=== PATIENT | male | born 1985 | race Caucasian/White ===

== ENCOUNTER 2017-01-28 11:12 | Inpatient (IN) | payer MEDICARE, OTHER ==
[~2017-01-28] VITALS: Ht 167.6 cm; Wt 113.4 kg
[~2017-01-28 11:12] MED LIST: CLARITIN10 M2 ORAL; PROSCAR5 MG ORAL; SPIRONOLACTONE100 MG ORAL; VIBRAMYCIN100 MG ORAL
--- NOTE | 2017-01-28 11:37 | Emergency Room Report ---
History of Present Illness General Chief Complaint: Skin Rash/Abscess Source: Patient, Medical Record Present Illness HPI Patient is a 31-year-old male who presented after increased discomfort to his inguinal area. Patient prior history of hidradenitis suppurativa. The patient was noted to have previous surgery on his axillary areas. Patient been seen by Dr. Menard. Patient had no recent food or water. Allergies: Coded Allergies: Pork (Unverified Allergy, Unknown, 11/18/14) PT DOES NOT EAT ANY PORK, PORK CONTAINING PRODUCTS Patient History Past Medical History: see triage record Reviewed Nursing Documentation: PMH: Agreed, PSxH: Agreed Nursing Documentation-PMH Past Medical History: No History, Except For Hx Cardiac Problems: No Hx Cancer: No Hx Gastrointestinal Problems: No Hx Neurological Problems: No Review of Systems All Other Systems: negative except mentioned in HPI Physical Exam Vital Signs Date Time Temp Pulse Resp B/P Pulse Ox O2 Delivery O2 Flow Rate FiO2 01/28/17 11:22 98.1 83 14 129/79 100 Room Air Sp02 EP Interpretation: reviewed, normal General Appearance: normal inspection, well appearing, no apparent distress, alert, GCS 15 Head: atraumatic ENT: normal ENT inspection, hearing grossly normal, normal voice Neck: normal inspection, full range of motion, supple, no bony tend Respiratory: normal inspection, lungs clear, normal breath sounds, no respiratory distress, no retraction, no wheezing Cardiovascular #1: regular rate, rhythm, no edema Gastrointestinal: normal inspection, normal bowel sounds, non tender, soft, no guarding, no hernia Genitourinary: no CVA tenderness Musculoskeletal: normal inspection, back normal, normal range of motion Neurologic: normal inspection, alert, responsive, speech normal Psychiatric: normal inspection, judgement/insight normal, mood/affect normal Skin: rash - increased erythematous lesions to back of neck, nasal rhinophyma, inguinal erythema Medical Decision Making Diagnostic Impression: Primary Impression: Hidradenitis suppurativa ER Course Patient presented for a rash. Differential diagnosis included wasn't limited to cellulitis, abscess, hidradenitis suppurativa, and others.Because of complexity of patient's case laboratory testing and imaging studies were ordered. The patient was noted to have been nothing by mouth. The patient's case was discussed with Dr. Dove for inpatient management. Patient was given IV Ancef. Laboratory studies are unremarkable. EKG was unremarkable. Labs Test 01/28/17 12:00 White Blood Count 9.0 K/UL (4.8-10.8) Red Blood Count 4.91 M/UL (4.70-6.10) Hemoglobin 12.8 G/DL (14.2-18.0) Hematocrit 39.9 % (42.0-52.0) Mean Corpuscular Volume 81 FL (80-99) Mean Corpuscular Hemoglobin 26.1 PG (27.0-31.0) Mean Corpuscular Hemoglobin Concent 32.1 G/DL (32.0-36.0) Red Cell Distribution Width 13.7 % (11.6-14.8) Platelet Count 265 K/UL (150-450) Mean Platelet Volume 8.9 FL (6.5-10.1) Neutrophils (%) (Auto) 73.0 % (45.0-75.0) Lymphocytes (%) (Auto) 18.3 % (20.0-45.0) Monocytes (%) (Auto) 7.3 % (1.0-10.0) Eosinophils (%) (Auto) 0.7 % (0.0-3.0) Basophils (%) (Auto) 0.7 % (0.0-2.0) Prothrombin Time 10.6 SEC (9.30-11.50) Prothromb Time International Ratio 1.0 (0.9-1.1) Activated Partial Thromboplast Time 29 SEC (23-33) EKG Diagnostic Results Rate: normal - 74 Rhythm: NSR ST Segments: no acute changes Last Vital Signs Date Time Temp Pulse Resp B/P Pulse Ox O2 Delivery O2 Flow Rate FiO2 01/28/17 11:22 98.1 83 14 129/79 100 Room Air Status: unchanged Disposition: ADMITTED INPATIENT Condition: Serious Nithin Lentz Jan 28, 2017 11:37
[2017-01-28 12:16] VITALS: BP 120/76
[2017-01-28 12:19] LABS: BASOPHILS % (AUTO) 0.7 % (0.0-2.0); EOSINOPHILS % (AUTO) 0.7 % (0.0-3.0); LYMPHOCYTES % (AUTO) 18.3 % (20.0-45.0); MEAN CORPUSCULAR HEMOGLOBIN 26.1 PG (27.0-31.0); MEAN CORPUSCULAR HGB CONC 32.1 G/DL (32.0-36.0); MEAN CORPUSCULAR VOLUME 81 FL (80-99); MEAN PLATELET VOLUME 8.9 FL (6.5-10.1); MONOCYTES % (AUTO) 7.3 % (1.0-10.0); PLATELET COUNT 265 K/UL (150-450); RED BLOOD COUNT 4.91 M/UL (4.70-6.10); RED CELL DISTRIBUTION WIDTH 13.7 % (11.6-14.8)
[2017-01-28 12:24] LABS: PROTHROMBIN TIME 10.6 SEC (9.30-11.50)
[2017-01-28 12:29] LABS: ALANINE AMINOTRANSFERASE 22 U/L (3-41); ALBUMIN/GLOBULIN RATIO 0.9 (1.0-2.7); ANION GAP 11 (5-15); ASPARTATE AMINO TRANSFERASE 18 U/L (5-40); CALCIUM 9.3 mg/dL (8.6-10.2); CARBON DIOXIDE 26 mEQ/L (20-30); CHLORIDE 101 mEQ/L (98-107); CREATININE 0.7 mg/dL (0.7-1.2); GLOMERULAR FILTRATION RATE > 60 mL/min (>60); HEMOLYSIS 4; POTASSIUM 4.5 mEQ/L (3.4-4.9); SODIUM 138 mEQ/L (135-145); TOTAL PROTEIN 8.1 g/dL (6.6-8.7)
[2017-01-28] MEDS ORDERED: ceFAZolin sod 1 GM in D5W 55 ML IVPB SCH ×2 (14:00→21:00)
--- NOTE | 2017-01-28 14:59 | History and Physical ---
History of Present Illness General Date patient seen: Jan 28, 2017 Time patient seen: 14:59 Reason for Hospitalization: Skin Rash/Abscess Present Illness HPI 31y/o male with pmh of hidradenitis suppurative s/p multiple surgeries in past, h/o DVT who presents with worsening groin abscesses. Pt has lesions in axilla and groin. He states lesions in b/l groins are the worst and painful. Notes increased pain, swelling, redness and increased drainage of serosanguineous fluid from lesions. He has difficulty exercising because of these lesions. At baseline pt exercises and able to ambulate several blocks and walk at least a flight of stairs. He has tolerated anesthesia well in past.Denies f/c, n/v, d/c , chest pain, SOB, abd pain. Pt states has a h/o blood clots after surgery and has completed treatment w/ blood thinner. Allergies: Coded Allergies: Pork (Unverified Allergy, Unknown, 11/18/14) PT DOES NOT EAT ANY PORK, PORK CONTAINING PRODUCTS Medication History Scheduled Finasteride* (Proscar*), 5 MG ORAL DAILY, (Reported) Loratadine (Claritin), 10 MG ORAL DAILY, (Reported) Spironolactone* (Spironolactone*), 100 MG ORAL DAILY, (Reported) Patient History Healthcare decision maker Resuscitation status Advanced Directive on File Family History Family History: FH: diabetes mellitus Social History Social History: (1) Lives with family Review of Systems Constitutional: Reports: no symptoms Eye: Reports: no symptoms ENT: Reports: no symptoms Respiratory: Reports: no symptoms Cardiovascular: Reports: no symptoms Gastrointestinal: Reports: no symptoms Genitourinary: Reports: no symptoms Musculoskeletal: Reports: no symptoms Skin: Reports: no symptoms Psychiatric: Reports: no symptoms Neurological: Reports: no symptoms Endocrine: Reports: no symptoms Hematologic/Lymphatic: Reports: no symptoms Physical Exam Physical Exam Narrative General: alert, cooperative, no distress, appears stated age Head: normocephalic, without obvious abnormality, atraumatic Eyes: conjunctivae/corneas clear. PERRL, EOM's intact Throat: lips, mucosa, and tongue normal. MMM Neck: supple, symmetrical, trachea midline, and no JVD Lungs: clear to auscultation bilaterally Heart: regular rate and rhythm, S1, S2 normal, no murmur, click, rub or gallop Abdomen: soft, non-tender, non-distended, bowel sounds normal; no masses or organomegaly Extremities: extremities normal, atraumatic, no cyanosis or edema Groin: +inguinal erythema/edema/TTP, +abscesses w/ serosanguinous drainage Pulses: 2+ and symmetric Skin: skin color, texture, turgor normal; no rashes or lesions Neurologic: grossly normal, no focal deficits Last 24 Hour Vital Signs Date Time Temp Pulse Resp B/P Pulse Ox O2 Delivery O2 Flow Rate FiO2 01/28/17 14:24 98.2 74 16 120/76 100 Room Air 01/28/17 12:16 98.2 74 16 120/76 100 Room Air 01/28/17 11:22 98.1 83 14 129/79 100 Room Air Laboratory Tests Test 01/28/17 12:00 White Blood Count 9.0 K/UL (4.8-10.8) Red Blood Count 4.91 M/UL (4.70-6.10) Hemoglobin 12.8 G/DL (14.2-18.0) L Hematocrit 39.9 % (42.0-52.0) L Mean Corpuscular Volume 81 FL (80-99) Mean Corpuscular Hemoglobin 26.1 PG (27.0-31.0) L Mean Corpuscular Hemoglobin Concent 32.1 G/DL (32.0-36.0) Red Cell Distribution Width 13.7 % (11.6-14.8) Platelet Count 265 K/UL (150-450) Mean Platelet Volume 8.9 FL (6.5-10.1) Neutrophils (%) (Auto) 73.0 % (45.0-75.0) Lymphocytes (%) (Auto) 18.3 % (20.0-45.0) L Monocytes (%) (Auto) 7.3 % (1.0-10.0) Eosinophils (%) (Auto) 0.7 % (0.0-3.0) Basophils (%) (Auto) 0.7 % (0.0-2.0) Prothrombin Time 10.6 SEC (9.30-11.50) Prothromb Time International Ratio 1.0 (0.9-1.1) Activated Partial Thromboplast Time 29 SEC (23-33) Sodium Level 138 mEQ/L (135-145) Potassium Level 4.5 mEQ/L (3.4-4.9) Chloride Level 101 mEQ/L (98-107) Carbon Dioxide Level 26 mEQ/L (20-30) Anion Gap 11 (5-15) Blood Urea Nitrogen 13 mg/dL (7-23) Creatinine 0.7 mg/dL (0.7-1.2) Estimat Glomerular Filtration Rate > 60 mL/min (>60) Glucose Level 93 mg/dL (74-106) Calcium Level 9.3 mg/dL (8.6-10.2) Total Bilirubin 0.4 mg/dL (0.0-1.2) Aspartate Amino Transf (AST/SGOT) 18 U/L (5-40) Alanine Aminotransferase (ALT/SGPT) 22 U/L (3-41) Alkaline Phosphatase 62 U/L (40-129) Total Protein 8.1 g/dL (6.6-8.7) Albumin 4.0 g/dL (3.5-5.2) Globulin 4.1 g/dL Albumin/Globulin Ratio 0.9 (1.0-2.7) L Height (Feet): 5 Height (Inches): 6.00 Weight (Pounds): 250 Medications Current Medications Medications (Trade) Dose Ordered Sig/Yeny Route PRN Reason Start Time Stop Time Status Last Admin Dose Admin Cefazolin Sodium/ Dextrose (Ancef/D5W) 55 ml @ 110 mls/hr Q8HR IVPB 01/28/17 14:00 01/29/17 13:59 01/28/17 12:39 Assessment/Plan Problem List: (1) Wound abscess ICD Codes: T81.4XXA - Wound abscess SNOMED: 300962576 (2) Hidradenitis suppurativa ICD Codes: L73.2 - Hidradenitis suppurativa SNOMED: 43737813 (3) h/o DVT Status: stable Assessment/Plan Admit inpt Plastic surgery consulted Check blood cultures x 2 Empiric IV ancef Wound care per surgery Pain control, supportive care, bowel regimen DVT ppx w/ SCDs If patient is required to have surgery, based on the patient's medical history, and other available ancillary data, the patient is a LOW risk for an INTERMEDIATE risk procedure. Per the most recent ACC/AHA guidelines, the patient does not need any further cardiopulmonary testing prior to the procedure and there do not appear to be any clear medical contraindications to proceeding with the proposed procedure. D/w pt, RN, surgery regarding mgmt and mamadouo Yi Desai M.D. Jan 28, 2017 14:59
[2017-01-28] MEDS ORDERED: Mylanta II UD 30ml ORAL PRN (15:00)
[2017-01-28] MEDS ORDERED: Zolpidem 5mg tab ORAL PRN (15:00)
[2017-01-28] MEDS ORDERED: LORazepam 1mg tab ORAL PRN (15:00)
[2017-01-28] MEDS ORDERED: Morphine Sulfate 4mg/ml Inj IVP PRN (15:00)
[2017-01-28] MEDS ORDERED: Miralax 17gm pkt ORAL PRN (15:00)
[2017-01-28] MEDS ORDERED: Morphine Sulfate 2mg/ml Inj IVP PRN (15:00)
[2017-01-28] MEDS ORDERED: Milk of Magnesia 30ml Ud ORAL PRN (15:00)
[2017-01-28] MEDS ORDERED: D5 1/2NS 1,000 ML IV SCH (15:30)
[2017-01-28] MEDS: D5 1/2NS 1,000 ML IV SCH (15:50)
[2017-01-28 20:12] VITALS: BP 129/75
[2017-01-28] MEDS: ceFAZolin sod 1 GM in D5W 55 ML IVPB SCH (20:30)
[2017-01-28] MEDS: Morphine Sulfate 2mg/ml Inj IVP PRN (20:36)
[2017-01-28] MEDS: Docusate 100mg cap ORAL SCH (20:40)
[2017-01-29] VITALS (12 sets, daily range): BP systolic 113–134; BP diastolic 66–86
[2017-01-29] MEDS: ceFAZolin sod 1 GM in D5W 55 ML IVPB SCH ×3 (04:50→20:42)
[2017-01-29] MEDS: Morphine Sulfate 2mg/ml Inj IVP PRN (04:57)
[2017-01-29] MEDS: D5 1/2NS 1,000 ML IV SCH ×2 (05:03→18:49)
[2017-01-29] MEDS: Docusate 100mg cap ORAL SCH ×2 (07:38→20:42)
[2017-01-29] MEDS: Spironolactone 50mg tab ORAL SCH (08:15)
[2017-01-29] MEDS ORDERED: D5 1/2NS 1000ml IV ONE (08:44)
[2017-01-29] MEDS ORDERED: Tubing IV Secondary IV ONE (08:44)
--- NOTE | 2017-01-29 09:27 | Diagnostic Imaging Report ---
Indication: Cough Technique: AP and lateral views of the chest. Findings: Comparison: None Curvilinear density right lung base. Left lung clear. Lungs normally, symmetrically inflated. The bones and extra pulmonary soft tissues, cardiomediastinal silhouette, pulmonary vasculature, and pleural surfaces are unremarkable. IMPRESSION: Subsegmental atelectasis versus scarring right lung base Otherwise negative AP and lateral chest radiographs
[2017-01-29] MEDS ORDERED: Propofol 200mg/20ml IV ONE (13:05)
--- NOTE | 2017-01-29 13:09 | Pre-Procedure Note/Attestation ---
Pre-Procedure Note/Attestation Complete Prior to Procedure Planned Procedure: bilateral Procedure Narrative: Debridement of bilateral groin and lower abdominal tissue with flap elevation Attestation I attest that I discussed the nature of the procedure; its benefits; risks and complications; and alternatives (and the risks and benefits of such alternatives ), prior to the procedure, with the patient (or the patient's legal sales and merchandising representative). I attest that, if there was a reasonable possibility of needing a blood transfusion, the patient (or the patient's legal sales and merchandising representative) was given the [facility] standardized written summary, pursuant to the [place] Blood Safety Act ([place] Health and Safety Code # 1645, as amended). I attest that I re-evaluated the patient just prior to the surgery and that there has been no change in the patient's H&P, except as documented below: GELY JONES Jan 29, 2017 13:09
[2017-01-29] MEDS ORDERED: Zolpidem 5mg tab ORAL PRN (13:15)
[2017-01-29] MEDS ORDERED: Rate Change PCA 1 Each MISC PRN (13:15)
[2017-01-29] MEDS ORDERED: NeoSporin Gu Irrig 1ml Amp IRRIG ONE (13:47)
[2017-01-29] MEDS ORDERED: Surgicel 4in x 8in TOPIC ONE ×2 (13:47→15:01)
[2017-01-29] MEDS ORDERED: Bacitracin 50000 Units Vial ONE (13:47)
[2017-01-29] MEDS ORDERED: Lidocaine 1% 10mg/ml/Epi 0.005mg/ml 30ml vial INJ ONE (13:47)
[2017-01-29] MEDS ORDERED: LR 1000ml ONE (14:00)
[2017-01-29] MEDS ORDERED: Midazolam 2mg/2ml Inj ONE (14:00)
[2017-01-29] MEDS ORDERED: ceFAZolin sod 1 GM in D5W 55 ML IVPB SCH (14:00)
[2017-01-29] MEDS ORDERED: Zemuron 50mg/5ml Inj IV ONE (14:00)
[2017-01-29] MEDS ORDERED: fentaNYL 100 mcg/2 mL IV ONE (14:00)
[2017-01-29] MEDS ORDERED: Succinylcholine 20mg/ml 10ml vial ONE (14:00)
[2017-01-29] MEDS ORDERED: fentaNYL 250mcg/5ml ONE (14:00)
[2017-01-29] MEDS ORDERED: Neostigmine 1mg/ml 10ml Inj ONE (14:00)
[2017-01-29] MEDS ORDERED: Ketorolac 30mg Inj ONE (14:00)
[2017-01-29] MEDS ORDERED: Sterile Water Irrig 1000ml IRRIG ONE (14:00)
[2017-01-29] MEDS ORDERED: Glycopyrrolate 0.2mg/ml 1ml Vial ONE (14:00)
[2017-01-29] MEDS ORDERED: NS Irrig 1000ml ONE (14:00)
--- NOTE | 2017-01-29 14:05 | General Progress Note ---
Assessment/Plan Problem List: (1) Wound abscess ICD Codes: T81.4XXA - Wound abscess SNOMED: 606400363 (2) Hidradenitis suppurativa ICD Codes: L73.2 - Hidradenitis suppurativa SNOMED: 90073247 (3) HTN (hypertension) ICD Codes: I10 - Essential (primary) hypertension SNOMED: 52064412 (4) h/o DVT Status: stable Assessment/Plan Plastic surgery consulted s/p debridement of bilateral thigh, groin and left lower abdomen with posterior thigh flap elevation Empiric IV ancef F/u blood cultures Wound care per surgery Pain control, supportive care, bowel regimen Cont home meds DVT ppx w/ SCDs D/w pt, RN, surgery regarding mgmt and dispo Subjective Date patient seen: Jan 29, 2017 Time patient seen: 14:04 ROS Limited/Unobtainable: No Constitutional: Reports: no symptoms HEENT: Reports: no symptoms Cardiovascular: Reports: no symptoms Respiratory: Reports: no symptoms Gastrointestinal/Abdominal: Reports: no symptoms Genitourinary: Reports: no symptoms Neurologic/Psychiatric: Reports: no symptoms Endocrine: Reports: no symptoms Hematologic/Lymphatic: Reports: no symptoms Allergies: Coded Allergies: Pork (Unverified Allergy, Unknown, 11/18/14) PT DOES NOT EAT ANY PORK, PORK CONTAINING PRODUCTS All Systems: reviewed and negative except above Subjective s/p debridement of bilateral thigh, groin and left lower abdomen with posterior thigh flap elevation today Pain controlled. Denies f/c, n/v, d/c, chest pain, SOB Objective Last 24 Hour Vital Signs Date Time Temp Pulse Resp B/P (MAP) Pulse Ox O2 Delivery O2 Flow Rate FiO2 01/29/17 12:00 97.7 67 19 128/76 99 Room Air 01/29/17 08:00 98.2 77 20 117/76 99 Room Air 01/29/17 04:00 97.7 66 20 130/76 98 Room Air 01/29/17 00:00 98.0 70 19 122/81 98 Room Air 01/28/17 20:12 98.1 62 19 129/75 93 Room Air 01/28/17 14:24 98.2 74 16 120/76 100 Room Air Intake and Output 01/29/17 01/30/17 19:00 07:00 Intake Total 150 ml Balance 150 ml IV Total 150 ml # Voids 1 Height (Feet): 5 Height (Inches): 6.00 Weight (Pounds): 250 Objective General: alert, cooperative, no distress, appears stated age Head: normocephalic, without obvious abnormality, atraumatic Eyes: conjunctivae/corneas clear. PERRL, EOM's intact Throat: lips, mucosa, and tongue normal. MMM Neck: supple, symmetrical, trachea midline, and no JVD Lungs: clear to auscultation bilaterally Heart: regular rate and rhythm, S1, S2 normal, no murmur, click, rub or gallop Abdomen: soft, non-tender, non-distended, bowel sounds normal; no masses or organomegaly Extremities: extremities normal, atraumatic, no cyanosis or edema Dressing c/d/i Pulses: 2+ and symmetric Skin: skin color, texture, turgor normal; no rashes or lesions Neurologic: grossly normal, no focal deficits Yi Desai M.D. Jan 29, 2017 14:05
[2017-01-29] MEDS ORDERED: LR 1000ml 1,000 ML IVLG SCH (15:04)
--- NOTE | 2017-01-29 15:04 | Anethesia Preoperative Eval ---
Anesthesia Pre-op PMH/ROS General Date of Evaluation: Jan 29, 2017 Time of Evaluation: 13:54 Anesthesiologist: Leif ASA Score: ASA 2 Mallampati Score Class I : Soft palate, uvula, fauces, pillars visible Class II: Soft palate, uvula, fauces visible Class III: Soft palate, base of uvula visible Class IV: Only hard plate visible Mallampati Classification: Class II Surgeon: Derian Diagnosis: Recurrent HS Surgical Procedure: Excision of bilateral groin hydradenitis Anesthesia History: none Family History: no anesthesia problems Allergies: Coded Allergies: Pork (Unverified Allergy, Unknown, 11/18/14) PT DOES NOT EAT ANY PORK, PORK CONTAINING PRODUCTS Medications: see eMAR Past Medical History Cardiovascular: Denies: HTN, CAD, [place], valve dz, arrhythmia, other Pulmonary: Denies: asthma, COPD, NICOLLE, other Gastrointestinal/Genitourinary: Reports: GERD, Denies: CRI, ESRD, other Neurologic/Psychiatric: Reports: depression/anxiety, Denies: dementia, CVA, TIA, other Endocrine: Denies: DM, hypothyroidism, steroids, other HEENT: Denies: cataract (L), cataract (R), glaucoma, NULATO (L), NULATO (R), other Hematology/Immune: Reports: anemia - mild, Denies: DVT, bleeding disorder, other Musculoskeletal/Integumentary: Reports: other - recurrent HS, Denies: OA, RA, DJD, DDD, edema Other: obesity PMH Narrative: as above PSxH Narrative: mutiple Sx for HS treament Anesthesia Pre-op Phys. Exam Physician Exam Last Vital Signs Date Time Temp Pulse Resp B/P (MAP) Pulse Ox O2 Delivery O2 Flow Rate FiO2 01/29/17 12:00 97.7 67 19 128/76 99 Room Air Constitutional: NAD Neurologic: CN 2-12 intact Cardiovascular: RRR, no M/R/G Respiratory: CTA Gastrointestinal: other - obesity Airway Exam Mallampati Score: Class II MO: full Neck: flexible ROM: full Teeth: intact Dentures: no upper, no lower Anesthesia Pre-op A/P Labs see chart Studies Pre-op Studies: EKG - NSR Risk Assessment & Plan Assessment: ASA 2 Plan: GA with ETT Status Change Before Surgery: No Pre-Antibiotics Drug: Ancef 2 gr. Given Within 1 Hr of Incision: Yes Time Given: 14:42 RYANNE ESPAÑA M.D. Jan 29, 2017 15:04
[2017-01-29] MEDS ORDERED: Hydromorphone 0.5mg/0.5ml inj IVP PRN (15:15)
[2017-01-29] MEDS ORDERED: DiphenhydrAMINE 50mg/ml Inj IVP PRN (15:15)
[2017-01-29] MEDS ORDERED: Ketorolac 30mg Inj IV PRN (15:15)
[2017-01-29] MEDS ORDERED: Meperidine 25mg/0.5ml Inj (FOR RIGORS ONLY) IV PRN (15:15)
[2017-01-29] MEDS ORDERED: Midazolam 2mg/2ml Inj IVP PRN (15:15)
[2017-01-29] MEDS ORDERED: Metoclopramide 10mg/2ml Inj IVP PRN (15:15)
--- NOTE | 2017-01-29 15:28 | Cardiology Report ---
APPROVED REPORT EKG Measurement Heart [id number] [place] 160P54 [id number] LEp230 Normal sinus rhythm Normal ECG
--- NOTE | 2017-01-29 16:26 | Operative Note - PDOC ---
Operative Note Operative Note Pre-op Diagnosis: Bilateral groin and lower abdominal HS Procedure: Debridement of bilateral thigh, groin and left lower abdomen with posterior thigh flap elevation Surgeon: Derian Anesthesia Attending: Catherine Anesthesia: general Specimen: yes Complications: none Condition: stable Estimated Blood Loss: volume - 50 Implant(s) used?: No GELY JONES Jan 29, 2017 16:26
--- NOTE | 2017-01-29 16:54 | Immediate Post-Op Evaluation ---
Immediate Post-Op Evalulation Immediate Post-Op Evalulation Procedure: Excision of bilateral groin hydradenitis Date of Evaluation: Jan 29, 2017 Time of Evaluation: 16:51 IV Fluids: 1500 Blood Products: n0ne Estimated Blood Loss: 250 Urinary Output: 300 Blood Pressure Systolic: 124 Blood Pressure Diastolic: 76 Pulse Rate: 77 Respiratory Rate: 22 O2 Sat by Pulse Oximetry: 99 Temperature (Fahrenheit): 97.8 Pain Score (1-10): 2 Nausea: No Vomiting: No Complications none Patient Status: reacts, patent, extubated, none Hydration Status: adequate RYANNE ESPAÑA M.D. Jan 29, 2017 16:54
[2017-01-29] MEDS: PCA HYDROmorphone 1mg/ml 30 ML IV PRN (17:11)
[2017-01-29] MEDS: PCA shift volume MISC SCH (19:00)
[2017-01-29] MEDS: Heparin 5000 units/ml inj SUBQ SCH (20:43)
[2017-01-29] MEDS ORDERED: PCA Education Pamphlet MISC ONE (21:00)
[2017-01-30] VITALS: BP 111/70
[2017-01-30 04:00] VITALS: BP 97/55
[2017-01-30] MEDS: ceFAZolin sod 1 GM in D5W 55 ML IVPB SCH ×3 (04:33→21:23)
--- NOTE | 2017-01-30 06:15 | Operative Note - Dictated ---
DATE OF OPERATION: 01/29/2017 PREOPERATIVE DIAGNOSES: 1. Left lower abdominal hidradenitis. 2. Bilateral thigh and groin hidradenitis. POSTOPERATIVE DIAGNOSES: 1. Left lower abdominal hidradenitis. 2. Bilateral thigh and groin hidradenitis. PROCEDURES: 1. Debridement of left lower abdominal tissue. 2. Debridement of bilateral thigh and groin tissue. 3. Elevation of a right posterior thigh flap for staged closure of right groin and thigh wound. 4. Elevation of a left posterior thigh flap for staged closure of left groin wound. SURGEON: Felicity Menard M.D. CORPORATE LAWYER: Donovan Alexander M.D. ANESTHESIA: General. COMPLICATIONS: None. ESTIMATED BLOOD LOSS: 50 mL. DRAINS: None. DISPOSITION: Stable to the recovery room. INDICATIONS FOR SURGERY: This is a 31-year-old male with a longstanding history of hidradenitis, who has previously undergone successful excision and reconstruction of the posterior thigh tissue outside of the lower back tissue, who now presents with stage III advanced hidradenitis of his left lower abdomen, bilateral thigh and groin areas. He was consented to undergo debridement with flap reconstruction in a staged fashion. He understands the risks and benefits of surgery and the fact that it would be staged and agrees to proceed. DETAILS OF THE OPERATION: The patient was brought to the operating room and laid in lithotomy position on the operating room table. His lower abdomen and bilateral upper thighs and groin regions were prepped and draped in a sterile and usual fashion. The three areas, both thighs and lower abdomen were marked with a marking pen as far as what need to be removed and then we first began by using a #10 blade to excise the left lower abdominal tissue. This was done using the #10 blade to make a skin incision and the electrocautery was then used to dissect the tissue all the way down to the level of the Mary Jane's fascia in the left lower abdomen. The wound that resulted measured 10 x 5 cm. This was not amenable to primary closure. As such, a superior flap had to be elevated to allow for staged closure of the flap. Once this was done, the wound was then packed and we turned our attention to the bilateral thighs tissues that were infected. We first began on the left groin where we used a #10 blade to make our incision around the preoperative markings that were made. This resulted in a defect following the use of the electrocautery to remove the tissue down to the level of the adductor fascia, and a defect that measured approximately 25 x 15 centimeters, and in a similar fashion the contralateral right thigh wound was created by excision of the infected masses followed by electrocautery and resulting in a defect that measured 30 x 15 centimeters. Both wounds were not amenable to primary closure. As such, it was decided that the posterior thigh flaps had to be elevated based off of the pudendal artery and in the inferior gluteal artery. These were marked accordingly and a pivot point was at the very posterior aspect of the buttocks and it was noted that based on the markings that we would be able to achieve adequate closure of the groin wounds. We then first began on making the right posterior thigh flap incision using a #10 blade. The flap was fully mobilized and inset in to the defect as long as that could be closed without tension. In a similar fashion, the left posterior thigh flap was elevated by making the incision and insetting the flap into the left groin defects and it was noted that the wound could be closed without any tension. However, given the fact this was an infected case, the flaps were not to be inset definitively today and so they were set back into the donor sites and placed in situ and the wounds were copiously irrigated with pulse lavage and packed. The plan will be to bring the patient back to the operating room after 48 hours with the patient being on IV antibiotics and allowing the flaps to declare themself with any area that might be ischemic, could be debrided prior to definitive inset within 48 hours. The patient tolerated the procedure well. No complications. Felicity Menard M.D. DR: LEYDI JOB#: [id number] CC: JESSY
[2017-01-30] MEDS: D5 1/2NS 1,000 ML IV SCH (06:54)
[2017-01-30] MEDS: PCA shift volume MISC SCH ×2 (07:22→19:22)
--- NOTE | 2017-01-30 07:58 | General Progress Note ---
Progress Note Progress Note Pt seen and examined. POD # 1 and stable. Dressings intact. Pain controlled. To OR tomorrow for definitive wound closure. GELY Laguna MD Jan 30, 2017 07:58
[2017-01-30] MEDS ORDERED: Lidocaine 1% 10mg/ml/Epi 0.005mg/ml 30ml vial INJ ONE (08:16)
[2017-01-30] MEDS ORDERED: Surgicel 4in x 8in TOPIC ONE (08:16)
[2017-01-30] MEDS ORDERED: Bacitracin 50000 Units Vial ONE (08:16)
[2017-01-30] MEDS: Docusate 100mg cap ORAL SCH ×2 (08:25→21:23)
[2017-01-30] MEDS: Spironolactone 50mg tab ORAL SCH (08:25)
[2017-01-30] MEDS: Heparin 5000 units/ml inj SUBQ SCH ×2 (08:26→21:31)
[2017-01-30 08:27] VITALS: BP 109/67
[2017-01-30 09:26] LABS: BASOPHILS % (AUTO) 0.4 % (0.0-2.0); EOSINOPHILS % (AUTO) 0.1 % (0.0-3.0); LYMPHOCYTES % (AUTO) 7.9 % (20.0-45.0); MEAN CORPUSCULAR HEMOGLOBIN 26.5 PG (27.0-31.0); MEAN CORPUSCULAR HGB CONC 32.4 G/DL (32.0-36.0); MEAN CORPUSCULAR VOLUME 82 FL (80-99); NEUTROPHILS % (AUTO) 83.7 % (45.0-75.0); PLATELET COUNT 285 K/UL (150-450); RED BLOOD COUNT 4.05 M/UL (4.70-6.10); RED CELL DISTRIBUTION WIDTH 13.4 % (11.6-14.8); WHITE BLOOD COUNT 16.3 K/UL (4.8-10.8)
[2017-01-30 09:48] LABS: ANION GAP 11 (5-15); CALCIUM 8.7 mg/dL (8.6-10.2); CARBON DIOXIDE 25 mEQ/L (20-30); CHLORIDE 97 mEQ/L (98-107); CREATININE 0.6 mg/dL (0.7-1.2); GLOMERULAR FILTRATION RATE > 60 mL/min (>60); HEMOLYSIS 0; MAGNESIUM 1.5 mg/dL (1.7-2.5); POTASSIUM 4.5 mEQ/L (3.4-4.9); SODIUM 133 mEQ/L (135-145)
[2017-01-30 11:52] VITALS: BP 107/70
--- NOTE | 2017-01-30 11:58 | 48 Hour Post Anesthesia Eval ---
Post Anesthesia Evaluation Procedure: Excision of bilateral groin hydradenitis Date of Evaluation: Jan 30, 2017 Time of Evaluation: 11:56 Blood Pressure Systolic: 108 0: 62 Pulse Rate: 74 Respiratory Rate: 22 Temperature (Fahrenheit): 97.6 O2 Sat by Pulse Oximetry: 99 Airway: patent Nausea: No Vomiting: No Pain Intensity: 4 Hydration Status: adequate Cardiopulmonary Status: stable Mental Status/LOC: patient returned to baseline Follow-up Care/Observations: n/a Post-Anesthesia Complications: none Follow-up care needed: N/A RYANNE ESPAÑA M.D. Jan 30, 2017 11:58
--- NOTE | 2017-01-30 13:39 | Diagnostic Imaging Report ---
APPROVED REPORT CPT Code: 95890 Present Symptoms Lower Extremity Pain: Right Comments: Hx hidradenitis suppurativa. Pre-surgical assessment. Hx right calf DVT. BILATERAL: Imaging reveals a patent deep venous system bilaterally. There is no evidence of thrombus within the femoral, popliteal or tibial segments. The greater saphenous veins are also within normal limits. Doppler indicates normal spontaneous flow within these segments.
--- NOTE | 2017-01-30 14:51 | General Progress Note ---
Assessment/Plan Problem List: (1) Wound abscess ICD Codes: T81.4XXA - Wound abscess SNOMED: 368664469 (2) Hidradenitis suppurativa ICD Codes: L73.2 - Hidradenitis suppurativa SNOMED: 91839891 (3) HTN (hypertension) ICD Codes: I10 - Essential (primary) hypertension SNOMED: 98319806 (4) h/o DVT Status: stable Assessment/Plan Plastic surgery consulted s/p debridement of bilateral thigh, groin and left lower abdomen with posterior thigh flap elevation on 01/29/17 Plan for OR tomorrow for definitive wound closure Empiric IV ancef F/u blood cultures Wound care per surgery Pain control, supportive care, bowel regimen Cont home meds DVT ppx w/ SCDs, HSQ Outpt derm f/u FULL CODE D/w pt, RN, surgery regarding mgmt and dispo Subjective Date patient seen: Jan 30, 2017 Time patient seen: 14:51 ROS Limited/Unobtainable: No Constitutional: Reports: no symptoms HEENT: Reports: no symptoms Cardiovascular: Reports: no symptoms Respiratory: Reports: no symptoms Gastrointestinal/Abdominal: Reports: no symptoms Genitourinary: Reports: no symptoms Neurologic/Psychiatric: Reports: no symptoms Endocrine: Reports: no symptoms Hematologic/Lymphatic: Reports: no symptoms Allergies: Coded Allergies: Pork (Unverified Allergy, Unknown, 11/18/14) PT DOES NOT EAT ANY PORK, PORK CONTAINING PRODUCTS Subjective s/p debridement of bilateral thigh, groin and left lower abdomen with posterior thigh flap elevation yesterday Pain controlled. Denies f/c, n/v, d/c, chest pain, SOB Objective Last 24 Hour Vital Signs Date Time Temp Pulse Resp B/P (MAP) Pulse Ox O2 Delivery O2 Flow Rate FiO2 01/30/17 12:00 18 01/30/17 11:58 74 22 99 01/30/17 11:52 97.6 115 21 107/70 98 Room Air 01/30/17 08:27 97.8 100 20 109/67 99 Room Air 01/30/17 08:00 18 01/30/17 04:00 16 01/30/17 04:00 99.0 97 16 97/55 99 Nasal Cannula 2.0 01/30/17 00:00 16 01/30/17 00:00 98.6 80 16 111/70 98 Room Air 01/29/17 20:35 99 Nasal Cannula 2.0 28 01/29/17 20:35 Nasal Cannula 2.0 28 01/29/17 20:00 97.7 62 16 113/66 100 Room Air 01/29/17 20:00 16 01/29/17 19:30 16 01/29/17 18:00 98.0 60 17 116/75 100 Nasal Cannula 3.0 01/29/17 17:53 13 01/29/17 17:45 63 12 120/76 100 Nasal Cannula 3.0 01/29/17 17:41 97.5 01/29/17 17:40 13 01/29/17 17:37 97.6 01/29/17 17:30 63 15 128/78 100 Nasal Cannula 3.0 01/29/17 17:25 19 01/29/17 17:15 70 18 124/77 100 Simple Mask 6.0 01/29/17 17:11 19 01/29/17 17:00 61 17 130/86 100 Simple Mask 6.0 01/29/17 16:54 77 22 99 01/29/17 16:50 79 20 134/82 100 Simple Mask 6.0 01/29/17 16:42 97.8 70 20 121/76 100 Simple Mask 6.0 Laboratory Tests 01/30/17 09:05: White Blood Count 16.3H, Red Blood Count 4.05L, Hemoglobin 10.7L, Hematocrit 33.1L, Mean Corpuscular Volume 82, Mean Corpuscular Hemoglobin 26.5L, Mean Corpuscular Hemoglobin Concent 32.4, Red Cell Distribution Width 13.4, Platelet Count 285, Mean Platelet Volume 8.0, Neutrophils (%) (Auto) 83.7H, Lymphocytes ( %) (Auto) 7.9L, Monocytes (%) (Auto) 8.0, Eosinophils (%) (Auto) 0.1, Basophils (%) (Auto) 0.4, Sodium Level 133L, Potassium Level 4.5, Chloride Level 97L, Carbon Dioxide Level 25, Anion Gap 11, Blood Urea Nitrogen 11, Creatinine 0.6L, Estimat Glomerular Filtration Rate > 60, Glucose Level 151H, Calcium Level 8.7, Magnesium Level 1.5L Height (Feet): 5 Height (Inches): 6.00 Weight (Pounds): 250 Objective General: alert, cooperative, no distress, appears stated age Head: normocephalic, without obvious abnormality, atraumatic Eyes: conjunctivae/corneas clear. PERRL, EOM's intact Throat: lips, mucosa, and tongue normal. MMM Neck: supple, symmetrical, trachea midline, and no JVD Lungs: clear to auscultation bilaterally Heart: regular rate and rhythm, S1, S2 normal, no murmur, click, rub or gallop Abdomen: soft, non-tender, non-distended, bowel sounds normal; no masses or organomegaly Extremities: extremities normal, atraumatic, no cyanosis or edema Dressing c/d/i Pulses: 2+ and symmetric Skin: skin color, texture, turgor normal; no rashes or lesions Neurologic: grossly normal, no focal deficits Yi Desai M.D. Jan 30, 2017 14:51
[2017-01-30 16:12] VITALS: BP 117/69
[2017-01-30] MEDS: PCA HYDROmorphone 1mg/ml 30 ML IV PRN (17:41)
[2017-01-30 20:22] VITALS: BP 133/87
[2017-01-31] VITALS (15 sets, daily range): BP systolic 110–133; BP diastolic 66–84
[2017-01-31] MEDS: ceFAZolin sod 1 GM in D5W 55 ML IVPB SCH ×2 (05:04→21:18)
[2017-01-31 06:10] LABS: BASOPHILS % (AUTO) 0.5 % (0.0-2.0); EOSINOPHILS % (AUTO) 0.3 % (0.0-3.0); LYMPHOCYTES % (AUTO) 15.4 % (20.0-45.0); MEAN CORPUSCULAR HEMOGLOBIN 26.7 PG (27.0-31.0); MEAN CORPUSCULAR HGB CONC 32.7 G/DL (32.0-36.0); MEAN CORPUSCULAR VOLUME 82 FL (80-99); MEAN PLATELET VOLUME 9.2 FL (6.5-10.1); MONOCYTES % (AUTO) 12.9 % (1.0-10.0); NEUTROPHILS % (AUTO) 70.9 % (45.0-75.0); PLATELET COUNT 223 K/UL (150-450); RED BLOOD COUNT 3.65 M/UL (4.70-6.10); RED CELL DISTRIBUTION WIDTH 13.6 % (11.6-14.8); WHITE BLOOD COUNT 10.8 K/UL (4.8-10.8)
[2017-01-31 06:38] LABS: ANION GAP 8 (5-15); CALCIUM 8.4 mg/dL (8.6-10.2); CARBON DIOXIDE 29 mEQ/L (20-30); CHLORIDE 99 mEQ/L (98-107); CREATININE 0.7 mg/dL (0.7-1.2); GLOMERULAR FILTRATION RATE > 60 mL/min (>60); HEMOLYSIS 2; POTASSIUM 4.3 mEQ/L (3.4-4.9); SODIUM 136 mEQ/L (135-145)
[2017-01-31] MEDS: PCA shift volume MISC SCH ×2 (07:09→19:00)
[2017-01-31] MEDS ORDERED: Bacitracin 50000 Units Vial ONE ×3 (07:12→14:24)
[2017-01-31] MEDS ORDERED: Lidocaine 1% 10mg/ml/Epi 0.005mg/ml 30ml vial INJ ONE (07:12)
[2017-01-31] MEDS ORDERED: NeoSporin Gu Irrig 1ml Amp IRRIG ONE ×3 (07:12→14:24)
[2017-01-31] MEDS ORDERED: Surgicel 4in x 8in TOPIC ONE ×4 (07:12→14:21)
[2017-01-31] MEDS: Docusate 100mg cap ORAL SCH ×2 (07:54→21:00)
[2017-01-31] MEDS: Spironolactone 50mg tab ORAL SCH (07:54)
[2017-01-31] MEDS: Heparin 5000 units/ml inj SUBQ SCH ×2 (07:54→21:20)
[2017-01-31] MEDS ORDERED: Muri-Lube NG ONE (08:50)
[2017-01-31] MEDS ORDERED: NS Irrig 1000ml ONE (09:00)
[2017-01-31] MEDS ORDERED: Ketamine 500mg Inj ONE (09:00)
[2017-01-31] MEDS ORDERED: Succinylcholine 20mg/ml 10ml vial ONE (09:00)
[2017-01-31] MEDS ORDERED: Sterile Water Irrig 1000ml IRRIG ONE (09:00)
[2017-01-31] MEDS ORDERED: Ketorolac 30mg Inj ONE (09:00)
[2017-01-31] MEDS ORDERED: Zemuron 50mg/5ml Inj IV ONE (09:00)
[2017-01-31] MEDS ORDERED: Neostigmine 1mg/ml 10ml Inj ONE (09:00)
[2017-01-31] MEDS ORDERED: fentaNYL 250mcg/5ml ONE (09:00)
[2017-01-31] MEDS ORDERED: LR 1000ml ONE (09:00)
[2017-01-31] MEDS ORDERED: Midazolam 2mg/2ml Inj ONE (09:00)
[2017-01-31] MEDS ORDERED: Glycopyrrolate 0.2mg/ml 1ml Vial ONE (09:00)
[2017-01-31] MEDS ORDERED: Propofol 200mg/20ml IV ONE (09:00)
--- NOTE | 2017-01-31 09:34 | Pre-Procedure Note/Attestation ---
Pre-Procedure Note/Attestation Complete Prior to Procedure Planned Procedure: bilateral Procedure Narrative: Closure of bilateral thigh wounds and closure of left lower abdominal wound Indications for Procedure Pre-Operative Diagnosis: Bilateral groin and lower abdominal HS Attestation I attest that I discussed the nature of the procedure; its benefits; risks and complications; and alternatives (and the risks and benefits of such alternatives ), prior to the procedure, with the patient (or the patient's legal business services sales representative). I attest that, if there was a reasonable possibility of needing a blood transfusion, the patient (or the patient's legal business services sales representative) was given the [facility] standardized written summary, pursuant to the [employer] Blood Safety Act ([place] Health and Safety Code # 1645, as amended). I attest that I re-evaluated the patient just prior to the surgery and that there has been no change in the patient's H&P, except as documented below: GELY JONES Jan 31, 2017 09:34
[2017-01-31] MEDS ORDERED: LR 1000ml 1,000 ML IVLG SCH (10:54)
[2017-01-31] MEDS ORDERED: Rate Change PCA 1 Each MISC PRN ×2 (11:00→14:15)
[2017-01-31] MEDS ORDERED: Meperidine 25mg/0.5ml Inj (FOR RIGORS ONLY) IV PRN (11:00)
[2017-01-31] MEDS ORDERED: Metoclopramide 10mg/2ml Inj IVP PRN (11:00)
[2017-01-31] MEDS ORDERED: Ketorolac 30mg Inj IV ONE (11:00)
[2017-01-31] MEDS ORDERED: Midazolam 2mg/2ml Inj IVP PRN (11:00)
[2017-01-31] MEDS ORDERED: DiphenhydrAMINE 50mg/ml Inj IVP PRN ×2 (11:00→13:00)
[2017-01-31] MEDS: PCA Education Pamphlet MISC SCH (11:00)
[2017-01-31] MEDS ORDERED: Muri-Lube ONE (11:32)
[2017-01-31] MEDS ORDERED: LORazepam 1mg tab ORAL PRN (13:00)
[2017-01-31] MEDS ORDERED: Naloxone 0.4mg/ml Inj IVP PRN (13:00)
--- NOTE | 2017-01-31 13:19 | General Progress Note ---
Assessment/Plan Problem List: (1) Wound abscess ICD Codes: T81.4XXA - Wound abscess SNOMED: 813176885 (2) Hidradenitis suppurativa ICD Codes: L73.2 - Hidradenitis suppurativa SNOMED: 19884528 (3) Leukocytosis ICD Codes: D72.829 - Elevated white blood cell count, unspecified SNOMED: 711095406, 332427120 (4) HTN (hypertension) ICD Codes: I10 - Essential (primary) hypertension SNOMED: 92834437 (5) h/o DVT Status: stable Assessment/Plan Plastic surgery consulted s/p debridement of bilateral thigh, groin and left lower abdomen with posterior thigh flap elevation on 01/29/17 Plan for OR today for definitive wound closure Empiric IV ancef ctm CBC F/u blood cultures Wound care per surgery Pain control, supportive care, bowel regimen Cont home meds DVT ppx w/ SCDs, HSQ Outpt derm f/u FULL CODE D/w pt, RN, surgery regarding mgmt and dispo Subjective Date patient seen: Jan 31, 2017 Time patient seen: 13:18 ROS Limited/Unobtainable: No Constitutional: Reports: no symptoms HEENT: Reports: no symptoms Cardiovascular: Reports: no symptoms Respiratory: Reports: no symptoms Gastrointestinal/Abdominal: Reports: no symptoms Neurologic/Psychiatric: Reports: no symptoms Endocrine: Reports: no symptoms Hematologic/Lymphatic: Reports: no symptoms Allergies: Coded Allergies: Pork (Unverified Allergy, Unknown, 11/18/14) PT DOES NOT EAT ANY PORK, PORK CONTAINING PRODUCTS All Systems: reviewed and negative except above Subjective POD#2 NPO for OR today Pain controlled. Denies f/c, n/v, d/c, chest pain, SOB Objective Last 24 Hour Vital Signs Date Time Temp Pulse Resp B/P (MAP) Pulse Ox O2 Delivery O2 Flow Rate FiO2 01/31/17 08:00 98.4 107 18 114/69 98 Room Air 01/31/17 07:53 18 01/31/17 04:00 18 01/31/17 04:00 97.5 100 18 128/72 99 Room Air 01/31/17 00:20 97.2 105 18 124/80 100 Room Air 01/31/17 00:00 18 01/30/17 20:22 99.9 114 19 133/87 97 Room Air 01/30/17 20:00 18 01/30/17 16:22 Room Air 01/30/17 16:21 98 Room Air 21 01/30/17 16:12 98.6 88 20 117/69 97 Room Air 01/30/17 16:00 18 Intake and Output 01/31/17 02/01/17 19:00 07:00 Intake Total 150 ml Balance 150 ml IV Total 150 ml Laboratory Tests 01/31/17 04:50: White Blood Count 10.8, Red Blood Count 3.65L, Hemoglobin 9.7L, Hematocrit 29.8L , Mean Corpuscular Volume 82, Mean Corpuscular Hemoglobin 26.7L, Mean Corpuscular Hemoglobin Concent 32.7, Red Cell Distribution Width 13.6, Platelet Count 223, Mean Platelet Volume 9.2, Neutrophils (%) (Auto) 70.9, Lymphocytes (% ) (Auto) 15.4L, Monocytes (%) (Auto) 12.9H, Eosinophils (%) (Auto) 0.3, Basophils (%) (Auto) 0.5, Sodium Level 136, Potassium Level 4.3, Chloride Level 99, Carbon Dioxide Level 29, Anion Gap 8, Blood Urea Nitrogen 8, Creatinine 0.7 , Estimat Glomerular Filtration Rate > 60, Glucose Level 112H, Calcium Level 8.4L, Magnesium Level 2.0 Height (Feet): 5 Height (Inches): 6.00 Weight (Pounds): 250 Objective General: alert, cooperative, no distress, appears stated age Head: normocephalic, without obvious abnormality, atraumatic Eyes: conjunctivae/corneas clear. PERRL, EOM's intact Throat: lips, mucosa, and tongue normal. MMM Neck: supple, symmetrical, trachea midline, and no JVD Lungs: clear to auscultation bilaterally Heart: regular rate and rhythm, S1, S2 normal, no murmur, click, rub or gallop Abdomen: soft, non-tender, non-distended, bowel sounds normal; no masses or organomegaly Extremities: extremities normal, atraumatic, no cyanosis or edema Dressing c/d/i Pulses: 2+ and symmetric Skin: skin color, texture, turgor normal; no rashes or lesions Neurologic: grossly normal, no focal deficits Yi Desai M.D. Jan 31, 2017 13:19
--- NOTE | 2017-01-31 14:01 | Operative Note - PDOC ---
Operative Note Operative Note Pre-op Diagnosis: Bilateral groin and lower abdominal HS Procedure: Flap closure of abdominal and thigh wounds Surgeon: Derian Signal Integrity Engineer: Catherine Anesthesia: general Specimen: yes Complications: none Condition: stable Estimated Blood Loss: volume - 50 Drains: ANGE Implant(s) used?: No GELY JONES Jan 31, 2017 14:01
[2017-01-31] MEDS ORDERED: Zolpidem 5mg tab ORAL PRN (14:15)
[2017-01-31] MEDS ORDERED: PCA Education Pamphlet MISC ONE (14:15)
[2017-01-31] MEDS ORDERED: PCA HYDROmorphone 1mg/ml 30 ML IV PRN (14:15)
[2017-01-31] MEDS: Hydromorphone 0.5mg/0.5ml inj IVP PRN ×4 (14:41→15:12)
[2017-01-31] MEDS: PCA HYDROmorphone 1mg/ml 30 ML IV PRN (14:54)
--- NOTE | 2017-01-31 15:49 | Immediate Post-Op Evaluation ---
Immediate Post-Op Evalulation Immediate Post-Op Evalulation Procedure: revision and closure of bilateral groin wounds Date of Evaluation: Jan 31, 2017 Time of Evaluation: 14:15 IV Fluids: 2000 Blood Products: none Estimated Blood Loss: 150 Urinary Output: 250 Blood Pressure Systolic: 116 Blood Pressure Diastolic: 54 Pulse Rate: 72 Respiratory Rate: 22 O2 Sat by Pulse Oximetry: 99 Temperature (Fahrenheit): 98.4 Pain Score (1-10): 2 Nausea: No Vomiting: No Complications none Patient Status: reacts, patent, extubated, none Hydration Status: adequate RYANNE ESPAÑA M.D. Jan 31, 2017 15:49
[2017-01-31] MEDS ORDERED: PCA shift volume MISC SCH (19:00)
--- NOTE | 2017-01-31 21:00 | Operative Note - Dictated ---
DATE OF OPERATION: 01/31/2017 PREOPERATIVE DIAGNOSES: 1. Open left lower abdominal wound. 2. Bilateral open groin wounds. POSTOPERATIVE DIAGNOSES: 1. Open left lower abdominal wound. 2. Bilateral open groin wounds. PROCEDURES: 1. Preparation of left lower abdominal wound for flap closure. 2. Flap advancement closure of left lower abdominal wound. 3. A split-thickness skin graft closure of portion of left lower abdominal wound. 4. Posterior thigh flap advancement closure of left groin wound. 5. Posterior thigh flap readvancement closure of right groin wound. SURGEON: Felicity Menard M.D. INDUSTRIAL RADIOGRAPHER: Donovan Alexander M.D. ANESTHESIA: General. COMPLICATIONS: None. DRAINS: Included 5 ANGE. DISPOSITION: Stable to the recovery room. INDICATIONS FOR SURGERY: This is a 31-year-old male, who is status post radical excision of bilateral groin and lower abdominal hidradenitis tissue, who underwent this procedure 48 hours ago and is not ready to undergo definitive flap inset for closure of all the wounds. He understands the risks and benefits of surgery and agrees to proceed. DETAILS OF THE OPERATION: The patient was brought to the operating room and laid in the lithotomy position on the operating room table. His bilateral thighs and lower abdomen were prepped and draped in a sterile and usual fashion. We first began by opening of all the wounds and irrigating with pulse lavage and we then achieved hemostasis. Once this was done, we then proceeded to examine the previously raised posterior thigh flaps. The one on the right looked completely healthy and the one on the left had distal tip region with some ischemia. So these regions were debrided down to healthy bleeding. Once this was done, we then proceeded to again examine for hemostasis and there was no evidence of bleeding. Once this was done, we then proceeded to prepare all the wounds by debriding the nonviable tissue for definitive flap inset. The flap was first inset from the posterior thigh in to the right groin wound by transposing it and rotating it along its pivot point posteriorly and the flap was then inset into the groin wound and the donor site was then closed by raising flaps on both sides of the posterior thigh. The posterior thigh donor site was closed with #0 and 2-0 Vicryl sutures and the flap was inset into the right groin wound using #0 and 2-0 Vicryl sutures and a combination of #0 Prolene and chanda were used to close the donor site skin as well as insetting the skin of the flap. In a similar fashion, the contralateral left groin wound was addressed by transposing and rotating the posterior thigh flap into the groin defects. The donor site was closed by raising flaps and it was then closed with same sutures that was done on the other side and the flap was inset exactly in the same way as the contralateral flap was inset. We then turned our attention to the left lower abdominal wound. This wound could be closed by approximately 80% by advancing the superior abdominal flap to close the wound, however, there was the medial area of approximately 5 x 3 cm that was not amenable to flap advancement. As such, the skin that was debrided from the left posterior thigh flap was used as a full-thickness skin graft to cover the defect that remained. All the wounds were then covered with dressings, skin graft bolster dressing was also applied to the skin graft to the lower abdominal area. The patient tolerated the procedure well. There was no complications. Felicity Menard M.D. DR: LAURA JOB#: [id number] CC:
[2017-02-01] VITALS (7 sets, daily range): BP systolic 120–140; BP diastolic 63–86
[2017-02-01] MEDS: ceFAZolin sod 1 GM in D5W 55 ML IVPB SCH ×3 (05:02→21:27)
[2017-02-01] MEDS: PCA shift volume MISC SCH ×2 (07:00→19:00)
[2017-02-01] MEDS: Docusate 100mg cap ORAL SCH ×2 (09:05→20:34)
[2017-02-01] MEDS: Spironolactone 50mg tab ORAL SCH (09:05)
[2017-02-01] MEDS: Heparin 5000 units/ml inj SUBQ SCH ×2 (09:06→20:40)
--- NOTE | 2017-02-01 09:54 | 48 Hour Post Anesthesia Eval ---
Post Anesthesia Evaluation Procedure: revision and closure of bilateral groin wounds Date of Evaluation: Feb 01, 2017 Time of Evaluation: 07:09 Blood Pressure Systolic: 122 0: 77 Pulse Rate: 109 Respiratory Rate: 18 Temperature (Fahrenheit): 98.5 O2 Sat by Pulse Oximetry: 96 Airway: patent Nausea: No Vomiting: No Pain Intensity: 2 Hydration Status: adequate Cardiopulmonary Status: Stable Mental Status/LOC: patient returned to baseline Follow-up Care/Observations: 0 Post-Anesthesia Complications: 0 Follow-up care needed: N/A Ambrocio Quintero MD Feb 01, 2017 09:54
--- NOTE | 2017-02-01 10:59 | General Progress Note ---
Progress Note Progress Note Pt seen and examined. POD# 1 from wound closure. Doing well and pain well controlled. Will take down the dressings on Friday. Continue IV abx and pain meds. Gely Jones M.D. GELY JONES Feb 01, 2017 10:58
[2017-02-01] MEDS: PCA Education Pamphlet MISC SCH (11:00)
--- NOTE | 2017-02-01 13:21 | General Progress Note ---
Assessment/Plan Problem List: (1) Sepsis Assessment & Plan: fever + leukocytosis ICD Codes: A41.9 - Sepsis, unspecified organism SNOMED: 39492335 (2) Wound abscess ICD Codes: T81.4XXA - Wound abscess SNOMED: 490435838 (3) Hidradenitis suppurativa ICD Codes: L73.2 - Hidradenitis suppurativa SNOMED: 09885880 (4) HTN (hypertension) ICD Codes: I10 - Essential (primary) hypertension SNOMED: 93230968 (5) h/o DVT Status: stable Assessment/Plan Plastic surgery consulted s/p debridement of bilateral thigh, groin and left lower abdomen with posterior thigh flap elevation on 01/29/17 s/p flap closure of abdominal and thigh wounds on 01/31/17 Empiric IV ancef ctm CBC F/u blood cultures Wound care per surgery Pain control, supportive care, bowel regimen Cont home meds DVT ppx w/ SCDs, HSQ Outpt derm f/u FULL CODE D/w pt, RN, surgery regarding mgmt and dispo Subjective Date patient seen: Feb 01, 2017 Time patient seen: 13:15 ROS Limited/Unobtainable: No Constitutional: Reports: fever HEENT: Reports: no symptoms Cardiovascular: Reports: no symptoms Respiratory: Reports: no symptoms Gastrointestinal/Abdominal: Reports: no symptoms Genitourinary: Reports: no symptoms Neurologic/Psychiatric: Reports: no symptoms Endocrine: Reports: no symptoms Hematologic/Lymphatic: Reports: no symptoms Allergies: Coded Allergies: Pork (Unverified Allergy, Unknown, 11/18/14) PT DOES NOT EAT ANY PORK, PORK CONTAINING PRODUCTS All Systems: reviewed and negative except above Subjective s/p flap closure of abdominal and thigh wounds yesterday Fever to 101.4 yesterday afternoon WBC trending down Pain controlled. Denies f/c, n/v, d/c, chest pain, SOB Objective Last 24 Hour Vital Signs Date Time Temp Pulse Resp B/P (MAP) Pulse Ox O2 Delivery O2 Flow Rate FiO2 02/01/17 09:54 109 18 96 02/01/17 08:10 98.5 109 18 122/77 96 Room Air 02/01/17 04:00 20 02/01/17 04:00 99.0 118 18 120/74 98 Room Air 02/01/17 00:00 100.3 118 18 140/63 98 Room Air 02/01/17 00:00 20 01/31/17 20:00 20 01/31/17 20:00 98.2 97 16 110/73 99 Room Air 01/31/17 15:49 72 22 99 01/31/17 15:40 20 01/31/17 15:40 98.4 87 19 120/69 99 Nasal Cannula 3.0 01/31/17 15:26 98.0 85 16 119/75 100 Nasal Cannula 3.0 01/31/17 15:25 20 01/31/17 15:12 88 16 114/74 100 Nasal Cannula 3.0 01/31/17 15:10 20 01/31/17 15:08 99.0 01/31/17 15:08 99.0 01/31/17 15:08 99.0 01/31/17 15:07 87 16 120/76 100 Nasal Cannula 3.0 01/31/17 15:00 86 16 123/74 100 Nasal Cannula 3.0 01/31/17 14:54 20 01/31/17 14:46 90 16 119/74 100 Nasal Cannula 3.0 01/31/17 14:41 87 16 121/68 100 Nasal Cannula 3.0 01/31/17 14:30 91 16 116/66 100 Nasal Cannula 3.0 01/31/17 14:19 101 16 133/84 100 Simple Mask 6.0 01/31/17 14:14 104 16 124/84 100 Simple Mask 6.0 01/31/17 14:09 101.4 111 21 132/80 100 Simple Mask 6.0 Intake and Output 02/01/17 02/02/17 19:00 07:00 Intake Total 350 ml Balance 350 ml Intake Oral 350 ml Height (Feet): 5 Height (Inches): 6.00 Weight (Pounds): 250 Objective General: alert, cooperative, no distress, appears stated age Head: normocephalic, without obvious abnormality, atraumatic Eyes: conjunctivae/corneas clear. PERRL, EOM's intact Throat: lips, mucosa, and tongue normal. MMM Neck: supple, symmetrical, trachea midline, and no JVD Lungs: clear to auscultation bilaterally Heart: regular rate and rhythm, S1, S2 normal, no murmur, click, rub or gallop Abdomen: soft, non-tender, non-distended, bowel sounds normal; no masses or organomegaly Extremities: extremities normal, atraumatic, no cyanosis or edema Dressing c/d/i Pulses: 2+ and symmetric Skin: skin color, texture, turgor normal; no rashes or lesions Neurologic: grossly normal, no focal deficits Yi Desai M.D. Feb 01, 2017 13:21
[2017-02-01] MEDS ORDERED: D5 1/2NS 1000ml IV ONE (13:40)
[2017-02-01] MEDS ORDERED: Tubing IV Secondary IV ONE (13:40)
[2017-02-01] MEDS: PCA HYDROmorphone 1mg/ml 30 ML IV PRN (14:53)
[2017-02-02 04:00] VITALS: BP 122/77
[2017-02-02] MEDS: ceFAZolin sod 1 GM in D5W 55 ML IVPB SCH ×3 (05:30→22:00)
[2017-02-02] MEDS: PCA shift volume MISC SCH ×2 (07:17→19:09)
[2017-02-02 07:58] LABS: ANION GAP 11 (5-15); CALCIUM 8.1 mg/dL (8.6-10.2); CARBON DIOXIDE 28 mEQ/L (20-30); CHLORIDE 97 mEQ/L (98-107); CREATININE 0.5 mg/dL (0.7-1.2); GLOMERULAR FILTRATION RATE > 60 mL/min (>60); HEMOLYSIS 0; MAGNESIUM 1.9 mg/dL (1.7-2.5); POTASSIUM 4.1 mEQ/L (3.4-4.9); SODIUM 136 mEQ/L (135-145)
[2017-02-02 08:00] VITALS: BP 130/84
[2017-02-02] MEDS: Docusate 100mg cap ORAL SCH ×2 (08:07→21:20)
[2017-02-02] MEDS: Spironolactone 50mg tab ORAL SCH (08:08)
[2017-02-02] MEDS: Heparin 5000 units/ml inj SUBQ SCH ×2 (08:11→21:22)
[2017-02-02 08:19] LABS: MEAN CORPUSCULAR HEMOGLOBIN 26.4 PG (27.0-31.0); MEAN CORPUSCULAR HGB CONC 32.5 G/DL (32.0-36.0); MEAN CORPUSCULAR VOLUME 81 FL (80-99); MEAN PLATELET VOLUME 8.5 FL (6.5-10.1); PLATELET COUNT 231 K/UL (150-450); RED BLOOD COUNT 2.95 M/UL (4.70-6.10); RED CELL DISTRIBUTION WIDTH 13.4 % (11.6-14.8); WHITE BLOOD COUNT 11.7 K/UL (4.8-10.8)
[2017-02-02 08:45] LABS: HEMOLYSIS 4; IRON 13 ug/dL (59-158); TOTAL IRON BINDING CAPACITY 191 ug/dL (250-400)
[2017-02-02 10:01] LABS: BAND NEUTROPHILS % (MANUAL) 3 % (0-8); BASOPHILS % (MANUAL) 0 % (0-2); EOSINOPHILS % (MANUAL) 0 % (0-3); LYMPHOCYTES % (MANUAL) 6 % (20-45); MYELOCYTES % 1 % (0-0); NEUTROPHILS % (MANUAL) 81 % (45-75); PLATELET ESTIMATE ADEQUATE; TOTAL CELLS COUNTED 100
[2017-02-02 10:02] LABS: PLATELET MORPHOLOGY NORMAL
[2017-02-02 12:36] VITALS: BP 115/81
--- NOTE | 2017-02-02 13:46 | General Progress Note ---
Assessment/Plan Problem List: (1) Acute blood loss anemia ICD Codes: D62 - Acute posthemorrhagic anemia SNOMED: 808827602 (2) Sepsis Assessment & Plan: fever + leukocytosis ICD Codes: A41.9 - Sepsis, unspecified organism SNOMED: 51902021 (3) Wound abscess ICD Codes: T81.4XXA - Wound abscess SNOMED: 518211233 (4) Hidradenitis suppurativa ICD Codes: L73.2 - Hidradenitis suppurativa SNOMED: 55547244 (5) HTN (hypertension) ICD Codes: I10 - Essential (primary) hypertension SNOMED: 00779991 (6) h/o DVT (7) Iron deficiency anemia ICD Codes: D50.9 - Iron deficiency anemia, unspecified SNOMED: 11279885 Status: stable Assessment/Plan Plastic surgery consulted s/p debridement of bilateral thigh, groin and left lower abdomen with posterior thigh flap elevation on 01/29/17 s/p flap closure of abdominal and thigh wounds on 01/31/17 Empiric IV ancef ctm CBC--started IV venofer 02/02 given iron deficiency anemia F/u blood cultures Wound care per surgery Pain control, supportive care, bowel regimen Cont home meds DVT ppx w/ SCDs, HSQ Outpt derm f/u FULL CODE D/w pt, RN, surgery regarding mgmt and dispo Subjective Date patient seen: Feb 02, 2017 Time patient seen: 13:44 ROS Limited/Unobtainable: No Constitutional: Reports: no symptoms, fever HEENT: Reports: no symptoms Cardiovascular: Reports: no symptoms Respiratory: Reports: no symptoms Gastrointestinal/Abdominal: Reports: no symptoms Genitourinary: Reports: no symptoms Neurologic/Psychiatric: Reports: no symptoms Endocrine: Reports: no symptoms Hematologic/Lymphatic: Reports: no symptoms Allergies: Coded Allergies: Pork (Unverified Allergy, Unknown, 11/18/14) PT DOES NOT EAT ANY PORK, PORK CONTAINING PRODUCTS Subjective s/p flap closure of abdominal and thigh wounds POD#2 Fever to 100.4 yesterday afternoon Hgb drop to 7.8. No e/o active bleeding Pain controlled. Denies f/c, n/v, d/c, chest pain, SOB Objective Last 24 Hour Vital Signs Date Time Temp Pulse Resp B/P (MAP) Pulse Ox O2 Delivery O2 Flow Rate FiO2 8/27/17 12:36 98.7 120 20 115/81 98 Room Air 02/02/17 11:58 20 02/02/17 08:00 18 02/02/17 08:00 99.3 112 20 130/84 97 Room Air 02/02/17 04:01 18 02/02/17 04:00 98.9 106 18 122/77 100 Nasal Cannula 2.0 02/02/17 00:00 18 02/02/17 00:00 18 02/01/17 23:29 99.3 105 18 132/86 100 Nasal Cannula 2.0 02/01/17 20:00 99.3 103 18 123/82 99 Nasal Cannula 2.0 02/01/17 18:58 100.1 02/01/17 15:54 100.4 117 18 121/78 100 Nasal Cannula 2.0 02/01/17 15:23 98.9 02/01/17 15:07 18 Intake and Output 02/02/17 02/03/17 19:00 07:00 Intake Total 615 ml Balance 615 ml Intake Oral 240 ml IV Total 375 ml Laboratory Tests 02/02/17 05:45: White Blood Count 11.7H, Red Blood Count 2.95L, Hemoglobin 7.8L, Hematocrit 24.0L, Mean Corpuscular Volume 81, Mean Corpuscular Hemoglobin 26.4L, Mean Corpuscular Hemoglobin Concent 32.5, Red Cell Distribution Width 13.4, Platelet Count 231, Mean Platelet Volume 8.5, Neutrophils (%) (Auto) , Lymphocytes (%) ( Auto) , Monocytes (%) (Auto) , Eosinophils (%) (Auto) , Basophils (%) (Auto) , Differential Total Cells Counted 100, Neutrophils % (Manual) 81H, Lymphocytes % (Manual) 6L, Monocytes % (Manual) 9, Eosinophils % (Manual) 0, Basophils % ( Manual) 0, Myelocytes % 1H, Band Neutrophils 3, Platelet Estimate Adequate, Platelet Morphology Normal, Red Blood Cell Morphology Normal, Sodium Level 136, Potassium Level 4.1, Chloride Level 97L, Carbon Dioxide Level 28, Anion Gap 11, Blood Urea Nitrogen 7, Creatinine 0.5L, Estimat Glomerular Filtration Rate > 60 , Glucose Level 109H, Calcium Level 8.1L, Magnesium Level 1.9, Iron Level 13L, Total Iron Binding Capacity 191L, Percent Iron Saturation 7L, Unsaturated Iron Binding 178, Ferritin 308H Height (Feet): 5 Height (Inches): 6.00 Weight (Pounds): 250 Objective General: alert, cooperative, no distress, appears stated age Head: normocephalic, without obvious abnormality, atraumatic Eyes: conjunctivae/corneas clear. PERRL, EOM's intact Throat: lips, mucosa, and tongue normal. MMM Neck: supple, symmetrical, trachea midline, and no JVD Lungs: clear to auscultation bilaterally Heart: regular rate and rhythm, S1, S2 normal, no murmur, click, rub or gallop Abdomen: soft, non-tender, non-distended, bowel sounds normal; no masses or organomegaly Extremities: extremities normal, atraumatic, no cyanosis or edema Dressing c/d/i Pulses: 2+ and symmetric Skin: skin color, texture, turgor normal; no rashes or lesions Neurologic: grossly normal, no focal deficits Yi Desai M.D. Feb 02, 2017 13:46
[2017-02-02] MEDS ORDERED: Rate Change PCA 1 Each MISC PRN (16:15)
[2017-02-02 16:23] VITALS: BP 128/91
[2017-02-02 20:00] VITALS: BP 130/79
[2017-02-02 20:02] LABS: APPEARANCE,URINE CLEAR; KETONES,URINE NEGATIVE (NEGATIVE); LEUKOCYTE ESTERASE ,URINE NEGATIVE (NEGATIVE); NITRITE,URINE NEGATIVE (NEGATIVE); PH,URINE 7 (4.5-8.0); PROTEIN,URINE NEGATIVE (NEGATIVE); UROBILINOGEN,URINE NORMAL MG/DL (0.0-1.0)
[2017-02-02 20:08] LABS: RBC,URINE 0-2 /HPF (0 - 0); WBC,URINE 0-2 /HPF (0 - 0)
[2017-02-02 20:25] LABS: BASOPHILS % (AUTO) 0.9 % (0.0-2.0); EOSINOPHILS % (AUTO) 0.3 % (0.0-3.0); LYMPHOCYTES % (AUTO) 8.7 % (20.0-45.0); MEAN CORPUSCULAR HEMOGLOBIN 27.1 PG (27.0-31.0); MEAN CORPUSCULAR HGB CONC 34.3 G/DL (32.0-36.0); MEAN CORPUSCULAR VOLUME 79 FL (80-99); MEAN PLATELET VOLUME 7.9 FL (6.5-10.1); MONOCYTES % (AUTO) 9.7 % (1.0-10.0); NEUTROPHILS % (AUTO) 80.5 % (45.0-75.0); PLATELET COUNT 275 K/UL (150-450); RED BLOOD COUNT 3.18 M/UL (4.70-6.10); RED CELL DISTRIBUTION WIDTH 13.6 % (11.6-14.8); WHITE BLOOD COUNT 13.7 K/UL (4.8-10.8)
[2017-02-02] MEDS: Iron Sucrose 100 MG in NS 55 ML IV SCH (21:00)
[2017-02-02] MEDS: DiphenhydrAMINE 50mg/ml Inj IVP PRN (21:14)
[2017-02-03] VITALS: BP 131/80
[2017-02-03] MEDS: PCA HYDROmorphone 1mg/ml 30 ML IV PRN (00:47)
[2017-02-03 04:00] VITALS: BP 119/77
[2017-02-03] MEDS: ceFAZolin sod 1 GM in D5W 55 ML IVPB SCH ×3 (05:46→23:02)
[2017-02-03] MEDS: PCA shift volume MISC SCH ×2 (07:00→19:05)
[2017-02-03] MEDS: DiphenhydrAMINE 50mg/ml Inj IVP PRN ×2 (07:08→18:18)
[2017-02-03 07:21] LABS: BASOPHILS % (AUTO) 0.9 % (0.0-2.0); EOSINOPHILS % (AUTO) 0.5 % (0.0-3.0); LYMPHOCYTES % (AUTO) 9.5 % (20.0-45.0); MEAN CORPUSCULAR HGB CONC 34.2 G/DL (32.0-36.0); MEAN CORPUSCULAR VOLUME 82 FL (80-99); MEAN PLATELET VOLUME 7.9 FL (6.5-10.1); MONOCYTES % (AUTO) 11.9 % (1.0-10.0); NEUTROPHILS % (AUTO) 77.2 % (45.0-75.0); PLATELET COUNT 255 K/UL (150-450); RED BLOOD COUNT 2.87 M/UL (4.70-6.10); RED CELL DISTRIBUTION WIDTH 13.1 % (11.6-14.8); WHITE BLOOD COUNT 13.4 K/UL (4.8-10.8)
[2017-02-03 08:00] VITALS: BP 117/80
[2017-02-03] MEDS: Spironolactone 50mg tab ORAL SCH (08:36)
[2017-02-03] MEDS: Docusate 100mg cap ORAL SCH ×2 (08:36→22:59)
[2017-02-03] MEDS: Heparin 5000 units/ml inj SUBQ SCH ×2 (08:40→23:01)
[2017-02-03] MEDS ORDERED: Tubing IV Secondary IV ONE (10:19)
[2017-02-03 12:00] VITALS: BP 125/88
--- NOTE | 2017-02-03 15:06 | General Progress Note ---
Assessment/Plan Problem List: (1) Acute blood loss anemia ICD Codes: D62 - Acute posthemorrhagic anemia SNOMED: 433422262 (2) Sepsis Assessment & Plan: fever + leukocytosis ICD Codes: A41.9 - Sepsis, unspecified organism SNOMED: 27238789 (3) Wound abscess ICD Codes: T81.4XXA - Wound abscess SNOMED: 467631376 (4) Hidradenitis suppurativa ICD Codes: L73.2 - Hidradenitis suppurativa SNOMED: 96051913 (5) HTN (hypertension) ICD Codes: I10 - Essential (primary) hypertension SNOMED: 72502286 (6) h/o DVT (7) Iron deficiency anemia ICD Codes: D50.9 - Iron deficiency anemia, unspecified SNOMED: 36169224 (8) SOB (shortness of breath) ICD Codes: R06.02 - Shortness of breath SNOMED: 086467840 Status: stable Assessment/Plan Plastic surgery consulted s/p debridement of bilateral thigh, groin and left lower abdomen with posterior thigh flap elevation on 01/29/17 s/p flap closure of abdominal and thigh wounds on 01/31/17 Empiric IV ancef ctm CBC--started IV venofer 02/02 given iron deficiency anemia F/u blood cultures Wound care per surgery Given SOB, will check CXR, BNP, trop, U/S BLE venous duplex Pain control, supportive care, bowel regimen Cont home meds DVT ppx w/ SCDs, HSQ Outpt derm f/u FULL CODE D/w pt, RN, surgery regarding mgmt and dispo Subjective Date patient seen: Feb 03, 2017 Time patient seen: 15:06 Constitutional: Reports: no symptoms HEENT: Reports: no symptoms Cardiovascular: Reports: no symptoms Respiratory: Reports: no symptoms Gastrointestinal/Abdominal: Reports: no symptoms Genitourinary: Reports: no symptoms Neurologic/Psychiatric: Reports: no symptoms Endocrine: Reports: no symptoms Hematologic/Lymphatic: Reports: no symptoms Allergies: Coded Allergies: Pork (Unverified Allergy, Unknown, 11/18/14) PT DOES NOT EAT ANY PORK, PORK CONTAINING PRODUCTS All Systems: reviewed and negative except above Subjective s/p flap closure of abdominal and thigh wounds POD#4 Fever to 100.4 o/n Hgb improved to 8 Tachycardia to 110s, now 90s Pain controlled. Pt c/o SOB today at rest and when sitting up. Denies f/c, n/v, d/c, chest pain, BLE swelling Objective Last 24 Hour Vital Signs Date Time Temp Pulse Resp B/P (MAP) Pulse Ox O2 Delivery O2 Flow Rate FiO2 02/03/17 13:14 98.7 02/03/17 12:00 19 02/03/17 12:00 100.6 91 19 125/88 98 Room Air 02/03/17 11:40 Room Air 02/03/17 11:39 98 Room Air 02/03/17 10:16 99.5 02/03/17 08:00 99.5 92 19 117/80 96 Room Air 02/03/17 08:00 20 02/03/17 04:00 99.4 123 19 119/77 96 Room Air 02/03/17 00:00 20 02/03/17 00:00 98.4 115 18 131/80 97 Room Air 02/02/17 20:00 20 02/02/17 20:00 100.4 108 18 130/79 100 Nasal Cannula 3.0 02/02/17 16:23 100.0 130 20 128/91 100 Room Air Intake and Output 02/03/17 02/04/17 19:00 07:00 Intake Total 1005 ml Output Total 2165 ml Balance -1160 ml Intake Oral 480 ml IV Total 525 ml Output Urine Total 2050 ml Drainage Total 85 ml Other 30 ml # Voids 1 Laboratory Tests 02/02/17 17:28: Urine Color Pale yellow, Urine Appearance Clear, Urine pH 7, Urine Specific [place] 1.005, Urine Protein Negative, Urine Glucose (UA) Negative, Urine Ketones Negative, Urine Occult Blood 2+H, Urine Nitrite Negative, Urine Bilirubin Negative, Urine Urobilinogen Normal, Urine Leukocyte Esterase Negative , Urine RBC 0-2H, Urine WBC 0-2, Urine Squamous Epithelial Cells None, Urine Bacteria None 02/02/17 19:48: White Blood Count 13.7H, Red Blood Count 3.18L, Hemoglobin 8.6L, Hematocrit 25.1L, Mean Corpuscular Volume 79L, Mean Corpuscular Hemoglobin 27.1, Mean Corpuscular Hemoglobin Concent 34.3, Red Cell Distribution Width 13.6, Platelet Count 275, Mean Platelet Volume 7.9, Neutrophils (%) (Auto) 80.5H, Lymphocytes ( %) (Auto) 8.7L, Monocytes (%) (Auto) 9.7, Eosinophils (%) (Auto) 0.3, Basophils (%) (Auto) 0.9, Lactic Acid Level 0.90 02/03/17 05:35: White Blood Count 13.4H, Red Blood Count 2.87L, Hemoglobin 8.0L, Hematocrit 23.5L, Mean Corpuscular Volume 82, Mean Corpuscular Hemoglobin 28.0, Mean Corpuscular Hemoglobin Concent 34.2, Red Cell Distribution Width 13.1, Platelet Count 255, Mean Platelet Volume 7.9, Neutrophils (%) (Auto) 77.2H, Lymphocytes ( %) (Auto) 9.5L, Monocytes (%) (Auto) 11.9H, Eosinophils (%) (Auto) 0.5, Basophils (%) (Auto) 0.9 Height (Feet): 5 Height (Inches): 6.00 Weight (Pounds): 250 Objective General: alert, cooperative, no distress, appears stated age Head: normocephalic, without obvious abnormality, atraumatic Eyes: conjunctivae/corneas clear. PERRL, EOM's intact Throat: lips, mucosa, and tongue normal. MMM Neck: supple, symmetrical, trachea midline, and no JVD Lungs: clear to auscultation bilaterally Heart: regular rate and rhythm, S1, S2 normal, no murmur, click, rub or gallop Abdomen: soft, non-tender, non-distended, bowel sounds normal; no masses or organomegaly Extremities: extremities normal, atraumatic, no cyanosis or edema Dressing c/d/i Pulses: 2+ and symmetric Skin: skin color, texture, turgor normal; no rashes or lesions Neurologic: grossly normal, no focal deficits Yi Desai M.D. Feb 03, 2017 15:06
[2017-02-03 16:00] VITALS: BP 125/83
[2017-02-03 18:48] LABS: TROPONIN I < 0.30 ng/mL (<=0.30)
[2017-02-03 20:02] VITALS: BP 143/85
[2017-02-03] MEDS: Iron Sucrose 100 MG in NS 55 ML IV SCH (23:00)
[2017-02-04 00:03] VITALS: BP 127/84
[2017-02-04] MEDS: ceFAZolin sod 1 GM in D5W 55 ML IVPB SCH ×3 (04:22→21:44)
[2017-02-04 04:48] VITALS: BP 143/88
[2017-02-04] MEDS: PCA HYDROmorphone 1mg/ml 30 ML IV PRN (06:33)
[2017-02-04 06:53] LABS: ANION GAP 12 (5-15); CALCIUM 8.6 mg/dL (8.6-10.2); CARBON DIOXIDE 27 mEQ/L (20-30); CHLORIDE 94 mEQ/L (98-107); CREATININE 0.5 mg/dL (0.7-1.2); GLOMERULAR FILTRATION RATE > 60 mL/min (>60); HEMOLYSIS 0; POTASSIUM 4.2 mEQ/L (3.4-4.9); SODIUM 133 mEQ/L (135-145)
[2017-02-04 06:55] LABS: EOSINOPHILS % (AUTO) 0.8 % (0.0-3.0); LYMPHOCYTES % (AUTO) 8.6 % (20.0-45.0); MEAN CORPUSCULAR HEMOGLOBIN 26.4 PG (27.0-31.0); MEAN CORPUSCULAR HGB CONC 32.4 G/DL (32.0-36.0); MEAN CORPUSCULAR VOLUME 81 FL (80-99); MEAN PLATELET VOLUME 7.6 FL (6.5-10.1); MONOCYTES % (AUTO) 10.2 % (1.0-10.0); NEUTROPHILS % (AUTO) 79.4 % (45.0-75.0); PLATELET COUNT 306 K/UL (150-450); RED BLOOD COUNT 3.02 M/UL (4.70-6.10); RED CELL DISTRIBUTION WIDTH 13.6 % (11.6-14.8); WHITE BLOOD COUNT 13.6 K/UL (4.8-10.8)
[2017-02-04] MEDS: PCA shift volume MISC SCH ×2 (07:07→19:21)
[2017-02-04 08:15] VITALS: BP 136/81
[2017-02-04] MEDS: Spironolactone 50mg tab ORAL SCH (08:36)
[2017-02-04] MEDS: Docusate 100mg cap ORAL SCH ×2 (08:36→20:31)
[2017-02-04] MEDS: Heparin 5000 units/ml inj SUBQ SCH ×2 (08:45→20:33)
--- NOTE | 2017-02-04 09:16 | General Progress Note ---
Progress Note Progress Note Pt seen and examined. POD# 4. Stable. Flaps are viable with some evidence of ischemia at distal tips but wounds are still closed. Will continue to closely observe for now and continue IV abx and pain meds. Gely Jones M.D. GELY JONES Feb 04, 2017 09:16
--- NOTE | 2017-02-04 11:40 | Diagnostic Imaging Report ---
APPROVED REPORT CPT Code: 26150 Present Symptoms Lower Extremity Pain: Bilateral Lower Extremity Edema: Bilateral Shortness of breath Comments: Status post-surgery for hidradenitis suppurativa.Technically difficult, limited study due to post-surgical bandages around both thighs and at the left groin area. Hx right calf DVT. Past History DVT :Right LIMITED STUDY DUE TO POST-SURGICAL BANDAGES AND SWELLING. RIGHT LEG: Venous imaging reveals a patent deep venous system. There is no evidence of thrombus within the common femoral, popliteal or tibial segments. The greater saphenous vein is also within normal limits. Doppler indicates spontaneous flow within these segments. The proximal, mid and distal superficial femoral veins were not visualized due to post-surgical bandages. LEFT LEG: Venous imaging reveals a patent deep venous system. There is no evidence of thrombus within the distal superficial femoral, popliteal or tibial segments. Doppler indicates normal spontaneous flow within these segments. The common femoral, proximal and mid superficial femoral veins were not visualized due to post-surgical bandages.
[2017-02-04 11:58] VITALS: BP 127/77
--- NOTE | 2017-02-04 12:22 | Diagnostic Imaging Report ---
Indication: Dyspnea Comparison: 01/28/17 A single view chest radiograph was obtained. Findings: Cardiomediastinal appearance is within normal limits for age. Pulmonary vascularity is appropriate. The diaphragmatic contour is smooth and costophrenic angles are sharp. No pleural effusions are identified. The bones are unremarkable. Impression: No acute findings
--- NOTE | 2017-02-04 12:40 | General Progress Note ---
Assessment/Plan Problem List: (1) Acute blood loss anemia ICD Codes: D62 - Acute posthemorrhagic anemia SNOMED: 402745114 (2) Sepsis Assessment & Plan: fever + leukocytosis ICD Codes: A41.9 - Sepsis, unspecified organism SNOMED: 45903266 (3) Wound abscess ICD Codes: T81.4XXA - Wound abscess SNOMED: 456157467 (4) Hidradenitis suppurativa ICD Codes: L73.2 - Hidradenitis suppurativa SNOMED: 56784082 (5) HTN (hypertension) ICD Codes: I10 - Essential (primary) hypertension SNOMED: 71088546 (6) h/o DVT (7) Iron deficiency anemia ICD Codes: D50.9 - Iron deficiency anemia, unspecified SNOMED: 87865160 (8) SOB (shortness of breath) ICD Codes: R06.02 - Shortness of breath SNOMED: 145579153 Status: stable Assessment/Plan Plastic surgery consulted s/p debridement of bilateral thigh, groin and left lower abdomen with posterior thigh flap elevation on 01/29/17 s/p flap closure of abdominal and thigh wounds on 01/31/17 Empiric IV ancef ctm CBC--started IV venofer 02/02 given iron deficiency anemia F/u blood cultures Wound care per surgery Repeat BLE venous duplex later this week Pain control, supportive care, bowel regimen Cont home meds DVT ppx w/ SCDs, HSQ Outpt derm f/u D/C likely Friday per surgery FULL CODE D/w pt, RN, surgery regarding mgmt and dispo Subjective Date patient seen: Feb 04, 2017 Time patient seen: 12:40 ROS Limited/Unobtainable: No Constitutional: Reports: no symptoms HEENT: Reports: no symptoms Cardiovascular: Reports: no symptoms Respiratory: Reports: no symptoms Gastrointestinal/Abdominal: Reports: no symptoms Genitourinary: Reports: no symptoms Neurologic/Psychiatric: Reports: no symptoms Endocrine: Reports: no symptoms Hematologic/Lymphatic: Reports: no symptoms Allergies: Coded Allergies: Pork (Unverified Allergy, Unknown, 11/18/14) PT DOES NOT EAT ANY PORK, PORK CONTAINING PRODUCTS All Systems: reviewed and negative except above Subjective s/p flap closure of abdominal and thigh wounds POD5 Fever to 100.6 yesterday afternoon Hgb improved to 8 Tachycardia improved to 90-100s BNP, trop neg. CXR neg. Pain controlled. SOB resolved. Denies f/c, n/v, d/c, chest pain, BLE swelling Objective Last 24 Hour Vital Signs Date Time Temp Pulse Resp B/P (MAP) Pulse Ox O2 Delivery O2 Flow Rate FiO2 02/04/17 12:00 16 02/04/17 11:58 97.6 102 20 127/77 98 Room Air 02/04/17 08:15 98.9 102 21 136/81 98 Room Air 02/04/17 08:00 16 02/04/17 07:03 98.7 02/04/17 06:33 18 02/04/17 04:48 98.7 107 18 143/88 100 Nasal Cannula 02/04/17 04:00 18 02/04/17 00:03 99.8 107 18 127/84 96 Room Air 02/04/17 00:00 18 02/03/17 22:10 96 Nasal Cannula 2.0 28 02/03/17 22:10 Nasal Cannula 2.0 28 02/03/17 20:02 99.9 113 19 143/85 100 Room Air 02/03/17 20:00 18 02/03/17 16:00 18 02/03/17 16:00 98.5 97 19 125/83 97 Nasal Cannula 02/03/17 13:14 98.7 Intake and Output 02/04/17 02/05/17 19:00 07:00 Intake Total 685 ml Output Total 2450 ml Balance -1765 ml Intake Oral 685 ml Output Urine Total 2300 ml Drainage Total 110 ml Other 40 ml # Voids 2 Laboratory Tests 02/03/17 18:20: Troponin I < 0.30, Pro-B-Type Natriuretic Peptide 9 02/04/17 05:30: White Blood Count 13.6H, Red Blood Count 3.02L, Hemoglobin 8.0L, Hematocrit 24.6L, Mean Corpuscular Volume 81, Mean Corpuscular Hemoglobin 26.4L, Mean Corpuscular Hemoglobin Concent 32.4, Red Cell Distribution Width 13.6, Platelet Count 306, Mean Platelet Volume 7.6, Neutrophils (%) (Auto) 79.4H, Lymphocytes ( %) (Auto) 8.6L, Monocytes (%) (Auto) 10.2H, Eosinophils (%) (Auto) 0.8, Basophils (%) (Auto) 1.0, Sodium Level 133L, Potassium Level 4.2, Chloride Level 94L, Carbon Dioxide Level 27, Anion Gap 12, Blood Urea Nitrogen 9, Creatinine 0.5L, Estimat Glomerular Filtration Rate > 60, Glucose Level 105, Calcium Level 8.6 Height (Feet): 5 Height (Inches): 6.00 Weight (Pounds): 250 Objective General: alert, cooperative, no distress, appears stated age Head: normocephalic, without obvious abnormality, atraumatic Eyes: conjunctivae/corneas clear. PERRL, EOM's intact Throat: lips, mucosa, and tongue normal. MMM Neck: supple, symmetrical, trachea midline, and no JVD Lungs: clear to auscultation bilaterally Heart: regular rate and rhythm, S1, S2 normal, no murmur, click, rub or gallop Abdomen: soft, non-tender, non-distended, bowel sounds normal; no masses or organomegaly Extremities: extremities normal, atraumatic, no cyanosis or edema Dressing c/d/i Pulses: 2+ and symmetric Skin: skin color, texture, turgor normal; no rashes or lesions Neurologic: grossly normal, no focal deficits Yi Desai M.D. Feb 04, 2017 12:40
[2017-02-04] MEDS ORDERED: Milk of Magnesia 30ml Ud ORAL PRN (14:30)
[2017-02-04] MEDS ORDERED: Rate Change PCA 1 Each MISC PRN (14:30)
[2017-02-04 16:00] VITALS: BP 124/81
[2017-02-04] MEDS ORDERED: PCA HYDROmorphone 1mg/ml 30 ML IV PRN (16:15)
[2017-02-04] MEDS ORDERED: DiphenhydrAMINE 50mg/ml Inj IVP PRN (16:15)
[2017-02-04 20:13] VITALS: BP 124/73
[2017-02-04] MEDS: Iron Sucrose 100 MG in NS 55 ML IV SCH (20:31)
[2017-02-05 00:15] VITALS: BP 144/92
[2017-02-05 04:38] VITALS: BP 113/73
[2017-02-05] MEDS: ceFAZolin sod 1 GM in D5W 55 ML IVPB SCH ×3 (05:01→20:57)
[2017-02-05] MEDS: PCA shift volume MISC SCH ×2 (07:02→19:08)
[2017-02-05 08:00] VITALS: BP 120/69
[2017-02-05] MEDS: Spironolactone 50mg tab ORAL SCH (09:13)
[2017-02-05] MEDS: Docusate 100mg cap ORAL SCH ×2 (09:13→20:57)
[2017-02-05] MEDS: Heparin 5000 units/ml inj SUBQ SCH ×2 (09:25→20:59)
[2017-02-05 12:00] VITALS: BP 130/60
[2017-02-05 16:00] VITALS: BP 130/76
--- NOTE | 2017-02-05 16:35 | General Progress Note ---
Assessment/Plan Problem List: (1) Acute blood loss anemia ICD Codes: D62 - Acute posthemorrhagic anemia SNOMED: 022996477 (2) Sepsis Assessment & Plan: fever + leukocytosis ICD Codes: A41.9 - Sepsis, unspecified organism SNOMED: 50195522 (3) Wound abscess ICD Codes: T81.4XXA - Wound abscess SNOMED: 150933204 (4) Hidradenitis suppurativa ICD Codes: L73.2 - Hidradenitis suppurativa SNOMED: 90334400 (5) HTN (hypertension) ICD Codes: I10 - Essential (primary) hypertension SNOMED: 16520227 (6) h/o DVT (7) Iron deficiency anemia ICD Codes: D50.9 - Iron deficiency anemia, unspecified SNOMED: 39063994 (8) SOB (shortness of breath) ICD Codes: R06.02 - Shortness of breath SNOMED: 070986694 Status: stable Assessment/Plan Plastic surgery consulted s/p debridement of bilateral thigh, groin and left lower abdomen with posterior thigh flap elevation on 01/29/17 s/p flap closure of abdominal and thigh wounds on 01/31/17 Emp[facility] IV ancef ctm CBC--started IV venofer 02/02 given iron deficiency anemia F/u blood cultures Wound care per surgery Repeat BLE venous duplex later this week Pain control, supportive care, bowel regimen Cont home meds DVT ppx w/ SCDs, HSQ Outpt derm f/u D/C likely Friday per surgery FULL CODE D/w pt, RN, surgery regarding mgmt and dispo Subjective Date patient seen: Feb 05, 2017 Time patient seen: 16:34 ROS Limited/Unobtainable: No Constitutional: Reports: no symptoms HEENT: Reports: no symptoms Respiratory: Reports: no symptoms Gastrointestinal/Abdominal: Reports: no symptoms Genitourinary: Reports: no symptoms Neurologic/Psychiatric: Reports: no symptoms Endocrine: Reports: no symptoms Hematologic/Lymphatic: Reports: no symptoms Allergies: Coded Allergies: Pork (Unverified Allergy, Unknown, 11/18/14) PT DOES NOT EAT ANY PORK, PORK CONTAINING PRODUCTS All Systems: reviewed and negative except above Subjective s/p flap closure of abdominal and thigh wounds POD#5 Fever to 100.7 yesterday HD stable Pain controlled. SOB resolved. Denies f/c, n/v, d/c, chest pain, BLE swelling Objective Last 24 Hour Vital Signs Date Time Temp Pulse Resp B/P (MAP) Pulse Ox O2 Delivery O2 Flow Rate FiO2 02/05/17 16:00 16 02/05/17 12:00 97.2 105 18 130/60 96 Room Air 02/05/17 12:00 18 02/05/17 11:39 Room Air 21 02/05/17 11:39 100 Room Air 21 02/05/17 08:00 18 02/05/17 08:00 97.8 93 19 120/69 97 Room Air 02/05/17 04:38 98.5 99 20 113/73 100 Room Air 02/05/17 04:00 18 02/05/17 00:15 99.0 108 19 144/92 100 Nasal Cannula 2.0 02/05/17 00:00 18 02/04/17 20:13 98.5 104 20 124/73 99 Nasal Cannula 2.0 02/04/17 20:00 18 Intake and Output 02/05/17 02/06/17 19:00 07:00 Intake Total 825 ml Output Total 58 ml Balance 767 ml Intake Oral 300 ml IV Total 525 ml Drainage Total 43 ml Other 15 ml # Voids 1 Height (Feet): 5 Height (Inches): 6.00 Weight (Pounds): 250 Objective General: alert, cooperative, no distress, appears stated age Head: normocephalic, without obvious abnormality, atraumatic Eyes: conjunctivae/corneas clear. PERRL, EOM's intact Throat: lips, mucosa, and tongue normal. MMM Neck: supple, symmetrical, trachea midline, and no JVD Lungs: clear to auscultation bilaterally Heart: regular rate and rhythm, S1, S2 normal, no murmur, click, rub or gallop Abdomen: soft, non-tender, non-distended, bowel sounds normal; no masses or organomegaly Extremities: extremities normal, atraumatic, no cyanosis or edema Dressing c/d/i Pulses: 2+ and symmetric Skin: skin color, texture, turgor normal; no rashes or lesions Neurologic: grossly normal, no focal deficits Yi Desai M.D. Feb 05, 2017 16:35
[2017-02-05] MEDS ORDERED: Tubing IV Secondary IV ONE (16:52)
[2017-02-05] MEDS ORDERED: NS Irrig 1000ml ONE (16:52)
[2017-02-05 20:00] VITALS: BP 148/91
[2017-02-05] MEDS: Iron Sucrose 100 MG in NS 55 ML IV SCH (20:57)
[2017-02-06] VITALS: BP 125/83
[2017-02-06] MEDS ORDERED: DiphenhydrAMINE 50mg/ml Inj IVP PRN (03:30)
[2017-02-06] MEDS ORDERED: Naloxone 0.4mg/ml Inj IVP PRN (03:30)
[2017-02-06] MEDS ORDERED: PCA HYDROmorphone 1mg/ml 30 ML IV PRN (03:30)
[2017-02-06] MEDS ORDERED: Rate Change PCA 1 Each MISC PRN (03:30)
[2017-02-06 04:00] VITALS: BP 138/84
[2017-02-06] MEDS: ceFAZolin sod 1 GM in D5W 55 ML IVPB SCH ×3 (05:45→22:00)
[2017-02-06] MEDS: PCA shift volume MISC SCH ×2 (07:29→19:03)
[2017-02-06 08:00] VITALS: BP 125/80
[2017-02-06] MEDS: Docusate 100mg cap ORAL SCH ×2 (09:41→19:56)
[2017-02-06] MEDS: Spironolactone 50mg tab ORAL SCH (09:41)
[2017-02-06] MEDS: Heparin 5000 units/ml inj SUBQ SCH ×2 (09:48→19:58)
[2017-02-06 12:00] VITALS: BP 127/78
[2017-02-06 16:00] VITALS: BP 124/74
[2017-02-06] MEDS: Iron Sucrose 100 MG in NS 55 ML IV SCH (19:57)
[2017-02-06 20:00] VITALS: BP 123/81
[2017-02-07] VITALS: BP 130/78
[2017-02-07 04:00] VITALS: BP 123/75
[2017-02-07] MEDS: ceFAZolin sod 1 GM in D5W 55 ML IVPB SCH ×3 (05:37→21:38)
[2017-02-07] MEDS: PCA shift volume MISC SCH ×2 (07:00→19:11)
--- NOTE | 2017-02-07 07:40 | General Progress Note ---
Assessment/Plan Problem List: (1) Acute blood loss anemia ICD Codes: D62 - Acute posthemorrhagic anemia SNOMED: 206483298 (2) Sepsis Assessment & Plan: fever + leukocytosis ICD Codes: A41.9 - Sepsis, unspecified organism SNOMED: 69226959 (3) Wound abscess ICD Codes: T81.4XXA - Wound abscess SNOMED: 219719448 (4) Hidradenitis suppurativa ICD Codes: L73.2 - Hidradenitis suppurativa SNOMED: 79503096 (5) HTN (hypertension) ICD Codes: I10 - Essential (primary) hypertension SNOMED: 91003403 (6) h/o DVT (7) Iron deficiency anemia ICD Codes: D50.9 - Iron deficiency anemia, unspecified SNOMED: 59208339 (8) SOB (shortness of breath) ICD Codes: R06.02 - Shortness of breath SNOMED: 319869797 Status: stable Assessment/Plan Plastic surgery consulted s/p debridement of bilateral thigh, groin and left lower abdomen with posterior thigh flap elevation on 01/29/17 s/p flap closure of abdominal and thigh wounds on 01/31/17 Emp[facility] IV ancef ctm CBC--IV venofer 02/02 x 5d given iron deficiency anemia F/u blood cultures Wound care per surgery Repeat BLE venous duplex Cont horan per surgery Pain control, supportive care, bowel regimen Cont home meds DVT ppx w/ SCDs, HSQ Outpt derm f/u PT eval D/C likely Friday per surgery FULL CODE D/w pt, RN, surgery regarding mgmt and dispo Subjective Date patient seen: Feb 06, 2017 Time patient seen: 15:00 ROS Limited/Unobtainable: No Constitutional: Reports: no symptoms HEENT: Reports: no symptoms Cardiovascular: Reports: no symptoms Respiratory: Reports: no symptoms Gastrointestinal/Abdominal: Reports: no symptoms Genitourinary: Reports: no symptoms Neurologic/Psychiatric: Reports: no symptoms Endocrine: Reports: no symptoms Hematologic/Lymphatic: Reports: no symptoms Allergies: Coded Allergies: Pork (Unverified Allergy, Unknown, 11/18/14) PT DOES NOT EAT ANY PORK, PORK CONTAINING PRODUCTS All Systems: reviewed and negative except above Subjective s/p flap closure of abdominal and thigh wounds POD#6 Fever to 100.7 yesterday Low-grade tachycardia Pt doing well. Pain controlled. SOB resolved. Denies f/c, n/v, d/c, chest pain, BLE swelling Objective Last 24 Hour Vital Signs Date Time Temp Pulse Resp B/P (MAP) Pulse Ox O2 Delivery O2 Flow Rate FiO2 02/07/17 04:21 20 02/07/17 04:00 97.7 99 18 123/75 85 Room Air 02/07/17 00:00 97.5 100 18 130/78 98 Room Air 02/06/17 23:30 20 02/06/17 20:00 98.6 108 18 123/81 99 Room Air 02/06/17 20:00 18 02/06/17 16:00 18 02/06/17 16:00 99.3 107 20 124/74 97 Room Air 02/06/17 12:00 99.7 100 20 127/78 99 Room Air 02/06/17 12:00 20 02/06/17 08:00 18 02/06/17 08:00 99.3 98 19 125/80 95 Room Air Height (Feet): 5 Height (Inches): 6.00 Weight (Pounds): 250 Objective General: alert, cooperative, no distress, appears stated age Head: normocephalic, without obvious abnormality, atraumatic Eyes: conjunctivae/corneas clear. PERRL, EOM's intact Throat: lips, mucosa, and tongue normal. MMM Neck: supple, symmetrical, trachea midline, and no JVD Lungs: clear to auscultation bilaterally Heart: regular rate and rhythm, S1, S2 normal, no murmur, click, rub or gallop Abdomen: soft, non-tender, non-distended, bowel sounds normal; no masses or organomegaly Extremities: extremities normal, atraumatic, no cyanosis or edema Dressing c/d/i Pulses: 2+ and symmetric Skin: skin color, texture, turgor normal; no rashes or lesions Neurologic: grossly normal, no focal deficits Yi Desai M.D. Feb 07, 2017 07:40
[2017-02-07 08:00] VITALS: BP 121/74
--- NOTE | 2017-02-07 08:33 | General Progress Note ---
Progress Note Progress Note Pt seen and examined. POD # 7 now. Continue the wet to dry dressings to the open area by the left groin and also now to the right posterior thigh donor site. Debrided part of the right posterior thigh wound. Will observe open wounds for another 2-3 days. Continue abx and pain meds for now and will need to start Dakin's solution on next dressing change which will be BID. GELY Laguna MD Feb 07, 2017 08:33
[2017-02-07] MEDS: Spironolactone 50mg tab ORAL SCH (09:12)
[2017-02-07] MEDS: Docusate 100mg cap ORAL SCH ×2 (09:12→21:38)
[2017-02-07] MEDS: Heparin 5000 units/ml inj SUBQ SCH ×2 (09:15→21:44)
--- NOTE | 2017-02-07 09:38 | Diagnostic Imaging Report ---
APPROVED REPORT CPT Code: 85582 Present Symptoms Lower Extremity Pain: Bilateral Shortness of breath Comments: S/P bilateral groin surgery for hidradenitis suppurativa. Past History DVT :Right RIGHT LEG: Venous imaging reveals a patent deep venous system. There is no evidence of thrombus within the femoral, popliteal or tibial segments. The greater saphenous vein is also within normal limits. Doppler indicates normal spontaneous flow within these segments. LEFT LEG: Venous imaging reveals a patent deep venous system. There is no evidence of thrombus within the femoral, popliteal or tibial segments. The greater saphenous vein is also within normal limits. Doppler indicates normal spontaneous flow within these segments. The common femoral and greater saphenous veins were not visualized due to large incision in groin. The proximal superficial femoral vein was not well visualized due to dressings.
[2017-02-07 09:47] LABS: BASOPHILS % (AUTO) 1.3 % (0.0-2.0); EOSINOPHILS % (AUTO) 0.9 % (0.0-3.0); LYMPHOCYTES % (AUTO) 10.9 % (20.0-45.0); MEAN CORPUSCULAR HEMOGLOBIN 25.7 PG (27.0-31.0); MEAN CORPUSCULAR HGB CONC 31.7 G/DL (32.0-36.0); MEAN CORPUSCULAR VOLUME 81 FL (80-99); MEAN PLATELET VOLUME 6.6 FL (6.5-10.1); MONOCYTES % (AUTO) 7.5 % (1.0-10.0); NEUTROPHILS % (AUTO) 79.4 % (45.0-75.0); PLATELET COUNT 470 K/UL (150-450); RED BLOOD COUNT 3.21 M/UL (4.70-6.10); RED CELL DISTRIBUTION WIDTH 14.5 % (11.6-14.8); WHITE BLOOD COUNT 14.8 K/UL (4.8-10.8)
[2017-02-07 10:09] LABS: ANION GAP 11 (5-15); CALCIUM 9.2 mg/dL (8.6-10.2); CARBON DIOXIDE 27 mEQ/L (20-30); CHLORIDE 95 mEQ/L (98-107); CREATININE 0.6 mg/dL (0.7-1.2); GLOMERULAR FILTRATION RATE > 60 mL/min (>60); HEMOLYSIS 0; POTASSIUM 4.2 mEQ/L (3.4-4.9); SODIUM 133 mEQ/L (135-145)
[2017-02-07 11:49] VITALS: BP 137/89
--- NOTE | 2017-02-07 13:11 | General Progress Note ---
Assessment/Plan Problem List: (1) Acute blood loss anemia ICD Codes: D62 - Acute posthemorrhagic anemia SNOMED: 277025854 (2) Sepsis Assessment & Plan: fever + leukocytosis ICD Codes: A41.9 - Sepsis, unspecified organism SNOMED: 31830605 (3) Wound abscess ICD Codes: T81.4XXA - Wound abscess SNOMED: 611578695 (4) Hidradenitis suppurativa ICD Codes: L73.2 - Hidradenitis suppurativa SNOMED: 59733582 (5) HTN (hypertension) ICD Codes: I10 - Essential (primary) hypertension SNOMED: 09501664 (6) h/o DVT (7) Iron deficiency anemia ICD Codes: D50.9 - Iron deficiency anemia, unspecified SNOMED: 12337516 (8) SOB (shortness of breath) ICD Codes: R06.02 - Shortness of breath SNOMED: 119698250 Status: stable Assessment/Plan Plastic surgery consulted s/p debridement of bilateral thigh, groin and left lower abdomen with posterior thigh flap elevation on 01/29/17 s/p flap closure of abdominal and thigh wounds on 01/31/17 s/p bedside debridement of R posterior thigh wound by surgery 02/07/17 Empiric IV ancef ctm CBC--IV venofer 02/02 x 5d given iron deficiency anemia F/u blood cultures Wound care per surgery Repeat BLE venous duplex Cont horan per surgery Pain control, supportive care, bowel regimen Cont home meds DVT ppx w/ SCDs, HSQ Outpt derm f/u PT eval D/C likely Friday per surgery FULL CODE D/w pt, RN, surgery regarding mgmt and dispo Subjective Date patient seen: Feb 07, 2017 Time patient seen: 13:11 ROS Limited/Unobtainable: No Allergies: Coded Allergies: Pork (Unverified Allergy, Unknown, 11/18/14) PT DOES NOT EAT ANY PORK, PORK CONTAINING PRODUCTS Subjective s/p flap closure of abdominal and thigh wounds POD#7 Afebrile o/n, HDS s/p bedside debridement of R posterior thigh wound by surgery today Pt doing well. Pain controlled. SOB resolved. Denies f/c, n/v, d/c, chest pain, BLE swelling Objective Last 24 Hour Vital Signs Date Time Temp Pulse Resp B/P (MAP) Pulse Ox O2 Delivery O2 Flow Rate FiO2 02/07/17 12:00 20 02/07/17 11:49 99.3 98 17 137/89 98 Room Air 02/07/17 08:00 97.7 95 18 121/74 95 Room Air 02/07/17 08:00 20 02/07/17 07:10 Room Air 21 02/07/17 07:10 99 Room Air 21 02/07/17 04:21 20 02/07/17 04:00 97.7 99 18 123/75 85 Room Air 02/07/17 00:00 97.5 100 18 130/78 98 Room Air 02/06/17 23:30 20 02/06/17 20:00 98.6 108 18 123/81 99 Room Air 02/06/17 20:00 18 02/06/17 16:00 18 02/06/17 16:00 99.3 107 20 124/74 97 Room Air Intake and Output 02/07/17 02/08/17 19:00 07:00 Intake Total 240 ml Output Total 500 ml Balance -260 ml Intake Oral 240 ml Output Urine Total 500 ml Laboratory Tests 02/07/17 09:20: White Blood Count 14.8H, Red Blood Count 3.21L, Hemoglobin 8.3L, Hematocrit 26.0L, Mean Corpuscular Volume 81, Mean Corpuscular Hemoglobin 25.7L, Mean Corpuscular Hemoglobin Concent 31.7L, Red Cell Distribution Width 14.5, Platelet Count 470H, Mean Platelet Volume 6.6, Neutrophils (%) (Auto) 79.4H, Lymphocytes (%) (Auto) 10.9L, Monocytes (%) (Auto) 7.5, Eosinophils (%) (Auto) 0.9, Basophils (%) (Auto) 1.3, Sodium Level 133L, Potassium Level 4.2, Chloride Level 95L, Carbon Dioxide Level 27, Anion Gap 11, Blood Urea Nitrogen 9, Creatinine 0.6L, Estimat Glomerular Filtration Rate > 60, Glucose Level 116H, Calcium Level 9.2 Height (Feet): 5 Height (Inches): 6.00 Weight (Pounds): 250 Objective General: alert, cooperative, no distress, appears stated age Head: normocephalic, without obvious abnormality, atraumatic Eyes: conjunctivae/corneas clear. PERRL, EOM's intact Throat: lips, mucosa, and tongue normal. MMM Neck: supple, symmetrical, trachea midline, and no JVD Lungs: clear to auscultation bilaterally Heart: regular rate and rhythm, S1, S2 normal, no murmur, click, rub or gallop Abdomen: soft, non-tender, non-distended, bowel sounds normal; no masses or organomegaly Extremities: extremities normal, atraumatic, no cyanosis or edema Dressing c/d/i Pulses: 2+ and symmetric Skin: skin color, texture, turgor normal; no rashes or lesions Neurologic: grossly normal, no focal deficits Yi Desai M.D. Feb 07, 2017 13:11
[2017-02-07 16:00] VITALS: BP 107/64
[2017-02-07] MEDS: Dakin's 0.25% (Half Strength) 16oz TOPIC SCH (18:17)
[2017-02-07 20:38] VITALS: BP 137/86
[2017-02-08 00:03] VITALS: BP 150/82
[2017-02-08 04:28] VITALS: BP 133/83
[2017-02-08] MEDS: ceFAZolin sod 1 GM in D5W 55 ML IVPB SCH ×3 (05:45→23:02)
[2017-02-08] MEDS ORDERED: DiphenhydrAMINE 50mg/ml Inj IVP PRN (06:00)
[2017-02-08] MEDS ORDERED: Naloxone 0.4mg/ml Inj IVP PRN (06:00)
[2017-02-08] MEDS ORDERED: Rate Change PCA 1 Each MISC PRN (06:00)
[2017-02-08] MEDS: PCA HYDROmorphone 1mg/ml 30 ML IV PRN (06:20)
[2017-02-08] MEDS: PCA shift volume MISC SCH ×2 (07:25→19:00)
[2017-02-08 08:00] VITALS: BP 128/80
[2017-02-08] MEDS: Docusate 100mg cap ORAL SCH ×2 (08:31→23:01)
[2017-02-08] MEDS: Spironolactone 50mg tab ORAL SCH (08:32)
[2017-02-08] MEDS: Dakin's 0.25% (Half Strength) 16oz TOPIC SCH ×2 (08:33→23:03)
[2017-02-08] MEDS: Heparin 5000 units/ml inj SUBQ SCH ×2 (08:33→23:06)
[2017-02-08 12:00] VITALS: BP 118/74
[2017-02-08] MEDS ORDERED: LR 1000ml 1,000 ML IV ONE (13:00)
[2017-02-08] MEDS ORDERED: Miralax 17gm pkt ORAL SCH (14:00)
[2017-02-08] MEDS ORDERED: Fleet's Enema 133ml RECTAL ONE ×2 (14:00→20:00)
[2017-02-08 16:00] VITALS: BP 139/84
--- NOTE | 2017-02-08 19:22 | General Progress Note ---
Assessment/Plan Problem List: (1) Acute blood loss anemia ICD Codes: D62 - Acute posthemorrhagic anemia SNOMED: 931988919 (2) Sepsis Assessment & Plan: fever + leukocytosis ICD Codes: A41.9 - Sepsis, unspecified organism SNOMED: 99123546 (3) Wound abscess ICD Codes: T81.4XXA - Wound abscess SNOMED: 199691867 (4) Hidradenitis suppurativa ICD Codes: L73.2 - Hidradenitis suppurativa SNOMED: 17251933 (5) HTN (hypertension) ICD Codes: I10 - Essential (primary) hypertension SNOMED: 90976462 (6) h/o DVT (7) Iron deficiency anemia ICD Codes: D50.9 - Iron deficiency anemia, unspecified SNOMED: 61707706 (8) SOB (shortness of breath) ICD Codes: R06.02 - Shortness of breath SNOMED: 327617691 Status: stable Assessment/Plan Plastic surgery consulted s/p debridement of bilateral thigh, groin and left lower abdomen with posterior thigh flap elevation on 01/29/17 s/p flap closure of abdominal and thigh wounds on 01/31/17 s/p bedside debridement of R posterior thigh wound by surgery on 02/07/17 Empiric IV ancef ctm CBC--IV venofer 02/02 x 5d given iron deficiency anemia F/u blood cultures Wound care per surgery Repeat BLE venous duplex Cont horan per surgery Pain control, supportive care, bowel regimen Cont home meds DVT ppx w/ SCDs, HSQ Outpt derm f/u PT eval D/C likely Friday per surgery Home health ordered FULL CODE D/w pt, RN, surgery regarding mgmt and dispo Subjective Date patient seen: Feb 08, 2017 Time patient seen: 12:00 ROS Limited/Unobtainable: No Constitutional: Reports: no symptoms HEENT: Reports: no symptoms Cardiovascular: Reports: no symptoms Respiratory: Reports: no symptoms Gastrointestinal/Abdominal: Reports: no symptoms Genitourinary: Reports: no symptoms Neurologic/Psychiatric: Reports: no symptoms Endocrine: Reports: no symptoms Hematologic/Lymphatic: Reports: no symptoms Allergies: Coded Allergies: Pork (Unverified Allergy, Unknown, 11/18/14) PT DOES NOT EAT ANY PORK, PORK CONTAINING PRODUCTS All Systems: reviewed and negative except above Subjective s/p flap closure of abdominal and thigh wounds POD#2 Afebrile o/n, HDS s/p bedside debridement of R posterior thigh wound by surgery yesterday Pt doing well. Pain controlled. SOB resolved. Denies f/c, n/v, d/c, chest pain, BLE swelling Objective Last 24 Hour Vital Signs Date Time Temp Pulse Resp B/P (MAP) Pulse Ox O2 Delivery O2 Flow Rate FiO2 02/08/17 16:00 20 02/08/17 16:00 98.8 115 19 139/84 99 Room Air 02/08/17 12:00 98.0 89 18 118/74 98 Room Air 02/08/17 12:00 20 02/08/17 08:00 99.2 90 20 128/80 100 Nasal Cannula 4.0 02/08/17 08:00 20 02/08/17 06:51 98.5 02/08/17 06:20 20 02/08/17 06:19 20 02/08/17 04:28 98.5 95 19 133/83 98 Room Air 02/08/17 04:00 20 02/08/17 00:03 98.0 102 20 150/82 99 Room Air 02/08/17 00:00 20 02/07/17 20:38 99.4 112 21 137/86 96 Room Air 02/07/17 20:00 20 Height (Feet): 5 Height (Inches): 6.00 Weight (Pounds): 250 Objective General: alert, cooperative, no distress, appears stated age Head: normocephalic, without obvious abnormality, atraumatic Eyes: conjunctivae/corneas clear. PERRL, EOM's intact Throat: lips, mucosa, and tongue normal. MMM Neck: supple, symmetrical, trachea midline, and no JVD Lungs: clear to auscultation bilaterally Heart: regular rate and rhythm, S1, S2 normal, no murmur, click, rub or gallop Abdomen: soft, non-tender, non-distended, bowel sounds normal; no masses or organomegaly Extremities: extremities normal, atraumatic, no cyanosis or edema Dressing c/d/i Pulses: 2+ and symmetric Skin: skin color, texture, turgor normal; no rashes or lesions Neurologic: grossly normal, no focal deficits Yi Desai M.D. Feb 08, 2017 19:22
[2017-02-08 20:07] VITALS: BP 132/77
[2017-02-09 00:05] VITALS: BP 124/77
[2017-02-09 04:06] VITALS: BP 130/70
[2017-02-09] MEDS: PCA HYDROmorphone 1mg/ml 30 ML IV PRN (06:45)
[2017-02-09] MEDS: PCA shift volume MISC SCH ×2 (07:00→19:00)
[2017-02-09 07:48] LABS: BASOPHILS % (AUTO) 0.8 % (0.0-2.0); EOSINOPHILS % (AUTO) 0.6 % (0.0-3.0); MEAN CORPUSCULAR HGB CONC 33.5 G/DL (32.0-36.0); MEAN CORPUSCULAR VOLUME 80 FL (80-99); MEAN PLATELET VOLUME 7.1 FL (6.5-10.1); MONOCYTES % (AUTO) 8.5 % (1.0-10.0); NEUTROPHILS % (AUTO) 75.1 % (45.0-75.0); PLATELET COUNT 482 K/UL (150-450); RED BLOOD COUNT 3.14 M/UL (4.70-6.10); RED CELL DISTRIBUTION WIDTH 14.5 % (11.6-14.8); WHITE BLOOD COUNT 14.1 K/UL (4.8-10.8)
[2017-02-09 08:06] LABS: ANION GAP 14 (5-15); CALCIUM 8.9 mg/dL (8.6-10.2); CARBON DIOXIDE 25 mEQ/L (20-30); CHLORIDE 93 mEQ/L (98-107); CREATININE 0.6 mg/dL (0.7-1.2); GLOMERULAR FILTRATION RATE > 60 mL/min (>60); HEMOLYSIS 0; POTASSIUM 4.2 mEQ/L (3.4-4.9); SODIUM 132 mEQ/L (135-145)
--- NOTE | 2017-02-09 09:46 | General Progress Note ---
Progress Note Progress Note Pt seen and examined. POD # 9 and wounds have now opened to a point where the wound needs to be debrided. Has not responded well to conservative wound care of the open areas. Pt will be taken to the OR tomorrow. NPO after MN. Will also give him 2 units of PRBC. Consent. GELY Laguna MD Feb 09, 2017 09:45
[2017-02-09] MEDS: Docusate 100mg cap ORAL SCH ×2 (10:08→21:42)
[2017-02-09] MEDS: Miralax 17gm pkt ORAL SCH (10:08)
[2017-02-09] MEDS: Spironolactone 50mg tab ORAL SCH (10:09)
[2017-02-09] MEDS: Dakin's 0.25% (Half Strength) 16oz TOPIC SCH (10:10)
[2017-02-09] MEDS: Heparin 5000 units/ml inj SUBQ SCH ×2 (10:13→21:47)
[2017-02-09 12:15] VITALS: BP 134/84
[2017-02-09] MEDS ORDERED: LR 1000ml 1,000 ML IV SCH (12:15)
[2017-02-09] MEDS ORDERED: NORCO 10-325 T1 EACH ORAL (14:02)
[2017-02-09] MEDS ORDERED: KEFLEX500 MG ORAL (14:03)
--- NOTE | 2017-02-09 14:06 | General Progress Note ---
Assessment/Plan Problem List: (1) Wound dehiscence ICD Codes: T81.30XA - Disruption of wound, unspecified, initial encounter SNOMED: 563799024 (2) Acute blood loss anemia ICD Codes: D62 - Acute posthemorrhagic anemia SNOMED: 060634122 (3) Sepsis Assessment & Plan: fever + leukocytosis ICD Codes: A41.9 - Sepsis, unspecified organism SNOMED: 68113915 (4) Wound abscess ICD Codes: T81.4XXA - Wound abscess SNOMED: 887512655 (5) Hidradenitis suppurativa ICD Codes: L73.2 - Hidradenitis suppurativa SNOMED: 23392810 (6) HTN (hypertension) ICD Codes: I10 - Essential (primary) hypertension SNOMED: 61385700 (7) h/o DVT (8) Iron deficiency anemia ICD Codes: D50.9 - Iron deficiency anemia, unspecified SNOMED: 23564426 (9) SOB (shortness of breath) ICD Codes: R06.02 - Shortness of breath SNOMED: 512280710 Status: stable Assessment/Plan Plastic surgery consulted s/p debridement of bilateral thigh, groin and left lower abdomen with posterior thigh flap elevation on 01/29/17 s/p flap closure of abdominal and thigh wounds on 01/31/17 s/p bedside debridement of R posterior thigh wound by surgery on 02/07/17 Plan for OR tomorrow for debridement given wound dehiscence, NPO at [place] Empiric IV ancef ctm CBC--IV venofer 02/02 x 5d given iron deficiency anemia F/u blood cultures Wound care per surgery Repeat BLE venous duplex Cont horan per surgery Pain control, supportive care, bowel regimen Cont home meds DVT ppx w/ SCDs, HSQ Outpt derm f/u PT eval Home health ordered FULL CODE D/w pt, RN, surgery regarding mgmt and dispo Subjective Date patient seen: Feb 09, 2017 Time patient seen: 14:06 ROS Limited/Unobtainable: No Constitutional: Reports: no symptoms HEENT: Reports: no symptoms Cardiovascular: Reports: no symptoms Respiratory: Reports: no symptoms Gastrointestinal/Abdominal: Reports: no symptoms Genitourinary: Reports: no symptoms Neurologic/Psychiatric: Reports: no symptoms Endocrine: Reports: no symptoms Hematologic/Lymphatic: Reports: no symptoms Allergies: Coded Allergies: Pork (Unverified Allergy, Unknown, 11/18/14) PT DOES NOT EAT ANY PORK, PORK CONTAINING PRODUCTS Subjective Afebrile o/n, HDS Pt seen by surgery this AM and wound noted to have reopened. Plan is for OR tomorrow for debridement Pt doing well. Pain controlled. SOB resolved. Denies f/c, n/v, d/c, chest pain, BLE swelling Objective Last 24 Hour Vital Signs Date Time Temp Pulse Resp B/P (MAP) Pulse Ox O2 Delivery O2 Flow Rate FiO2 02/09/17 12:15 98.0 87 18 134/84 94 Room Air 02/09/17 08:00 18 02/09/17 04:06 98.1 107 18 130/70 96 Room Air 02/09/17 04:00 15 02/09/17 00:05 98.8 105 19 124/77 98 Room Air 02/09/17 00:00 15 02/08/17 20:07 97.9 103 20 132/77 97 Room Air 02/08/17 20:00 17 02/08/17 16:00 20 02/08/17 16:00 98.8 115 19 139/84 99 Room Air Intake and Output 02/09/17 02/10/17 19:00 07:00 Intake Total 300 ml Balance 300 ml IV Total 300 ml Laboratory Tests 02/09/17 06:15: White Blood Count 14.1H, Red Blood Count 3.14L, Hemoglobin 8.5L, Hematocrit 25.3L, Mean Corpuscular Volume 80, Mean Corpuscular Hemoglobin 27.0, Mean Corpuscular Hemoglobin Concent 33.5, Red Cell Distribution Width 14.5, Platelet Count 482H, Mean Platelet Volume 7.1, Neutrophils (%) (Auto) 75.1H, Lymphocytes (%) (Auto) 15.0L, Monocytes (%) (Auto) 8.5, Eosinophils (%) (Auto) 0.6, Basophils (%) (Auto) 0.8, Sodium Level 132L, Potassium Level 4.2, Chloride Level 93L, Carbon Dioxide Level 25, Anion Gap 14, Blood Urea Nitrogen 9, Creatinine 0.6L, Estimat Glomerular Filtration Rate > 60, Glucose Level 99, Calcium Level 8.9 Height (Feet): 5 Height (Inches): 6.00 Weight (Pounds): 250 Objective General: alert, cooperative, no distress, appears stated age Head: normocephalic, without obvious abnormality, atraumatic Eyes: conjunctivae/corneas clear. PERRL, EOM's intact Throat: lips, mucosa, and tongue normal. MMM Neck: supple, symmetrical, trachea midline, and no JVD Lungs: clear to auscultation bilaterally Heart: regular rate and rhythm, S1, S2 normal, no murmur, click, rub or gallop Abdomen: soft, non-tender, non-distended, bowel sounds normal; no masses or organomegaly Extremities: extremities normal, atraumatic, no cyanosis or edema Dressing c/d/i Pulses: 2+ and symmetric Skin: skin color, texture, turgor normal; no rashes or lesions Neurologic: grossly normal, no focal deficits Yi Desai M.D. Feb 09, 2017 14:06
[2017-02-09 16:00] VITALS: BP 124/83
[2017-02-09] MEDS: ceFAZolin 1gm/50ml Premix 50 ML IV SCH ×2 (18:14→21:41)
[2017-02-10] VITALS (15 sets, daily range): BP systolic 112–142; BP diastolic 63–82
[2017-02-10] MEDS: Dakin's 0.25% (Half Strength) 16oz TOPIC SCH ×5 (00:04→21:00)
[2017-02-10] MEDS: ceFAZolin 1gm/50ml Premix 50 ML IV SCH (05:51)
[2017-02-10] MEDS ORDERED: Naloxone 0.4mg/ml Inj IVP PRN (05:53)
[2017-02-10] MEDS ORDERED: DiphenhydrAMINE 50mg/ml Inj IVP PRN ×2 (06:00→09:30)
[2017-02-10] MEDS ORDERED: Rate Change PCA 1 Each MISC PRN ×2 (06:00→12:15)
[2017-02-10] MEDS ORDERED: PCA HYDROmorphone 1mg/ml 30 ML IV PRN (06:00)
[2017-02-10] MEDS ORDERED: PCA shift volume MISC SCH (07:00)
[2017-02-10] MEDS: Docusate 100mg cap ORAL SCH ×2 (07:47→21:07)
[2017-02-10] MEDS: Spironolactone 50mg tab ORAL SCH (07:47)
[2017-02-10] MEDS: Miralax 17gm pkt ORAL SCH (07:47)
[2017-02-10] MEDS: Heparin 5000 units/ml inj SUBQ SCH ×2 (07:48→21:08)
[2017-02-10] MEDS ORDERED: Lidocaine 1% 10mg/ml/Epi 0.005mg/ml 30ml vial INJ ONE ×2 (08:42→09:54)
[2017-02-10] MEDS ORDERED: Surgicel 4in x 8in TOPIC ONE ×2 (08:42→09:54)
[2017-02-10] MEDS ORDERED: NeoSporin Gu Irrig 1ml Amp IRRIG ONE ×2 (08:42→09:54)
[2017-02-10] MEDS ORDERED: Bacitracin 50000 Units Vial ONE ×2 (08:42→09:54)
[2017-02-10] MEDS ORDERED: Glycopyrrolate 0.2mg/ml 1ml Vial ONE (08:45)
[2017-02-10] MEDS ORDERED: Neostigmine 1mg/ml 10ml Inj ONE (08:45)
[2017-02-10] MEDS ORDERED: NS Irrig 1000ml ONE (08:45)
[2017-02-10] MEDS ORDERED: Lidocaine 1% Plain 30 ml INJ ONE (08:45)
[2017-02-10] MEDS ORDERED: Propofol 200mg/20ml IV ONE (08:45)
[2017-02-10] MEDS ORDERED: Sterile Water Irrig 1000ml IRRIG ONE (08:45)
[2017-02-10] MEDS ORDERED: Zemuron 50mg/5ml Inj IV ONE (08:45)
[2017-02-10] MEDS ORDERED: fentaNYL 100 mcg/2 mL IV ONE (08:45)
[2017-02-10] MEDS ORDERED: Lidocaine 1% MPF 10mg/ml 5ml ONE (08:45)
[2017-02-10] MEDS ORDERED: fentaNYL 250mcg/5ml ONE (08:45)
[2017-02-10] MEDS ORDERED: LR 1000ml ONE (08:45)
--- NOTE | 2017-02-10 08:55 | Pre-Procedure Note/Attestation ---
Pre-Procedure Note/Attestation Complete Prior to Procedure Planned Procedure: bilateral Procedure Narrative: Bilateral groin and thigh wound debridement with partial closure Indications for Procedure Pre-Operative Diagnosis: Bilateral open groin and thigh wounds Attestation I attest that I discussed the nature of the procedure; its benefits; risks and complications; and alternatives (and the risks and benefits of such alternatives ), prior to the procedure, with the patient (or the patient's legal insurance claim representative). I attest that, if there was a reasonable possibility of needing a blood transfusion, the patient (or the patient's legal insurance claim representative) was given the [facility] standardized written summary, pursuant to the [employer] Blood Safety Act ([place] Health and Safety Code # 1645, as amended). I attest that I re-evaluated the patient just prior to the surgery and that there has been no change in the patient's H&P, except as documented below: GELY JONES Feb 10, 2017 08:55
[2017-02-10] MEDS ORDERED: LR 1000ml 1,000 ML IVLG SCH (09:16)
--- NOTE | 2017-02-10 09:21 | Anethesia Preoperative Eval ---
Anesthesia Pre-op PMH/ROS General Date of Evaluation: Feb 10, 2017 Time of Evaluation: 08:41 Anesthesiologist: Ingrid ASA Score: ASA 3 - Emergency Mallampati Score Class I : Soft palate, uvula, fauces, pillars visible Class II: Soft palate, uvula, fauces visible Class III: Soft palate, base of uvula visible Class IV: Only hard plate visible Mallampati Classification: Class II Surgeon: Derian Diagnosis: Recurrent HS, Open Wounds Surgical Procedure: Excision of bilateral groin hydradenitis, Partial Wound Closure Anesthesia History: none Family History: no anesthesia problems Allergies: Coded Allergies: Pork (Unverified Allergy, Unknown, 11/18/14) PT DOES NOT EAT ANY PORK, PORK CONTAINING PRODUCTS Medications: see eMAR Past Medical History Endocrine: Reports: DM Other: obesity - Morbid BMI 40 Anesthesia Pre-op Phys. Exam Physician Exam Last Vital Signs Date Time Temp Pulse Resp B/P (MAP) Pulse Ox O2 Delivery O2 Flow Rate FiO2 02/10/17 08:00 98.7 93 19 112/66 98 Nasal Cannula 02/08/17 08:00 4.0 02/07/17 07:10 21 Constitutional: NAD Neurologic: CN 2-12 intact Cardiovascular: RRR Respiratory: CTA Gastrointestinal: S/NT/ND Airway Exam Mallampati Score: Class II MO: full ROM: full Teeth: intact Anesthesia Pre-op A/P Risk Assessment & Plan Assessment: ASA 3E Plan: GA, BIS, Glidescope Status Change Before Surgery: No Pre-Antibiotics Dru Grams Ancef IV Given Within 1 Hr of Incision: Yes Time Given: 09:06 Ambrocio Quintero MD Feb 10, 2017 09:21
--- NOTE | 2017-02-10 09:26 | Immediate Post-Op Evaluation ---
Immediate Post-Op Evalulation Immediate Post-Op Evalulation Procedure: revision and closure of bilateral groin wounds Date of Evaluation: Feb 10, 2017 Time of Evaluation: 12:25 IV Fluids: 900 LR Blood Products: 0 Estimated Blood Loss: 100 Urinary Output: 350 Blood Pressure Systolic: 146 Blood Pressure Diastolic: 74 Pulse Rate: 103 Respiratory Rate: 16 O2 Sat by Pulse Oximetry: 100 Temperature (Fahrenheit): 97 Pain Score (1-10): 2 Nausea: No Vomiting: No Complications 0 Patient Status: awake, reacts, patent, extubated, none Hydration Status: adequate Dru grams Ancef IV Given Within 1 Hr of Incision: Yes Time Given: 09:06 Ambrocio Quintero MD Feb 10, 2017 09:26
[2017-02-10] MEDS ORDERED: Hydromorphone 0.5mg/0.5ml inj IVP PRN (09:30)
[2017-02-10] MEDS ORDERED: Norco 5mg/325mg tab ORAL PRN (09:30)
[2017-02-10] MEDS ORDERED: Ketorolac 30mg Inj IV PRN (09:30)
[2017-02-10] MEDS ORDERED: Meperidine 25mg/0.5ml Inj (FOR RIGORS ONLY) IV PRN (09:30)
[2017-02-10] MEDS ORDERED: Metoclopramide 10mg/2ml Inj IVP PRN (09:30)
[2017-02-10] MEDS ORDERED: Ketorolac 60mg Inj IV PRN (09:30)
[2017-02-10] MEDS ORDERED: Midazolam 2mg/2ml Inj IVP PRN (09:30)
[2017-02-10] MEDS ORDERED: fentaNYL 100 mcg/2 mL IV PRN (09:30)
[2017-02-10] MEDS ORDERED: Norco 7.5mg/325mg tab ORAL PRN (09:30)
[2017-02-10] MEDS ORDERED: Atropine Inj 1mg/10ml Syr IV PRN (09:30)
[2017-02-10] MEDS ORDERED: LORazepam Inj 2mg/ml 1ml IV PRN (09:30)
[2017-02-10] MEDS ORDERED: oxyCODONE HCL/Acetaminophen 5/325mg ORAL PRN (09:30)
[2017-02-10] MEDS ORDERED: Acetaminophen (Non formulary) 1,000 MG/100 ML ML IV SCH (10:00)
[2017-02-10] MEDS ORDERED: Tubing IV Secondary IV ONE (11:28)
[2017-02-10] MEDS ORDERED: Tubing IV Blood Pump IV ONE (11:28)
--- NOTE | 2017-02-10 12:09 | Operative Note - PDOC ---
Operative Note Operative Note Pre-op Diagnosis: Bilateral open groin and thigh wounds Procedure: Debridement of bilateral groin wounds and partial reclosure of wounds Surgeon: Derian Splash Line Operator: Catherine Anesthesia: general Specimen: yes Complications: none Condition: stable Estimated Blood Loss: minimal Drains: none Implant(s) used?: No GELY JONES Feb 10, 2017 12:09
[2017-02-10] MEDS ORDERED: Zolpidem 5mg tab ORAL PRN (12:15)
[2017-02-10] MEDS: PCA HYDROmorphone 1mg/ml 30 ML IV PRN (12:34)
[2017-02-10] MEDS ORDERED: PCA Education Pamphlet MISC ONE (16:00)
[2017-02-10] MEDS: ceFAZolin 1gm in D5W 55ml IVPB SCH (17:54)
[2017-02-10] MEDS: PCA shift volume MISC SCH (18:57)
--- NOTE | 2017-02-10 19:47 | General Progress Note ---
Assessment/Plan Problem List: (1) Wound dehiscence ICD Codes: T81.30XA - Disruption of wound, unspecified, initial encounter SNOMED: 624966069 (2) Acute blood loss anemia ICD Codes: D62 - Acute posthemorrhagic anemia SNOMED: 760510664 (3) Sepsis Assessment & Plan: fever + leukocytosis ICD Codes: A41.9 - Sepsis, unspecified organism SNOMED: 85200852 (4) Wound abscess ICD Codes: T81.4XXA - Wound abscess SNOMED: 628407982 (5) Hidradenitis suppurativa ICD Codes: L73.2 - Hidradenitis suppurativa SNOMED: 46767623 (6) HTN (hypertension) ICD Codes: I10 - Essential (primary) hypertension SNOMED: 63703048 (7) h/o DVT (8) Iron deficiency anemia ICD Codes: D50.9 - Iron deficiency anemia, unspecified SNOMED: 39214474 (9) SOB (shortness of breath) ICD Codes: R06.02 - Shortness of breath SNOMED: 594633691 Status: stable Assessment/Plan Plastic surgery consulted s/p debridement of bilateral thigh, groin and left lower abdomen with posterior thigh flap elevation on 01/29/17 s/p flap closure of abdominal and thigh wounds on 01/31/17 s/p bedside debridement of R posterior thigh wound by surgery on 02/07/17 s/p debridement of bilateral groin wounds and partial reclosure of wounds on 02/10 Empiric IV ancef ctm CBC--IV venofer 02/02 x 5d given iron deficiency anemia F/u blood cultures Wound care per surgery Repeat BLE venous duplex Cont horan per surgery Pain control, supportive care, bowel regimen Cont home meds DVT ppx w/ SCDs, HSQ Outpt derm f/u PT eval Home health ordered FULL CODE D/w pt, RN, surgery regarding mgmt and dispo Subjective Date patient seen: Feb 10, 2017 Time patient seen: 13:00 ROS Limited/Unobtainable: No Constitutional: Reports: no symptoms HEENT: Reports: no symptoms Cardiovascular: Reports: no symptoms Respiratory: Reports: no symptoms Gastrointestinal/Abdominal: Reports: no symptoms Genitourinary: Reports: no symptoms Neurologic/Psychiatric: Reports: no symptoms Endocrine: Reports: no symptoms Hematologic/Lymphatic: Reports: no symptoms Allergies: Coded Allergies: Pork (Unverified Allergy, Unknown, 11/18/14) PT DOES NOT EAT ANY PORK, PORK CONTAINING PRODUCTS All Systems: reviewed and negative except above Subjective Afebrile o/n, HDS s/p debridement of bilateral groin wounds and partial reclosure of wounds Pt doing well. Pain controlled. SOB resolved. Denies f/c, n/v, d/c, chest pain, BLE swelling Objective Last 24 Hour Vital Signs Date Time Temp Pulse Resp B/P (MAP) Pulse Ox O2 Delivery O2 Flow Rate FiO2 02/10/17 16:00 16 02/10/17 16:00 97.3 96 19 120/74 99 Nasal Cannula 02/10/17 13:23 97.7 102 18 112/67 98 Nasal Cannula 02/10/17 13:15 15 02/10/17 13:03 97.2 02/10/17 13:03 97.2 02/10/17 13:02 97.2 101 16 114/76 100 Nasal Cannula 3.0 02/10/17 13:00 16 02/10/17 12:55 100 17 117/72 100 Nasal Cannula 3.0 02/10/17 12:50 103 17 112/69 100 Nasal Cannula 3.0 02/10/17 12:45 15 02/10/17 12:45 101 15 118/73 100 Nasal Cannula 3.0 02/10/17 12:34 15 02/10/17 12:30 99 15 115/63 100 Simple Mask 6.0 02/10/17 12:25 97 16 116/75 100 Simple Mask 6.0 02/10/17 12:20 102 17 115/75 100 Simple Mask 6.0 02/10/17 12:18 103 16 100 02/10/17 12:14 97.0 105 14 135/74 100 Simple Mask 6.0 02/10/17 08:00 98.7 93 19 112/66 98 Nasal Cannula 02/10/17 08:00 18 02/10/17 07:11 98.1 02/10/17 06:04 20 02/10/17 06:03 20 02/10/17 04:00 98.1 99 20 138/82 98 Room Air 02/10/17 04:00 20 02/10/17 00:00 18 02/10/17 00:00 98.1 95 20 142/80 98 Room Air 02/09/17 20:00 18 Intake and Output 02/10/17 02/11/17 19:00 07:00 Intake Total 1640 ml Output Total 550 ml Balance 1090 ml Intake Oral 240 ml IV Total 1400 ml Output Urine Total 450 ml Estimated Blood Loss 100 ml Height (Feet): 5 Height (Inches): 6.00 Weight (Pounds): 250 Objective General: alert, cooperative, no distress, appears stated age Head: normocephalic, without obvious abnormality, atraumatic Eyes: conjunctivae/corneas clear. PERRL, EOM's intact Throat: lips, mucosa, and tongue normal. MMM Neck: supple, symmetrical, trachea midline, and no JVD Lungs: clear to auscultation bilaterally Heart: regular rate and rhythm, S1, S2 normal, no murmur, click, rub or gallop Abdomen: soft, non-tender, non-distended, bowel sounds normal; no masses or organomegaly Extremities: extremities normal, atraumatic, no cyanosis or edema Dressing c/d/i Pulses: 2+ and symmetric Skin: skin color, texture, turgor normal; no rashes or lesions Neurologic: grossly normal, no focal deficits Yi Desai M.D. Feb 10, 2017 19:47
--- NOTE | 2017-02-10 22:45 | Operative Note - Dictated ---
DATE OF OPERATION: 02/10/2017 PREOPERATIVE DIAGNOSIS: Bilateral groin wound infection. POSTOPERATIVE DIAGNOSIS: Bilateral groin wound infection. PROCEDURE: Bilateral groin and thigh wound debridement with partial flap readvancement and closure of wound. SURGEON: Felicity Menard M.D. UNIVERSITY CONTROLLER: Donovan Alexander M.D. ANESTHESIA: General. COMPLICATIONS: None. DRAINS: None. DISPOSITION: Stable to the recovery room. INDICATIONS FOR SURGERY: This is a 31-year-old male, who is now 10 days status post bilateral groin and thigh reconstruction with posterior thigh flaps, who has been doing well. However, over the past several days, his wounds began to open up and we were trying conservative wound management, however, on exam yesterday, it was noted that there was significant dehiscence with a foul odor to the wound. Then, I felt that it was appropriate to bring the patient back to the operating room for aggressive debridement and readvancement of the flaps, but not to completely close the wound given the fact that it opened up upon complete closure of the wound last time. He understood the risks and benefits of surgery and agreed to proceed. DETAILS OF THE OPERATION: The patient was brought to the operating room and laid in the lithotomy position on the operating table. His bilateral thigh and groins were prepped and draped in a sterile usual fashion. We began first by removing all the loose chanda and loose sutures completely exposing the entire wound. We first began on the left side by sequentially debriding the posterior thigh flap down to healthy punctate bleeding and removing all the nonviable tissue, and then in addition, we debrided the skin edges of the medial and lateral aspects of the open groin wound itself. Once this was done, the wound was copiously irrigated with pulse lavage. In a similar fashion, the contralateral wound was addressed by debriding the flap of his nonviable tissues as well as debriding some of the lateral edges as well as the medial edges of the wound down to healthy punctate bleeding. Both wounds were then copiously irrigated with pulse lavage. Once this was done and hemostasis was achieved, we began by re-advancing the posterior thigh flap into the wound, however, leaving approximately 8 x 8 cm superior aspect of the wound open, the flap was inset using #0 and 2-0 Vicryl sutures and 0 Prolene was used for the skin. The reason the wound was left open at this time even though we could have closed it, we thought that there was too much tension. We will try and close it all and we wanted the wound to basically be without tension and allow for optimal healing. In a similar fashion, the contralateral wound was addressed by advancing the posterior thigh flap into the superior margin of the wound, however, the medial aspect of the wound was also left open for the same reason of trying to avoid tension and there was also a small area left open lateral to the flap where the donor site was for the flap to also allow for tension-free closure of the donor site. All the wounds were closed on this side as well using #0 and 2-0 Vicryl sutures and 0 Prolene was used to close the skin. All the wounds were then packed with wet-to-dry dressings soaked in Betadine solution. The patient tolerated the procedure well. There were no complications. Felicity Menard M.D. DR: AMBER JOB#: [id number] CC:
[2017-02-11] MEDS: ceFAZolin 1gm in D5W 55ml IVPB SCH ×3 (01:33→17:19)
[2017-02-11 04:00] VITALS: BP 117/72
[2017-02-11 06:22] LABS: EOSINOPHILS % (AUTO) 0.5 % (0.0-3.0); LYMPHOCYTES % (AUTO) 11.4 % (20.0-45.0); MEAN CORPUSCULAR HEMOGLOBIN 27.1 PG (27.0-31.0); MEAN CORPUSCULAR HGB CONC 32.7 G/DL (32.0-36.0); MEAN CORPUSCULAR VOLUME 83 FL (80-99); MEAN PLATELET VOLUME 6.9 FL (6.5-10.1); MONOCYTES % (AUTO) 9.3 % (1.0-10.0); NEUTROPHILS % (AUTO) 77.7 % (45.0-75.0); PLATELET COUNT 435 K/UL (150-450); RED BLOOD COUNT 2.95 M/UL (4.70-6.10); WHITE BLOOD COUNT 14.5 K/UL (4.8-10.8)
[2017-02-11 06:38] LABS: ANION GAP 11 (5-15); CALCIUM 8.7 mg/dL (8.6-10.2); CARBON DIOXIDE 28 mEQ/L (20-30); CHLORIDE 92 mEQ/L (98-107); CREATININE 0.5 mg/dL (0.7-1.2); GLOMERULAR FILTRATION RATE > 60 mL/min (>60); HEMOLYSIS 0; POTASSIUM 4.5 mEQ/L (3.4-4.9); SODIUM 131 mEQ/L (135-145)
[2017-02-11] MEDS: PCA shift volume MISC SCH ×2 (07:15→19:15)
[2017-02-11 08:00] VITALS: BP 126/70
[2017-02-11] MEDS: Spironolactone 50mg tab ORAL SCH ×2 (08:37→08:43)
[2017-02-11] MEDS: Docusate 100mg cap ORAL SCH ×2 (08:38→20:26)
[2017-02-11] MEDS: Heparin 5000 units/ml inj SUBQ SCH ×2 (08:39→20:31)
[2017-02-11] MEDS: Dakin's 0.25% (Half Strength) 16oz TOPIC SCH ×4 (08:40→20:37)
[2017-02-11] MEDS: Miralax 17gm pkt ORAL SCH (08:42)
--- NOTE | 2017-02-11 09:35 | 48 Hour Post Anesthesia Eval ---
Post Anesthesia Evaluation Procedure: revision and closure of bilateral groin wounds Date of Evaluation: Feb 11, 2017 Time of Evaluation: 10:50 Blood Pressure Systolic: 126 0: 70 Pulse Rate: 106 Respiratory Rate: 20 Temperature (Fahrenheit): 97.7 O2 Sat by Pulse Oximetry: 99 Airway: patent Nausea: No Vomiting: No Pain Intensity: 3 If pain is > 6 Comment: Managing pain well with EDGE SETTER Hydration Status: adequate Cardiopulmonary Status: Stable Mental Status/LOC: patient returned to baseline Follow-up Care/Observations: As per surgery Post-Anesthesia Complications: No anesthetic complication Follow-up care needed: N/A ARVIN CASTILLO M.D. Feb 11, 2017 09:35
--- NOTE | 2017-02-11 09:54 | General Progress Note ---
Progress Note Progress Note Pt seen and examined. POD # 1 from wound debridement and reclosure. Very complex wounds. Will begin dressing changes to all the open areas tomorrow with Dakins. Will optimize nutrition and check albumin and pre-albmuin. Transfuse 1 unit of PRBC today. Likely dc home with wound care on friday. GELY Laguna MD Feb 11, 2017 09:54
[2017-02-11 11:50] VITALS: BP 130/71
[2017-02-11 12:05] VITALS: BP 129/65
[2017-02-11 16:00] VITALS: BP 132/72
[2017-02-11] MEDS: PCA HYDROmorphone 1mg/ml 30 ML IV PRN (16:20)
--- NOTE | 2017-02-11 16:52 | General Progress Note ---
Assessment/Plan Problem List: (1) Wound dehiscence ICD Codes: T81.30XA - Disruption of wound, unspecified, initial encounter SNOMED: 157918439 (2) Acute blood loss anemia ICD Codes: D62 - Acute posthemorrhagic anemia SNOMED: 710305337 (3) Sepsis Assessment & Plan: fever + leukocytosis ICD Codes: A41.9 - Sepsis, unspecified organism SNOMED: 94826785 (4) Wound abscess ICD Codes: T81.4XXA - Wound abscess SNOMED: 265035590 (5) Hidradenitis suppurativa ICD Codes: L73.2 - Hidradenitis suppurativa SNOMED: 36146005 (6) HTN (hypertension) ICD Codes: I10 - Essential (primary) hypertension SNOMED: 83726914 (7) h/o DVT (8) Iron deficiency anemia ICD Codes: D50.9 - Iron deficiency anemia, unspecified SNOMED: 27509873 (9) SOB (shortness of breath) ICD Codes: R06.02 - Shortness of breath SNOMED: 992594877 Status: stable Assessment/Plan Plastic surgery consulted s/p debridement of bilateral thigh, groin and left lower abdomen with posterior thigh flap elevation on 01/29/17 s/p flap closure of abdominal and thigh wounds on 01/31/17 s/p bedside debridement of R posterior thigh wound by surgery on 02/07/17 s/p debridement of bilateral groin wounds and partial reclosure of wounds on 02/10 Empiric IV ancef ctm CBC--IV venofer 02/02 x 5d given iron deficiency anemia F/u blood cultures Wound care per surgery Repeat BLE venous duplex Cont horan per surgery Pain control, supportive care, bowel regimen Cont home meds DVT ppx w/ SCDs, HSQ Outpt derm f/u PT eval Home health ordered FULL CODE D/w pt, RN, surgery regarding mgmt and dispo Subjective Date patient seen: Feb 11, 2017 Time patient seen: 16:52 ROS Limited/Unobtainable: No Allergies: Coded Allergies: Pork (Unverified Allergy, Unknown, 11/18/14) PT DOES NOT EAT ANY PORK, PORK CONTAINING PRODUCTS Subjective Afebrile o/n, HDS s/p debridement of bilateral groin wounds and partial reclosure of wounds POD#1 Pt doing well. Pain controlled. SOB resolved. Denies f/c, n/v, d/c, chest pain, BLE swelling Objective Last 24 Hour Vital Signs Date Time Temp Pulse Resp B/P (MAP) Pulse Ox O2 Delivery O2 Flow Rate FiO2 02/11/17 16:30 18 02/11/17 16:30 18 02/11/17 16:00 99.1 113 19 132/72 96 Room Air 02/11/17 12:05 98.6 104 20 129/65 100 Room Air 02/11/17 12:00 18 02/11/17 11:50 98.1 105 20 130/71 98 Room Air 02/11/17 09:35 106 20 99 02/11/17 08:00 18 02/11/17 08:00 97.7 106 20 126/70 99 Room Air 02/11/17 04:00 18 02/11/17 04:00 97.7 99 18 117/72 99 Room Air 02/10/17 23:47 16 02/10/17 20:00 98.1 111 20 135/79 99 Nasal Cannula 2.0 02/10/17 19:59 17 Intake and Output 02/11/17 02/12/17 19:00 07:00 Intake Total 240 ml Output Total 1600 ml Balance -1360 ml Intake Oral 240 ml Output Urine Total 1600 ml Laboratory Tests 02/11/17 04:35: White Blood Count 14.5H, Red Blood Count 2.95L, Hemoglobin 8.0L, Hematocrit 24.5L, Mean Corpuscular Volume 83, Mean Corpuscular Hemoglobin 27.1, Mean Corpuscular Hemoglobin Concent 32.7, Red Cell Distribution Width 15.0H, Platelet Count 435, Mean Platelet Volume 6.9, Neutrophils (%) (Auto) 77.7H, Lymphocytes (%) (Auto) 11.4L, Monocytes (%) (Auto) 9.3, Eosinophils (%) (Auto) 0.5, Basophils (%) (Auto) 1.0, Sodium Level 131L, Potassium Level 4.5, Chloride Level 92L, Carbon Dioxide Level 28, Anion Gap 11, Blood Urea Nitrogen 8, Creatinine 0.5L, Estimat Glomerular Filtration Rate > 60, Glucose Level 110H, Calcium Level 8.7 Height (Feet): 5 Height (Inches): 6.00 Weight (Pounds): 250 Objective General: alert, cooperative, no distress, appears stated age Head: normocephalic, without obvious abnormality, atraumatic Eyes: conjunctivae/corneas clear. PERRL, EOM's intact Throat: lips, mucosa, and tongue normal. MMM Neck: supple, symmetrical, trachea midline, and no JVD Lungs: clear to auscultation bilaterally Heart: regular rate and rhythm, S1, S2 normal, no murmur, click, rub or gallop Abdomen: soft, non-tender, non-distended, bowel sounds normal; no masses or organomegaly Extremities: extremities normal, atraumatic, no cyanosis or edema Dressing c/d/i Pulses: 2+ and symmetric Skin: skin color, texture, turgor normal; no rashes or lesions Neurologic: grossly normal, no focal deficits Yi Desai M.D. Feb 11, 2017 16:52
[2017-02-11 20:00] VITALS: BP 128/73
[2017-02-12] VITALS (7 sets, daily range): BP systolic 115–140; BP diastolic 69–77
[2017-02-12] MEDS: ceFAZolin 1gm in D5W 55ml IVPB SCH ×3 (01:43→17:30)
[2017-02-12] MEDS: PCA shift volume MISC SCH ×2 (07:12→19:10)
[2017-02-12 08:15] LABS: BASOPHILS % (AUTO) 0.6 % (0.0-2.0); EOSINOPHILS % (AUTO) 0.6 % (0.0-3.0); LYMPHOCYTES % (AUTO) 10.7 % (20.0-45.0); MEAN CORPUSCULAR HGB CONC 31.5 G/DL (32.0-36.0); MEAN CORPUSCULAR VOLUME 83 FL (80-99); MEAN PLATELET VOLUME 6.9 FL (6.5-10.1); MONOCYTES % (AUTO) 8.1 % (1.0-10.0); PLATELET COUNT 466 K/UL (150-450); RED BLOOD COUNT 3.11 M/UL (4.70-6.10); RED CELL DISTRIBUTION WIDTH 14.9 % (11.6-14.8); WHITE BLOOD COUNT 14.5 K/UL (4.8-10.8)
[2017-02-12] MEDS: Spironolactone 50mg tab ORAL SCH (08:54)
[2017-02-12] MEDS: Miralax 17gm pkt ORAL SCH (08:54)
[2017-02-12] MEDS: Docusate 100mg cap ORAL SCH ×2 (08:54→21:46)
[2017-02-12] MEDS: Dakin's 0.25% (Half Strength) 16oz TOPIC SCH ×4 (09:00→21:46)
[2017-02-12] MEDS: Heparin 5000 units/ml inj SUBQ SCH ×2 (09:03→21:55)
[2017-02-12] MEDS ORDERED: Rate Change PCA 1 Each MISC PRN (10:15)
[2017-02-12] MEDS ORDERED: Naloxone 0.4mg/ml Inj IVP PRN (10:15)
[2017-02-12] MEDS: PCA HYDROmorphone 1mg/ml 30 ML IV PRN (16:34)
--- NOTE | 2017-02-12 21:31 | General Progress Note ---
Assessment/Plan Problem List: (1) Wound dehiscence ICD Codes: T81.30XA - Disruption of wound, unspecified, initial encounter SNOMED: 297306718 (2) Acute blood loss anemia ICD Codes: D62 - Acute posthemorrhagic anemia SNOMED: 260409726 (3) Sepsis Assessment & Plan: fever + leukocytosis ICD Codes: A41.9 - Sepsis, unspecified organism SNOMED: 49156069 (4) Wound abscess ICD Codes: T81.4XXA - Wound abscess SNOMED: 673188410 (5) Hidradenitis suppurativa ICD Codes: L73.2 - Hidradenitis suppurativa SNOMED: 48919602 (6) HTN (hypertension) ICD Codes: I10 - Essential (primary) hypertension SNOMED: 35492168 (7) h/o DVT (8) Iron deficiency anemia ICD Codes: D50.9 - Iron deficiency anemia, unspecified SNOMED: 78763954 (9) SOB (shortness of breath) ICD Codes: R06.02 - Shortness of breath SNOMED: 722536904 (10) Hypoalbuminemia ICD Codes: E88.09 - Other disorders of plasma-protein metabolism, not elsewhere classified SNOMED: 643106599 (11) Hyponatremia ICD Codes: E87.1 - Hypo-osmolality and hyponatremia SNOMED: 46596977 Status: stable Assessment/Plan Plastic surgery consulted s/p debridement of bilateral thigh, groin and left lower abdomen with posterior thigh flap elevation on 01/29/17 s/p flap closure of abdominal and thigh wounds on 01/31/17 s/p bedside debridement of R posterior thigh wound by surgery on 02/07/17 s/p debridement of bilateral groin wounds and partial reclosure of wounds on 02/10 Empiric IV ancef ctm CBC--IV venofer 02/02 x 5d given iron deficiency anemia F/u blood cultures Wound care per surgery Repeat BLE venous duplex Cont horan per surgery Pain control, supportive care, bowel regimen Cont home meds DVT ppx w/ SCDs, HSQ Outpt derm f/u PT Highway Traffic Control Technician consulted given low albumin Home health ordered FULL CODE D/w pt, RN, surgery regarding mgmt and dispo Subjective Date patient seen: Feb 12, 2017 Time patient seen: 15:00 ROS Limited/Unobtainable: No Constitutional: Reports: fever HEENT: Reports: no symptoms Cardiovascular: Reports: no symptoms Respiratory: Reports: no symptoms Gastrointestinal/Abdominal: Reports: no symptoms Genitourinary: Reports: no symptoms Neurologic/Psychiatric: Reports: no symptoms Endocrine: Reports: no symptoms Hematologic/Lymphatic: Reports: no symptoms Allergies: Coded Allergies: Pork (Unverified Allergy, Unknown, 11/18/14) PT DOES NOT EAT ANY PORK, PORK CONTAINING PRODUCTS Subjective Afebrile o/n, HDS s/p debridement of bilateral groin wounds and partial reclosure of wounds POD#2 Pt doing well. Pain controlled. SOB resolved. Denies f/c, n/v, d/c, chest pain, BLE swelling Objective Last 24 Hour Vital Signs Date Time Temp Pulse Resp B/P (MAP) Pulse Ox O2 Delivery O2 Flow Rate FiO2 02/12/17 17:04 101.6 02/12/17 16:37 98.1 124 22 140/77 100 Room Air 02/12/17 16:34 20 02/12/17 16:34 20 02/12/17 12:00 97.2 114 21 136/76 98 Room Air 02/12/17 12:00 20 02/12/17 11:05 99.1 02/12/17 08:05 99.1 100 21 115/69 97 Room Air 02/12/17 08:00 98.3 92 20 116/73 94 Room Air 02/12/17 08:00 21 02/12/17 04:00 18 02/12/17 04:00 100.7 107 18 121/76 97 Room Air 02/12/17 00:00 101.4 120 19 139/77 95 Room Air 02/12/17 00:00 18 Intake and Output 02/12/17 02/13/17 19:00 07:00 Intake Total 1622.5 ml Output Total 2100 ml Balance -477.5 ml Intake Oral 800 ml IV Total 822.5 ml Output Urine Total 2100 ml Laboratory Tests 02/12/17 05:50: White Blood Count 14.5H, Red Blood Count 3.11L, Hemoglobin 8.1L, Hematocrit 25.7L, Mean Corpuscular Volume 83, Mean Corpuscular Hemoglobin 26.0L, Mean Corpuscular Hemoglobin Concent 31.5L, Red Cell Distribution Width 14.9H, Platelet Count 466H, Mean Platelet Volume 6.9, Neutrophils (%) (Auto) 80.0H, Lymphocytes (%) (Auto) 10.7L, Monocytes (%) (Auto) 8.1, Eosinophils (%) (Auto) 0.6, Basophils (%) (Auto) 0.6, Albumin 2.2L, Prealbumin [Pending] Height (Feet): 5 Height (Inches): 6.00 Weight (Pounds): 250 Objective General: alert, cooperative, no distress, appears stated age Head: normocephalic, without obvious abnormality, atraumatic Eyes: conjunctivae/corneas clear. PERRL, EOM's intact Throat: lips, mucosa, and tongue normal. MMM Neck: supple, symmetrical, trachea midline, and no JVD Lungs: clear to auscultation bilaterally Heart: regular rate and rhythm, S1, S2 normal, no murmur, click, rub or gallop Abdomen: soft, non-tender, non-distended, bowel sounds normal; no masses or organomegaly Extremities: extremities normal, atraumatic, no cyanosis or edema Dressing c/d/i Pulses: 2+ and symmetric Skin: skin color, texture, turgor normal; no rashes or lesions Neurologic: grossly normal, no focal deficits Yi Desai M.D. Feb 12, 2017 21:31
[2017-02-13] VITALS: BP 134/73
[2017-02-13] MEDS: ceFAZolin 1gm in D5W 55ml IVPB SCH ×3 (01:34→17:35)
[2017-02-13 04:00] VITALS: BP 105/64
[2017-02-13] MEDS: PCA shift volume MISC SCH ×2 (07:13→19:12)
[2017-02-13 08:19] VITALS: BP 120/69
[2017-02-13] MEDS: Miralax 17gm pkt ORAL SCH (09:03)
[2017-02-13] MEDS: Docusate 100mg cap ORAL SCH ×2 (09:04→21:59)
[2017-02-13] MEDS: Spironolactone 50mg tab ORAL SCH (09:04)
[2017-02-13] MEDS: Dakin's 0.25% (Half Strength) 16oz TOPIC SCH ×2 (09:05→22:04)
[2017-02-13] MEDS: Heparin 5000 units/ml inj SUBQ SCH ×2 (09:15→22:02)
[2017-02-13 11:38] VITALS: BP 124/79
--- NOTE | 2017-02-13 14:42 | General Progress Note ---
Assessment/Plan Problem List: (1) Postoperative fever ICD Codes: R50.82 - Postprocedural fever SNOMED: 629235095 (2) Wound dehiscence ICD Codes: T81.30XA - Disruption of wound, unspecified, initial encounter SNOMED: 686016735 (3) Acute blood loss anemia ICD Codes: D62 - Acute posthemorrhagic anemia SNOMED: 615950179 (4) Sepsis Assessment & Plan: fever + leukocytosis ICD Codes: A41.9 - Sepsis, unspecified organism SNOMED: 18378873 (5) Wound abscess ICD Codes: T81.4XXA - Wound abscess SNOMED: 668938259 (6) Hidradenitis suppurativa ICD Codes: L73.2 - Hidradenitis suppurativa SNOMED: 76287241 (7) HTN (hypertension) ICD Codes: I10 - Essential (primary) hypertension SNOMED: 30454763 (8) h/o DVT (9) Iron deficiency anemia ICD Codes: D50.9 - Iron deficiency anemia, unspecified SNOMED: 38317936 (10) SOB (shortness of breath) ICD Codes: R06.02 - Shortness of breath SNOMED: 290679406 (11) Hypoalbuminemia ICD Codes: E88.09 - Other disorders of plasma-protein metabolism, not elsewhere classified SNOMED: 242984397 (12) Hyponatremia ICD Codes: E87.1 - Hypo-osmolality and hyponatremia SNOMED: 08206087 Status: stable Assessment/Plan Plastic surgery consulted s/p debridement of bilateral thigh, groin and left lower abdomen with posterior thigh flap elevation on 01/29/17 s/p flap closure of abdominal and thigh wounds on 01/31/17 s/p bedside debridement of R posterior thigh wound by surgery on 02/07/17 s/p debridement of bilateral groin wounds and partial reclosure of wounds on 02/10 Empiric IV ancef ctm CBC--IV venofer 02/02 x 5d given iron deficiency anemia F/u blood cultures Wound care per surgery Cont horan per surgery Pain control, supportive care, bowel regimen Cont home meds DVT ppx w/ SCDs, HSQ Outpt derm f/u PT Industrial Equipment Wirer consulted given low albumin--supplements ordered Home health ordered DC likely on Fri w/ home health FULL CODE D/w pt, RN, surgery regarding mgmt and dispo Subjective Date patient seen: Feb 13, 2017 Time patient seen: 14:41 ROS Limited/Unobtainable: No Allergies: Coded Allergies: Pork (Unverified Allergy, Unknown, 11/18/14) PT DOES NOT EAT ANY PORK, PORK CONTAINING PRODUCTS Subjective Fever to 101 o/n s/p debridement of bilateral groin wounds and partial reclosure of wounds POD#3 Pt doing well. Pain controlled. SOB resolved. Denies f/c, n/v, d/c, chest pain, BLE swelling No recent BM Objective Last 24 Hour Vital Signs Date Time Temp Pulse Resp B/P (MAP) Pulse Ox O2 Delivery O2 Flow Rate FiO2 02/13/17 12:43 97.4 02/13/17 12:00 20 02/13/17 11:53 97.4 02/13/17 11:38 97.4 71 20 124/79 98 Room Air 02/13/17 08:19 98.3 99 20 120/69 97 Room Air 02/13/17 08:00 18 02/13/17 04:00 18 02/13/17 04:00 98.8 101 18 105/64 98 Room Air 02/13/17 00:00 99.5 113 18 134/73 98 Room Air 02/13/17 00:00 18 02/12/17 20:00 98.7 109 18 124/76 96 Room Air 02/12/17 20:00 20 02/12/17 17:04 101.6 02/12/17 16:37 98.1 124 22 140/77 100 Room Air 02/12/17 16:34 20 02/12/17 16:34 20 Intake and Output 02/13/17 02/14/17 19:00 07:00 Intake Total 1177.5 ml Output Total 1000 ml Balance 177.5 ml Intake Oral 710 ml IV Total 467.5 ml Output Urine Total 1000 ml # Voids 1 Height (Feet): 5 Height (Inches): 6.00 Weight (Pounds): 250 Objective General: alert, cooperative, no distress, appears stated age Head: normocephalic, without obvious abnormality, atraumatic Eyes: conjunctivae/corneas clear. PERRL, EOM's intact Throat: lips, mucosa, and tongue normal. MMM Neck: supple, symmetrical, trachea midline, and no JVD Lungs: clear to auscultation bilaterally Heart: regular rate and rhythm, S1, S2 normal, no murmur, click, rub or gallop Abdomen: soft, non-tender, non-distended, bowel sounds normal; no masses or organomegaly Extremities: extremities normal, atraumatic, no cyanosis or edema Dressing c/d/i Pulses: 2+ and symmetric Skin: skin color, texture, turgor normal; no rashes or lesions Neurologic: grossly normal, no focal deficits Yi Desai M.D. Feb 13, 2017 14:41
[2017-02-13] MEDS ORDERED: NS 550ML IV ONE (15:01)
[2017-02-13] MEDS ORDERED: Tubing Blood Filter IV ONE (15:01)
[2017-02-13] MEDS ORDERED: NS 275ml ONE (15:01)
[2017-02-13 15:47] VITALS: BP 119/74
[2017-02-13] MEDS: PCA HYDROmorphone 1mg/ml 30 ML IV PRN (16:25)
[2017-02-13] MEDS: Fleet's Enema 133ml RECTAL ONE ×2 (18:30→22:04)
[2017-02-13 20:08] VITALS: BP 129/80
[2017-02-14 00:39] VITALS: BP 139/82
[2017-02-14] MEDS: ceFAZolin 1gm in D5W 55ml IVPB SCH ×3 (02:12→17:37)
[2017-02-14 04:29] VITALS: BP 140/82
[2017-02-14 07:03] LABS: BASOPHILS % (AUTO) 0.9 % (0.0-2.0); EOSINOPHILS % (AUTO) 0.8 % (0.0-3.0); LYMPHOCYTES % (AUTO) 17.4 % (20.0-45.0); MEAN CORPUSCULAR HEMOGLOBIN 26.6 PG (27.0-31.0); MEAN CORPUSCULAR HGB CONC 32.4 G/DL (32.0-36.0); MEAN CORPUSCULAR VOLUME 82 FL (80-99); MEAN PLATELET VOLUME 6.5 FL (6.5-10.1); MONOCYTES % (AUTO) 5.9 % (1.0-10.0); NEUTROPHILS % (AUTO) 74.9 % (45.0-75.0); PLATELET COUNT 537 K/UL (150-450); RED BLOOD COUNT 3.15 M/UL (4.70-6.10); RED CELL DISTRIBUTION WIDTH 14.9 % (11.6-14.8); WHITE BLOOD COUNT 12.3 K/UL (4.8-10.8)
[2017-02-14 07:33] LABS: ANION GAP 10 (5-15); CARBON DIOXIDE 28 mEQ/L (20-30); CHLORIDE 95 mEQ/L (98-107); CREATININE 0.5 mg/dL (0.7-1.2); GLOMERULAR FILTRATION RATE > 60 mL/min (>60); HEMOLYSIS 0; POTASSIUM 4.2 mEQ/L (3.4-4.9); SODIUM 133 mEQ/L (135-145)
[2017-02-14] MEDS ORDERED: DiphenhydrAMINE 50mg/ml Inj IVP PRN (07:45)
[2017-02-14] MEDS ORDERED: Rate Change PCA 1 Each MISC PRN (07:45)
[2017-02-14 08:00] VITALS: BP 118/75
[2017-02-14] MEDS ORDERED: PCA HYDROmorphone 1mg/ml 30 ML IV PRN (08:15)
[2017-02-14] MEDS ORDERED: PCA Education Pamphlet MISC ONE (08:15)
[2017-02-14] MEDS: Spironolactone 50mg tab ORAL SCH (09:17)
[2017-02-14] MEDS: Miralax 17gm pkt ORAL SCH (09:17)
[2017-02-14] MEDS: Docusate 100mg cap ORAL SCH ×2 (09:18→20:46)
[2017-02-14] MEDS: Heparin 5000 units/ml inj SUBQ SCH ×2 (09:23→20:46)
[2017-02-14 10:08] LABS: APPEARANCE,URINE CLOUDY; KETONES,URINE NEGATIVE (NEGATIVE); LEUKOCYTE ESTERASE ,URINE 3+ (NEGATIVE); NITRITE,URINE POSITIVE (NEGATIVE); PH,URINE 5 (4.5-8.0); PROTEIN,URINE 2+ (NEGATIVE); UROBILINOGEN,URINE NORMAL MG/DL (0.0-1.0)
[2017-02-14 10:27] LABS: BACTERIA,URINE MANY /HPF; SQUAMOUS EPITHELIAL CELL,UR OCCASIONAL /LPF (NONE/OCC); WBC,URINE TNTC /HPF (0 - 0)
--- NOTE | 2017-02-14 10:41 | Diagnostic Imaging Report ---
Indication: Dyspnea Comparison: 02/04/17 A single view chest radiograph was obtained. Findings: Cardiomediastinal appearance is within normal limits for age. Pulmonary vascularity is appropriate. The diaphragmatic contour is smooth and costophrenic angles are sharp. No pleural effusions are identified. The bones are unremarkable. Impression: No acute findings
[2017-02-14 12:00] VITALS: BP 113/78
[2017-02-14] MEDS: Dakin's 0.25% (Half Strength) 16oz TOPIC SCH ×2 (14:52→22:23)
[2017-02-14 16:00] VITALS: BP 122/75
[2017-02-14] MEDS ORDERED: NS Irrig 1000ml ONE (17:13)
[2017-02-14] MEDS: PCA shift volume MISC SCH (19:11)
--- NOTE | 2017-02-14 19:16 | General Progress Note ---
Assessment/Plan Problem List: (1) Postoperative fever ICD Codes: R50.82 - Postprocedural fever SNOMED: 175405618 (2) Wound dehiscence ICD Codes: T81.30XA - Disruption of wound, unspecified, initial encounter SNOMED: 290549287 (3) Acute blood loss anemia ICD Codes: D62 - Acute posthemorrhagic anemia SNOMED: 104208159 (4) Sepsis Assessment & Plan: fever + leukocytosis ICD Codes: A41.9 - Sepsis, unspecified organism SNOMED: 13432495 (5) Wound abscess ICD Codes: T81.4XXA - Wound abscess SNOMED: 378494998 (6) Hidradenitis suppurativa ICD Codes: L73.2 - Hidradenitis suppurativa SNOMED: 72988828 (7) HTN (hypertension) ICD Codes: I10 - Essential (primary) hypertension SNOMED: 55174768 (8) h/o DVT (9) Iron deficiency anemia ICD Codes: D50.9 - Iron deficiency anemia, unspecified SNOMED: 08196200 (10) SOB (shortness of breath) ICD Codes: R06.02 - Shortness of breath SNOMED: 481175247 (11) Hypoalbuminemia ICD Codes: E88.09 - Other disorders of plasma-protein metabolism, not elsewhere classified SNOMED: 319961278 (12) Hyponatremia ICD Codes: E87.1 - Hypo-osmolality and hyponatremia SNOMED: 56118245 (13) UTI (urinary tract infection) ICD Codes: N39.0 - Urinary tract infection, site not specified SNOMED: 92225743 Status: stable Assessment/Plan Plastic surgery consulted s/p debridement of bilateral thigh, groin and left lower abdomen with posterior thigh flap elevation on 01/29/17 s/p flap closure of abdominal and thigh wounds on 01/31/17 s/p bedside debridement of R posterior thigh wound by surgery on 02/07/17 s/p debridement of bilateral groin wounds and partial reclosure of wounds on 02/10 Pt w/ likely UTI --> F/u urine culture Empiric IV ancef ctm CBC--IV venofer 02/02 x 5d given iron deficiency anemia F/u blood cultures Wound care per surgery Cont horan per surgery Pain control, supportive care, bowel regimen Cont home meds DVT ppx w/ SCDs, HSQ Outpt derm f/u PT [employer]ry [employer] Round Attendant consulted given low albumin--supplements ordered Home health ordered DC likely on Fri w/ home health FULL CODE D/w pt, RN, surgery regarding mgmt and dispo Subjective Date patient seen: Feb 14, 2017 Time patient seen: 19:15 ROS Limited/Unobtainable: No Constitutional: Reports: no symptoms HEENT: Reports: no symptoms Cardiovascular: Reports: no symptoms Respiratory: Reports: no symptoms Gastrointestinal/Abdominal: Reports: no symptoms Genitourinary: Reports: no symptoms Neurologic/Psychiatric: Reports: no symptoms Endocrine: Reports: no symptoms Hematologic/Lymphatic: Reports: no symptoms Allergies: Coded Allergies: Pork (Unverified Allergy, Unknown, 11/18/14) PT DOES NOT EAT ANY PORK, PORK CONTAINING PRODUCTS Subjective Fever to 102 o/n s/p debridement of bilateral groin wounds and partial reclosure of wounds POD#4 Pt doing well. Pain controlled. SOB resolved. Denies f/c, n/v, d/c, chest pain, BLE swelling +BM yesterday Objective Last 24 Hour Vital Signs Date Time Temp Pulse Resp B/P (MAP) Pulse Ox O2 Delivery O2 Flow Rate FiO2 02/14/17 16:00 99.3 118 20 122/75 98 Nasal Cannula 02/14/17 16:00 18 02/14/17 12:00 98.1 98 20 113/78 100 Room Air 02/14/17 12:00 18 02/14/17 08:00 98.3 99 18 118/75 99 Room Air 02/14/17 08:00 18 02/14/17 08:00 98.3 99 19 118/75 99 Room Air 02/14/17 04:29 98.2 112 20 140/82 97 Room Air 02/14/17 04:00 16 02/14/17 00:39 98.3 114 19 139/82 94 Room Air 02/14/17 00:00 20 02/13/17 20:08 102.1 115 20 129/80 96 Room Air Intake and Output 02/14/17 02/15/17 19:00 07:00 Intake Total 1780 ml Output Total 1500 ml Balance 280 ml Intake Oral 920 ml IV Total 860 ml Output Urine Total 1500 ml Laboratory Tests 02/14/17 05:20: White Blood Count 12.3H, Red Blood Count 3.15L, Hemoglobin 8.4L, Hematocrit 25.8L, Mean Corpuscular Volume 82, Mean Corpuscular Hemoglobin 26.6L, Mean Corpuscular Hemoglobin Concent 32.4, Red Cell Distribution Width 14.9H, Platelet Count 537H, Mean Platelet Volume 6.5, Neutrophils (%) (Auto) 74.9, Lymphocytes (%) (Auto) 17.4L, Monocytes (%) (Auto) 5.9, Eosinophils (%) (Auto) 0.8, Basophils (%) (Auto) 0.9, Sodium Level 133L, Potassium Level 4.2, Chloride Level 95L, Carbon Dioxide Level 28, Anion Gap 10, Blood Urea Nitrogen 8, Creatinine 0.5L, Estimat Glomerular Filtration Rate > 60, Glucose Level 96, Calcium Level 9.0 02/14/17 07:45: Urine Color Pale yellow, Urine Appearance Cloudy, Urine pH 5, Urine Specific [place] 1.020, Urine Protein 2+H, Urine Glucose (UA) Negative, Urine Ketones Negative, Urine Occult Blood 5+H, Urine Nitrite PositiveH, Urine Bilirubin Negative, Urine Urobilinogen Normal, Urine Leukocyte Esterase 3+H, Urine RBC 5- 10H, Urine WBC TntcH, Urine Squamous Epithelial Cells Occasional, Urine Bacteria ManyH Height (Feet): 5 Height (Inches): 6.00 Weight (Pounds): 250 Objective General: alert, cooperative, no distress, appears stated age Head: normocephalic, without obvious abnormality, atraumatic Eyes: conjunctivae/corneas clear. PERRL, EOM's intact Throat: lips, mucosa, and tongue normal. MMM Neck: supple, symmetrical, trachea midline, and no JVD Lungs: clear to auscultation bilaterally Heart: regular rate and rhythm, S1, S2 normal, no murmur, click, rub or gallop Abdomen: soft, non-tender, non-distended, bowel sounds normal; no masses or organomegaly Extremities: extremities normal, atraumatic, no cyanosis or edema Dressing c/d/i Pulses: 2+ and symmetric Skin: skin color, texture, turgor normal; no rashes or lesions Neurologic: grossly normal, no focal deficits Yi Desai M.D. Feb 14, 2017 19:16
[2017-02-14 20:00] VITALS: BP 125/78
[2017-02-15] VITALS: BP 123/79
[2017-02-15] MEDS: ceFAZolin 1gm in D5W 55ml IVPB SCH ×3 (02:32→17:32)
[2017-02-15 04:00] VITALS: BP 126/76
[2017-02-15] MEDS: PCA shift volume MISC SCH ×2 (07:13→19:18)
[2017-02-15 08:00] VITALS: BP 131/78
[2017-02-15] MEDS: Miralax 17gm pkt ORAL SCH (08:41)
[2017-02-15] MEDS: Docusate 100mg cap ORAL SCH ×2 (08:41→20:05)
[2017-02-15] MEDS: Spironolactone 50mg tab ORAL SCH (08:41)
[2017-02-15] MEDS: Heparin 5000 units/ml inj SUBQ SCH ×2 (08:52→20:07)
[2017-02-15] MEDS: Dakin's 0.25% (Half Strength) 16oz TOPIC SCH ×2 (09:08→21:07)
[2017-02-15 12:00] VITALS: BP 126/74
[2017-02-15 16:00] VITALS: BP 125/83
--- NOTE | 2017-02-15 17:37 | General Progress Note ---
Assessment/Plan Assessment/Plan Problem List: (1) Postoperative fever ICD Codes: R50.82 - Postprocedural fever SNOMED: 974229326 (2) Wound dehiscence ICD Codes: T81.30XA - Disruption of wound, unspecified, initial encounter SNOMED: 952779458 (3) Acute blood loss anemia ICD Codes: D62 - Acute posthemorrhagic anemia SNOMED: 973127816 (4) Sepsis Assessment & Plan: fever + leukocytosis ICD Codes: A41.9 - Sepsis, unspecified organism SNOMED: 99069003 (5) Wound abscess ICD Codes: T81.4XXA - Wound abscess SNOMED: 827320720 (6) Hidradenitis suppurativa ICD Codes: L73.2 - Hidradenitis suppurativa SNOMED: 19830478 (7) HTN (hypertension) ICD Codes: I10 - Essential (primary) hypertension SNOMED: 53852924 (8) h/o DVT (9) Iron deficiency anemia ICD Codes: D50.9 - Iron deficiency anemia, unspecified SNOMED: 24061402 (10) SOB (shortness of breath) ICD Codes: R06.02 - Shortness of breath SNOMED: 164617207 (11) Hypoalbuminemia ICD Codes: E88.09 - Other disorders of plasma-protein metabolism, not elsewhere classified SNOMED: 882418574 (12) Hyponatremia ICD Codes: E87.1 - Hypo-osmolality and hyponatremia SNOMED: 00447429 (13) UTI (urinary tract infection), gram neg Alexandre > 100k ICD Codes: N39.0 - Urinary tract infection, site not specified SNOMED: 09091344 Status: stable Assessment/Plan Plastic surgery consulted, appreciate recs and management s/p debridement of bilateral thigh, groin and left lower abdomen with posterior thigh flap elevation on 01/29/17 s/p flap closure of abdominal and thigh wounds on 01/31/17 s/p bedside debridement of R posterior thigh wound by surgery on 02/07/17 s/p debridement of bilateral groin wounds and partial reclosure of wounds on 02/10 Pt w/ likely UTI --> F/u urine culture Expand Empiric IV ancef to Ceftriaxone 1g IV daily Follow Urine Cx / Sens (grew 100k GNR) ctm CBC--IV venofer 02/02 x 5d given iron deficiency anemia F/u blood cultures Wound care per surgery Replace horan, c/w catheter per surgery Pain control, supportive care, bowel regimen Cont home meds DVT ppx w/ SCDs, HSQ Outpt derm f/u PT Drug Abuse Resistance Education Officer consulted given low albumin--supplements ordered Home health ordered DC likely on Fri w/ home health FULL CODE D/w pt, RN, surgery regarding mgmt and dispo I spent 40 min on this pts case and 28 min were spent on counseling and/or care coordination TIme of this note may not reflect the time of the clinical encounter Subjective Date patient seen: Feb 15, 2017 Allergies: Coded Allergies: Pork (Unverified Allergy, Unknown, 11/18/14) PT DOES NOT EAT ANY PORK, PORK CONTAINING PRODUCTS Subjective s/p debridement of bilateral groin wounds and partial reclosure of wounds POD # 5 DEVAN, VSS Pt doing well. Pain controlled. SOB resolved. Denies f/c, n/v, d/c, chest pain, BLE swelling Objective Last 24 Hour Vital Signs Date Time Temp Pulse Resp B/P (MAP) Pulse Ox O2 Delivery O2 Flow Rate FiO2 02/15/17 16:00 20 02/15/17 16:00 98.1 104 20 125/83 97 Room Air 02/15/17 13:56 98.3 02/15/17 12:00 98.3 95 19 126/74 95 Room Air 02/15/17 12:00 20 02/15/17 10:26 98.3 02/15/17 10:00 20 02/15/17 09:59 20 02/15/17 08:00 20 02/15/17 08:00 98.3 103 20 131/78 95 Room Air 02/15/17 04:21 20 02/15/17 04:00 98.6 99 18 126/76 99 Room Air 02/15/17 00:28 20 02/15/17 00:00 99.0 106 18 123/79 97 Room Air 02/14/17 20:50 20 02/14/17 20:00 99.7 120 20 125/78 100 Room Air Intake and Output 02/15/17 02/16/17 19:00 07:00 Intake Total 2277.5 ml Output Total 2901 ml Balance -623.5 ml Intake Oral 300 ml IV Total 1977.5 ml Output Urine Total 2901 ml Height (Feet): 5 Height (Inches): 6.00 Weight (Pounds): 250 Objective General: alert, cooperative, no distress, appears stated age Head: normocephalic, without obvious abnormality, atraumatic Eyes: conjunctivae/corneas clear. PERRL, EOM's intact Throat: lips, mucosa, and tongue normal. MMM Neck: supple, symmetrical, trachea midline, and no JVD Lungs: clear to auscultation bilaterally Heart: regular rate and rhythm, S1, S2 normal, no murmur, click, rub or gallop Abdomen: soft, non-tender, non-distended, bowel sounds normal; no masses or organomegaly Extremities: extremities normal, atraumatic, no cyanosis or edema Dressing c/d/i Pulses: 2+ and symmetric Skin: skin color, texture, turgor normal; no rashes or lesions Neurologic: grossly normal, no focal deficits Sathish Arredondo MD Feb 15, 2017 17:37
[2017-02-15 20:00] VITALS: BP 117/74
[2017-02-15] MEDS: cefTRIAXone 1gm/D5W 55ml IVPB SCH ×2 (20:05)
[2017-02-16 04:00] VITALS: BP 128/72
[2017-02-16] MEDS: PCA shift volume MISC SCH ×3 (07:11→19:10)
[2017-02-16 08:00] VITALS: BP 129/68
[2017-02-16] MEDS: Docusate 100mg cap ORAL SCH ×2 (08:07→20:56)
[2017-02-16] MEDS: Spironolactone 50mg tab ORAL SCH (08:07)
[2017-02-16] MEDS: Miralax 17gm pkt ORAL SCH (08:08)
[2017-02-16] MEDS: Heparin 5000 units/ml inj SUBQ SCH ×2 (08:10→20:59)
[2017-02-16] MEDS: Dakin's 0.25% (Half Strength) 16oz TOPIC SCH ×2 (10:50→20:57)
[2017-02-16 12:00] VITALS: BP 139/91
[2017-02-16] MEDS ORDERED: Rate Change PCA 1 Each MISC PRN (13:00)
--- NOTE | 2017-02-16 14:49 | General Progress Note ---
Assessment/Plan Assessment/Plan Problem List: (1) Postoperative fever ICD Codes: R50.82 - Postprocedural fever SNOMED: 900570699 (2) Wound dehiscence ICD Codes: T81.30XA - Disruption of wound, unspecified, initial encounter SNOMED: 346928508 (3) Acute blood loss anemia ICD Codes: D62 - Acute posthemorrhagic anemia SNOMED: 342097133 (4) Sepsis Assessment & Plan: fever + leukocytosis ICD Codes: A41.9 - Sepsis, unspecified organism SNOMED: 51047759 (5) Wound abscess ICD Codes: T81.4XXA - Wound abscess SNOMED: 260495007 (6) Hidradenitis suppurativa ICD Codes: L73.2 - Hidradenitis suppurativa SNOMED: 32152346 (7) HTN (hypertension) ICD Codes: I10 - Essential (primary) hypertension SNOMED: 54066220 (8) h/o DVT (9) Iron deficiency anemia ICD Codes: D50.9 - Iron deficiency anemia, unspecified SNOMED: 21752414 (10) SOB (shortness of breath) ICD Codes: R06.02 - Shortness of breath SNOMED: 868743574 (11) Hypoalbuminemia ICD Codes: E88.09 - Other disorders of plasma-protein metabolism, not elsewhere classified SNOMED: 010460665 (12) Hyponatremia ICD Codes: E87.1 - Hypo-osmolality and hyponatremia SNOMED: 37114045 (13) UTI (urinary tract infection), gram neg Alexandre > 100k ICD Codes: N39.0 - Urinary tract infection, site not specified SNOMED: 76589838 Status: stable Assessment/Plan Plastic surgery consulted, appreciate recs and management s/p debridement of bilateral thigh, groin and left lower abdomen with posterior thigh flap elevation on 01/29/17 s/p flap closure of abdominal and thigh wounds on 01/31/17 s/p bedside debridement of R posterior thigh wound by surgery on 02/07/17 s/p debridement of bilateral groin wounds and partial reclosure of wounds on 02/10 Pt w/ likely UTI --> F/u urine culture c/w Ceftriaxone 1g IV daily, consider changing to PO Bactrim per Cx sens on DC ( treat for 5 days total after horan catheter removed) Follow Urine Cx / Sens (grew 100k GNR) - sensitive to ceftriaxone and bactrim Daily UA as pt refused to excange horan CBC & CHEM now ans in am ctm CBC--IV venofer 02/02 x 5d given iron deficiency anemia F/u blood cultures Wound care per surgery Replace horan, c/w catheter per surgery Pain control, supportive care, bowel regimen Cont home meds DVT ppx w/ SCDs, HSQ Outpt derm f/u PT Manager Data consulted given low albumin--supplements ordered Home health ordered DC likely on Fri w/ home health FULL CODE D/w pt, RN, surgery regarding mgmt and dispo I spent 40 min on this pts case and 28 min were spent on counseling and/or care coordination TIme of this note may not reflect the time of the clinical encounter Subjective Date patient seen: Feb 16, 2017 Allergies: Coded Allergies: Pork (Unverified Allergy, Unknown, 11/18/14) PT DOES NOT EAT ANY PORK, PORK CONTAINING PRODUCTS Subjective s/p debridement of bilateral groin wounds and partial reclosure of wounds POD # 6 DEVAN, VSS Pt doing well. Pain controlled. SOB resolved. Denies f/c, n/v, d/c, chest pain, BLE swelling refused to change horan Objective Last 24 Hour Vital Signs Date Time Temp Pulse Resp B/P (MAP) Pulse Ox O2 Delivery O2 Flow Rate FiO2 02/16/17 12:00 98.2 105 20 139/91 97 Room Air 02/16/17 11:49 16 02/16/17 08:00 98.9 102 18 129/68 97 Room Air 02/16/17 05:45 97.3 02/16/17 04:03 16 02/16/17 04:00 97.3 104 18 128/72 Room Air 02/16/17 00:00 20 02/15/17 20:00 18 02/15/17 20:00 98.1 109 20 117/74 97 Room Air 02/15/17 16:00 20 02/15/17 16:00 98.1 104 20 125/83 97 Room Air Intake and Output 02/16/17 02/17/17 19:00 07:00 Intake Total 350 ml Output Total 1800 ml Balance -1450 ml Intake Oral 350 ml Output Urine Total 1800 ml Height (Feet): 5 Height (Inches): 6.00 Weight (Pounds): 250 Objective General: alert, cooperative, no distress, appears stated age Head: normocephalic, without obvious abnormality, atraumatic Eyes: conjunctivae/corneas clear. PERRL, EOM's intact Throat: lips, mucosa, and tongue normal. MMM Neck: supple, symmetrical, trachea midline, and no JVD Lungs: clear to auscultation bilaterally Heart: regular rate and rhythm, S1, S2 normal, no murmur, click, rub or gallop Abdomen: soft, non-tender, non-distended, bowel sounds normal; no masses or organomegaly Extremities: extremities normal, atraumatic, no cyanosis or edema Dressing c/d/i Pulses: 2+ and symmetric Skin: skin color, texture, turgor normal; no rashes or lesions Neurologic: grossly normal, no focal deficits Sathish Arredondo MD Feb 16, 2017 14:49
[2017-02-16 16:00] VITALS: BP 124/85
[2017-02-16] MEDS: PCA HYDROmorphone 1mg/ml 30 ML IV PRN (20:15)
[2017-02-16 20:44] VITALS: BP 130/73
[2017-02-16] MEDS: cefTRIAXone 1gm/D5W 55ml IVPB SCH ×2 (20:56)
[2017-02-16] MEDS ORDERED: Fleet's Enema 133ml RECTAL ONE (22:30)
[2017-02-17] VITALS: BP 124/68
[2017-02-17 04:20] VITALS: BP 124/78
[2017-02-17 05:38] LABS: APPEARANCE,URINE CLEAR; KETONES,URINE NEGATIVE (NEGATIVE); LEUKOCYTE ESTERASE ,URINE 1+ (NEGATIVE); NITRITE,URINE NEGATIVE (NEGATIVE); PH,URINE 6.5 (4.5-8.0); PROTEIN,URINE 3+ (NEGATIVE); UROBILINOGEN,URINE NORMAL MG/DL (0.0-1.0)
[2017-02-17 06:10] LABS: BACTERIA,URINE FEW /HPF; RBC,URINE TNTC /HPF (0 - 0); SQUAMOUS EPITHELIAL CELL,UR FEW /LPF (NONE/OCC); WBC,URINE 0-2 /HPF (0 - 0)
[2017-02-17] MEDS: PCA shift volume MISC SCH ×2 (07:31→19:23)
[2017-02-17 07:33] VITALS: BP 127/80
[2017-02-17] MEDS: Docusate 100mg cap ORAL SCH ×2 (09:33→20:34)
[2017-02-17] MEDS: Spironolactone 50mg tab ORAL SCH (09:34)
[2017-02-17] MEDS: Miralax 17gm pkt ORAL SCH (09:34)
[2017-02-17] MEDS: Heparin 5000 units/ml inj SUBQ SCH ×2 (09:35→20:40)
[2017-02-17] MEDS: Dakin's 0.25% (Half Strength) 16oz TOPIC SCH ×2 (09:36→20:33)
[2017-02-17 10:16] LABS: BASOPHILS % (AUTO) 1.2 % (0.0-2.0); EOSINOPHILS % (AUTO) 1.1 % (0.0-3.0); LYMPHOCYTES % (AUTO) 11.6 % (20.0-45.0); MEAN CORPUSCULAR HEMOGLOBIN 26.3 PG (27.0-31.0); MEAN CORPUSCULAR HGB CONC 32.1 G/DL (32.0-36.0); MEAN CORPUSCULAR VOLUME 82 FL (80-99); MEAN PLATELET VOLUME 6.3 FL (6.5-10.1); NEUTROPHILS % (AUTO) 75.1 % (45.0-75.0); PLATELET COUNT 563 K/UL (150-450); RED BLOOD COUNT 3.42 M/UL (4.70-6.10); RED CELL DISTRIBUTION WIDTH 15.1 % (11.6-14.8); WHITE BLOOD COUNT 11.3 K/UL (4.8-10.8)
[2017-02-17 10:38] LABS: ANION GAP 11 (5-15); CALCIUM 9.1 mg/dL (8.6-10.2); CARBON DIOXIDE 28 mEQ/L (20-30); CHLORIDE 90 mEQ/L (98-107); CREATININE 0.4 mg/dL (0.7-1.2); GLOMERULAR FILTRATION RATE > 60 mL/min (>60); HEMOLYSIS 0; POTASSIUM 4.2 mEQ/L (3.4-4.9); SODIUM 129 mEQ/L (135-145)
[2017-02-17 11:32] LABS: THYROID STIMULATING HORMONE 1.93 uIU/mL (0.300-4.500)
[2017-02-17 12:00] VITALS: BP 119/79
[2017-02-17 12:16] LABS: BILIRUBIN,DIRECT 0.1 mg/dL (0.1-0.3); TOTAL PROTEIN 6.5 g/dL (6.6-8.7)
--- NOTE | 2017-02-17 14:40 | General Progress Note ---
Assessment/Plan Problem List: (1) Postoperative fever ICD Codes: R50.82 - Postprocedural fever SNOMED: 949155154 (2) Wound dehiscence ICD Codes: T81.30XA - Disruption of wound, unspecified, initial encounter SNOMED: 722445097 (3) Acute blood loss anemia ICD Codes: D62 - Acute posthemorrhagic anemia SNOMED: 812239848 (4) Sepsis Assessment & Plan: fever + leukocytosis ICD Codes: A41.9 - Sepsis, unspecified organism SNOMED: 44990967 (5) Wound abscess ICD Codes: T81.4XXA - Wound abscess SNOMED: 880134981 (6) Hidradenitis suppurativa ICD Codes: L73.2 - Hidradenitis suppurativa SNOMED: 92280210 (7) HTN (hypertension) ICD Codes: I10 - Essential (primary) hypertension SNOMED: 41349507 (8) h/o DVT (9) Iron deficiency anemia ICD Codes: D50.9 - Iron deficiency anemia, unspecified SNOMED: 44438023 (10) SOB (shortness of breath) ICD Codes: R06.02 - Shortness of breath SNOMED: 063743000 (11) Hypoalbuminemia ICD Codes: E88.09 - Other disorders of plasma-protein metabolism, not elsewhere classified SNOMED: 012654358 (12) Hyponatremia Assessment & Plan: 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 ICD Codes: E87.1 - Hypo-osmolality and hyponatremia SNOMED: 37086873 (13) UTI (urinary tract infection) Assessment & Plan: in setting of horan catheter ICD Codes: N39.0 - Urinary tract infection, site not specified SNOMED: 36877082 Status: stable Assessment/Plan Plastic surgery consulted s/p debridement of bilateral thigh, groin and left lower abdomen with posterior thigh flap elevation on 01/29/17 s/p flap closure of abdominal and thigh wounds on 01/31/17 s/p bedside debridement of R posterior thigh wound by surgery on 02/07/17 s/p debridement of bilateral groin wounds and partial reclosure of wounds on 02/10 Ceftriaxone for UTI (02/15-) will treat for 10-14d given complicated in setting of horan cathether and in male ctm CBC-- s/p-IV venofer 02/02 x 5d given iron deficiency anemia F/u blood cultures--ngtd Wound care per surgery s/p horan removal Fluid restriction given SIADH Pain control, supportive care, bowel regimen Cont home meds DVT ppx w/ SCDs, HSQ Outpt derm f/u PT [employer] consulted given low albumin--supplements ordered Home health ordered D/c possibly in 1-2 days per surggery FULL CODE D/w pt, RN, surgery regarding mgmt and dispo Subjective Date patient seen: Feb 17, 2017 Time patient seen: 14:40 ROS Limited/Unobtainable: No Constitutional: Reports: no symptoms HEENT: Reports: no symptoms Cardiovascular: Reports: no symptoms Respiratory: Reports: no symptoms Gastrointestinal/Abdominal: Reports: no symptoms Genitourinary: Reports: no symptoms Neurologic/Psychiatric: Reports: no symptoms Endocrine: Reports: no symptoms Hematologic/Lymphatic: Reports: no symptoms Allergies: Coded Allergies: Pork (Unverified Allergy, Unknown, 11/18/14) PT DOES NOT EAT ANY PORK, PORK CONTAINING PRODUCTS All Systems: reviewed and negative except above Subjective No acute o/n events s/p debridement of bilateral groin wounds and partial reclosure of wounds POD#7 Na 129 this AM. 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 Pt doing well. Pain controlled. SOB resolved. Denies f/c, n/v, d/c, chest pain, BLE swelling Objective Last 24 Hour Vital Signs Date Time Temp Pulse Resp B/P (MAP) Pulse Ox O2 Delivery O2 Flow Rate FiO2 02/17/17 12:00 98.5 100 18 119/79 94 Room Air 02/17/17 12:00 17 02/17/17 08:00 18 02/17/17 07:33 98.6 111 18 127/80 96 Room Air 02/17/17 04:20 97.9 110 19 124/78 98 Room Air 02/17/17 04:00 18 02/17/17 00:00 98.0 102 20 124/68 96 Room Air 02/17/17 00:00 18 02/16/17 20:44 98.1 105 19 130/73 95 Room Air 02/16/17 20:15 18 02/16/17 20:00 18 02/16/17 16:00 98.0 110 20 124/85 96 Room Air 02/16/17 16:00 16 Laboratory Tests 02/17/17 03:50: Urine Color Yellow, Urine Appearance Clear, Urine pH 6.5, Urine Specific [place] 1.015, Urine Protein 3+H, Urine Glucose (UA) Negative, Urine Ketones Negative, Urine Occult Blood 4+H, Urine Nitrite Negative, Urine Bilirubin Negative, Urine Urobilinogen Normal, Urine Leukocyte Esterase 1+H, Urine RBC TntcH, Urine WBC 0-2, Urine Squamous Epithelial Cells Few, Urine Bacteria Few, Urine Osmolality 583H, Urine Random Sodium 139 02/17/17 09:40: White Blood Count 11.3H, Red Blood Count 3.42L, Hemoglobin 9.0L, Hematocrit 28.0L, Mean Corpuscular Volume 82, Mean Corpuscular Hemoglobin 26.3L, Mean Corpuscular Hemoglobin Concent 32.1, Red Cell Distribution Width 15.1H, Platelet Count 563H, Mean Platelet Volume 6.3L, Neutrophils (%) (Auto) 75.1H, Lymphocytes (%) (Auto) 11.6L, Monocytes (%) (Auto) 11.0H, Eosinophils (%) (Auto ) 1.1, Basophils (%) (Auto) 1.2, Sodium Level 129L, Potassium Level 4.2, Chloride Level 90L, Carbon Dioxide Level 28, Anion Gap 11, Blood Urea Nitrogen 8 , Creatinine 0.4L, Estimat Glomerular Filtration Rate > 60, Glucose Level 126H, Osmolality 277L, Calcium Level 9.1, Total Bilirubin 0.3, Direct Bilirubin 0.1, Aspartate Amino Transf (AST/SGOT) 44H, Alanine Aminotransferase (ALT/SGPT) 106H , Alkaline Phosphatase 221H, Total Protein 6.5L, Albumin 2.8L, Thyroid Stimulating Hormone (TSH) 1.930 Height (Feet): 5 Height (Inches): 6.00 Weight (Pounds): 250 Objective General: alert, cooperative, no distress, appears stated age Head: normocephalic, without obvious abnormality, atraumatic Eyes: conjunctivae/corneas clear. PERRL, EOM's intact Throat: lips, mucosa, and tongue normal. MMM Neck: supple, symmetrical, trachea midline, and no JVD Lungs: clear to auscultation bilaterally Heart: regular rate and rhythm, S1, S2 normal, no murmur, click, rub or gallop Abdomen: soft, non-tender, non-distended, bowel sounds normal; no masses or organomegaly Extremities: extremities normal, atraumatic, no cyanosis or edema Dressing c/d/i Pulses: 2+ and symmetric Skin: skin color, texture, turgor normal; no rashes or lesions Neurologic: grossly normal, no focal deficits Yi Desai M.D. Feb 17, 2017 14:40
[2017-02-17 16:00] VITALS: BP 107/66
[2017-02-17 20:00] VITALS: BP 124/78
[2017-02-17] MEDS: cefTRIAXone 1gm/D5W 55ml IVPB SCH ×2 (20:34)
[2017-02-17] MEDS: PCA HYDROmorphone 1mg/ml 30 ML IV PRN (22:32)
[2017-02-18] VITALS: BP 120/75
[2017-02-18 03:53] VITALS: BP 116/74
[2017-02-18 06:41] LABS: APPEARANCE,URINE SLIGHTLY CLOUDY; KETONES,URINE NEGATIVE (NEGATIVE); LEUKOCYTE ESTERASE ,URINE 1+ (NEGATIVE); NITRITE,URINE NEGATIVE (NEGATIVE); PH,URINE 7 (4.5-8.0); PROTEIN,URINE 2+ (NEGATIVE); UROBILINOGEN,URINE 1 MG/DL (0.0-1.0)
[2017-02-18 06:50] LABS: AMORPHOUS SEDIMENT,UR FEW /LPF; BACTERIA,URINE MODERATE /HPF; MUCUS,URINE FEW /LPF (NONE/OCC); SQUAMOUS EPITHELIAL CELL,UR OCCASIONAL /LPF (NONE/OCC)
[2017-02-18] MEDS: PCA shift volume MISC SCH ×2 (07:18→19:00)
[2017-02-18 07:40] LABS: BASOPHILS % (AUTO) 1.2 % (0.0-2.0); EOSINOPHILS % (AUTO) 1.6 % (0.0-3.0); LYMPHOCYTES % (AUTO) 17.2 % (20.0-45.0); MEAN CORPUSCULAR HEMOGLOBIN 26.4 PG (27.0-31.0); MEAN CORPUSCULAR HGB CONC 32.3 G/DL (32.0-36.0); MEAN CORPUSCULAR VOLUME 82 FL (80-99); MEAN PLATELET VOLUME 6.2 FL (6.5-10.1); MONOCYTES % (AUTO) 10.6 % (1.0-10.0); NEUTROPHILS % (AUTO) 69.4 % (45.0-75.0); PLATELET COUNT 528 K/UL (150-450); WHITE BLOOD COUNT 9.6 K/UL (4.8-10.8)
[2017-02-18 08:00] VITALS: BP 122/75
[2017-02-18 08:02] LABS: ANION GAP 10 (5-15); CALCIUM 9.1 mg/dL (8.6-10.2); CARBON DIOXIDE 29 mEQ/L (20-30); CHLORIDE 95 mEQ/L (98-107); CREATININE 0.4 mg/dL (0.7-1.2); GLOMERULAR FILTRATION RATE > 60 mL/min (>60); HEMOLYSIS 0; POTASSIUM 4.7 mEQ/L (3.4-4.9); SODIUM 134 mEQ/L (135-145); URIC ACID 3.7 mg/dL (3.0-7.5)
[2017-02-18 08:08] LABS: INR 1.1 (0.9-1.1)
[2017-02-18 08:26] LABS: BILIRUBIN,DIRECT 0.1 mg/dL (0.1-0.3); TOTAL PROTEIN 6.2 g/dL (6.6-8.7)
[2017-02-18 09:00] LABS: HEMOGLOBIN A1C 4.8 % (< 6.0)
[2017-02-18] MEDS: Docusate 100mg cap ORAL SCH ×2 (10:48→21:03)
[2017-02-18] MEDS: Miralax 17gm pkt ORAL SCH (10:48)
[2017-02-18] MEDS: Ascorbic Acid 500mg tab ORAL SCH (10:48)
[2017-02-18] MEDS: Multivitamin w/Minerals tab ORAL SCH (10:48)
[2017-02-18] MEDS: Dakin's 0.25% (Half Strength) 16oz TOPIC SCH ×2 (10:49→21:00)
[2017-02-18] MEDS: Heparin 5000 units/ml inj SUBQ SCH ×2 (10:51→21:04)
--- NOTE | 2017-02-18 11:02 | Diagnostic Imaging Report ---
Indication:Abdominal pain. Elevated liver function tests Technique: Grayscale and duplex Doppler imaging of the abdomen performed. Comparison: None Findings: The liver is echogenic consistent with fatty infiltration. The liver is also enlarged measuring about 21 cm. The demonstrated part of the pancreas, gallbladder, aorta and IVC, both kidneys, spleen appear unremarkable. There is no biliary ductal dilatation identified. Doppler evaluation of the main portal vein shows patency. There is no ascites. No hydronephrosis seen. CBD is 6 mm in diameter. Impression: Hepatomegaly with fatty infiltration.
--- NOTE | 2017-02-18 11:14 | General Progress Note ---
Progress Note Progress Note Pt seen and examined. On exam today his wounds are granulating but the left thigh flap has dehisced further and is not stuck to the underlying wound. This will present a real challenge for healing and despite the albumin being suboptimal I feel that it will be necessary to take him back to the OR to reinset this flap and debride the wound. This will take place tomorrow. Will also transfuse him one unit of PRBC. To OR tomorrow. GELY Laguan MD Feb 18, 2017 11:14
[2017-02-18 12:05] VITALS: BP 120/75
[2017-02-18] MEDS ORDERED: Naloxone 0.4mg/ml Inj IVP PRN (12:17)
[2017-02-18] MEDS ORDERED: Rate Change PCA 1 Each MISC PRN (12:30)
[2017-02-18] MEDS ORDERED: PCA HYDROmorphone 1mg/ml 30 ML IV PRN (13:00)
[2017-02-18 16:07] VITALS: BP 126/78
[2017-02-18 20:00] VITALS: BP 107/69
[2017-02-18] MEDS: cefTRIAXone 1gm/D5W 55ml IVPB SCH ×2 (20:25)
--- NOTE | 2017-02-18 22:51 | General Progress Note ---
Assessment/Plan Problem List: (1) Postoperative fever ICD Codes: R50.82 - Postprocedural fever SNOMED: 138326587 (2) Wound dehiscence ICD Codes: T81.30XA - Disruption of wound, unspecified, initial encounter SNOMED: 948151016 (3) Acute blood loss anemia ICD Codes: D62 - Acute posthemorrhagic anemia SNOMED: 601327013 (4) Sepsis Assessment & Plan: fever + leukocytosis ICD Codes: A41.9 - Sepsis, unspecified organism SNOMED: 58240948 (5) Wound abscess ICD Codes: T81.4XXA - Wound abscess SNOMED: 313232521 (6) Hidradenitis suppurativa ICD Codes: L73.2 - Hidradenitis suppurativa SNOMED: 06998544 (7) HTN (hypertension) ICD Codes: I10 - Essential (primary) hypertension SNOMED: 00608641 (8) h/o DVT (9) Iron deficiency anemia ICD Codes: D50.9 - Iron deficiency anemia, unspecified SNOMED: 32620236 (10) SOB (shortness of breath) ICD Codes: R06.02 - Shortness of breath SNOMED: 157456652 (11) Hypoalbuminemia ICD Codes: E88.09 - Other disorders of plasma-protein metabolism, not elsewhere classified SNOMED: 087977026 (12) Hyponatremia Assessment & Plan: 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 ICD Codes: E87.1 - Hypo-osmolality and hyponatremia SNOMED: 40480278 (13) UTI (urinary tract infection) Assessment & Plan: in setting of horan catheter ICD Codes: N39.0 - Urinary tract infection, site not specified SNOMED: 48945435 (14) Abnormal LFTs Assessment & Plan: Likely 2/2 ancef ICD Codes: R79.89 - Other specified abnormal findings of blood chemistry SNOMED: 749862435 (15) Fatty liver ICD Codes: K76.0 - Fatty (change of) liver, not elsewhere classified SNOMED: 744689488 Status: stable Assessment/Plan Plastic surgery consulted s/p debridement of bilateral thigh, groin and left lower abdomen with posterior thigh flap elevation on 01/29/17 s/p flap closure of abdominal and thigh wounds on 01/31/17 s/p bedside debridement of R posterior thigh wound by surgery on 02/07/17 s/p debridement of bilateral groin wounds and partial reclosure of wounds on 02/10 Plan for OR tomorrow given L flap dehiscense, NPO at [place] Ceftriaxone for UTI (02/15-) will treat for 10-14d given complicated in setting of horan catheter and in male ctm CBC s/p-IV venofer 02/02 x 5d given iron deficiency anemia F/u blood cultures--ngtd Wound care per surgery s/p horan removal Fluid restriction given SIADH Pain control, supportive care, bowel regimen Cont home meds DVT ppx w/ SCDs, HSQ Outpt derm f/u PT Hog [employer]er consulted given low albumin--supplements ordered Surgery recommends rehab/SNF for wound care and PT CM consulted for SNF placement FULL CODE D/w pt, RN, surgery regarding mgmt and dispo Subjective Date patient seen: Feb 18, 2017 Time patient seen: 16:00 ROS Limited/Unobtainable: No Constitutional: Reports: no symptoms HEENT: Reports: no symptoms Cardiovascular: Reports: no symptoms Respiratory: Reports: no symptoms Gastrointestinal/Abdominal: Reports: no symptoms Genitourinary: Reports: no symptoms Neurologic/Psychiatric: Reports: no symptoms Endocrine: Reports: no symptoms Hematologic/Lymphatic: Reports: no symptoms Allergies: Coded Allergies: Pork (Unverified Allergy, Unknown, 11/18/14) PT DOES NOT EAT ANY PORK, PORK CONTAINING PRODUCTS All Systems: reviewed and negative except above Subjective No acute o/n events Na improved to 134 L flap dehisced and plan for return to OR tomorrow per surgery Pt doing well. Pain controlled. SOB resolved. Denies f/c, n/v, d/c, chest pain, BLE swelling Objective Last 24 Hour Vital Signs Date Time Temp Pulse Resp B/P (MAP) Pulse Ox O2 Delivery O2 Flow Rate FiO2 02/18/17 20:00 20 02/18/17 20:00 98.6 106 18 107/69 96 Room Air 02/18/17 16:07 98.4 97 22 126/78 100 Room Air 02/18/17 16:00 20 02/18/17 12:05 97.1 100 21 120/75 98 Room Air 02/18/17 12:00 20 02/18/17 08:00 20 02/18/17 08:00 98.1 104 18 122/75 97 Room Air 02/18/17 04:00 20 02/18/17 03:53 99.0 103 18 116/74 96 Room Air 02/18/17 00:00 20 02/18/17 00:00 98.2 113 20 120/75 96 Room Air Intake and Output 02/18/17 02/19/17 19:00 07:00 Intake Total 760 ml Output Total 950 ml Balance -190 ml Intake Oral 760 ml Output Urine Total 950 ml # Voids 3 Laboratory Tests 02/18/17 06:00: Urine Color Yellow, Urine Appearance Slightly cloudy, Urine pH 7, Urine Specific [place] 1.015, Urine Protein 2+H, Urine Glucose (UA) Negative, Urine Ketones Negative, Urine Occult Blood 3+H, Urine Nitrite Negative, Urine Bilirubin Negative, Urine Urobilinogen 1H, Urine Leukocyte Esterase 1+H, Urine RBC 10-15H, Urine WBC 5-10H, Urine Squamous Epithelial Cells Occasional, Urine Amorphous Sediment FewH, Urine Bacteria ModerateH, Urine Mucus FewH 02/18/17 07:30: White Blood Count 9.6, Red Blood Count 3.30L, Hemoglobin 8.7L, Hematocrit 27.0L , Mean Corpuscular Volume 82, Mean Corpuscular Hemoglobin 26.4L, Mean Corpuscular Hemoglobin Concent 32.3, Red Cell Distribution Width 15.0H, Platelet Count 528H, Mean Platelet Volume 6.2L, Neutrophils (%) (Auto) 69.4, Lymphocytes (%) (Auto) 17.2L, Monocytes (%) (Auto) 10.6H, Eosinophils (%) (Auto ) 1.6, Basophils (%) (Auto) 1.2, Prothrombin Time 11.0, Prothromb Time International Ratio 1.1, Sodium Level 134L, Potassium Level 4.7, Chloride Level 95L, Carbon Dioxide Level 29, Anion Gap 10, Blood Urea Nitrogen 11, Creatinine 0.4L, Estimat Glomerular Filtration Rate > 60, Glucose Level 114H, Hemoglobin A1c 4.8, Uric Acid 3.7, Calcium Level 9.1, Total Bilirubin 0.3, Direct Bilirubin 0.1, Aspartate Amino Transf (AST/SGOT) 38, Alanine Aminotransferase ( ALT/SGPT) 93H, Alkaline Phosphatase 203H, Total Protein 6.2L, Albumin 2.7L, Prealbumin [Pending] Height (Feet): 5 Height (Inches): 6.00 Weight (Pounds): 250 Objective General: alert, cooperative, no distress, appears stated age Head: normocephalic, without obvious abnormality, atraumatic Eyes: conjunctivae/corneas clear. PERRL, EOM's intact Throat: lips, mucosa, and tongue normal. MMM Neck: supple, symmetrical, trachea midline, and no JVD Lungs: clear to auscultation bilaterally Heart: regular rate and rhythm, S1, S2 normal, no murmur, click, rub or gallop Abdomen: soft, non-tender, non-distended, bowel sounds normal; no masses or organomegaly Extremities: extremities normal, atraumatic, no cyanosis or edema Dressing c/d/i Pulses: 2+ and symmetric Skin: skin color, texture, turgor normal; no rashes or lesions Neurologic: grossly normal, no focal deficits Yi Desai M.D. Feb 18, 2017 22:51
[2017-02-19] VITALS (14 sets, daily range): BP systolic 107–154; BP diastolic 66–92
[2017-02-19 04:45] LABS: EOSINOPHILS % (AUTO) 2.3 % (0.0-3.0); LYMPHOCYTES % (AUTO) 25.5 % (20.0-45.0); MEAN CORPUSCULAR HEMOGLOBIN 26.1 PG (27.0-31.0); MEAN CORPUSCULAR HGB CONC 31.7 G/DL (32.0-36.0); MEAN CORPUSCULAR VOLUME 82 FL (80-99); MONOCYTES % (AUTO) 12.3 % (1.0-10.0); NEUTROPHILS % (AUTO) 58.9 % (45.0-75.0); PLATELET COUNT 558 K/UL (150-450); RED BLOOD COUNT 3.73 M/UL (4.70-6.10); RED CELL DISTRIBUTION WIDTH 15.1 % (11.6-14.8); WHITE BLOOD COUNT 8.4 K/UL (4.8-10.8)
[2017-02-19 05:11] LABS: ALANINE AMINOTRANSFERASE 92 U/L (3-41); ANION GAP 11 (5-15); ASPARTATE AMINO TRANSFERASE 41 U/L (5-40); BILIRUBIN,DIRECT 0.1 mg/dL (0.1-0.3); CALCIUM 8.9 mg/dL (8.6-10.2); CARBON DIOXIDE 31 mEQ/L (20-30); CHLORIDE 93 mEQ/L (98-107); CREATININE 0.4 mg/dL (0.7-1.2); GLOMERULAR FILTRATION RATE > 60 mL/min (>60); HEMOLYSIS 1; POTASSIUM 4.6 mEQ/L (3.4-4.9); SODIUM 135 mEQ/L (135-145); TOTAL PROTEIN 6.3 g/dL (6.6-8.7)
[2017-02-19] MEDS: PCA shift volume MISC SCH (07:17)
[2017-02-19] MEDS: Heparin 5000 units/ml inj SUBQ SCH ×2 (09:00→21:00)
[2017-02-19] MEDS: Multivitamin w/Minerals tab ORAL SCH (09:00)
[2017-02-19] MEDS: Miralax 17gm pkt ORAL SCH (09:00)
[2017-02-19] MEDS: Ascorbic Acid 500mg tab ORAL SCH (09:00)
[2017-02-19] MEDS: Dakin's 0.25% (Half Strength) 16oz TOPIC SCH ×2 (09:00→21:00)
[2017-02-19] MEDS: Docusate 100mg cap ORAL SCH ×2 (09:00→21:00)
--- NOTE | 2017-02-19 13:31 | General Progress Note ---
Assessment/Plan Problem List: (1) Postoperative fever ICD Codes: R50.82 - Postprocedural fever SNOMED: 941226649 (2) Wound dehiscence ICD Codes: T81.30XA - Disruption of wound, unspecified, initial encounter SNOMED: 885371064 (3) Acute blood loss anemia ICD Codes: D62 - Acute posthemorrhagic anemia SNOMED: 183177007 (4) Sepsis Assessment & Plan: fever + leukocytosis ICD Codes: A41.9 - Sepsis, unspecified organism SNOMED: 95718777 (5) Wound abscess ICD Codes: T81.4XXA - Wound abscess SNOMED: 241518120 (6) Hidradenitis suppurativa ICD Codes: L73.2 - Hidradenitis suppurativa SNOMED: 52564797 (7) HTN (hypertension) ICD Codes: I10 - Essential (primary) hypertension SNOMED: 90757457 (8) h/o DVT (9) Iron deficiency anemia ICD Codes: D50.9 - Iron deficiency anemia, unspecified SNOMED: 67568897 (10) SOB (shortness of breath) ICD Codes: R06.02 - Shortness of breath SNOMED: 782196595 (11) Hypoalbuminemia ICD Codes: E88.09 - Other disorders of plasma-protein metabolism, not elsewhere classified SNOMED: 394684654 (12) Hyponatremia Assessment & Plan: 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 ICD Codes: E87.1 - Hypo-osmolality and hyponatremia SNOMED: 17203940 (13) UTI (urinary tract infection) Assessment & Plan: in setting of horan catheter ICD Codes: N39.0 - Urinary tract infection, site not specified SNOMED: 16025853 (14) Abnormal LFTs Assessment & Plan: Likely 2/2 ancef ICD Codes: R79.89 - Other specified abnormal findings of blood chemistry SNOMED: 884820162 (15) Fatty liver ICD Codes: K76.0 - Fatty (change of) liver, not elsewhere classified SNOMED: 791930356 Status: stable Assessment/Plan Plastic surgery consulted s/p debridement of bilateral thigh, groin and left lower abdomen with posterior thigh flap elevation on 01/29/17 s/p flap closure of abdominal and thigh wounds on 01/31/17 s/p bedside debridement of R posterior thigh wound by surgery on 02/07/17 s/p debridement of bilateral groin wounds and partial reclosure of wounds on 02/10 NPO for OR today Ceftriaxone for UTI (02/15-) will treat for 10-14d given complicated in setting of hoarn catheter and in male ctm CBC s/p-IV venofer 02/02 x 5d given iron deficiency anemia F/u blood cultures--ngtd Wound care per surgery s/p horan removal Fluid restriction given SIADH Pain control, supportive care, bowel regimen Cont home meds DVT ppx w/ SCDs, HSQ Outpt derm f/u PT Suspect Artist Supervisor consulted given low albumin--supplements ordered Surgery recommends rehab/SNF for wound care and PT CM consulted for SNF placement FULL CODE D/w pt, RN, surgery regarding mgmt and dispo Subjective Date patient seen: Feb 19, 2017 Time patient seen: 13:30 ROS Limited/Unobtainable: No Allergies: Coded Allergies: Pork (Unverified Allergy, Unknown, 11/18/14) PT DOES NOT EAT ANY PORK, PORK CONTAINING PRODUCTS Subjective No acute o/n events Na improved to 135 NPO for OR today Pt doing well. Pain controlled. SOB resolved. Denies f/c, n/v, d/c, chest pain, BLE swelling Objective Last 24 Hour Vital Signs Date Time Temp Pulse Resp B/P (MAP) Pulse Ox O2 Delivery O2 Flow Rate FiO2 02/19/17 12:26 98.2 02/19/17 12:00 20 02/19/17 12:00 98.2 92 20 118/74 99 Room Air 02/19/17 08:00 20 02/19/17 08:00 97.8 97 19 107/66 97 Room Air 02/19/17 04:00 98.3 99 18 113/72 100 Room Air 02/19/17 04:00 20 02/19/17 00:00 98.2 108 18 113/73 97 Room Air 02/19/17 00:00 20 02/18/17 20:00 20 02/18/17 20:00 98.6 106 18 107/69 96 Room Air 02/18/17 16:07 98.4 97 22 126/78 100 Room Air 02/18/17 16:00 20 Intake and Output 02/19/17 02/20/17 19:00 07:00 Output Total 400 ml Balance -400 ml Output Urine Total 400 ml # Voids 1 Laboratory Tests 02/19/17 04:30: White Blood Count 8.4, Red Blood Count 3.73L, Hemoglobin 9.7L, Hematocrit 30.7L , Mean Corpuscular Volume 82, Mean Corpuscular Hemoglobin 26.1L, Mean Corpuscular Hemoglobin Concent 31.7L, Red Cell Distribution Width 15.1H, Platelet Count 558H, Mean Platelet Volume 6.0L, Neutrophils (%) (Auto) 58.9, Lymphocytes (%) (Auto) 25.5, Monocytes (%) (Auto) 12.3H, Eosinophils (%) (Auto) 2.3, Basophils (%) (Auto) 1.0, Sodium Level 135, Potassium Level 4.6, Chloride Level 93L, Carbon Dioxide Level 31H, Anion Gap 11, Blood Urea Nitrogen 11, Creatinine 0.4L, Estimat Glomerular Filtration Rate > 60, Glucose Level 109H, Calcium Level 8.9, Total Bilirubin 0.3, Direct Bilirubin 0.1, Aspartate Amino Transf (AST/SGOT) 41H, Alanine Aminotransferase (ALT/SGPT) 92H, Alkaline Phosphatase 194H, Total Protein 6.3L, Albumin 2.6L Height (Feet): 5 Height (Inches): 6.00 Weight (Pounds): 250 Objective General: alert, cooperative, no distress, appears stated age Head: normocephalic, without obvious abnormality, atraumatic Eyes: conjunctivae/corneas clear. PERRL, EOM's intact Throat: lips, mucosa, and tongue normal. MMM Neck: supple, symmetrical, trachea midline, and no JVD Lungs: clear to auscultation bilaterally Heart: regular rate and rhythm, S1, S2 normal, no murmur, click, rub or gallop Abdomen: soft, non-tender, non-distended, bowel sounds normal; no masses or organomegaly Extremities: extremities normal, atraumatic, no cyanosis or edema Dressing c/d/i Pulses: 2+ and symmetric Skin: skin color, texture, turgor normal; no rashes or lesions Neurologic: grossly normal, no focal deficits Yi Desai M.D. Feb 19, 2017 13:30
[2017-02-19] MEDS ORDERED: Lidocaine 1% 10mg/ml/Epi 0.005mg/ml 30ml vial INJ ONE (17:27)
[2017-02-19] MEDS ORDERED: Bacitracin 50000 Units Vial ONE (17:27)
[2017-02-19] MEDS ORDERED: NeoSporin Gu Irrig 1ml Amp IRRIG ONE (17:28)
[2017-02-19] MEDS ORDERED: HETASTARCH IV ONE (17:44)
[2017-02-19] MEDS ORDERED: Propofol 200mg/20ml IV ONE (17:45)
--- NOTE | 2017-02-19 18:32 | Pre-Procedure Note/Attestation ---
Pre-Procedure Note/Attestation Complete Prior to Procedure Planned Procedure: bilateral Procedure Narrative: Bilateral groin tissue debridement and partial wound closure Indications for Procedure Pre-Operative Diagnosis: Bilateral open groin and thigh wounds Attestation I attest that I discussed the nature of the procedure; its benefits; risks and complications; and alternatives (and the risks and benefits of such alternatives ), prior to the procedure, with the patient (or the patient's legal entry level sales representative). I attest that, if there was a reasonable possibility of needing a blood transfusion, the patient (or the patient's legal entry level sales representative) was given the [facility] standardized written summary, pursuant to the [place] Blood Safety Act ([place] Health and Safety Code # 1645, as amended). I attest that I re-evaluated the patient just prior to the surgery and that there has been no change in the patient's H&P, except as documented below: GELY JONES Feb 19, 2017 18:32
[2017-02-19] MEDS ORDERED: PCA Education Pamphlet MISC ONE ×2 (18:45→20:30)
[2017-02-19] MEDS ORDERED: PCA HYDROmorphone 1mg/ml 30 ML IV PRN (18:45)
[2017-02-19] MEDS ORDERED: Rate Change PCA 1 Each MISC PRN ×2 (18:45→21:30)
[2017-02-19] MEDS ORDERED: Sterile Water Irrig 1000ml IRRIG ONE (19:00)
[2017-02-19] MEDS ORDERED: PCA shift volume MISC SCH (19:00)
[2017-02-19] MEDS ORDERED: Ketorolac 30mg Inj ONE (19:00)
[2017-02-19] MEDS ORDERED: fentaNYL 100 mcg/2 mL IV ONE (19:00)
[2017-02-19] MEDS ORDERED: Midazolam 2mg/2ml Inj ONE (19:00)
[2017-02-19] MEDS ORDERED: LR 1000ml ONE (19:00)
[2017-02-19] MEDS ORDERED: NS Irrig 1000ml ONE (19:00)
--- NOTE | 2017-02-19 20:18 | Anethesia Preoperative Eval ---
Anesthesia Pre-op PMH/ROS General Date of Evaluation: Feb 19, 2017 Time of Evaluation: 19:05 Anesthesiologist: Leif ASA Score: ASA 3 Mallampati Score Class I : Soft palate, uvula, fauces, pillars visible Class II: Soft palate, uvula, fauces visible Class III: Soft palate, base of uvula visible Class IV: Only hard plate visible Mallampati Classification: Class II Surgeon: Derian Diagnosis: Recurrent HS Surgical Procedure: Revision and partial closure of bilateral groin wounds Anesthesia History: none Family History: no anesthesia problems Allergies: Coded Allergies: Pork (Unverified Allergy, Unknown, 11/18/14) PT DOES NOT EAT ANY PORK, PORK CONTAINING PRODUCTS Medications: see eMAR Past Medical History Cardiovascular: Denies: HTN, CAD, SD, valve dz, arrhythmia, other Pulmonary: Denies: asthma, COPD, [place], other Gastrointestinal/Genitourinary: Reports: GERD, Denies: CRI, ESRD, other Neurologic/Psychiatric: Reports: depression/anxiety, Denies: dementia, CVA, TIA, other Endocrine: Denies: DM, hypothyroidism, steroids, other HEENT: Denies: cataract (L), cataract (R), glaucoma, [place] (L), [place] (R), other Hematology/Immune: Reports: anemia, Denies: DVT, bleeding disorder, other Musculoskeletal/Integumentary: Reports: other - recurrent HS, Denies: OA, RA, DJD, DDD, edema Other: obesity PMH Narrative: as above PSxH Narrative: multiple for HS treatment Anesthesia Pre-op Phys. Exam Physician Exam Last Vital Signs Date Time Temp Pulse Resp B/P (MAP) Pulse Ox O2 Delivery O2 Flow Rate FiO2 02/19/17 16:00 20 02/19/17 16:00 98.2 90 121/79 98 Room Air 02/10/17 20:00 2.0 Constitutional: NAD Neurologic: CN 2-12 intact Cardiovascular: RRR, no M/R/G Respiratory: CTA Gastrointestinal: S/NT/ND Airway Exam Mallampati Score: Class II MO: full Neck: flexible ROM: full Teeth: intact Dentures: no upper, no lower Anesthesia Pre-op A/P Labs Hematology Test 02/19/17 04:30 White Blood Count 8.4 K/UL (4.8-10.8) Red Blood Count 3.73 M/UL (4.70-6.10) L Hemoglobin 9.7 G/DL (14.2-18.0) L Hematocrit 30.7 % (42.0-52.0) L Mean Corpuscular Volume 82 FL (80-99) Mean Corpuscular Hemoglobin 26.1 PG (27.0-31.0) L Mean Corpuscular Hemoglobin Concent 31.7 G/DL (32.0-36.0) L Red Cell Distribution Width 15.1 % (11.6-14.8) H Platelet Count 558 K/UL (150-450) H Mean Platelet Volume 6.0 FL (6.5-10.1) L Neutrophils (%) (Auto) 58.9 % (45.0-75.0) Lymphocytes (%) (Auto) 25.5 % (20.0-45.0) Monocytes (%) (Auto) 12.3 % (1.0-10.0) H Eosinophils (%) (Auto) 2.3 % (0.0-3.0) Basophils (%) (Auto) 1.0 % (0.0-2.0) Chemistry Test 02/19/17 04:30 Sodium Level 135 mEQ/L (135-145) Potassium Level 4.6 mEQ/L (3.4-4.9) Chloride Level 93 mEQ/L (98-107) L Carbon Dioxide Level 31 mEQ/L (20-30) H Anion Gap 11 (5-15) Blood Urea Nitrogen 11 mg/dL (7-23) Creatinine 0.4 mg/dL (0.7-1.2) L Estimat Glomerular Filtration Rate > 60 mL/min (>60) Glucose Level 109 mg/dL (74-106) H Calcium Level 8.9 mg/dL (8.6-10.2) Total Bilirubin 0.3 mg/dL (0.0-1.2) Direct Bilirubin 0.1 mg/dL (0.1-0.3) Aspartate Amino Transf (AST/SGOT) 41 U/L (5-40) H Alanine Aminotransferase (ALT/SGPT) 92 U/L (3-41) H Alkaline Phosphatase 194 U/L (40-129) H Total Protein 6.3 g/dL (6.6-8.7) L Albumin 2.6 g/dL (3.5-5.2) L Risk Assessment & Plan Assessment: ASA 3 Plan: GA with LMA Status Change Before Surgery: No Pre-Antibiotics Drug: as scheduled Given Within 1 Hr of Incision: Yes Time Given: 19:48 RYANNE ESPAÑA M.D. Feb 19, 2017 20:18
[2017-02-19] MEDS ORDERED: LORazepam 1mg tab ORAL PRN (20:30)
[2017-02-19] MEDS ORDERED: Surgicel 4in x 8in TOPIC ONE (20:31)
--- NOTE | 2017-02-19 20:53 | Operative Note - PDOC ---
Operative Note Operative Note Pre-op Diagnosis: Bilateral open groin and thigh wounds Procedure: Debridement of bilateral groin wounds and partial reclosure of wounds with wound vac placement Surgeon: Derian Fuel House Attendant: Anat Anesthesia: general Specimen: none Complications: none Condition: stable Estimated Blood Loss: minimal Drains: wound vac Implant(s) used?: No GELY JONES Feb 19, 2017 20:53
[2017-02-19] MEDS ORDERED: Heparin 5000 units/ml inj SUBQ SCH (21:00)
--- NOTE | 2017-02-19 21:19 | Immediate Post-Op Evaluation ---
Immediate Post-Op Evalulation Immediate Post-Op Evalulation Procedure: revision and closure of bilateral groin wounds Date of Evaluation: Feb 19, 2017 Time of Evaluation: 21:17 IV Fluids: 800 Blood Products: none Estimated Blood Loss: 50 Urinary Output: 200 Blood Pressure Systolic: 136 Blood Pressure Diastolic: 84 Pulse Rate: 106 Respiratory Rate: 24 O2 Sat by Pulse Oximetry: 99 Temperature (Fahrenheit): 98.6 Pain Score (1-10): 2 Nausea: No Vomiting: No Complications none Patient Status: reacts, patent, none Hydration Status: adequate RYANNE ESPAÑA M.D. Feb 19, 2017 21:19
[2017-02-19] MEDS ORDERED: Naloxone 0.4mg/ml Inj IVP PRN (21:30)
[2017-02-19] MEDS ORDERED: DiphenhydrAMINE 50mg/ml Inj IVP PRN ×2 (21:30)
[2017-02-19] MEDS ORDERED: Midazolam 2mg/2ml Inj IVP PRN (21:30)
[2017-02-19] MEDS ORDERED: Meperidine 25mg/0.5ml Inj (FOR RIGORS ONLY) IV PRN (21:30)
[2017-02-19] MEDS ORDERED: Metoclopramide 10mg/2ml Inj IVP PRN (21:30)
[2017-02-19] MEDS ORDERED: Hydromorphone 0.5mg/0.5ml inj IVP PRN (21:30)
[2017-02-19] MEDS ORDERED: Ketorolac 30mg Inj IV PRN (21:30)
[2017-02-19] MEDS ORDERED: LR 1000ml 1,000 ML IVLG SCH (21:30)
[2017-02-19] MEDS: PCA HYDROmorphone 1mg/ml 30 ML IV PRN (21:31)
[2017-02-20] VITALS: BP 131/79
[2017-02-20] MEDS: cefTRIAXone 1gm/D5W 55ml IVPB SCH ×4 (00:10→20:30)
[2017-02-20 04:00] VITALS: BP 118/76
--- NOTE | 2017-02-20 06:45 | Operative Note - Dictated ---
DATE OF OPERATION: 02/19/2017 Preoperative Diagnosis: Bilateral groin wound dehiscence, status post complex reconstruction of groin wounds. Postoperative Diagnosis: Bilateral groin wound dehiscence, status post complex reconstruction of groin wounds. PROCEDURES: 1. Debridement of bilateral groin wound. 2. Posterior thigh flap re-inset on the left side to cover left groin wound. 3. Wound VAC placement to bilateral groin wounds. SURGEON: Felicity Menard M.D. MANAGER BEAUTY: Neftaly Coppola M.D. ANESTHESIA: General. COMPLICATIONS: None. DRAINS: Include a wound VAC bilaterally. DISPOSITION: Stable to the recovery room. Indications For Surgery: This is a 31-year-old male with a complex hospitalization who initially had a very advanced hidradenitis in both groins requiring excision and reconstruction and was doing well. Unfortunately, after about a week postop, his wound dehisced requiring a return trip to the operating room for debridement and re-closure and he was doing bedside dressing changes over the past several days, however, upon my exam yesterday, I noted that there was a more advanced dehiscence of the posterior thigh flap, which was not attached to the underlying wound and complicating the wound healing much further and despite the patient having suboptimal albumin, I felt that it was necessary to at least fix the posterior thigh flap on the left side so that it was not "flapping in the breeze." As such, the decision was made to bring the patient back to the operating room to minimize the burden of trying to heal this flap understanding the albumin not being great, however, I felt that it was necessary to proceed to at least do that and then also place a wound VAC on the rest of his wounds. He understood the risks and benefits of surgery and agreed to proceed. Details Of The Operation: The patient was brought to the operating room and laid in lithotomy position on the operating room table. His bilateral groin wounds were prepped and draped in a sterile and usual fashion. We first began by debriding both wounds and then pulse lavage irrigation was used to thoroughly cleanse the wound. Hemostasis was then achieved and the posterior thigh flap on the left side was then re-inset superiorly into the medial thigh tissue using #0 Vicryl sutures as well as 2-0 Prolene for the skin. Once this flap was inset and noted to be secure, we proceeded to place the wound VAC on all open wounds. A total of 3 wound VACs were used for all the wounds and the wound VACs were noted to be functioning in the end of the case. The plan will be to bring the patient back to the operating room in 48 hours for another wound VAC change. The patient tolerated the procedure well. There was no complication. Felicity Menard M.D. DR: MORENITA JOB#: [id number] CC:
[2017-02-20] MEDS: PCA shift volume MISC SCH ×2 (07:00→19:26)
[2017-02-20 08:24] VITALS: BP 125/78
[2017-02-20] MEDS: Ascorbic Acid 500mg tab ORAL SCH (08:33)
[2017-02-20] MEDS: Docusate 100mg cap ORAL SCH ×2 (08:33→22:03)
[2017-02-20] MEDS: Heparin 5000 units/ml inj SUBQ SCH ×2 (08:44→22:05)
[2017-02-20] MEDS: Miralax 17gm pkt ORAL SCH (08:53)
[2017-02-20] MEDS: Multivitamin w/Minerals tab ORAL SCH (09:12)
--- NOTE | 2017-02-20 11:10 | General Progress Note ---
Progress Note Progress Note Pt seen and examined. POD # 1 from partial wound closure and wound vac placement. Doing very well. Placed horan back to prevent wound contamination and failure of wound vac. To OR on Friday for wound vac change. The plan for this pt will be to perform serial wound vac changed to get the wounds to a more manageable state before discharging him with traditional home nursing wound care. MD KAREN Hannah AMIR Feb 20, 2017 11:10
[2017-02-20 11:31] VITALS: BP 128/69
--- NOTE | 2017-02-20 14:54 | General Progress Note ---
Assessment/Plan Problem List: (1) Postoperative fever ICD Codes: R50.82 - Postprocedural fever SNOMED: 740510471 (2) Wound dehiscence ICD Codes: T81.30XA - Disruption of wound, unspecified, initial encounter SNOMED: 728475153 (3) Acute blood loss anemia ICD Codes: D62 - Acute posthemorrhagic anemia SNOMED: 618411319 (4) Sepsis Assessment & Plan: fever + leukocytosis ICD Codes: A41.9 - Sepsis, unspecified organism SNOMED: 50933764 (5) Wound abscess ICD Codes: T81.4XXA - Wound abscess SNOMED: 239774558 (6) Hidradenitis suppurativa ICD Codes: L73.2 - Hidradenitis suppurativa SNOMED: 13993473 (7) HTN (hypertension) ICD Codes: I10 - Essential (primary) hypertension SNOMED: 68525961 (8) h/o DVT (9) Iron deficiency anemia ICD Codes: D50.9 - Iron deficiency anemia, unspecified SNOMED: 80238208 (10) SOB (shortness of breath) ICD Codes: R06.02 - Shortness of breath SNOMED: 147009766 (11) Hypoalbuminemia ICD Codes: E88.09 - Other disorders of plasma-protein metabolism, not elsewhere classified SNOMED: 393589937 (12) Hyponatremia Assessment & Plan: 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 ICD Codes: E87.1 - Hypo-osmolality and hyponatremia SNOMED: 56780063 (13) UTI (urinary tract infection) Assessment & Plan: in setting of horan catheter ICD Codes: N39.0 - Urinary tract infection, site not specified SNOMED: 82090494 (14) Abnormal LFTs Assessment & Plan: Likely 2/2 ancef ICD Codes: R79.89 - Other specified abnormal findings of blood chemistry SNOMED: 498883878 (15) Fatty liver ICD Codes: K76.0 - Fatty (change of) liver, not elsewhere classified SNOMED: 629119361 Status: stable Assessment/Plan Plastic surgery consulted s/p debridement of bilateral thigh, groin and left lower abdomen with posterior thigh flap elevation on 01/29/17 s/p flap closure of abdominal and thigh wounds on 01/31/17 s/p bedside debridement of R posterior thigh wound by surgery on 02/07/17 s/p debridement of bilateral groin wounds and partial reclosure of wounds with wound vac placement on 02/19/17 Ceftriaxone for UTI (02/15-) will treat for 10-14d given complicated in setting of horan catheter and in male ctm CBC s/p-IV venofer 02/02 x 5d given iron deficiency anemia F/u blood cultures--ngtd Wound care per surgery s/p horan removal Fluid restriction given SIADH Pain control, supportive care, bowel regimen Cont home meds DVT ppx w/ SCDs, HSQ Outpt derm f/u PT Field Marketing Coordinator consulted given low albumin--supplements ordered Surgery recommends rehab/SNF for wound care and PT CM consulted for SNF placement FULL CODE D/w pt, RN, surgery regarding mgmt and dispo Subjective Date patient seen: Feb 20, 2017 Time patient seen: 15:00 ROS Limited/Unobtainable: No Constitutional: Reports: no symptoms HEENT: Reports: no symptoms Cardiovascular: Reports: no symptoms Respiratory: Reports: no symptoms Gastrointestinal/Abdominal: Reports: no symptoms Genitourinary: Reports: no symptoms Neurologic/Psychiatric: Reports: no symptoms Endocrine: Reports: no symptoms Hematologic/Lymphatic: Reports: no symptoms Allergies: Coded Allergies: Pork (Unverified Allergy, Unknown, 11/18/14) PT DOES NOT EAT ANY PORK, PORK CONTAINING PRODUCTS Subjective No acute o/n events s/p debridement of bilateral groin wounds and partial reclosure of wounds with wound vac placement yesterday POD#1 Pt doing well. Pain controlled. SOB resolved. Denies f/c, n/v, d/c, chest pain, BLE swelling Objective Last 24 Hour Vital Signs Date Time Temp Pulse Resp B/P (MAP) Pulse Ox O2 Delivery O2 Flow Rate FiO2 02/20/17 11:31 98.7 90 21 128/69 94 Room Air 02/20/17 08:24 99.0 94 20 125/78 95 Room Air 02/20/17 08:00 18 02/20/17 04:32 17 02/20/17 04:00 97.8 98 18 118/76 97 Nasal Cannula 2.0 02/20/17 01:57 97.6 02/20/17 01:12 17 02/20/17 00:35 16 02/20/17 00:00 97.6 106 16 131/79 99 Nasal Cannula 2.0 02/19/17 23:56 16 02/19/17 23:41 16 02/19/17 23:26 16 02/19/17 23:11 16 02/19/17 22:30 98.2 103 16 133/79 98 Nasal Cannula 2.0 02/19/17 22:15 17 02/19/17 22:00 97.9 96 15 126/81 100 Nasal Cannula 3.0 02/19/17 22:00 18 02/19/17 21:59 98.8 02/19/17 21:59 98.8 02/19/17 21:50 94 17 130/86 100 Nasal Cannula 3.0 02/19/17 21:45 15 02/19/17 21:45 95 13 135/90 100 Nasal Cannula 3.0 02/19/17 21:37 105 15 135/90 98 Nasal Cannula 3.0 02/19/17 21:31 14 02/19/17 21:30 102 14 137/88 98 Nasal Cannula 3.0 02/19/17 21:20 107 16 136/84 98 Simple Mask 6.0 02/19/17 21:19 106 24 99 02/19/17 21:15 102 15 132/85 98 Simple Mask 6.0 02/19/17 21:11 98.8 108 17 154/92 98 Simple Mask 6.0 02/19/17 16:00 20 02/19/17 16:00 98.2 90 19 121/79 98 Room Air Intake and Output 02/20/17 02/21/17 19:00 07:00 Intake Total 525 ml Output Total 600 ml Balance -75 ml Intake Oral 525 ml Output Urine Total 600 ml # Voids 1 Height (Feet): 5 Height (Inches): 6.00 Weight (Pounds): 250 Objective General: alert, cooperative, no distress, appears stated age Head: normocephalic, without obvious abnormality, atraumatic Eyes: conjunctivae/corneas clear. PERRL, EOM's intact Throat: lips, mucosa, and tongue normal. MMM Neck: supple, symmetrical, trachea midline, and no JVD Lungs: clear to auscultation bilaterally Heart: regular rate and rhythm, S1, S2 normal, no murmur, click, rub or gallop Abdomen: soft, non-tender, non-distended, bowel sounds normal; no masses or organomegaly Extremities: extremities normal, atraumatic, no cyanosis or edema Dressing c/d/i Pulses: 2+ and symmetric Skin: skin color, texture, turgor normal; no rashes or lesions Neurologic: grossly normal, no focal deficits Yi Desai M.D. Feb 20, 2017 14:54
[2017-02-20] MEDS ORDERED: Fleet's Enema 133ml RECTAL ONE (16:00)
[2017-02-20 16:23] VITALS: BP 122/71
[2017-02-20 20:14] VITALS: BP 119/77
[2017-02-21 00:16] VITALS: BP 111/69
[2017-02-21] MEDS: PCA HYDROmorphone 1mg/ml 30 ML IV PRN (04:00)
[2017-02-21 04:29] VITALS: BP 100/63
[2017-02-21] MEDS: PCA shift volume MISC SCH ×2 (07:27→19:13)
[2017-02-21 08:00] VITALS: BP 110/65
[2017-02-21] MEDS: Docusate 100mg cap ORAL SCH ×2 (08:38→20:51)
[2017-02-21] MEDS: Multivitamin w/Minerals tab ORAL SCH (08:38)
[2017-02-21] MEDS: Ascorbic Acid 500mg tab ORAL SCH (08:38)
[2017-02-21] MEDS: Miralax 17gm pkt ORAL SCH (08:39)
[2017-02-21] MEDS: Heparin 5000 units/ml inj SUBQ SCH ×2 (08:45→20:59)
[2017-02-21 08:51] LABS: BASOPHILS % (AUTO) 0.7 % (0.0-2.0); EOSINOPHILS % (AUTO) 1.3 % (0.0-3.0); LYMPHOCYTES % (AUTO) 14.1 % (20.0-45.0); MEAN CORPUSCULAR HGB CONC 31.9 G/DL (32.0-36.0); MEAN CORPUSCULAR VOLUME 82 FL (80-99); MONOCYTES % (AUTO) 7.2 % (1.0-10.0); NEUTROPHILS % (AUTO) 76.7 % (45.0-75.0); PLATELET COUNT 445 K/UL (150-450); RED BLOOD COUNT 3.37 M/UL (4.70-6.10); WHITE BLOOD COUNT 9.7 K/UL (4.8-10.8)
[2017-02-21 09:30] LABS: ANION GAP 9 (5-15); CALCIUM 8.6 mg/dL (8.6-10.2); CARBON DIOXIDE 30 mEQ/L (20-30); CHLORIDE 99 mEQ/L (98-107); CREATININE 0.4 mg/dL (0.7-1.2); GLOMERULAR FILTRATION RATE > 60 mL/min (>60); HEMOLYSIS 0; SODIUM 138 mEQ/L (135-145)
[2017-02-21 09:31] LABS: BILIRUBIN,DIRECT 0.1 mg/dL (0.1-0.3); TOTAL PROTEIN 5.8 g/dL (6.6-8.7)
--- NOTE | 2017-02-21 10:05 | 48 Hour Post Anesthesia Eval ---
Post Anesthesia Evaluation Procedure: revision of bilateral groin wounds Date of Evaluation: Feb 20, 2017 Time of Evaluation: 11:18 Blood Pressure Systolic: 116 0: 73 Pulse Rate: 68 Respiratory Rate: 22 Temperature (Fahrenheit): 97.6 O2 Sat by Pulse Oximetry: 98 Airway: patent Nausea: No Vomiting: No Pain Intensity: 3 Hydration Status: adequate Cardiopulmonary Status: stable Mental Status/LOC: patient returned to baseline Follow-up Care/Observations: n/a Post-Anesthesia Complications: none Follow-up care needed: N/A RYANNE ESPAÑA M.D. Feb 21, 2017 10:05
--- NOTE | 2017-02-21 11:19 | General Progress Note ---
Progress Note Progress Note Pt seen and examined. Doing well. Wound vacs functioning fine. Still needs a horan to prevent urine leakage and possible interference of wound vac function. To OR in AM for wound vac change. Gely Jones M.D. GELY JONES Feb 21, 2017 11:19
[2017-02-21 12:00] VITALS: BP 116/65
--- NOTE | 2017-02-21 14:53 | General Progress Note ---
Assessment/Plan Problem List: (1) Postoperative fever ICD Codes: R50.82 - Postprocedural fever SNOMED: 790294210 (2) Wound dehiscence ICD Codes: T81.30XA - Disruption of wound, unspecified, initial encounter SNOMED: 835338316 (3) Acute blood loss anemia ICD Codes: D62 - Acute posthemorrhagic anemia SNOMED: 526724877 (4) Sepsis Assessment & Plan: fever + leukocytosis ICD Codes: A41.9 - Sepsis, unspecified organism SNOMED: 84021606 (5) Wound abscess ICD Codes: T81.4XXA - Wound abscess SNOMED: 714126896 (6) Hidradenitis suppurativa ICD Codes: L73.2 - Hidradenitis suppurativa SNOMED: 14117362 (7) HTN (hypertension) ICD Codes: I10 - Essential (primary) hypertension SNOMED: 83719819 (8) h/o DVT (9) Iron deficiency anemia ICD Codes: D50.9 - Iron deficiency anemia, unspecified SNOMED: 25692185 (10) SOB (shortness of breath) ICD Codes: R06.02 - Shortness of breath SNOMED: 401370515 (11) Hypoalbuminemia ICD Codes: E88.09 - Other disorders of plasma-protein metabolism, not elsewhere classified SNOMED: 637725802 (12) Hyponatremia Assessment & Plan: 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 ICD Codes: E87.1 - Hypo-osmolality and hyponatremia SNOMED: 06350615 (13) UTI (urinary tract infection) Assessment & Plan: in setting of horan catheter ICD Codes: N39.0 - Urinary tract infection, site not specified SNOMED: 30327650 (14) Abnormal LFTs Assessment & Plan: Likely 2/2 ancef ICD Codes: R79.89 - Other specified abnormal findings of blood chemistry SNOMED: 159775168 (15) Fatty liver ICD Codes: K76.0 - Fatty (change of) liver, not elsewhere classified SNOMED: 932333125 Status: stable Assessment/Plan Plastic surgery consulted s/p debridement of bilateral thigh, groin and left lower abdomen with posterior thigh flap elevation on 01/29/17 s/p flap closure of abdominal and thigh wounds on 01/31/17 s/p bedside debridement of R posterior thigh wound by surgery on 02/07/17 s/p debridement of bilateral groin wounds and partial reclosure of wounds with wound vac placement on 02/19/17 Plan for wound vac change tomorrow, NPO at [place] Ceftriaxone for UTI (02/15-) will treat for 10-14d given complicated in setting of horan catheter and in male ctm CBC s/p-IV venofer 02/02 x 5d given iron deficiency anemia F/u blood cultures--ngtd Wound care per surgery s/p horan removal Fluid restriction given SIADH Pain control, supportive care, bowel regimen Cont home meds DVT ppx w/ SCDs, HSQ Outpt derm f/u PT Supervisor Production Managing consulted given low albumin--supplements ordered Surgery recommends rehab/SNF for wound care and PT CM consulted for SNF placement FULL CODE D/w pt, RN, surgery regarding mgmt and dispo Subjective Date patient seen: Feb 21, 2017 Time patient seen: 14:46 ROS Limited/Unobtainable: No Constitutional: Reports: no symptoms HEENT: Reports: no symptoms Cardiovascular: Reports: no symptoms Respiratory: Reports: no symptoms Gastrointestinal/Abdominal: Reports: no symptoms Genitourinary: Reports: no symptoms Neurologic/Psychiatric: Reports: no symptoms Endocrine: Reports: no symptoms Hematologic/Lymphatic: Reports: no symptoms Allergies: Coded Allergies: Pork (Unverified Allergy, Unknown, 11/18/14) PT DOES NOT EAT ANY PORK, PORK CONTAINING PRODUCTS All Systems: reviewed and negative except above Subjective No acute o/n events s/p debridement of bilateral groin wounds and partial reclosure of wounds with wound vac placement POD#2 Pt doing well. Pain controlled. SOB resolved. Denies f/c, n/v, d/c, chest pain, BLE swelling Objective Last 24 Hour Vital Signs Date Time Temp Pulse Resp B/P (MAP) Pulse Ox O2 Delivery O2 Flow Rate FiO2 02/21/17 12:00 17 02/21/17 12:00 97.7 100 19 116/65 98 Room Air 02/21/17 11:50 97.7 02/21/17 10:05 68 22 98 02/21/17 08:03 17 02/21/17 08:00 97.2 99 19 110/65 97 Room Air 02/21/17 04:29 98.4 96 18 100/63 96 Room Air 02/21/17 04:00 16 02/21/17 00:16 97.7 104 18 111/69 95 Room Air 02/21/17 00:00 17 02/20/17 20:14 97.7 109 19 119/77 94 Room Air 02/20/17 20:00 17 02/20/17 16:23 98.7 105 20 122/71 97 Room Air 02/20/17 16:00 17 Intake and Output 02/21/17 02/22/17 19:00 07:00 Intake Total 350 ml Output Total 1000 ml Balance -650 ml Intake Oral 350 ml Output Urine Total 1000 ml Laboratory Tests 02/21/17 08:15: White Blood Count 9.7, Red Blood Count 3.37L, Hemoglobin 8.8L, Hematocrit 27.5L , Mean Corpuscular Volume 82, Mean Corpuscular Hemoglobin 26.0L, Mean Corpuscular Hemoglobin Concent 31.9L, Red Cell Distribution Width 15.0H, Platelet Count 445, Mean Platelet Volume 6.0L, Neutrophils (%) (Auto) 76.7H, Lymphocytes (%) (Auto) 14.1L, Monocytes (%) (Auto) 7.2, Eosinophils (%) (Auto) 1.3, Basophils (%) (Auto) 0.7, Sodium Level 138, Potassium Level 4.0, Chloride Level 99, Carbon Dioxide Level 30, Anion Gap 9, Blood Urea Nitrogen 8, Creatinine 0.4L, Estimat Glomerular Filtration Rate > 60, Glucose Level 102, Calcium Level 8.6, Total Bilirubin 0.2, Direct Bilirubin 0.1, Aspartate Amino Transf (AST/SGOT) 31, Alanine Aminotransferase (ALT/SGPT) 60H, Alkaline Phosphatase 183H, Total Protein 5.8L, Albumin 2.5L Height (Feet): 5 Height (Inches): 6.00 Weight (Pounds): 250 Objective General: alert, cooperative, no distress, appears stated age Head: normocephalic, without obvious abnormality, atraumatic Eyes: conjunctivae/corneas clear. PERRL, EOM's intact Throat: lips, mucosa, and tongue normal. MMM Neck: supple, symmetrical, trachea midline, and no JVD Lungs: clear to auscultation bilaterally Heart: regular rate and rhythm, S1, S2 normal, no murmur, click, rub or gallop Abdomen: soft, non-tender, non-distended, bowel sounds normal; no masses or organomegaly Extremities: extremities normal, atraumatic, no cyanosis or edema Dressing c/d/i Pulses: 2+ and symmetric Skin: skin color, texture, turgor normal; no rashes or lesions Neurologic: grossly normal, no focal deficits Yi Desai M.D. Feb 21, 2017 14:53
[2017-02-21] MEDS ORDERED: Fleet's Enema 133ml RECTAL PRN (15:00)
[2017-02-21 16:00] VITALS: BP 104/61
[2017-02-21] MEDS ORDERED: NS 550ML IV ONE ×2 (18:47)
[2017-02-21] MEDS ORDERED: Tubing IV Blood Pump IV ONE (18:47)
[2017-02-21 20:00] VITALS: BP 114/76
[2017-02-21] MEDS: cefTRIAXone 1gm/D5W 55ml IVPB SCH ×2 (20:51)
[2017-02-21] MEDS ORDERED: Naloxone 0.4mg/ml Inj IVP PRN (23:00)
[2017-02-21] MEDS ORDERED: LORazepam 1mg tab ORAL PRN (23:00)
[2017-02-21] MEDS ORDERED: DiphenhydrAMINE 50mg/ml Inj IVP PRN (23:00)
[2017-02-21] MEDS ORDERED: PCA HYDROmorphone 1mg/ml 30 ML IV PRN (23:00)
[2017-02-21] MEDS ORDERED: Rate Change PCA 1 Each MISC PRN (23:00)
[2017-02-22] VITALS (14 sets, daily range): BP systolic 115–124; BP diastolic 67–84
[2017-02-22] MEDS: Fleet's Enema 133ml RECTAL PRN (05:10)
[2017-02-22] MEDS ORDERED: PCA shift volume MISC SCH ×2 (07:00→19:00)
[2017-02-22] MEDS: Heparin 5000 units/ml inj SUBQ SCH ×2 (09:00→22:43)
[2017-02-22] MEDS: Ascorbic Acid 500mg tab ORAL SCH (09:00)
[2017-02-22] MEDS: Docusate 100mg cap ORAL SCH ×2 (09:00→21:00)
[2017-02-22] MEDS: Multivitamin w/Minerals tab ORAL SCH (09:00)
[2017-02-22] MEDS: Miralax 17gm pkt ORAL SCH (09:00)
[2017-02-22] MEDS ORDERED: Bacitracin 50000 Units Vial ONE (09:50)
[2017-02-22] MEDS ORDERED: Lidocaine 1% 10mg/ml/Epi 0.005mg/ml 30ml vial INJ ONE (09:50)
[2017-02-22] MEDS ORDERED: NeoSporin Gu Irrig 1ml Amp IRRIG ONE (09:51)
[2017-02-22] MEDS ORDERED: NS Irrig 1000ml ONE (10:00)
[2017-02-22] MEDS ORDERED: Ketorolac 30mg Inj ONE (10:00)
[2017-02-22] MEDS ORDERED: Morphine Sulfate 10mg/ml Inj ONE (10:00)
[2017-02-22] MEDS ORDERED: LR 1000ml ONE (10:00)
[2017-02-22] MEDS ORDERED: Midazolam 2mg/2ml Inj ONE (10:00)
[2017-02-22] MEDS ORDERED: fentaNYL 100 mcg/2 mL IV ONE (10:00)
[2017-02-22] MEDS ORDERED: Propofol 200mg/20ml IV ONE (10:02)
--- NOTE | 2017-02-22 10:32 | Pre-Procedure Note/Attestation ---
Pre-Procedure Note/Attestation Complete Prior to Procedure Planned Procedure: bilateral Procedure Narrative: Bilateral groin wound exploration and wound vac change Indications for Procedure Pre-Operative Diagnosis: Bilateral open groin and thigh wounds Attestation I attest that I discussed the nature of the procedure; its benefits; risks and complications; and alternatives (and the risks and benefits of such alternatives ), prior to the procedure, with the patient (or the patient's legal lifeline representatives). I attest that, if there was a reasonable possibility of needing a blood transfusion, the patient (or the patient's legal lifeline representatives) was given the [facility] standardized written summary, pursuant to the [employer] Blood Safety Act ([place] Health and Safety Code # 1645, as amended). I attest that I re-evaluated the patient just prior to the surgery and that there has been no change in the patient's H&P, except as documented below: GELY JONES Feb 22, 2017 10:32
[2017-02-22] MEDS ORDERED: Metoclopramide 10mg/2ml Inj IVP PRN ×2 (10:45→11:15)
[2017-02-22] MEDS ORDERED: PCA HYDROmorphone 1mg/ml 30 ML IV PRN (10:45)
[2017-02-22] MEDS ORDERED: Rate Change PCA 1 Each MISC PRN ×2 (10:45→11:50)
[2017-02-22] MEDS ORDERED: PCA Education Pamphlet MISC ONE ×2 (10:45→12:00)
--- NOTE | 2017-02-22 11:06 | Anethesia Preoperative Eval ---
Anesthesia Pre-op PMH/ROS General Date of Evaluation: Feb 22, 2017 Time of Evaluation: 10:02 Anesthesiologist: Leif ASA Score: ASA 3 Mallampati Score Class I : Soft palate, uvula, fauces, pillars visible Class II: Soft palate, uvula, fauces visible Class III: Soft palate, base of uvula visible Class IV: Only hard plate visible Mallampati Classification: Class II Surgeon: Derian Diagnosis: Recurent HS Surgical Procedure: Revision and wound vac change Anesthesia History: none Family History: no anesthesia problems Allergies: Coded Allergies: Pork (Unverified Allergy, Unknown, 11/18/14) PT DOES NOT EAT ANY PORK, PORK CONTAINING PRODUCTS Past Medical History Cardiovascular: Denies: HTN, CAD, MO, valve dz, arrhythmia, other Pulmonary: Denies: asthma, COPD, NICOLLE, other Gastrointestinal/Genitourinary: Denies: GERD, CRI, ESRD, other Neurologic/Psychiatric: Reports: depression/anxiety, Denies: dementia, CVA, TIA, other Endocrine: Denies: DM, hypothyroidism, steroids, other Hematology/Immune: Reports: anemia, Denies: DVT, bleeding disorder, other Musculoskeletal/Integumentary: Reports: other - recurrent HS, Denies: OA, RA, DJD, DDD, edema Other: obesity PMH Narrative: as above PSxH Narrative: see H&P Anesthesia Pre-op Phys. Exam Physician Exam Last Vital Signs Date Time Temp Pulse Resp B/P (MAP) Pulse Ox O2 Delivery O2 Flow Rate FiO2 02/22/17 08:00 98.4 92 17 117/75 95 Room Air 02/20/17 04:00 2.0 Constitutional: NAD Neurologic: CN 2-12 intact Cardiovascular: RRR, no M/R/G Respiratory: CTA Gastrointestinal: S/NT/ND Airway Exam Mallampati Score: Class II MO: full Neck: flexible ROM: limited Teeth: intact Dentures: no upper, no lower Anesthesia Pre-op A/P Labs see chart Risk Assessment & Plan Assessment: ASA 3 Plan: GA with LMA Status Change Before Surgery: No Pre-Antibiotics Drug: Ancef 1 gr Given Within 1 Hr of Incision: Yes Time Given: 10:22 RYANNE ESPAÑA M.D. Feb 22, 2017 11:06
[2017-02-22] MEDS ORDERED: LR 1000ml 1,000 ML IVLG SCH (11:07)
[2017-02-22] MEDS ORDERED: Midazolam 2mg/2ml Inj IVP PRN (11:15)
[2017-02-22] MEDS ORDERED: Ketorolac 30mg Inj IV PRN (11:15)
[2017-02-22] MEDS ORDERED: Meperidine 25mg/0.5ml Inj (FOR RIGORS ONLY) IV PRN (11:15)
[2017-02-22] MEDS ORDERED: DiphenhydrAMINE 50mg/ml Inj IVP PRN ×2 (11:15)
[2017-02-22] MEDS ORDERED: LORazepam 1mg tab ORAL PRN (11:15)
[2017-02-22] MEDS ORDERED: Hydromorphone 0.5mg/0.5ml inj IVP PRN (11:15)
--- NOTE | 2017-02-22 11:26 | Operative Note - PDOC ---
Operative Note Operative Note Pre-op Diagnosis: Bilateral open groin and thigh wounds Procedure: bilateral groin wound vac placement Surgeon: Derian Movie Machine Operator: Catherine Anesthesia: general Specimen: none Complications: none Condition: stable Estimated Blood Loss: minimal Drains: wound vac Implant(s) used?: GELY Bell Feb 22, 2017 11:26
--- NOTE | 2017-02-22 11:41 | Immediate Post-Op Evaluation ---
Immediate Post-Op Evalulation Immediate Post-Op Evalulation Procedure: revision of bilateral groin wounds Date of Evaluation: Feb 22, 2017 Time of Evaluation: 11:40 IV Fluids: 600 Blood Products: none Estimated Blood Loss: 100 Urinary Output: 500 Blood Pressure Systolic: 119 Blood Pressure Diastolic: 79 Pulse Rate: 89 Respiratory Rate: 22 O2 Sat by Pulse Oximetry: 99 Temperature (Fahrenheit): 97.8 Pain Score (1-10): 2 Nausea: No Vomiting: No Complications none Patient Status: reacts, patent, none Hydration Status: adequate RYANNE ESPAÑA M.D. Feb 22, 2017 11:41
[2017-02-22] MEDS: PCA HYDROmorphone 1mg/ml 30 ML IV PRN (12:02)
--- NOTE | 2017-02-22 13:30 | General Progress Note ---
Assessment/Plan Problem List: (1) Postoperative fever ICD Codes: R50.82 - Postprocedural fever SNOMED: 656228829 (2) Wound dehiscence ICD Codes: T81.30XA - Disruption of wound, unspecified, initial encounter SNOMED: 842914203 (3) Acute blood loss anemia ICD Codes: D62 - Acute posthemorrhagic anemia SNOMED: 206034700 (4) Sepsis Assessment & Plan: fever + leukocytosis ICD Codes: A41.9 - Sepsis, unspecified organism SNOMED: 68891088 (5) Wound abscess ICD Codes: T81.4XXA - Wound abscess SNOMED: 970176007 (6) Hidradenitis suppurativa ICD Codes: L73.2 - Hidradenitis suppurativa SNOMED: 19644048 (7) HTN (hypertension) ICD Codes: I10 - Essential (primary) hypertension SNOMED: 27754351 (8) h/o DVT (9) Iron deficiency anemia ICD Codes: D50.9 - Iron deficiency anemia, unspecified SNOMED: 50205170 (10) SOB (shortness of breath) ICD Codes: R06.02 - Shortness of breath SNOMED: 599716809 (11) Hypoalbuminemia ICD Codes: E88.09 - Other disorders of plasma-protein metabolism, not elsewhere classified SNOMED: 869917825 (12) Hyponatremia Assessment & Plan: 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 ICD Codes: E87.1 - Hypo-osmolality and hyponatremia SNOMED: 46098826 (13) UTI (urinary tract infection) Assessment & Plan: in setting of horan catheter ICD Codes: N39.0 - Urinary tract infection, site not specified SNOMED: 23142652 (14) Abnormal LFTs Assessment & Plan: Likely 2/2 ancef ICD Codes: R79.89 - Other specified abnormal findings of blood chemistry SNOMED: 958600216 (15) Fatty liver ICD Codes: K76.0 - Fatty (change of) liver, not elsewhere classified SNOMED: 874953315 Status: stable Assessment/Plan Plastic surgery consulted s/p debridement of bilateral thigh, groin and left lower abdomen with posterior thigh flap elevation on 01/29/17 s/p flap closure of abdominal and thigh wounds on 01/31/17 s/p bedside debridement of R posterior thigh wound by surgery on 02/07/17 s/p debridement of bilateral groin wounds and partial reclosure of wounds with wound vac placement on 02/19/17 s/p bilateral groin wound vac placement/exchange 02/22/17 Ceftriaxone for UTI (02/15-) will treat for 10-14d given complicated in setting of horan catheter and in male ctm CBC s/p-IV venofer 02/02 x 5d given iron deficiency anemia F/u blood cultures--ngtd Wound care per surgery s/p horan removal Fluid restriction given SIADH Pain control, supportive care, bowel regimen Cont home meds DVT ppx w/ SCDs, HSQ Outpt derm f/u PT Tape Maker consulted given low albumin--supplements ordered Surgery recommends rehab/SNF for wound care and PT CM consulted for SNF placement FULL CODE D/w pt, RN, surgery regarding mgmt and dispo Subjective Date patient seen: Feb 22, 2017 Time patient seen: 14:00 ROS Limited/Unobtainable: No Constitutional: Reports: no symptoms HEENT: Reports: no symptoms Cardiovascular: Reports: no symptoms Respiratory: Reports: no symptoms Gastrointestinal/Abdominal: Reports: no symptoms Genitourinary: Reports: no symptoms Neurologic/Psychiatric: Reports: no symptoms Endocrine: Reports: no symptoms Hematologic/Lymphatic: Reports: no symptoms Allergies: Coded Allergies: Pork (Unverified Allergy, Unknown, 11/18/14) PT DOES NOT EAT ANY PORK, PORK CONTAINING PRODUCTS All Systems: reviewed and negative except above Subjective No acute o/n events s/p debridement of bilateral groin wounds and partial reclosure of wounds with wound vac placement POD#3 s/p bilateral groin wound vac placement/exchange today Pt doing well. Pain controlled. SOB resolved. Denies f/c, n/v, d/c, chest pain, BLE swelling Objective Last 24 Hour Vital Signs Date Time Temp Pulse Resp B/P (MAP) Pulse Ox O2 Delivery O2 Flow Rate FiO2 02/22/17 12:45 14 02/22/17 12:44 97.3 02/22/17 12:44 97.3 02/22/17 12:30 97.3 76 16 116/84 100 Nasal Cannula 3.0 02/22/17 12:30 15 02/22/17 12:20 79 15 116/79 100 Nasal Cannula 3.0 02/22/17 12:15 13 02/22/17 12:15 73 16 115/73 100 Simple Mask 6.0 02/22/17 12:02 15 02/22/17 12:00 76 14 118/75 100 Simple Mask 6.0 02/22/17 11:50 91 18 122/81 100 Simple Mask 6.0 02/22/17 11:45 97 13 124/82 99 Simple Mask 6.0 02/22/17 11:41 89 22 99 02/22/17 11:40 88 14 119/79 100 Simple Mask 6.0 02/22/17 11:36 97.1 84 13 122/67 100 Simple Mask 6.0 02/22/17 08:00 98.4 92 17 117/75 95 Room Air 02/22/17 08:00 18 02/22/17 06:53 98.1 97 20 117/70 96 Room Air 02/22/17 04:00 98.1 97 20 117/70 96 02/22/17 04:00 18 02/22/17 00:00 98.2 99 20 116/75 96 Room Air 02/22/17 00:00 18 02/21/17 20:00 97.9 99 20 114/76 98 Room Air 02/21/17 16:21 17 02/21/17 16:00 97.6 96 19 104/61 97 Room Air Intake and Output 02/22/17 02/23/17 19:00 07:00 Intake Total 500 ml Output Total 900 ml Balance -400 ml IV Total 500 ml Output Urine Total 800 ml Estimated Blood Loss 100 ml Height (Feet): 5 Height (Inches): 6.00 Weight (Pounds): 250 Objective General: alert, cooperative, no distress, appears stated age Head: normocephalic, without obvious abnormality, atraumatic Eyes: conjunctivae/corneas clear. PERRL, EOM's intact Throat: lips, mucosa, and tongue normal. MMM Neck: supple, symmetrical, trachea midline, and no JVD Lungs: clear to auscultation bilaterally Heart: regular rate and rhythm, S1, S2 normal, no murmur, click, rub or gallop Abdomen: soft, non-tender, non-distended, bowel sounds normal; no masses or organomegaly Extremities: extremities normal, atraumatic, no cyanosis or edema Dressing c/d/i Pulses: 2+ and symmetric Skin: skin color, texture, turgor normal; no rashes or lesions Neurologic: grossly normal, no focal deficits Yi Desai M.D. Feb 22, 2017 13:30
[2017-02-22] MEDS: PCA shift volume MISC SCH (19:20)
[2017-02-22] MEDS: cefTRIAXone 1gm/D5W 55ml IVPB SCH ×2 (19:57)
[2017-02-22] MEDS ORDERED: Heparin 5000 units/ml inj SUBQ SCH (21:00)
--- NOTE | 2017-02-22 22:15 | Operative Note - Dictated ---
DATE OF OPERATION: 02/22/2017 PREOPERATIVE DIAGNOSIS: Bilateral open groin and thigh wounds. POSTOPERATIVE DIAGNOSIS: Bilateral open groin and thigh wounds. PROCEDURE: Bilateral groin and thigh wound wound VAC change. SURGEON: Felicity Menard M.D. MEDART OPERATOR: Donovan Alexander M.D. ANESTHESIA: General. COMPLICATIONS: None. DRAINS: Bilateral wound VACs. DISPOSITION: Stable to the recovery room. Indications For Surgery: This is a 31-year-old male, who has been hospitalized now for the past 3 weeks, who has had complex wounds requiring significant amount of wound care with revision of flaps as well as wound VAC changes, who is at a stable state now. However, his wounds are large enough where he still requires inpatient care with wound VAC changes and is brought to the operating room today for a planned wound VAC change to his groins. He understood the risks and benefits of surgery and agreed to proceed. Details Of The Operation: The patient was brought to the operating room and laid in lithotomy position on the operating room table. His bilateral groins and upper thighs were prepped and draped in a sterile usual fashion. We began by pulse lavaging all the open wounds. They have all appeared to be granulating well and healthy with no evidence of infection. Once this was complete and hemostasis was achieved, all the wounds that were opened were covered by appropriate size wound VACs. These were secured to the skin using chanda and all were sequentially secured with adhesive tapes. A total of 3 wound VAC machines were used for the 4 large sponges that were used and they were all noted to be working and was set to 175 mmHg at high continuous suction. The patient tolerated the procedure well and there was no complication. Plan: The plan will be to bring the patient back in 72 hours, which will be on Friday for an interval wound VAC change. Felicity Menard M.D. DR: ZOHAIB JOB#: [id number] CC:
[2017-02-23 00:21] VITALS: BP 120/70
[2017-02-23 04:00] VITALS: BP 118/73
[2017-02-23 06:32] LABS: BASOPHILS % (AUTO) 0.6 % (0.0-2.0); EOSINOPHILS % (AUTO) 1.8 % (0.0-3.0); LYMPHOCYTES % (AUTO) 20.2 % (20.0-45.0); MEAN CORPUSCULAR HEMOGLOBIN 26.1 PG (27.0-31.0); MEAN CORPUSCULAR HGB CONC 31.7 G/DL (32.0-36.0); MEAN CORPUSCULAR VOLUME 82 FL (80-99); MEAN PLATELET VOLUME 5.8 FL (6.5-10.1); MONOCYTES % (AUTO) 8.4 % (1.0-10.0); NEUTROPHILS % (AUTO) 69.1 % (45.0-75.0); PLATELET COUNT 437 K/UL (150-450); RED BLOOD COUNT 3.19 M/UL (4.70-6.10); RED CELL DISTRIBUTION WIDTH 15.3 % (11.6-14.8); WHITE BLOOD COUNT 9.2 K/UL (4.8-10.8)
[2017-02-23] MEDS: PCA shift volume MISC SCH ×2 (07:06→19:30)
[2017-02-23 07:48] VITALS: BP 114/78
[2017-02-23 07:49] LABS: ANION GAP 10 (5-15); CARBON DIOXIDE 28 mEQ/L (20-30); CHLORIDE 99 mEQ/L (98-107); CREATININE 0.4 mg/dL (0.7-1.2); GLOMERULAR FILTRATION RATE > 60 mL/min (>60); HEMOLYSIS 0; POTASSIUM 4.3 mEQ/L (3.4-4.9); SODIUM 137 mEQ/L (135-145)
[2017-02-23 07:51] LABS: ALANINE AMINOTRANSFERASE 48 U/L (3-41); ASPARTATE AMINO TRANSFERASE 25 U/L (5-40); BILIRUBIN,DIRECT 0.1 mg/dL (0.1-0.3)
[2017-02-23 07:52] LABS: TOTAL PROTEIN 6.5 g/dL (6.6-8.7)
[2017-02-23] MEDS: Ascorbic Acid 500mg tab ORAL SCH (08:40)
[2017-02-23] MEDS: Docusate 100mg cap ORAL SCH ×2 (08:40→20:10)
[2017-02-23] MEDS: Multivitamin w/Minerals tab ORAL SCH (08:40)
[2017-02-23] MEDS: Miralax 17gm pkt ORAL SCH (08:41)
[2017-02-23] MEDS: Heparin 5000 units/ml inj SUBQ SCH ×2 (08:46→20:21)
--- NOTE | 2017-02-23 10:45 | General Progress Note ---
Progress Note Progress Note Pt seen and examined. POD# 1 from change of wound vac. Doing well. To OR again on Friday for another wound vac change as it is nearly impossible to do at the bedside. Gely Jones M.D. GELY JONES Feb 23, 2017 10:45
[2017-02-23 11:30] VITALS: BP 113/76
[2017-02-23] MEDS: PCA HYDROmorphone 1mg/ml 30 ML IV PRN (12:14)
[2017-02-23 15:54] VITALS: BP 134/77
[2017-02-23 20:03] VITALS: BP 136/84
[2017-02-23] MEDS: cefTRIAXone 1gm/D5W 55ml IVPB SCH ×2 (20:10)
--- NOTE | 2017-02-23 21:51 | General Progress Note ---
Assessment/Plan Problem List: (1) Postoperative fever ICD Codes: R50.82 - Postprocedural fever SNOMED: 838579486 (2) Wound dehiscence ICD Codes: T81.30XA - Disruption of wound, unspecified, initial encounter SNOMED: 214959003 (3) Acute blood loss anemia ICD Codes: D62 - Acute posthemorrhagic anemia SNOMED: 914760895 (4) Sepsis Assessment & Plan: fever + leukocytosis ICD Codes: A41.9 - Sepsis, unspecified organism SNOMED: 70088531 (5) Wound abscess ICD Codes: T81.4XXA - Wound abscess SNOMED: 310011314 (6) Hidradenitis suppurativa ICD Codes: L73.2 - Hidradenitis suppurativa SNOMED: 33049620 (7) HTN (hypertension) ICD Codes: I10 - Essential (primary) hypertension SNOMED: 59739062 (8) h/o DVT (9) Iron deficiency anemia ICD Codes: D50.9 - Iron deficiency anemia, unspecified SNOMED: 25892134 (10) SOB (shortness of breath) ICD Codes: R06.02 - Shortness of breath SNOMED: 735477926 (11) Hypoalbuminemia ICD Codes: E88.09 - Other disorders of plasma-protein metabolism, not elsewhere classified SNOMED: 545341702 (12) Hyponatremia Assessment & Plan: 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 ICD Codes: E87.1 - Hypo-osmolality and hyponatremia SNOMED: 94639422 (13) UTI (urinary tract infection) Assessment & Plan: in setting of horan catheter ICD Codes: N39.0 - Urinary tract infection, site not specified SNOMED: 65089421 (14) Abnormal LFTs Assessment & Plan: Likely 2/2 ancef ICD Codes: R79.89 - Other specified abnormal findings of blood chemistry SNOMED: 916553485 (15) Fatty liver ICD Codes: K76.0 - Fatty (change of) liver, not elsewhere classified SNOMED: 563714986 Status: stable Assessment/Plan Plastic surgery consulted s/p debridement of bilateral thigh, groin and left lower abdomen with posterior thigh flap elevation on 01/29/17 s/p flap closure of abdominal and thigh wounds on 01/31/17 s/p bedside debridement of R posterior thigh wound by surgery on 02/07/17 s/p debridement of bilateral groin wounds and partial reclosure of wounds with wound vac placement on 02/19/17 s/p bilateral groin wound vac placement/exchange 02/22/17 To OR again on Friday for another wound vac change Ceftriaxone for UTI (02/15-) will treat for 10-14d given complicated in setting of horan catheter and in male ctm CBC s/p-IV venofer 02/02 x 5d given iron deficiency anemia F/u blood cultures--ngtd Wound care per surgery s/p horan removal Fluid restriction given SIADH Pain control, supportive care, bowel regimen Cont home meds DVT ppx w/ SCDs, HSQ Outpt derm f/u PT Pumping Station Engineer consulted given low albumin--supplements ordered Surgery recommends rehab/SNF for wound care and PT CM consulted for SNF placement FULL CODE D/w pt, RN, surgery regarding mgmt and dispo Subjective Date patient seen: Feb 23, 2017 Time patient seen: 14:00 ROS Limited/Unobtainable: No Constitutional: Reports: no symptoms HEENT: Reports: no symptoms Cardiovascular: Reports: no symptoms Respiratory: Reports: no symptoms Gastrointestinal/Abdominal: Reports: no symptoms Genitourinary: Reports: no symptoms Neurologic/Psychiatric: Reports: no symptoms Endocrine: Reports: no symptoms Hematologic/Lymphatic: Reports: no symptoms Allergies: Coded Allergies: Pork (Unverified Allergy, Unknown, 11/18/14) PT DOES NOT EAT ANY PORK, PORK CONTAINING PRODUCTS Subjective No acute o/n events s/p debridement of bilateral groin wounds and partial reclosure of wounds with wound vac placement POD#4 s/p bilateral groin wound vac placement/exchange yesterday POD#1 Pt doing well. Pain controlled. SOB resolved. Denies f/c, n/v, d/c, chest pain, BLE swelling Objective Last 24 Hour Vital Signs Date Time Temp Pulse Resp B/P (MAP) Pulse Ox O2 Delivery O2 Flow Rate FiO2 02/23/17 20:03 98.9 93 17 136/84 98 Room Air 02/23/17 20:00 18 02/23/17 16:00 18 02/23/17 15:54 98.4 78 20 134/77 97 Room Air 02/23/17 12:00 19 02/23/17 11:30 98.2 97 20 113/76 99 Room Air 02/23/17 08:00 18 02/23/17 07:48 98.6 86 20 114/78 97 Room Air 02/23/17 04:00 98.4 91 18 118/73 96 Room Air 02/23/17 00:21 98.1 100 19 120/70 96 Room Air Intake and Output 02/23/17 02/24/17 19:00 07:00 Intake Total 1000 ml Output Total 1425 ml Balance -425 ml Intake Oral 1000 ml Output Urine Total 1100 ml Other 325 ml # Voids 2 Laboratory Tests 02/23/17 06:15: White Blood Count 9.2, Red Blood Count 3.19L, Hemoglobin 8.3L, Hematocrit 26.3L , Mean Corpuscular Volume 82, Mean Corpuscular Hemoglobin 26.1L, Mean Corpuscular Hemoglobin Concent 31.7L, Red Cell Distribution Width 15.3H, Platelet Count 437, Mean Platelet Volume 5.8L, Neutrophils (%) (Auto) 69.1, Lymphocytes (%) (Auto) 20.2, Monocytes (%) (Auto) 8.4, Eosinophils (%) (Auto) 1.8, Basophils (%) (Auto) 0.6, Sodium Level 137, Potassium Level 4.3, Chloride Level 99, Carbon Dioxide Level 28, Anion Gap 10, Blood Urea Nitrogen 6L, Creatinine 0.4L, Estimat Glomerular Filtration Rate > 60, Glucose Level 101, Calcium Level 9.0, Total Bilirubin 0.2, Direct Bilirubin 0.1, Aspartate Amino Transf (AST/SGOT) 25, Alanine Aminotransferase (ALT/SGPT) 48H, Alkaline Phosphatase 122, Total Protein 6.5L, Albumin 2.5L Height (Feet): 5 Height (Inches): 6.00 Weight (Pounds): 250 Objective General: alert, cooperative, no distress, appears stated age Head: normocephalic, without obvious abnormality, atraumatic Eyes: conjunctivae/corneas clear. PERRL, EOM's intact Throat: lips, mucosa, and tongue normal. MMM Neck: supple, symmetrical, trachea midline, and no JVD Lungs: clear to auscultation bilaterally Heart: regular rate and rhythm, S1, S2 normal, no murmur, click, rub or gallop Abdomen: soft, non-tender, non-distended, bowel sounds normal; no masses or organomegaly Extremities: extremities normal, atraumatic, no cyanosis or edema Dressing c/d/i Pulses: 2+ and symmetric Skin: skin color, texture, turgor normal; no rashes or lesions Neurologic: grossly normal, no focal deficits Yi Desai M.D. Feb 23, 2017 21:51
--- NOTE | 2017-02-23 23:12 | Diagnostic Imaging Report ---
APPROVED REPORT CPT Code: 79352 Present Symptoms Lower Extremity Pain: Bilateral Lower Extremity Edema: Bilateral Status post-surgery for hidradenitis suppurativa. Technically difficult, limited study due to post-surgical bandages around both groin and thighs area. BILATERAL: Imaging reveals a patent deep venous system bilaterally. There is no evidence of thrombus within the superficial femoral, popliteal or tibial segments. The greater saphenous veins are also within normal limits. Doppler indicates normal spontaneous flow within these segments. The common and proximal superficial femoral veins not well imaged. There is no evidence of acute deep vein thrombosis.
[2017-02-24 00:18] VITALS: BP 119/76
[2017-02-24 04:00] VITALS: BP 130/70
[2017-02-24] MEDS: PCA shift volume MISC SCH ×2 (07:14→19:15)
[2017-02-24 08:10] VITALS: BP 110/68
[2017-02-24] MEDS: Ascorbic Acid 500mg tab ORAL SCH (09:05)
[2017-02-24] MEDS: Docusate 100mg cap ORAL SCH ×2 (09:05→20:49)
[2017-02-24] MEDS: Multivitamin w/Minerals tab ORAL SCH (09:05)
[2017-02-24] MEDS: Miralax 17gm pkt ORAL SCH (09:06)
[2017-02-24] MEDS: Heparin 5000 units/ml inj SUBQ SCH ×2 (09:07→20:49)
[2017-02-24] MEDS ORDERED: Naloxone 0.4mg/ml Inj IV PRN (10:15)
--- NOTE | 2017-02-24 10:22 | 48 Hour Post Anesthesia Eval ---
Post Anesthesia Evaluation Procedure: revision of bilateral groin wounds Date of Evaluation: Feb 24, 2017 Time of Evaluation: 10:21 Blood Pressure Systolic: 116 0: 75 Pulse Rate: 76 Respiratory Rate: 20 Temperature (Fahrenheit): 97.6 O2 Sat by Pulse Oximetry: 98 Airway: patent Nausea: No Vomiting: No Pain Intensity: 3 Hydration Status: adequate Cardiopulmonary Status: stable Mental Status/LOC: patient returned to baseline Follow-up Care/Observations: n/a Post-Anesthesia Complications: none Follow-up care needed: N/A RYANNE ESPAÑA M.D. Feb 24, 2017 10:22
[2017-02-24] MEDS ORDERED: Rate Change PCA 1 Each MISC PRN (12:00)
[2017-02-24 12:05] VITALS: BP 127/77
[2017-02-24] MEDS: PCA HYDROmorphone 1mg/ml 30 ML IV PRN (13:12)
[2017-02-24 16:00] VITALS: BP 118/72
[2017-02-24 20:00] VITALS: BP 110/71
[2017-02-24] MEDS: cefTRIAXone 1gm/D5W 55ml IVPB SCH ×2 (20:50)
[2017-02-25 04:05] VITALS: BP 113/70
--- NOTE | 2017-02-25 06:13 | General Progress Note ---
Assessment/Plan Problem List: (1) Postoperative fever ICD Codes: R50.82 - Postprocedural fever SNOMED: 459259327 (2) Wound dehiscence ICD Codes: T81.30XA - Disruption of wound, unspecified, initial encounter SNOMED: 431830607 (3) Acute blood loss anemia ICD Codes: D62 - Acute posthemorrhagic anemia SNOMED: 362185945 (4) Sepsis Assessment & Plan: fever + leukocytosis ICD Codes: A41.9 - Sepsis, unspecified organism SNOMED: 81035542 (5) Wound abscess ICD Codes: T81.4XXA - Wound abscess SNOMED: 733881674 (6) Hidradenitis suppurativa ICD Codes: L73.2 - Hidradenitis suppurativa SNOMED: 59834335 (7) HTN (hypertension) ICD Codes: I10 - Essential (primary) hypertension SNOMED: 95626427 (8) h/o DVT (9) Iron deficiency anemia ICD Codes: D50.9 - Iron deficiency anemia, unspecified SNOMED: 27285595 (10) SOB (shortness of breath) ICD Codes: R06.02 - Shortness of breath SNOMED: 242787276 (11) Hypoalbuminemia ICD Codes: E88.09 - Other disorders of plasma-protein metabolism, not elsewhere classified SNOMED: 722133574 (12) Hyponatremia Assessment & Plan: 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 ICD Codes: E87.1 - Hypo-osmolality and hyponatremia SNOMED: 67130227 (13) UTI (urinary tract infection) Assessment & Plan: in setting of horan catheter ICD Codes: N39.0 - Urinary tract infection, site not specified SNOMED: 71370462 (14) Abnormal LFTs Assessment & Plan: Likely 2/2 ancef ICD Codes: R79.89 - Other specified abnormal findings of blood chemistry SNOMED: 087644854 (15) Fatty liver ICD Codes: K76.0 - Fatty (change of) liver, not elsewhere classified SNOMED: 932779117 Assessment/Plan Plastic surgery consulted s/p debridement of bilateral thigh, groin and left lower abdomen with posterior thigh flap elevation on 01/29/17 s/p flap closure of abdominal and thigh wounds on 01/31/17 s/p bedside debridement of R posterior thigh wound by surgery on 02/07/17 s/p debridement of bilateral groin wounds and partial reclosure of wounds with wound vac placement on 02/19/17 s/p bilateral groin wound vac placement/exchange 02/22/17 To OR again on Friday for another wound vac change, [place] Ceftriaxone for UTI (02/15-) will treat for 10-14d given complicated in setting of horan catheter and in male ctm CBC s/p-IV venofer 02/02 x 5d given iron deficiency anemia F/u blood cultures--ngtd Wound care per surgery s/p horan removal Fluid restriction given SIADH Pain control, supportive care, bowel regimen Cont home meds DVT ppx w/ SCDs, HSQ Outpt derm f/u PT [employer] consulted given low albumin--supplements ordered Surgery recommends rehab/SNF for wound care and PT CM consulted for SNF placement FULL CODE D/w pt, RN, surgery regarding mgmt and dispo Subjective Date patient seen: Feb 24, 2017 Time patient seen: 12:00 ROS Limited/Unobtainable: No Constitutional: Reports: no symptoms HEENT: Reports: no symptoms Cardiovascular: Reports: no symptoms Respiratory: Reports: no symptoms Gastrointestinal/Abdominal: Reports: no symptoms Genitourinary: Reports: no symptoms Neurologic/Psychiatric: Reports: no symptoms Endocrine: Reports: no symptoms Hematologic/Lymphatic: Reports: no symptoms Allergies: Coded Allergies: Pork (Unverified Allergy, Unknown, 11/18/14) PT DOES NOT EAT ANY PORK, PORK CONTAINING PRODUCTS All Systems: reviewed and negative except above Subjective No acute o/n events s/p debridement of bilateral groin wounds and partial reclosure of wounds with wound vac placement POD#5 s/p bilateral groin wound vac placement/exchange POD#2 Pt doing well. Pain controlled. SOB resolved. Denies f/c, n/v, d/c, chest pain, BLE swelling Objective Last 24 Hour Vital Signs Date Time Temp Pulse Resp B/P (MAP) Pulse Ox O2 Delivery O2 Flow Rate FiO2 02/25/17 04:05 98.4 93 18 113/70 98 Room Air 02/25/17 04:00 18 02/25/17 00:00 18 02/24/17 20:00 18 02/24/17 20:00 98.5 98 20 110/71 95 Room Air 02/24/17 16:00 98.6 90 20 118/72 96 Room Air 02/24/17 16:00 18 02/24/17 13:42 97.6 02/24/17 13:00 18 02/24/17 12:55 18 02/24/17 12:05 98.7 86 20 127/77 98 Room Air 02/24/17 10:22 76 20 98 02/24/17 08:10 98.4 89 18 110/68 98 Room Air 02/24/17 08:00 18 Height (Feet): 5 Height (Inches): 6.00 Weight (Pounds): 250 Objective General: alert, cooperative, no distress, appears stated age Head: normocephalic, without obvious abnormality, atraumatic Eyes: conjunctivae/corneas clear. PERRL, EOM's intact Throat: lips, mucosa, and tongue normal. MMM Neck: supple, symmetrical, trachea midline, and no JVD Lungs: clear to auscultation bilaterally Heart: regular rate and rhythm, S1, S2 normal, no murmur, click, rub or gallop Abdomen: soft, non-tender, non-distended, bowel sounds normal; no masses or organomegaly Extremities: extremities normal, atraumatic, no cyanosis or edema Dressing c/d/i Pulses: 2+ and symmetric Skin: skin color, texture, turgor normal; no rashes or lesions Neurologic: grossly normal, no focal deficits Yi Desai M.D. Feb 25, 2017 06:13
[2017-02-25] MEDS: PCA shift volume MISC SCH ×2 (07:10→19:12)
[2017-02-25 08:00] VITALS: BP 117/72
[2017-02-25] MEDS: Heparin 5000 units/ml inj SUBQ SCH (09:00)
[2017-02-25] MEDS: Miralax 17gm pkt ORAL SCH ×2 (09:00→13:31)
[2017-02-25] MEDS: Multivitamin w/Minerals tab ORAL SCH ×2 (09:00→13:28)
[2017-02-25] MEDS: Ascorbic Acid 500mg tab ORAL SCH ×2 (09:00→13:28)
[2017-02-25] MEDS: Docusate 100mg cap ORAL SCH ×2 (09:00→13:29)
[2017-02-25 12:00] VITALS: BP 112/73
--- NOTE | 2017-02-25 12:55 | General Progress Note ---
Assessment/Plan Problem List: (1) Acute DVT (deep venous thrombosis) ICD Codes: I82.409 - Acute embolism and thrombosis of unspecified deep veins of unspecified lower extremity SNOMED: 927580985972396 (2) Postoperative fever ICD Codes: R50.82 - Postprocedural fever SNOMED: 079206889 (3) Wound dehiscence ICD Codes: T81.30XA - Disruption of wound, unspecified, initial encounter SNOMED: 134275081 (4) Acute blood loss anemia ICD Codes: D62 - Acute posthemorrhagic anemia SNOMED: 362534414 (5) Sepsis Assessment & Plan: fever + leukocytosis ICD Codes: A41.9 - Sepsis, unspecified organism SNOMED: 47975900 (6) Wound abscess ICD Codes: T81.4XXA - Wound abscess SNOMED: 425586050 (7) Hidradenitis suppurativa ICD Codes: L73.2 - Hidradenitis suppurativa SNOMED: 11685672 (8) HTN (hypertension) ICD Codes: I10 - Essential (primary) hypertension SNOMED: 99723871 (9) h/o DVT (10) Iron deficiency anemia ICD Codes: D50.9 - Iron deficiency anemia, unspecified SNOMED: 48450450 (11) SOB (shortness of breath) ICD Codes: R06.02 - Shortness of breath SNOMED: 692493221 (12) Hypoalbuminemia ICD Codes: E88.09 - Other disorders of plasma-protein metabolism, not elsewhere classified SNOMED: 604016776 (13) Hyponatremia Assessment & Plan: 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 ICD Codes: E87.1 - Hypo-osmolality and hyponatremia SNOMED: 21273645 (14) UTI (urinary tract infection) Assessment & Plan: in setting of horan catheter ICD Codes: N39.0 - Urinary tract infection, site not specified SNOMED: 41027224 (15) Abnormal LFTs Assessment & Plan: Likely 2/2 ancef ICD Codes: R79.89 - Other specified abnormal findings of blood chemistry SNOMED: 728512767 (16) Fatty liver ICD Codes: K76.0 - Fatty (change of) liver, not elsewhere classified SNOMED: 914556068 Status: stable Assessment/Plan Plastic surgery consulted s/p debridement of bilateral thigh, groin and left lower abdomen with posterior thigh flap elevation on 01/29/17 s/p flap closure of abdominal and thigh wounds on 01/31/17 s/p bedside debridement of R posterior thigh wound by surgery on 02/07/17 s/p debridement of bilateral groin wounds and partial reclosure of wounds with wound vac placement on 02/19/17 s/p bilateral groin wound vac placement/exchange 02/22/17 OR canceled given acute DVT Start Lovenox 1mg/kg q12h Discussed with patient possible IVC filter and he declines at this time Ceftriaxone for UTI (02/15-) will treat for 10-14d given complicated in setting of horan catheter and in male ctm CBC s/p-IV venofer 02/02 x 5d given iron deficiency anemia F/u blood cultures--ngtd Wound care per surgery s/p horan removal Fluid restriction given SIADH Pain control, supportive care, bowel regimen Cont home meds DVT ppx w/ SCDs, HSQ Outpt derm f/u PT 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 given low albumin--supplements ordered FULL CODE D/w pt, RN, surgery regarding mgmt and dispo Subjective Date patient seen: Feb 25, 2017 Time patient seen: 12:00 ROS Limited/Unobtainable: No Constitutional: Reports: no symptoms HEENT: Reports: no symptoms Cardiovascular: Reports: no symptoms Respiratory: Reports: no symptoms Gastrointestinal/Abdominal: Reports: no symptoms Genitourinary: Reports: no symptoms Neurologic/Psychiatric: Reports: no symptoms Endocrine: Reports: no symptoms Hematologic/Lymphatic: Reports: no symptoms Allergies: Coded Allergies: Pork (Unverified Allergy, Unknown, 11/18/14) PT DOES NOT EAT ANY PORK, PORK CONTAINING PRODUCTS All Systems: reviewed and negative except above Subjective Pt w/ leg pain overnight. Found to have acute DVT proximal superficial femoral vein just after bifurcation and calf vein (peroneal tibial). Surgery canceled Pt doing well. Pain controlled. SOB resolved. Denies f/c, n/v, d/c, chest pain, BLE swelling Objective Last 24 Hour Vital Signs Date Time Temp Pulse Resp B/P (MAP) Pulse Ox O2 Delivery O2 Flow Rate FiO2 02/25/17 12:00 18 02/25/17 12:00 98.3 92 19 112/73 97 Room Air 02/25/17 08:00 97.9 97 19 117/72 98 Room Air 02/25/17 08:00 18 02/25/17 04:05 98.4 93 18 113/70 98 Room Air 02/25/17 04:00 18 02/25/17 00:00 18 02/24/17 20:00 18 02/24/17 20:00 98.5 98 20 110/71 95 Room Air 02/24/17 16:00 98.6 90 20 118/72 96 Room Air 02/24/17 16:00 18 02/24/17 13:42 97.6 02/24/17 13:00 18 02/24/17 12:55 18 Intake and Output 02/25/17 02/26/17 19:00 07:00 Output Total 250 ml Balance -250 ml Output Urine Total 250 ml Height (Feet): 5 Height (Inches): 6.00 Weight (Pounds): 250 Objective General: alert, cooperative, no distress, appears stated age Head: normocephalic, without obvious abnormality, atraumatic Eyes: conjunctivae/corneas clear. PERRL, EOM's intact Throat: lips, mucosa, and tongue normal. MMM Neck: supple, symmetrical, trachea midline, and no JVD Lungs: clear to auscultation bilaterally Heart: regular rate and rhythm, S1, S2 normal, no murmur, click, rub or gallop Abdomen: soft, non-tender, non-distended, bowel sounds normal; no masses or organomegaly Extremities: extremities normal, atraumatic, no cyanosis or edema Dressing c/d/i Pulses: 2+ and symmetric Skin: skin color, texture, turgor normal; no rashes or lesions Neurologic: grossly normal, no focal deficits Yi Desai M.D. Feb 25, 2017 12:55
--- NOTE | 2017-02-25 13:56 | General Progress Note ---
Progress Note Progress Note Pt seen and examined. Was scheduled for wound vac change today but was noted to have a DVT on NOE. As such case was cancelled. Will start pt on Lovenox and will postpone case for another 24-48 hours. Will take the patient for dressing change likely on AM. GELY Laguna MD Feb 25, 2017 13:56
[2017-02-25] MEDS ORDERED: Enoxaparin Sodium 300mg/3ml vial SUBQ SCH (14:00)
[2017-02-25] MEDS: Enoxaparin Sodium 300mg/3ml vial SUBQ SCH ×2 (14:27)
[2017-02-25] MEDS: PCA HYDROmorphone 1mg/ml 30 ML IV PRN (14:28)
[2017-02-25 16:00] VITALS: BP 123/74
[2017-02-25 20:00] VITALS: BP 120/77
[2017-02-25] MEDS: cefTRIAXone 1gm/D5W 55ml IVPB SCH ×2 (21:19)
[2017-02-26] VITALS: BP 129/85
[2017-02-26] MEDS: Enoxaparin Sodium 300mg/3ml vial SUBQ SCH ×6 (01:50→21:03)
[2017-02-26 04:00] VITALS: BP 118/73
[2017-02-26] MEDS: PCA shift volume MISC SCH ×2 (07:20→19:16)
[2017-02-26 08:15] VITALS: BP 116/76
[2017-02-26] MEDS: Docusate 100mg cap ORAL SCH ×2 (08:41→21:04)
[2017-02-26] MEDS: Miralax 17gm pkt ORAL SCH (08:41)
[2017-02-26] MEDS ORDERED: Rate Change PCA 1 Each MISC PRN (10:15)
[2017-02-26] MEDS: Ascorbic Acid 500mg tab ORAL SCH (10:18)
[2017-02-26] MEDS: Multivitamin w/Minerals tab ORAL SCH (10:18)
--- NOTE | 2017-02-26 10:45 | General Progress Note ---
Progress Note Progress Note Pt seen and examined. Has been started on anticoagulation. Will be seen by hematology as well. To OR tomorrow for removal of wound vac and EUA. Gely Jones MD. GELY JONES Feb 26, 2017 10:45
[2017-02-26] MEDS ORDERED: LORazepam 1mg tab ORAL PRN (11:15)
[2017-02-26] MEDS ORDERED: NS 275ml ONE ×2 (11:28→16:24)
--- NOTE | 2017-02-26 11:47 | Consultation ---
History of Present Illness General Chief Complaint: Skin Rash/Abscess Present Illness HPI 31y/o male with pmh of hidradenitis suppurative s/p multiple surgeries in past, h/o DVT who presents with worsening groin abscesses. Allergies: Coded Allergies: Pork (Unverified Allergy, Unknown, 11/18/14) PT DOES NOT EAT ANY PORK, PORK CONTAINING PRODUCTS Medication History Scheduled Cephalexin* (Keflex*), 500 MG ORAL Q6H Finasteride* (Proscar*), 5 MG ORAL DAILY, (Reported) Loratadine (Claritin), 10 MG ORAL DAILY, (Reported) Spironolactone* (Spironolactone*), 100 MG ORAL DAILY, (Reported) Patient History Healthcare decision maker Resuscitation status Full Code Advanced Directive on File No Physical Exam Last 24 Hour Vital Signs Date Time Temp Pulse Resp B/P (MAP) Pulse Ox O2 Delivery O2 Flow Rate FiO2 02/26/17 08:15 98.1 86 16 116/76 98 Room Air 02/26/17 08:00 18 02/26/17 04:00 98.5 90 18 118/73 96 Room Air 02/26/17 04:00 18 02/26/17 00:00 99.0 98 18 129/85 98 Room Air 02/26/17 00:00 18 02/25/17 20:00 18 02/25/17 20:00 99.6 102 18 120/77 98 Room Air 02/25/17 16:00 18 02/25/17 16:00 98.3 90 19 123/74 97 Room Air 02/25/17 14:52 98.3 02/25/17 14:40 98.3 02/25/17 12:00 18 02/25/17 12:00 98.3 92 19 112/73 97 Room Air Height (Feet): 5 Height (Inches): 6.00 Weight (Pounds): 250 Medications Current Medications Medications (Trade) Dose Ordered Sig/Yeny Route PRN Reason Start Time Stop Time Status Last Admin Dose Admin Acetaminophen (Tylenol) 650 mg Q4H PRN ORAL FEVER 02/22/17 10:45 03/24/17 10:44 Al Hydroxide/Mg Hydroxide (Mylanta II) 30 ml Q6H PRN ORAL dyspepsia 01/28/17 15:00 02/27/17 14:59 Ascorbic Acid (Vitamin C) 500 mg DAILY ORAL 02/18/17 09:00 03/20/17 08:59 02/26/17 10:18 Bisacodyl (Dulcolax) 10 mg HSPRN PRN RECTAL Constipation 01/28/17 15:00 02/27/17 14:59 02/07/17 12:09 Ceftriaxone Sodium 1 gm/ Dextrose 55 ml @ 110 mls/hr Q24H IVPB 02/15/17 20:00 02/28/17 23:59 02/25/17 21:19 Dextrose (Dextrose 50%) STAT PRN IV Hypoglycemia 01/28/17 15:00 02/27/17 14:59 Docusate Sodium (Colace) 100 mg EVERY 12 HOURS ORAL 01/28/17 21:00 02/27/17 20:59 02/26/17 08:41 Enoxaparin Sodium (Lovenox) 55 mg Q12HR SUBQ 02/26/17 10:00 03/28/17 09:59 02/26/17 09:34 Enoxaparin Sodium (Lovenox) 55 mg Q12HR SUBQ 02/26/17 10:00 03/28/17 09:59 02/26/17 09:35 Fexofenadine HCl (Sandy) 60 mg BIDPRN PRN ORAL allergies 01/28/17 15:45 02/27/17 15:44 Finasteride (Proscar) 5 mg DAILY ORAL 01/29/17 09:00 02/28/17 08:59 02/26/17 10:18 Hydromorphone HCl 30 ml @ 0 mls/hr Q24H PRN IV For Pain 02/26/17 12:00 02/28/17 11:59 Hydromorphone HCl (Dilaudid) 1 mg Q2H PRN IVP Breakthrough Pain (4-10) 02/26/17 10:15 02/28/17 10:14 Lorazepam (Ativan) 1 mg Q4H PRN ORAL MUSCLE SPASM 02/21/17 23:00 02/28/17 22:59 02/22/17 05:06 Lorazepam (Ativan) 2 mg BIDPRN PRN ORAL For Anxiety 02/26/17 11:15 03/05/17 11:14 Magnesium Hydroxide (Mom) 30 ml HSPRN PRN ORAL Constipation 02/04/17 14:30 03/06/17 23:59 02/05/17 16:42 Metoclopramide HCl (Reglan) 10 mg Q6H PRN IVP Nausea & Vomiting 02/22/17 10:45 03/24/17 10:44 Mirtazapine (Remeron) 7.5 mg HSPRN PRN ORAL For Anxiety at Bedtime 02/26/17 11:15 03/28/17 11:14 Miscellaneous Medication ([employer]PERATOR Rate Change) 1 ea DAILY PRN MISC rate change 02/26/17 10:15 02/28/17 10:14 Miscellaneous Medication ([employer] OPERATOR shift volume) 1 ea Q12HR@0700,1900 MISC 02/26/17 19:00 02/28/17 18:59 Multivitamins Therapeutic (Therapeutic Multivitamin) 1 ea DAILY ORAL 02/18/17 09:00 03/20/17 08:59 02/26/17 10:18 Naloxone HCl (Narcan) 0.1 mg PRN IV STAT if RR<10min OR SBP<90 mmH 02/24/17 10:15 02/28/17 10:14 Polyethylene Glycol (Miralax) 17 gm DAILY ORAL 02/09/17 09:00 03/11/17 08:59 02/26/17 08:41 Polyethylene Glycol (Miralax) 17 gm HSPRN PRN ORAL Constipation 01/28/17 15:00 02/27/17 14:59 Sennosides (Senokot) 17.2 mg DAILY ORAL 02/08/17 21:00 03/10/17 20:59 02/26/17 10:18 Sodium Phosphate (Fleet's Sodium Phosl Enema) 133 ml DAILYPRN PRN RECTAL constipation 02/21/17 16:00 03/23/17 15:59 02/22/17 05:10 Justice Do M.D. Feb 26, 2017 11:47
[2017-02-26 12:00] VITALS: BP 118/76
[2017-02-26] MEDS ORDERED: PCA HYDROmorphone 1mg/ml 30 ML IV PRN (12:00)
[2017-02-26 16:00] VITALS: BP 124/84
[2017-02-26] MEDS ORDERED: Tubing IV Secondary IV ONE (16:24)
[2017-02-26 20:00] VITALS: BP 130/83
[2017-02-26] MEDS: cefTRIAXone 1gm/D5W 55ml IVPB SCH ×2 (20:00)
[2017-02-26] MEDS: Fleet's Enema 133ml RECTAL PRN (20:51)
[2017-02-27] VITALS (13 sets, daily range): BP systolic 114–136; BP diastolic 68–90
--- NOTE | 2017-02-27 05:49 | General Progress Note ---
Assessment/Plan Problem List: (1) Acute DVT (deep venous thrombosis) ICD Codes: I82.409 - Acute embolism and thrombosis of unspecified deep veins of unspecified lower extremity SNOMED: 202220813537797 (2) Postoperative fever ICD Codes: R50.82 - Postprocedural fever SNOMED: 547236968 (3) Wound dehiscence ICD Codes: T81.30XA - Disruption of wound, unspecified, initial encounter SNOMED: 097440928 (4) Acute blood loss anemia ICD Codes: D62 - Acute posthemorrhagic anemia SNOMED: 928035820 (5) Sepsis Assessment & Plan: fever + leukocytosis ICD Codes: A41.9 - Sepsis, unspecified organism SNOMED: 37073884 (6) Wound abscess ICD Codes: T81.4XXA - Wound abscess SNOMED: 577224604 (7) Hidradenitis suppurativa ICD Codes: L73.2 - Hidradenitis suppurativa SNOMED: 25772430 (8) HTN (hypertension) ICD Codes: I10 - Essential (primary) hypertension SNOMED: 85519779 (9) h/o DVT (10) Iron deficiency anemia ICD Codes: D50.9 - Iron deficiency anemia, unspecified SNOMED: 89081931 (11) SOB (shortness of breath) ICD Codes: R06.02 - Shortness of breath SNOMED: 250480681 (12) Hypoalbuminemia ICD Codes: E88.09 - Other disorders of plasma-protein metabolism, not elsewhere classified SNOMED: 512576969 (13) Hyponatremia Assessment & Plan: 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 ICD Codes: E87.1 - Hypo-osmolality and hyponatremia SNOMED: 32428186 (14) UTI (urinary tract infection) Assessment & Plan: in setting of horan catheter ICD Codes: N39.0 - Urinary tract infection, site not specified SNOMED: 58457900 (15) Abnormal LFTs Assessment & Plan: Likely 2/2 ancef ICD Codes: R79.89 - Other specified abnormal findings of blood chemistry SNOMED: 895083651 (16) Fatty liver ICD Codes: K76.0 - Fatty (change of) liver, not elsewhere classified SNOMED: 970536946 Status: stable Assessment/Plan Plastic surgery consulted s/p debridement of bilateral thigh, groin and left lower abdomen with posterior thigh flap elevation on 01/29/17 s/p flap closure of abdominal and thigh wounds on 01/31/17 s/p bedside debridement of R posterior thigh wound by surgery on 02/07/17 s/p debridement of bilateral groin wounds and partial reclosure of wounds with wound vac placement on 02/19/17 s/p bilateral groin wound vac placement/exchange 02/22/17 OR canceled given acute DVT Cont Lovenox 1mg/kg q12h Hematology consulted F/u hypercoagulable workup Ceftriaxone for UTI (02/15-) will treat for 10-14d given complicated in setting of horan catheter and in male ctm CBC s/p-IV venofer 02/02 x 5d given iron deficiency anemia F/u blood cultures--ngtd Wound care per surgery s/p horan removal Fluid restriction given SIADH Pain control, supportive care, bowel regimen Cont home meds DVT ppx w/ SCDs, HSQ Outpt derm f/u PT 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 given low albumin--supplements ordered FULL CODE D/w pt, RN, surgery regarding mgmt and dispo Subjective Date patient seen: Feb 26, 2017 Time patient seen: 14:00 ROS Limited/Unobtainable: No Constitutional: Reports: no symptoms HEENT: Reports: no symptoms Cardiovascular: Reports: no symptoms Respiratory: Reports: no symptoms Gastrointestinal/Abdominal: Reports: no symptoms Genitourinary: Reports: no symptoms Neurologic/Psychiatric: Reports: anxiety, depressed Endocrine: Reports: no symptoms Hematologic/Lymphatic: Reports: no symptoms Allergies: Coded Allergies: Pork (Unverified Allergy, Unknown, 11/18/14) PT DOES NOT EAT ANY PORK, PORK CONTAINING PRODUCTS All Systems: reviewed and negative except above Subjective No acute o/n events Tolerating lovenox Pt doing well. Pain controlled. SOB resolved. Denies f/c, n/v, d/c, chest pain, BLE swelling Objective Last 24 Hour Vital Signs Date Time Temp Pulse Resp B/P (MAP) Pulse Ox O2 Delivery O2 Flow Rate FiO2 02/27/17 04:00 18 02/27/17 00:00 16 02/27/17 00:00 98.8 95 16 114/79 99 Room Air 02/26/17 20:00 98.3 100 20 130/83 98 Room Air 02/26/17 20:00 16 02/26/17 16:00 18 02/26/17 16:00 99.0 96 17 124/84 100 Room Air 02/26/17 14:04 18 02/26/17 12:00 98.7 95 16 118/76 98 Room Air 02/26/17 12:00 18 02/26/17 08:15 98.1 86 16 116/76 98 Room Air 02/26/17 08:00 18 Laboratory Tests 02/26/17 17:50: Lupus Anticoagulant [Pending], Lupus Anticoagulant PTT Baseline [Pending], Lupus Anticoag DRVVT Screen Ratio [Pending], DRVVT Confirmation Interpretation [ Pending], Hexagonal Phase Comment [Pending], Protein C Activity [Pending], Protein S Antigen [Pending], Free Protein S [Pending], Factor V Mutation [ Pending], Prothrombin Gene Mutation [Pending], Prothrombin Gene Shared Component [Pending], Jak2 V617F Mutation Detection [Pending], JAK2 V617F Mutation Background [Pending], JAK2 V617F Reviewed By [Pending], Homocystine [ Pending], Anti-Cardiolipin IgM Antibody [Pending] Height (Feet): 5 Height (Inches): 6.00 Weight (Pounds): 250 Objective General: alert, cooperative, no distress, appears stated age Head: normocephalic, without obvious abnormality, atraumatic Eyes: conjunctivae/corneas clear. PERRL, EOM's intact Throat: lips, mucosa, and tongue normal. MMM Neck: supple, symmetrical, trachea midline, and no JVD Lungs: clear to auscultation bilaterally Heart: regular rate and rhythm, S1, S2 normal, no murmur, click, rub or gallop Abdomen: soft, non-tender, non-distended, bowel sounds normal; no masses or organomegaly Extremities: extremities normal, atraumatic, no cyanosis or edema Dressing c/d/i Pulses: 2+ and symmetric Skin: skin color, texture, turgor normal; no rashes or lesions Neurologic: grossly normal, no focal deficits Yi Desai M.D. Feb 27, 2017 05:49
[2017-02-27] MEDS: PCA shift volume MISC SCH ×2 (07:00→19:15)
[2017-02-27 07:02] LABS: BASOPHILS % (AUTO) 0.7 % (0.0-2.0); EOSINOPHILS % (AUTO) 1.1 % (0.0-3.0); LYMPHOCYTES % (AUTO) 16.4 % (20.0-45.0); MEAN CORPUSCULAR HEMOGLOBIN 25.6 PG (27.0-31.0); MEAN CORPUSCULAR HGB CONC 31.7 G/DL (32.0-36.0); MEAN CORPUSCULAR VOLUME 81 FL (80-99); MEAN PLATELET VOLUME 6.6 FL (6.5-10.1); MONOCYTES % (AUTO) 10.2 % (1.0-10.0); NEUTROPHILS % (AUTO) 71.5 % (45.0-75.0); PLATELET COUNT 432 K/UL (150-450); RED BLOOD COUNT 3.61 M/UL (4.70-6.10); RED CELL DISTRIBUTION WIDTH 15.2 % (11.6-14.8); WHITE BLOOD COUNT 8.6 K/UL (4.8-10.8)
[2017-02-27 07:15] LABS: ALANINE AMINOTRANSFERASE 36 U/L (3-41); ANION GAP 10 (5-15); ASPARTATE AMINO TRANSFERASE 23 U/L (5-40); BILIRUBIN,DIRECT 0.1 mg/dL (0.1-0.3); CALCIUM 9.1 mg/dL (8.6-10.2); CARBON DIOXIDE 29 mEQ/L (20-30); CHLORIDE 97 mEQ/L (98-107); CREATININE 0.4 mg/dL (0.7-1.2); GLOMERULAR FILTRATION RATE > 60 mL/min (>60); HEMOLYSIS 0; POTASSIUM 3.8 mEQ/L (3.4-4.9); SODIUM 136 mEQ/L (135-145); TOTAL PROTEIN 7.1 g/dL (6.6-8.7)
[2017-02-27] MEDS ORDERED: Surgicel 4in x 8in TOPIC ONE ×3 (07:19→10:29)
[2017-02-27] MEDS ORDERED: Bacitracin 50000 Units Vial ONE (07:20)
[2017-02-27] MEDS ORDERED: Lidocaine 1% 10mg/ml/Epi 0.005mg/ml 30ml vial INJ ONE ×3 (07:20→10:30)
[2017-02-27 08:14] LABS: HOMOCYSTINE QUANT 7.2 umol/L (0.0-15.0)
--- NOTE | 2017-02-27 08:46 | Consultation ---
DATE OF CONSULTATION: 02/26/2017 HEMATOLOGY/ONCOLOGY CONSULTATION CONSULTING PHYSICIAN: Sha Jimenes M.D. REQUESTING PHYSICIANS: 1. Yi Desai M.D. 2. Felicity Menard M.D. REASON FOR CONSULTATION: Evaluation of hypercoagulable disorder. IDENTIFICATION DATA: Dear Dr. Menard and Dr. Richmond: The patient is a pleasant 31-year-old male. He has a past medical history, which is significant for hidradenitis suppurativa, status post multiple surgeries, and history of DVT, at this time presents with groin abscess, status post surgery by Dr. Menard. Hematology service was consulted given the patient had recurrence of DVT in the left lower extremity. At this time, the patient was for was consulted for further evaluation of hypercoagulable disorder as well as anticoagulation recommendations. PAST MEDICAL HISTORY: Multiple surgeries for DVT with groin abscess. MEDICATIONS: and spironolactone. ALLERGIES: Pork. SOCIAL HISTORY: No alcohol, tobacco, or illicit drug use. FAMILY HISTORY: Diabetes mellitus. Review Of Systems: Constitutional: No fever, chills, or night sweats. Skin: No rashes, bumps, or itching. HEENT: No headache, hearing or vision changes. Breasts: No lumps, pain, or discharge. Pulmonary: No cough, sputum, or shortness of breath. Gastrointestinal: No nausea, vomiting, or diarrhea. Genitourinary: No dysuria, frequency, or urgency. Musculoskeletal: No joint swelling, muscle pain, or trauma. PHYSICAL EXAMINATION: GENERAL: The patient is in no acute distress. Vital Signs: Temperature 98.2 degrees Fahrenheit, pulse of 95, respiratory rate 12, blood pressure 118/76, and pulse oximetry 98% on room air. PULMONARY: Decreased breath sounds. CARDIOVASCULAR: Regular rate. No S3 or S4. ABDOMEN: Soft, nontender, and nondistended. EXTREMITIES: 1+ edema. Laboratory Data: WBC 9.2, hemoglobin 8.3, hematocrit 26, and platelets count 137,000. Pathology from shows lymph node left inguinal benign reactive lymph node with hidradenitis suppurativa to the buttocks. ASSESSMENT: 1. Deep venous thrombosis history. The patient to go to the OR tomorrow. He has had recurrent deep venous thromboses, therefore, continue Lovenox b.i.d. dosing as well as I have ordered for hypercoagulable panel. 2. Anemia secondary to chronic disease. I have reviewed the patient's iron studies and the patient's TIBC of 191, ferritin 308. 3. Thrombocytosis, likely secondary to reactive process from anemia. 4. Hidradenitis suppurativa. The patient requires further evaluation with surgical team. 5. Psychiatric disorder, depression. Has been seen by Dr. Do. 6. Allergies to pork listed on ED report. Sha Jimenes M.D. DR: MIRELLA JOB#: [id number] CC:
[2017-02-27] MEDS: Enoxaparin Sodium 300mg/3ml vial SUBQ SCH ×4 (08:48→21:05)
[2017-02-27] MEDS: Multivitamin w/Minerals tab ORAL SCH (09:00)
[2017-02-27] MEDS: Ascorbic Acid 500mg tab ORAL SCH (09:00)
[2017-02-27] MEDS: Docusate 100mg cap ORAL SCH (09:00)
[2017-02-27] MEDS ORDERED: Midazolam 2mg/2ml Inj ONE (09:00)
[2017-02-27] MEDS ORDERED: Sterile Water Irrig 1000ml IRRIG ONE (09:00)
[2017-02-27] MEDS ORDERED: fentaNYL 100 mcg/2 mL IV ONE (09:00)
[2017-02-27] MEDS ORDERED: LR 1000ml ONE (09:00)
[2017-02-27] MEDS ORDERED: NS Irrig 1000ml ONE (09:00)
[2017-02-27] MEDS ORDERED: Propofol 200mg/20ml IV ONE (09:00)
[2017-02-27] MEDS: Miralax 17gm pkt ORAL SCH (09:00)
--- NOTE | 2017-02-27 09:22 | Pre-Procedure Note/Attestation ---
Pre-Procedure Note/Attestation Complete Prior to Procedure Planned Procedure: bilateral Procedure Narrative: Bilateral wound vac change to groin Indications for Procedure Pre-Operative Diagnosis: Bilateral open groin and thigh wounds Attestation I attest that I discussed the nature of the procedure; its benefits; risks and complications; and alternatives (and the risks and benefits of such alternatives ), prior to the procedure, with the patient (or the patient's legal community representative). I attest that, if there was a reasonable possibility of needing a blood transfusion, the patient (or the patient's legal community representative) was given the [facility] standardized written summary, pursuant to the [place]if Blood Safety Act ([place] Health and Safety Code # 1645, as amended). I attest that I re-evaluated the patient just prior to the surgery and that there has been no change in the patient's H&P, except as documented below: GELY JONES Feb 27, 2017 09:22
[2017-02-27] MEDS ORDERED: PCA Education Pamphlet MISC ONE (09:30)
[2017-02-27] MEDS ORDERED: LR 1000ml 1,000 ML IVLG SCH (10:11)
--- NOTE | 2017-02-27 10:11 | Anethesia Preoperative Eval ---
Anesthesia Pre-op PMH/ROS General Date of Evaluation: Feb 27, 2017 Time of Evaluation: 09:12 Anesthesiologist: Leif ASA Score: ASA 3 Mallampati Score Class I : Soft palate, uvula, fauces, pillars visible Class II: Soft palate, uvula, fauces visible Class III: Soft palate, base of uvula visible Class IV: Only hard plate visible Mallampati Classification: Class II Surgeon: Derian Diagnosis: Recurrent HS Surgical Procedure: Revision of bilateral groin wounds Anesthesia History: none Family History: no anesthesia problems Allergies: Coded Allergies: Pork (Unverified Allergy, Unknown, 11/18/14) PT DOES NOT EAT ANY PORK, PORK CONTAINING PRODUCTS Medications: see eMAR Past Medical History Cardiovascular: Denies: HTN, CAD, LA, valve dz, arrhythmia, other Pulmonary: Denies: asthma, COPD, NICOLLE, other Gastrointestinal/Genitourinary: Reports: GERD, Denies: CRI, ESRD, other Neurologic/Psychiatric: Reports: depression/anxiety Endocrine: Denies: DM, hypothyroidism, steroids, other HEENT: Denies: cataract (L), cataract (R), glaucoma, UPPER SKAGIT (L), UPPER SKAGIT (R), other Hematology/Immune: Reports: anemia, DVT Musculoskeletal/Integumentary: Reports: other - recurrent HS Other: obesity PMH Narrative: as above PSxH Narrative: see H&P Anesthesia Pre-op Phys. Exam Physician Exam Last Vital Signs Date Time Temp Pulse Resp B/P (MAP) Pulse Ox O2 Delivery O2 Flow Rate FiO2 02/27/17 07:57 97.9 87 20 134/79 99 Room Air 02/22/17 16:00 2.0 Constitutional: NAD Neurologic: CN 2-12 intact Cardiovascular: RRR, no M/R/G Respiratory: CTA Gastrointestinal: S/NT/ND Airway Exam Mallampati Score: Class II MO: full Neck: flexible ROM: limited Teeth: intact Dentures: no upper, no lower Anesthesia Pre-op A/P Labs Hematology Test 02/27/17 06:25 White Blood Count 8.6 K/UL (4.8-10.8) Red Blood Count 3.61 M/UL (4.70-6.10) L Hemoglobin 9.2 G/DL (14.2-18.0) L Hematocrit 29.2 % (42.0-52.0) L Mean Corpuscular Volume 81 FL (80-99) Mean Corpuscular Hemoglobin 25.6 PG (27.0-31.0) L Mean Corpuscular Hemoglobin Concent 31.7 G/DL (32.0-36.0) L Red Cell Distribution Width 15.2 % (11.6-14.8) H Platelet Count 432 K/UL (150-450) Mean Platelet Volume 6.6 FL (6.5-10.1) Neutrophils (%) (Auto) 71.5 % (45.0-75.0) Lymphocytes (%) (Auto) 16.4 % (20.0-45.0) L Monocytes (%) (Auto) 10.2 % (1.0-10.0) H Eosinophils (%) (Auto) 1.1 % (0.0-3.0) Basophils (%) (Auto) 0.7 % (0.0-2.0) Coagulation Test 02/26/17 17:50 Lupus Anticoagulant Pending Lupus Anticoagulant PTT Baseline Pending Lupus Anticoag DRVVT Screen Ratio Pending DRVVT Confirmation Interpretation Pending Hexagonal Phase Comment Pending Protein C Activity Pending Protein S Antigen Pending Free Protein S Pending Factor V Mutation Pending Chemistry Test 02/26/17 17:50 02/27/17 06:25 Homocystine 7.2 umol/L (0.0-15.0) Sodium Level 136 mEQ/L (135-145) Potassium Level 3.8 mEQ/L (3.4-4.9) Chloride Level 97 mEQ/L (98-107) L Carbon Dioxide Level 29 mEQ/L (20-30) Anion Gap 10 (5-15) Blood Urea Nitrogen 6 mg/dL (7-23) L Creatinine 0.4 mg/dL (0.7-1.2) L Estimat Glomerular Filtration Rate > 60 mL/min (>60) Glucose Level 107 mg/dL (74-106) H Calcium Level 9.1 mg/dL (8.6-10.2) Total Bilirubin 0.3 mg/dL (0.0-1.2) Direct Bilirubin 0.1 mg/dL (0.1-0.3) Aspartate Amino Transf (AST/SGOT) 23 U/L (5-40) Alanine Aminotransferase (ALT/SGPT) 36 U/L (3-41) Alkaline Phosphatase 98 U/L (40-129) Total Protein 7.1 g/dL (6.6-8.7) Albumin 2.6 g/dL (3.5-5.2) L Risk Assessment & Plan Assessment: ASA 3 Plan: GA with LMA Status Change Before Surgery: RYANNE Lopez M.D. Feb 27, 2017 10:11
[2017-02-27] MEDS ORDERED: DiphenhydrAMINE 50mg/ml Inj IVP PRN (10:15)
[2017-02-27] MEDS ORDERED: Hydromorphone 0.5mg/0.5ml inj IVP PRN (10:15)
[2017-02-27] MEDS ORDERED: Midazolam 2mg/2ml Inj IVP PRN (10:15)
[2017-02-27] MEDS ORDERED: Ketorolac 30mg Inj IV PRN (10:15)
[2017-02-27] MEDS ORDERED: Meperidine 25mg/0.5ml Inj (FOR RIGORS ONLY) IV PRN (10:15)
--- NOTE | 2017-02-27 10:19 | Operative Note - PDOC ---
Operative Note Operative Note Pre-op Diagnosis: Bilateral open groin and thigh wounds Procedure: bilateral groin wound vac removal and EUA Surgeon: Derian Family Psychologist: Anat Anesthesia: general Specimen: none Complications: none Condition: stable Estimated Blood Loss: minimal Drains: none Implant(s) used?: GELY Bell Feb 27, 2017 10:19
[2017-02-27] MEDS ORDERED: Rate Change PCA 1 Each MISC PRN (11:00)
[2017-02-27] MEDS ORDERED: PCA HYDROmorphone 1mg/ml 30 ML IV PRN (11:00)
[2017-02-27] MEDS ORDERED: Naloxone 0.4mg/ml Inj IV PRN (11:00)
--- NOTE | 2017-02-27 11:38 | Immediate Post-Op Evaluation ---
Immediate Post-Op Evalulation Immediate Post-Op Evalulation Procedure: revision of bilateral groin wounds Date of Evaluation: Feb 27, 2017 Time of Evaluation: 10:36 IV Fluids: 600 Blood Products: none Estimated Blood Loss: 50 Urinary Output: 100 Blood Pressure Systolic: 136 Blood Pressure Diastolic: 78 Pulse Rate: 78 Respiratory Rate: 20 O2 Sat by Pulse Oximetry: 99 Temperature (Fahrenheit): 97.8 Pain Score (1-10): 3 Nausea: No Vomiting: No Complications none Patient Status: reacts, patent, none Hydration Status: adequate RYANNE ESPAÑA M.D. Feb 27, 2017 11:38
--- NOTE | 2017-02-27 16:49 | General Progress Note ---
Assessment/Plan Assessment/Plan ASSESSMENT: 1. Deep venous thrombosis history. ok to start coumadin vs noac. DC lovenox if noac used. 2. Anemia secondary to chronic disease. Anemia panel reviewed 3. Thrombocytosis, likely secondary to reactive process from anemia. 4. Hidradenitis suppurativa. S/p groin wound surgery. 5. Psychiatric disorder, depression. Has been seen by Dr. Do. Subjective Constitutional: Reports: no symptoms HEENT: Reports: no symptoms Cardiovascular: Reports: no symptoms Respiratory: Reports: no symptoms Gastrointestinal/Abdominal: Reports: no symptoms Genitourinary: Reports: no symptoms Neurologic/Psychiatric: Reports: no symptoms Endocrine: Reports: no symptoms Hematologic/Lymphatic: Reports: anemia Allergies: Coded Allergies: Pork (Unverified Allergy, Unknown, 11/18/14) PT DOES NOT EAT ANY PORK, PORK CONTAINING PRODUCTS Subjective s/p surgery Objective Last 24 Hour Vital Signs Date Time Temp Pulse Resp B/P (MAP) Pulse Ox O2 Delivery O2 Flow Rate FiO2 02/27/17 16:04 98.8 110 21 136/83 100 Room Air 02/27/17 12:00 18 02/27/17 11:55 98.0 02/27/17 11:40 98.0 81 15 118/82 100 Nasal Cannula 3.0 02/27/17 11:38 78 20 99 02/27/17 11:29 98.0 02/27/17 11:25 84 17 122/82 100 Nasal Cannula 3.0 02/27/17 11:15 96 13 121/88 100 Nasal Cannula 3.0 02/27/17 11:00 88 16 117/86 100 Nasal Cannula 3.0 02/27/17 10:50 85 16 120/68 100 Simple Mask 6.0 02/27/17 10:40 85 16 118/83 100 Simple Mask 6.0 02/27/17 10:35 82 14 119/83 100 Simple Mask 6.0 02/27/17 10:31 97.4 101 14 124/90 100 Simple Mask 6.0 02/27/17 08:00 18 02/27/17 07:57 97.9 87 20 134/79 99 Room Air 02/27/17 04:00 18 02/27/17 04:00 98.1 104 18 118/76 98 Room Air 02/27/17 00:00 16 02/27/17 00:00 98.8 95 16 114/79 99 Room Air 02/26/17 20:00 98.3 100 20 130/83 98 Room Air 02/26/17 20:00 16 Intake and Output 02/27/17 02/28/17 19:00 07:00 Intake Total 900 ml Output Total 750 ml Balance 150 ml IV Total 900 ml Output Urine Total 700 ml Estimated Blood Loss 50 ml # Voids 1 Laboratory Tests 02/26/17 17:50: Lupus Anticoagulant [Pending], Lupus Anticoagulant PTT Baseline [Pending], Lupus Anticoag DRVVT Screen Ratio [Pending], DRVVT Confirmation Interpretation [ Pending], Hexagonal Phase Comment [Pending], Protein C Activity [Pending], Protein S Antigen [Pending], Free Protein S [Pending], Factor V Mutation [ Pending], Prothrombin Gene Mutation [Pending], Prothrombin Gene Shared Component [Pending], Jak2 V617F Mutation Detection [Pending], JAK2 V617F Mutation Background [Pending], JAK2 V617F Reviewed By [Pending], Homocystine 7.2 , Anti-Cardiolipin IgM Antibody [Pending] 02/27/17 06:25: White Blood Count 8.6, Red Blood Count 3.61L, Hemoglobin 9.2L, Hematocrit 29.2L , Mean Corpuscular Volume 81, Mean Corpuscular Hemoglobin 25.6L, Mean Corpuscular Hemoglobin Concent 31.7L, Red Cell Distribution Width 15.2H, Platelet Count 432, Mean Platelet Volume 6.6, Neutrophils (%) (Auto) 71.5, Lymphocytes (%) (Auto) 16.4L, Monocytes (%) (Auto) 10.2H, Eosinophils (%) (Auto ) 1.1, Basophils (%) (Auto) 0.7, Sodium Level 136, Potassium Level 3.8, Chloride Level 97L, Carbon Dioxide Level 29, Anion Gap 10, Blood Urea Nitrogen 6L, Creatinine 0.4L, Estimat Glomerular Filtration Rate > 60, Glucose Level 107H , Calcium Level 9.1, Total Bilirubin 0.3, Direct Bilirubin 0.1, Aspartate Amino Transf (AST/SGOT) 23, Alanine Aminotransferase (ALT/SGPT) 36, Alkaline Phosphatase 98, Total Protein 7.1, Albumin 2.6L Height (Feet): 5 Height (Inches): 6.00 Weight (Pounds): 250 General Appearance: no apparent distress EENT: normal ENT inspection Neck: normal alignment Cardiovascular: regular rhythm Respiratory/Chest: normal breath sounds 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
--- NOTE | 2017-02-27 19:30 | Operative Note - Dictated ---
DATE OF OPERATION: 02/27/2017 Preoperative Diagnosis: Bilateral groin wound and lower abdominal open wounds. Postoperative Diagnosis: Bilateral groin wound and lower abdominal open wounds. Procedure: Bilateral groin wound, removal of wound VAC and exam under anesthesia. SURGEON: Felicity Menard M.D. DECKHAND TUNA BOAT: Neftaly Coppola M.D. ANESTHESIA: General. COMPLICATIONS: None. DRAINS: None. DISPOSITION: Stable to the recovery room. Indications For Surgery: This is a 31-year-old male who has had a prolonged hospital course for bilateral groin reconstruction, which was complicated by wound dehiscence. He has undergone multiple wound VAC changes and was scheduled to undergo wound VAC change 48 hours ago, but was noted to have developed a DVT despite being on heparin and SCDs. The patient was started on Lovenox at that time and has been maintained on that, however, the wound VAC needed to be changed as such the patient brought to the operating room today for the wound VAC can be removed. The patient understood the risks and benefits of surgery and agreed to proceed. Details Of The Operation: The patient was brought to the operating room and laid in the lithotomy position on the operating table and bilateral groin wounds were prepped and draped in a sterile and usual fashion. Given the fact the patient was on Lovenox, his wounds were oozing and so we placed lidocaine with epinephrine soaked gauze on top of the wound for approximately 10 minutes and applied pressure and upon removing all of them, we noted that the bleeding had stopped. We then decided that the wound VAC at this time would no longer be necessary that the wound had done quite well over the course of the past eight days where the wound VAC had been placed and now it is manageable for the wound to be addressed with daily wet-to-dry dressing changes. To further reassure the hemostasis, Surgicel was placed on all raw surfaces on the open wounds and compressive dressings were applied and the patient tolerated the procedure well. Felicity Menard M.D. DR: LEYDI JOB#: [id number] CC:
[2017-02-27] MEDS: cefTRIAXone 1gm/D5W 55ml IVPB SCH ×2 (20:17)
[2017-02-27] MEDS ORDERED: Zolpidem 5mg tab ORAL PRN (21:00)
--- NOTE | 2017-02-27 23:14 | General Progress Note ---
Assessment/Plan Problem List: (1) Acute DVT (deep venous thrombosis) ICD Codes: I82.409 - Acute embolism and thrombosis of unspecified deep veins of unspecified lower extremity SNOMED: 436093552718261 (2) Postoperative fever ICD Codes: R50.82 - Postprocedural fever SNOMED: 230259972 (3) Wound dehiscence ICD Codes: T81.30XA - Disruption of wound, unspecified, initial encounter SNOMED: 541654795 (4) Acute blood loss anemia ICD Codes: D62 - Acute posthemorrhagic anemia SNOMED: 354028733 (5) Sepsis Assessment & Plan: fever + leukocytosis ICD Codes: A41.9 - Sepsis, unspecified organism SNOMED: 37276475 (6) Wound abscess ICD Codes: T81.4XXA - Wound abscess SNOMED: 006424911 (7) Hidradenitis suppurativa ICD Codes: L73.2 - Hidradenitis suppurativa SNOMED: 46458583 (8) HTN (hypertension) ICD Codes: I10 - Essential (primary) hypertension SNOMED: 16437621 (9) h/o DVT (10) Iron deficiency anemia ICD Codes: D50.9 - Iron deficiency anemia, unspecified SNOMED: 38274066 (11) SOB (shortness of breath) ICD Codes: R06.02 - Shortness of breath SNOMED: 964810065 (12) Hypoalbuminemia ICD Codes: E88.09 - Other disorders of plasma-protein metabolism, not elsewhere classified SNOMED: 389505730 (13) Hyponatremia Assessment & Plan: 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 ICD Codes: E87.1 - Hypo-osmolality and hyponatremia SNOMED: 52138864 (14) UTI (urinary tract infection) Assessment & Plan: in setting of horan catheter ICD Codes: N39.0 - Urinary tract infection, site not specified SNOMED: 30688131 (15) Abnormal LFTs Assessment & Plan: Likely 2/2 ancef ICD Codes: R79.89 - Other specified abnormal findings of blood chemistry SNOMED: 891387694 (16) Fatty liver ICD Codes: K76.0 - Fatty (change of) liver, not elsewhere classified SNOMED: 960544449 (17) Thrombocytosis ICD Codes: D47.3 - Essential (hemorrhagic) thrombocythemia SNOMED: 7074367, 853216532 (18) Depressed affect ICD Codes: R45.89 - Other symptoms and signs involving emotional state SNOMED: 661353220 Status: stable Assessment/Plan Plastic surgery consulted s/p debridement of bilateral thigh, groin and left lower abdomen with posterior thigh flap elevation on 01/29/17 s/p flap closure of abdominal and thigh wounds on 01/31/17 s/p bedside debridement of R posterior thigh wound by surgery on 02/07/17 s/p debridement of bilateral groin wounds and partial reclosure of wounds with wound vac placement on 02/19/17 s/p bilateral groin wound vac placement/exchange 02/22/17 s/p bilateral groin wound vac removal and EUA on 02/27/17 Cont Lovenox 1mg/kg q12h Hematology consulted F/u hypercoagulable workup Ceftriaxone for UTI (02/15-) will treat for 10-14d given complicated in setting of horan catheter and in male ctm CBC s/p-IV venofer 02/02 x 5d given iron deficiency anemia F/u blood cultures--ngtd Wound care per surgery s/p horan removal Fluid restriction given SIADH Pain control, supportive care, bowel regimen Cont home meds DVT ppx w/ SCDs, HSQ Appreciate psych mgmt Outpt derm f/u PT Cardiac Rehabilitation Specialist consulted given low albumin--supplements ordered FULL CODE D/w pt, RN, surgery regarding mgmt and dispo Subjective Date patient seen: Feb 27, 2017 Time patient seen: 17:00 ROS Limited/Unobtainable: No Constitutional: Reports: no symptoms HEENT: Reports: no symptoms Cardiovascular: Reports: no symptoms Respiratory: Reports: no symptoms Gastrointestinal/Abdominal: Reports: no symptoms Genitourinary: Reports: no symptoms Neurologic/Psychiatric: Reports: no symptoms Endocrine: Reports: no symptoms Hematologic/Lymphatic: Reports: no symptoms Allergies: Coded Allergies: Pork (Unverified Allergy, Unknown, 11/18/14) PT DOES NOT EAT ANY PORK, PORK CONTAINING PRODUCTS All Systems: reviewed and negative except above Subjective No acute o/n events Tolerating lovenox s/p bilateral groin wound vac removal and EUA today Pt doing well but feels down abt getting a blood clot. Pain controlled. SOB resolved. Denies f/c, n/v, d/c, chest pain, BLE swelling Objective Last 24 Hour Vital Signs Date Time Temp Pulse Resp B/P (MAP) Pulse Ox O2 Delivery O2 Flow Rate FiO2 02/27/17 20:00 18 02/27/17 20:00 97.5 102 18 119/80 98 Room Air 02/27/17 16:04 98.8 110 21 136/83 100 Room Air 02/27/17 16:00 18 02/27/17 12:00 18 02/27/17 11:55 98.0 02/27/17 11:40 98.0 81 15 118/82 100 Nasal Cannula 3.0 02/27/17 11:38 78 20 99 02/27/17 11:29 98.0 02/27/17 11:25 84 17 122/82 100 Nasal Cannula 3.0 02/27/17 11:15 96 13 121/88 100 Nasal Cannula 3.0 02/27/17 11:00 88 16 117/86 100 Nasal Cannula 3.0 02/27/17 10:50 85 16 120/68 100 Simple Mask 6.0 02/27/17 10:40 85 16 118/83 100 Simple Mask 6.0 02/27/17 10:35 82 14 119/83 100 Simple Mask 6.0 02/27/17 10:31 97.4 101 14 124/90 100 Simple Mask 6.0 02/27/17 08:00 18 02/27/17 07:57 97.9 87 20 134/79 99 Room Air 02/27/17 04:00 18 02/27/17 04:00 98.1 104 18 118/76 98 Room Air 02/27/17 00:00 16 02/27/17 00:00 98.8 95 16 114/79 99 Room Air Intake and Output 02/27/17 02/28/17 19:00 07:00 Intake Total 1120 ml Output Total 750 ml Balance 370 ml Intake Oral 220 ml IV Total 900 ml Output Urine Total 700 ml Estimated Blood Loss 50 ml # Voids 1 Laboratory Tests 02/27/17 06:25: White Blood Count 8.6, Red Blood Count 3.61L, Hemoglobin 9.2L, Hematocrit 29.2L , Mean Corpuscular Volume 81, Mean Corpuscular Hemoglobin 25.6L, Mean Corpuscular Hemoglobin Concent 31.7L, Red Cell Distribution Width 15.2H, Platelet Count 432, Mean Platelet Volume 6.6, Neutrophils (%) (Auto) 71.5, Lymphocytes (%) (Auto) 16.4L, Monocytes (%) (Auto) 10.2H, Eosinophils (%) (Auto ) 1.1, Basophils (%) (Auto) 0.7, Sodium Level 136, Potassium Level 3.8, Chloride Level 97L, Carbon Dioxide Level 29, Anion Gap 10, Blood Urea Nitrogen 6L, Creatinine 0.4L, Estimat Glomerular Filtration Rate > 60, Glucose Level 107H , Calcium Level 9.1, Total Bilirubin 0.3, Direct Bilirubin 0.1, Aspartate Amino Transf (AST/SGOT) 23, Alanine Aminotransferase (ALT/SGPT) 36, Alkaline Phosphatase 98, Total Protein 7.1, Albumin 2.6L Height (Feet): 5 Height (Inches): 6.00 Weight (Pounds): 250 Objective General: alert, cooperative, no distress, appears stated age Head: normocephalic, without obvious abnormality, atraumatic Eyes: conjunctivae/corneas clear. PERRL, EOM's intact Throat: lips, mucosa, and tongue normal. MMM Neck: supple, symmetrical, trachea midline, and no JVD Lungs: clear to auscultation bilaterally Heart: regular rate and rhythm, S1, S2 normal, no murmur, click, rub or gallop Abdomen: soft, non-tender, non-distended, bowel sounds normal; no masses or organomegaly Extremities: extremities normal, atraumatic, no cyanosis or edema Dressing c/d/i Pulses: 2+ and symmetric Skin: skin color, texture, turgor normal; no rashes or lesions Neurologic: grossly normal, no focal deficits Yi Desai M.D. Feb 27, 2017 23:14
[2017-02-28] VITALS: BP 122/80
[2017-02-28 04:00] VITALS: BP 118/84
[2017-02-28] MEDS: PCA shift volume MISC SCH ×2 (07:03→19:00)
[2017-02-28 08:00] VITALS: BP 136/87
[2017-02-28] MEDS: Miralax 17gm pkt ORAL SCH (08:15)
[2017-02-28] MEDS: Ascorbic Acid 500mg tab ORAL SCH (08:15)
[2017-02-28] MEDS: Multivitamin w/Minerals tab ORAL SCH (08:15)
[2017-02-28] MEDS: Enoxaparin Sodium 300mg/3ml vial SUBQ SCH ×4 (09:21→21:54)
[2017-02-28] MEDS: Dakin's 0.25% (Half Strength) 16oz TOPIC SCH (10:33)
--- NOTE | 2017-02-28 11:09 | 48 Hour Post Anesthesia Eval ---
Post Anesthesia Evaluation Procedure: revision of bilateral groin wounds Date of Evaluation: Feb 28, 2017 Blood Pressure Systolic: 136 0: 72 Pulse Rate: 84 Respiratory Rate: 22 Temperature (Fahrenheit): 97.5 O2 Sat by Pulse Oximetry: 98 Airway: patent Nausea: No Vomiting: No Pain Intensity: 3 Hydration Status: adequate Cardiopulmonary Status: stable Mental Status/LOC: patient returned to baseline Follow-up Care/Observations: n/a Post-Anesthesia Complications: none Follow-up care needed: N/A RYANNE ESPAÑA M.D. Feb 28, 2017 11:09
[2017-02-28 12:00] VITALS: BP 133/79
--- NOTE | 2017-02-28 13:57 | General Progress Note ---
Assessment/Plan Assessment/Plan ASSESSMENT: 1. Deep venous thrombosis history as well as acute on --> currently on lovenox. OK to start coumadin vs noac. DC lovenox if noac used. --> noac is associated with less bleeding and monitoring as well, discussed with patient 2. Anemia secondary to chronic disease. Anemia panel reviewed 3. Thrombocytosis, likely secondary to reactive process from anemia. 4. Hidradenitis suppurativa. S/p multiple groin wound surgeries. 5. Psychiatric disorder, depression. Has been seen by Dr. Do. Subjective Constitutional: Reports: no symptoms HEENT: Reports: no symptoms Cardiovascular: Reports: no symptoms Respiratory: Reports: no symptoms Gastrointestinal/Abdominal: Reports: no symptoms Genitourinary: Reports: no symptoms Neurologic/Psychiatric: Reports: no symptoms Endocrine: Reports: no symptoms Hematologic/Lymphatic: Reports: no symptoms Allergies: Coded Allergies: Pork (Unverified Allergy, Unknown, 11/18/14) PT DOES NOT EAT ANY PORK, PORK CONTAINING PRODUCTS Subjective his pain is controlled but he is anxious Objective Last 24 Hour Vital Signs Date Time Temp Pulse Resp B/P (MAP) Pulse Ox O2 Delivery O2 Flow Rate FiO2 02/28/17 12:00 18 02/28/17 12:00 98.5 102 20 133/79 98 Room Air 02/28/17 11:09 84 22 98 02/28/17 08:00 97.7 108 20 136/87 98 Room Air 02/28/17 08:00 18 02/28/17 04:00 98.2 97 19 118/84 99 Room Air 02/28/17 04:00 18 02/28/17 00:00 20 02/28/17 00:00 98.5 101 18 122/80 98 Room Air 02/27/17 20:00 18 02/27/17 20:00 97.5 102 18 119/80 98 Room Air 02/27/17 16:04 98.8 110 21 136/83 100 Room Air 02/27/17 16:00 18 Intake and Output 02/28/17 03/01/17 19:00 07:00 Intake Total 180 ml Output Total 150 ml Balance 30 ml Intake Oral 180 ml Output Urine Total 150 ml Height (Feet): 5 Height (Inches): 6.00 Weight (Pounds): 250 General Appearance: no apparent distress EENT: normal ENT inspection Neck: normal alignment Cardiovascular: normal peripheral pulses Edema: no edema noted Pedal (L), no edema noted Pedal (R) 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
[2017-02-28 16:00] VITALS: BP 106/68
[2017-02-28 17:41] LABS: INR 1.1 (0.9-1.1); PROTHROMBIN TIME 11.6 SEC (9.30-11.50)
[2017-02-28 20:00] VITALS: BP 110/68
[2017-02-28] MEDS ORDERED: Warfarin Sodium 5mg ORAL ONE (20:00)
[2017-02-28] MEDS: Fleet's Enema 133ml RECTAL PRN (20:28)
--- NOTE | 2017-02-28 20:36 | General Progress Note ---
Assessment/Plan Problem List: (1) Acute DVT (deep venous thrombosis) ICD Codes: I82.409 - Acute embolism and thrombosis of unspecified deep veins of unspecified lower extremity SNOMED: 300472591740634 (2) Postoperative fever ICD Codes: R50.82 - Postprocedural fever SNOMED: 906558373 (3) Wound dehiscence ICD Codes: T81.30XA - Disruption of wound, unspecified, initial encounter SNOMED: 720739011 (4) Acute blood loss anemia ICD Codes: D62 - Acute posthemorrhagic anemia SNOMED: 790879894 (5) Sepsis Assessment & Plan: fever + leukocytosis ICD Codes: A41.9 - Sepsis, unspecified organism SNOMED: 29262475 (6) Wound abscess ICD Codes: T81.4XXA - Wound abscess SNOMED: 951304596 (7) Hidradenitis suppurativa ICD Codes: L73.2 - Hidradenitis suppurativa SNOMED: 83513478 (8) HTN (hypertension) ICD Codes: I10 - Essential (primary) hypertension SNOMED: 62840205 (9) h/o DVT (10) Iron deficiency anemia ICD Codes: D50.9 - Iron deficiency anemia, unspecified SNOMED: 36386846 (11) SOB (shortness of breath) ICD Codes: R06.02 - Shortness of breath SNOMED: 902486466 (12) Hypoalbuminemia ICD Codes: E88.09 - Other disorders of plasma-protein metabolism, not elsewhere classified SNOMED: 551094117 (13) Hyponatremia Assessment & Plan: 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 ICD Codes: E87.1 - Hypo-osmolality and hyponatremia SNOMED: 85129523 (14) UTI (urinary tract infection) Assessment & Plan: in setting of horan catheter ICD Codes: N39.0 - Urinary tract infection, site not specified SNOMED: 58120059 (15) Abnormal LFTs Assessment & Plan: Likely 2/2 ancef ICD Codes: R79.89 - Other specified abnormal findings of blood chemistry SNOMED: 328341172 (16) Fatty liver ICD Codes: K76.0 - Fatty (change of) liver, not elsewhere classified SNOMED: 284720454 (17) Thrombocytosis ICD Codes: D47.3 - Essential (hemorrhagic) thrombocythemia SNOMED: 6424138, 394645216 (18) Depressed affect ICD Codes: R45.89 - Other symptoms and signs involving emotional state SNOMED: 220648811 Status: stable Assessment/Plan Plastic surgery consulted s/p debridement of bilateral thigh, groin and left lower abdomen with posterior thigh flap elevation on 01/29/17 s/p flap closure of abdominal and thigh wounds on 01/31/17 s/p bedside debridement of R posterior thigh wound by surgery on 02/07/17 s/p debridement of bilateral groin wounds and partial reclosure of wounds with wound vac placement on 02/19/17 s/p bilateral groin wound vac placement/exchange 02/22/17 s/p bilateral groin wound vac removal and EUA on 02/27/17 Cont Lovenox 1mg/kg u23k--a/c once INR therapeutic x 2 Start coumadin per pharmacy for INR goal 2-3 (OK per surgery) Hematology consulted F/u hypercoagulable workup Ceftriaxone for UTI (02/15-) will treat for 10-14d given complicated in setting of horan catheter and in male ctm CBC s/p-IV venofer 02/02 x 5d given iron deficiency anemia F/u blood cultures--ngtd Wound care per surgery s/p horan removal Fluid restriction given SIADH Pain control, supportive care, bowel regimen Cont home meds DVT ppx w/ SCDs, HSQ Appreciate psych mgmt Outpt derm f/u PT [employer] consulted given low albumin--supplements ordered FULL CODE D/w pt, RN, surgery regarding mgmt and dispo Subjective Date patient seen: Feb 28, 2017 Time patient seen: 15:00 ROS Limited/Unobtainable: No Constitutional: Reports: no symptoms HEENT: Reports: no symptoms Cardiovascular: Reports: no symptoms Respiratory: Reports: no symptoms Gastrointestinal/Abdominal: Reports: no symptoms Genitourinary: Reports: no symptoms Neurologic/Psychiatric: Reports: depressed Endocrine: Reports: no symptoms Hematologic/Lymphatic: Reports: no symptoms Allergies: Coded Allergies: Pork (Unverified Allergy, Unknown, 11/18/14) PT DOES NOT EAT ANY PORK, PORK CONTAINING PRODUCTS All Systems: reviewed and negative except above Subjective No acute o/n events Tolerating lovenox s/p bilateral groin wound vac removal and EUA yesterday Pt doing well but feels down abt getting a blood clot. Pain controlled. SOB resolved. Denies f/c, n/v, d/c, chest pain, BLE swelling Objective Last 24 Hour Vital Signs Date Time Temp Pulse Resp B/P (MAP) Pulse Ox O2 Delivery O2 Flow Rate FiO2 02/28/17 16:00 18 02/28/17 16:00 99.5 99 20 106/68 97 Room Air 02/28/17 12:00 18 02/28/17 12:00 98.5 102 20 133/79 98 Room Air 02/28/17 11:09 84 22 98 02/28/17 08:00 97.7 108 20 136/87 98 Room Air 02/28/17 08:00 18 02/28/17 04:00 98.2 97 19 118/84 99 Room Air 02/28/17 04:00 18 02/28/17 00:00 20 02/28/17 00:00 98.5 101 18 122/80 98 Room Air Intake and Output 02/28/17 03/01/17 19:00 07:00 Intake Total 780 ml Output Total 150 ml Balance 630 ml Intake Oral 780 ml Output Urine Total 150 ml Laboratory Tests 02/28/17 17:15: Prothrombin Time 11.6H, Prothromb Time International Ratio 1.1 Height (Feet): 5 Height (Inches): 6.00 Weight (Pounds): 250 Objective General: alert, cooperative, no distress, appears stated age Head: normocephalic, without obvious abnormality, atraumatic Eyes: conjunctivae/corneas clear. PERRL, EOM's intact Throat: lips, mucosa, and tongue normal. MMM Neck: supple, symmetrical, trachea midline, and no JVD Lungs: clear to auscultation bilaterally Heart: regular rate and rhythm, S1, S2 normal, no murmur, click, rub or gallop Abdomen: soft, non-tender, non-distended, bowel sounds normal; no masses or organomegaly Extremities: extremities normal, atraumatic, no cyanosis or edema Dressing c/d/i Pulses: 2+ and symmetric Skin: skin color, texture, turgor normal; no rashes or lesions Neurologic: grossly normal, no focal deficits Yi Desai M.D. Feb 28, 2017 20:36
[2017-02-28] MEDS: cefTRIAXone 1gm/D5W 55ml IVPB SCH ×2 (21:52)
--- NOTE | 2017-02-28 22:45 | Progress Note ---
DATE: 02/27/2017 Subjective: The patient continues to be depressed, has anxiety. Poor insight and judgment into his mental condition. He stated that he does not want to be on psychotropic medication. His medication was in fact ordered as needed and the patient has it available to him in case he changes his mind. The patient has taken Ativan 1 dose. He has not taken mirtazapine. He still has hopelessness and helplessness. He is hyperreligious. Mental Status Examination: The patient is alert and oriented times self, place, and situation he is in. Mood is depressed. Affect is constricted, congruent with mood. Thought process is concrete. Thought content, there are no suicidal or homicidal ideations. ASSESSMENT: Major depressive disorder. Plan: We will continue with current medication. Provide the patient with supportive therapy and reality orientation. Justice Do M.D. DR: BRANDI JOB#: [id number] CC:
[2017-03-01] VITALS: BP 130/82
--- NOTE | 2017-03-01 01:00 | Progress Note ---
DATE: 02/28/2017 Subjective: The patient presented with depressed mood, decreased energy, anhedonia, worthlessness, and hopelessness. He has difficulty sleeping. He stated he says prayers to go to sleep. He is easily agitated and is claustrophobic. Mental Status Examination: The patient is alert and oriented to time self, place, and situation he is in. Mood is depressed. Affect is constricted. Congruent with mood. Thought process is concrete. Thought content, no suicidal or homicidal ideation. ASSESSMENT: Depression. Plan: We will continue current medication. Provide the patient with supportive therapy and reality orientation. Justice Do M.D. DR: WONG JOB#: [id number] CC:
[2017-03-01 04:00] VITALS: BP 122/76
[2017-03-01 06:56] LABS: INR 1.1 (0.9-1.1); PROTHROMBIN TIME 11.4 SEC (9.30-11.50)
[2017-03-01] MEDS: PCA shift volume MISC SCH ×2 (07:15→19:09)
--- NOTE | 2017-03-01 07:52 | General Progress Note ---
Assessment/Plan Problem List: (1) Acute DVT (deep venous thrombosis) ICD Codes: I82.409 - Acute embolism and thrombosis of unspecified deep veins of unspecified lower extremity SNOMED: 998441277939605 (2) Postoperative fever ICD Codes: R50.82 - Postprocedural fever SNOMED: 587678481 (3) Wound dehiscence ICD Codes: T81.30XA - Disruption of wound, unspecified, initial encounter SNOMED: 196067103 (4) Acute blood loss anemia ICD Codes: D62 - Acute posthemorrhagic anemia SNOMED: 339368400 (5) Sepsis Assessment & Plan: fever + leukocytosis ICD Codes: A41.9 - Sepsis, unspecified organism SNOMED: 53487219 (6) Wound abscess ICD Codes: T81.4XXA - Wound abscess SNOMED: 845493262 (7) Hidradenitis suppurativa ICD Codes: L73.2 - Hidradenitis suppurativa SNOMED: 60478958 (8) HTN (hypertension) ICD Codes: I10 - Essential (primary) hypertension SNOMED: 82953468 (9) h/o DVT (10) Iron deficiency anemia ICD Codes: D50.9 - Iron deficiency anemia, unspecified SNOMED: 86913632 (11) SOB (shortness of breath) ICD Codes: R06.02 - Shortness of breath SNOMED: 490230432 (12) Hypoalbuminemia ICD Codes: E88.09 - Other disorders of plasma-protein metabolism, not elsewhere classified SNOMED: 585527432 (13) Hyponatremia Assessment & Plan: 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 ICD Codes: E87.1 - Hypo-osmolality and hyponatremia SNOMED: 07720505 (14) UTI (urinary tract infection) Assessment & Plan: in setting of horan catheter ICD Codes: N39.0 - Urinary tract infection, site not specified SNOMED: 06583371 (15) Abnormal LFTs Assessment & Plan: Likely 2/2 ancef ICD Codes: R79.89 - Other specified abnormal findings of blood chemistry SNOMED: 014273496 (16) Fatty liver ICD Codes: K76.0 - Fatty (change of) liver, not elsewhere classified SNOMED: 334476229 (17) Thrombocytosis ICD Codes: D47.3 - Essential (hemorrhagic) thrombocythemia SNOMED: 5886263, 996684455 (18) Depressed affect ICD Codes: R45.89 - Other symptoms and signs involving emotional state SNOMED: 969138660 Status: stable Assessment/Plan Plastic surgery consulted s/p debridement of bilateral thigh, groin and left lower abdomen with posterior thigh flap elevation on 01/29/17 s/p flap closure of abdominal and thigh wounds on 01/31/17 s/p bedside debridement of R posterior thigh wound by surgery on 02/07/17 s/p debridement of bilateral groin wounds and partial reclosure of wounds with wound vac placement on 02/19/17 s/p bilateral groin wound vac placement/exchange 02/22/17 s/p bilateral groin wound vac removal and EUA on 02/27/17 Cont Lovenox 1mg/kg w73y--e/c once INR therapeutic x 2 Cont coumadin per pharmacy for INR goal 2-3 (OK per surgery) Hematology consulted F/u hypercoagulable workup Ceftriaxone for UTI (02/15-02/28) ctm CBC s/p-IV venofer 02/02 x 5d given iron deficiency anemia F/u blood cultures--ngtd Wound care per surgery s/p horan removal Fluid restriction given SIADH Pain control, supportive care, bowel regimen Cont home meds DVT ppx w/ SCDs, HSQ Appreciate psych mgmt Outpt derm f/u PT [employer] consulted given low albumin--supplements ordered s/p horan removal 02/28 DC planning for Mon FULL CODE D/w pt, RN, surgery regarding mgmt and dispo Subjective Date patient seen: Mar 01, 2017 Time patient seen: 08:30 ROS Limited/Unobtainable: No Constitutional: Reports: no symptoms HEENT: Reports: no symptoms Cardiovascular: Reports: no symptoms Respiratory: Reports: no symptoms Gastrointestinal/Abdominal: Reports: no symptoms Genitourinary: Reports: no symptoms Neurologic/Psychiatric: Reports: no symptoms Endocrine: Reports: no symptoms Hematologic/Lymphatic: Reports: no symptoms Allergies: Coded Allergies: Pork (Unverified Allergy, Unknown, 11/18/14) PT DOES NOT EAT ANY PORK, PORK CONTAINING PRODUCTS Subjective No acute o/n events Tolerating lovenox s/p bilateral groin wound vac removal and EUA POD#2 Mood improved Pain controlled. SOB resolved. Denies f/c, n/v, d/c, chest pain, BLE swelling Objective Last 24 Hour Vital Signs Date Time Temp Pulse Resp B/P (MAP) Pulse Ox O2 Delivery O2 Flow Rate FiO2 03/01/17 04:00 98.5 90 18 122/76 98 Room Air 03/01/17 04:00 17 03/01/17 00:00 16 03/01/17 00:00 98.2 101 18 130/82 96 Room Air 02/28/17 20:00 98.6 108 18 110/68 99 Room Air 02/28/17 20:00 16 02/28/17 16:00 18 02/28/17 16:00 99.5 99 20 106/68 97 Room Air 02/28/17 12:00 18 02/28/17 12:00 98.5 102 20 133/79 98 Room Air 02/28/17 11:09 84 22 98 02/28/17 08:00 97.7 108 20 136/87 98 Room Air 02/28/17 08:00 18 Laboratory Tests 02/28/17 17:15: Prothrombin Time 11.6H, Prothromb Time International Ratio 1.1 03/01/17 04:40: Prothrombin Time 11.4, Prothromb Time International Ratio 1.1 Height (Feet): 5 Height (Inches): 6.00 Weight (Pounds): 250 Objective General: alert, cooperative, no distress, appears stated age Head: normocephalic, without obvious abnormality, atraumatic Eyes: conjunctivae/corneas clear. PERRL, EOM's intact Throat: lips, mucosa, and tongue normal. MMM Neck: supple, symmetrical, trachea midline, and no JVD Lungs: clear to auscultation bilaterally Heart: regular rate and rhythm, S1, S2 normal, no murmur, click, rub or gallop Abdomen: soft, non-tender, non-distended, bowel sounds normal; no masses or organomegaly Extremities: extremities normal, atraumatic, no cyanosis or edema Dressing c/d/i Pulses: 2+ and symmetric Skin: skin color, texture, turgor normal; no rashes or lesions Neurologic: grossly normal, no focal deficits Yi Desai M.D. Mar 01, 2017 07:52
[2017-03-01 08:00] VITALS: BP 114/67
[2017-03-01] MEDS: Miralax 17gm pkt ORAL SCH (09:06)
[2017-03-01] MEDS: Multivitamin w/Minerals tab ORAL SCH (09:06)
[2017-03-01] MEDS: Ascorbic Acid 500mg tab ORAL SCH (09:06)
[2017-03-01] MEDS: Dakin's 0.25% (Half Strength) 16oz TOPIC SCH (09:08)
[2017-03-01] MEDS: Enoxaparin Sodium 300mg/3ml vial SUBQ SCH ×4 (09:27→21:26)
[2017-03-01] MEDS ORDERED: Rate Change PCA 1 Each MISC PRN (11:00)
--- NOTE | 2017-03-01 11:14 | General Progress Note ---
Progress Note Progress Note Pt seen and examined. Doing well. getting dressings changes. Martínez out and plan for DC on Friday. GELY Laguna MD Mar 01, 2017 11:14
[2017-03-01 12:00] VITALS: BP 113/71
[2017-03-01] MEDS: PCA HYDROmorphone 1mg/ml 30 ML IV PRN (13:52)
[2017-03-01 16:00] VITALS: BP 123/81
[2017-03-01] MEDS ORDERED: Warfarin Sodium 3mg ORAL ONE (17:00)
[2017-03-01] MEDS ORDERED: NS Irrig 1000ml ONE (17:43)
[2017-03-01 20:00] VITALS: BP 111/70
--- NOTE | 2017-03-01 21:38 | General Progress Note ---
Assessment/Plan Assessment/Plan ASSESSMENT: 1. Deep venous thrombosis history as well as acute on --> currently on lovenox as well as coumadin. DC lovenox when inr reaches 2 2. Anemia secondary to chronic disease. Anemia panel reviewed. 3. Thrombocytosis, likely secondary to reactive process from anemia. 4. Hidradenitis suppurativa. S/p multiple groin wound surgeries. 5. Psychiatric disorder, depression. Has been seen by Dr. Do. Subjective Constitutional: Reports: no symptoms HEENT: Reports: no symptoms Cardiovascular: Reports: no symptoms Respiratory: Reports: no symptoms Gastrointestinal/Abdominal: Reports: no symptoms Genitourinary: Reports: no symptoms Neurologic/Psychiatric: Reports: no symptoms Endocrine: Reports: no symptoms Hematologic/Lymphatic: Reports: no symptoms Allergies: Coded Allergies: Pork (Unverified Allergy, Unknown, 11/18/14) PT DOES NOT EAT ANY PORK, PORK CONTAINING PRODUCTS Subjective feeling better Objective Last 24 Hour Vital Signs Date Time Temp Pulse Resp B/P (MAP) Pulse Ox O2 Delivery O2 Flow Rate FiO2 03/01/17 20:00 17 03/01/17 20:00 97.5 90 20 111/70 99 Room Air 03/01/17 16:00 19 03/01/17 16:00 97.7 95 20 123/81 97 Room Air 03/01/17 14:22 98.1 03/01/17 13:59 18 03/01/17 13:58 18 03/01/17 12:00 18 03/01/17 12:00 98.1 98 19 113/71 99 Room Air 03/01/17 11:13 97.9 03/01/17 08:00 18 03/01/17 08:00 97.9 83 19 114/67 98 Room Air 03/01/17 04:00 98.5 90 18 122/76 98 Room Air 03/01/17 04:00 17 03/01/17 00:00 16 03/01/17 00:00 98.2 101 18 130/82 96 Room Air Intake and Output 03/01/17 03/02/17 19:00 07:00 Intake Total 1000 ml Output Total 1600 ml Balance -600 ml Intake Oral 1000 ml Output Urine Total 1600 ml # Voids 1 Laboratory Tests 03/01/17 04:40: Prothrombin Time 11.4, Prothromb Time International Ratio 1.1 Height (Feet): 5 Height (Inches): 6.00 Weight (Pounds): 250 General Appearance: no apparent distress EENT: normal ENT inspection Neck: normal alignment Abdomen: non tender Edema: no edema noted Pedal (L), no edema noted Pedal (R) Skin: normal pigmentation, warm/dry Sha Jimenes Mar 01, 2017 21:38
[2017-03-02] VITALS: BP 109/75
[2017-03-02 04:00] VITALS: BP 110/75
[2017-03-02 06:41] LABS: INR 1.1 (0.9-1.1); PROTHROMBIN TIME 11.8 SEC (9.30-11.50)
[2017-03-02] MEDS: PCA shift volume MISC SCH ×2 (07:18→19:20)
[2017-03-02 08:00] VITALS: BP 94/54
[2017-03-02] MEDS: Enoxaparin Sodium 300mg/3ml vial SUBQ SCH ×2 (09:07)
[2017-03-02] MEDS: Multivitamin w/Minerals tab ORAL SCH (09:08)
[2017-03-02] MEDS: Ascorbic Acid 500mg tab ORAL SCH (09:08)
[2017-03-02] MEDS: Miralax 17gm pkt ORAL SCH (09:08)
[2017-03-02] MEDS: Dakin's 0.25% (Half Strength) 16oz TOPIC SCH (09:14)
[2017-03-02 12:00] VITALS: BP 98/60
--- NOTE | 2017-03-02 12:08 | General Progress Note ---
Assessment/Plan Problem List: (1) Acute DVT (deep venous thrombosis) ICD Codes: I82.409 - Acute embolism and thrombosis of unspecified deep veins of unspecified lower extremity SNOMED: 968124874280567 (2) Postoperative fever ICD Codes: R50.82 - Postprocedural fever SNOMED: 560176924 (3) Wound dehiscence ICD Codes: T81.30XA - Disruption of wound, unspecified, initial encounter SNOMED: 705897029 (4) Acute blood loss anemia ICD Codes: D62 - Acute posthemorrhagic anemia SNOMED: 373992798 (5) Sepsis Assessment & Plan: fever + leukocytosis ICD Codes: A41.9 - Sepsis, unspecified organism SNOMED: 58768148 (6) Wound abscess ICD Codes: T81.4XXA - Wound abscess SNOMED: 230804838 (7) Hidradenitis suppurativa ICD Codes: L73.2 - Hidradenitis suppurativa SNOMED: 72147746 (8) HTN (hypertension) ICD Codes: I10 - Essential (primary) hypertension SNOMED: 99750236 (9) h/o DVT (10) Iron deficiency anemia ICD Codes: D50.9 - Iron deficiency anemia, unspecified SNOMED: 89519601 (11) SOB (shortness of breath) ICD Codes: R06.02 - Shortness of breath SNOMED: 379066216 (12) Hypoalbuminemia ICD Codes: E88.09 - Other disorders of plasma-protein metabolism, not elsewhere classified SNOMED: 119203204 (13) Hyponatremia Assessment & Plan: 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 ICD Codes: E87.1 - Hypo-osmolality and hyponatremia SNOMED: 14322884 (14) UTI (urinary tract infection) Assessment & Plan: in setting of horan catheter ICD Codes: N39.0 - Urinary tract infection, site not specified SNOMED: 76004824 (15) Abnormal LFTs Assessment & Plan: Likely 2/2 ancef ICD Codes: R79.89 - Other specified abnormal findings of blood chemistry SNOMED: 465227528 (16) Fatty liver ICD Codes: K76.0 - Fatty (change of) liver, not elsewhere classified SNOMED: 615200203 (17) Thrombocytosis ICD Codes: D47.3 - Essential (hemorrhagic) thrombocythemia SNOMED: 7078774, 113405273 (18) Depressed affect ICD Codes: R45.89 - Other symptoms and signs involving emotional state SNOMED: 987515787 Status: stable Assessment/Plan Plastic surgery consulted s/p debridement of bilateral thigh, groin and left lower abdomen with posterior thigh flap elevation on 01/29/17 s/p flap closure of abdominal and thigh wounds on 01/31/17 s/p bedside debridement of R posterior thigh wound by surgery on 02/07/17 s/p debridement of bilateral groin wounds and partial reclosure of wounds with wound vac placement on 02/19/17 s/p bilateral groin wound vac placement/exchange 02/22/17 s/p bilateral groin wound vac removal and EUA on 02/27/17 D/c lovenox and coumadin Start xarelto 15mg BID x 3 weeks and then 20mg daily thereafter Hematology consulted F/u hypercoagulable workup Ceftriaxone for UTI (02/15-02/28) ctm CBC s/p-IV venofer 02/02 x 5d given iron deficiency anemia F/u blood cultures--ngtd Wound care per surgery s/p horan removal Fluid restriction given SIADH Pain control, supportive care, bowel regimen Cont home meds DVT ppx w/ SCDs, HSQ Appreciate psych mgmt Outpt derm f/u PT Donor Support Technician consulted given low albumin--supplements ordered s/p horan removal 02/28 Home health for wound care ordered DC planning for Mon FULL CODE D/w pt, RN, surgery regarding mgmt and dispo Subjective Date patient seen: Mar 02, 2017 Time patient seen: 12:07 ROS Limited/Unobtainable: No Constitutional: Reports: no symptoms HEENT: Reports: no symptoms Cardiovascular: Reports: no symptoms Respiratory: Reports: no symptoms Gastrointestinal/Abdominal: Reports: no symptoms Genitourinary: Reports: no symptoms Neurologic/Psychiatric: Reports: no symptoms Endocrine: Reports: no symptoms Hematologic/Lymphatic: Reports: no symptoms Allergies: Coded Allergies: Pork (Unverified Allergy, Unknown, 11/18/14) PT DOES NOT EAT ANY PORK, PORK CONTAINING PRODUCTS All Systems: reviewed and negative except above Subjective No acute o/n events Tolerating lovenox and coumadin s/p bilateral groin wound vac removal and EUA POD#4 INR 1.1 Mood improved Pain controlled. SOB resolved. Denies f/c, n/v, d/c, chest pain, BLE swelling D/w hematology--will switch to xarelto. Pt has agreed Objective Last 24 Hour Vital Signs Date Time Temp Pulse Resp B/P (MAP) Pulse Ox O2 Delivery O2 Flow Rate FiO2 03/02/17 08:00 18 03/02/17 08:00 97.9 88 22 94/54 99 Room Air 03/02/17 04:00 97.5 86 20 110/75 98 Room Air 03/02/17 04:00 16 03/02/17 00:00 99.2 98 20 109/75 97 Room Air 03/02/17 00:00 16 03/01/17 20:00 17 03/01/17 20:00 97.5 90 20 111/70 99 Room Air 03/01/17 16:00 19 03/01/17 16:00 97.7 95 20 123/81 97 Room Air 03/01/17 14:22 98.1 03/01/17 13:59 18 03/01/17 13:58 18 Laboratory Tests 03/02/17 05:30: Prothrombin Time 11.8H, Prothromb Time International Ratio 1.1 Height (Feet): 5 Height (Inches): 6.00 Weight (Pounds): 250 Objective General: alert, cooperative, no distress, appears stated age Head: normocephalic, without obvious abnormality, atraumatic Eyes: conjunctivae/corneas clear. PERRL, EOM's intact Throat: lips, mucosa, and tongue normal. MMM Neck: supple, symmetrical, trachea midline, and no JVD Lungs: clear to auscultation bilaterally Heart: regular rate and rhythm, S1, S2 normal, no murmur, click, rub or gallop Abdomen: soft, non-tender, non-distended, bowel sounds normal; no masses or organomegaly Extremities: extremities normal, atraumatic, no cyanosis or edema Dressing c/d/i Pulses: 2+ and symmetric Skin: skin color, texture, turgor normal; no rashes or lesions Neurologic: grossly normal, no focal deficits Yi Desai M.D. Mar 02, 2017 12:08
[2017-03-02] MEDS ORDERED: PROSCAR5 MG ORAL (12:53)
[2017-03-02] MEDS ORDERED: SPIRONOLACTONE100 MG ORAL (12:53)
[2017-03-02] MEDS ORDERED: DOXYCYCLINE HY100 M2 ORAL (12:53)
--- NOTE | 2017-03-02 13:03 | General Progress Note ---
Assessment/Plan Assessment/Plan ASSESSMENT: 1. Deep venous thrombosis history as well as acute on --> currently on lovenox as well as coumadin. DC lovenox when inr reaches 2 2. Anemia secondary to chronic disease. Anemia panel reviewed. No iron deficiency, ferritin is elevated. 3. Thrombocytosis, likely secondary to reactive process from anemia. 4. Hidradenitis suppurativa. S/p multiple groin wound surgeries. 5. Psychiatric disorder, depression. Has been seen by Dr. Do. Subjective Constitutional: Reports: no symptoms HEENT: Reports: no symptoms Cardiovascular: Reports: no symptoms Respiratory: Reports: no symptoms Gastrointestinal/Abdominal: Reports: no symptoms Genitourinary: Reports: no symptoms Neurologic/Psychiatric: Reports: no symptoms Endocrine: Reports: no symptoms Hematologic/Lymphatic: Reports: anemia Allergies: Coded Allergies: Pork (Unverified Allergy, Unknown, 11/18/14) PT DOES NOT EAT ANY PORK, PORK CONTAINING PRODUCTS Subjective having groin pain, no events overnight, he is less anxious Objective Last 24 Hour Vital Signs Date Time Temp Pulse Resp B/P (MAP) Pulse Ox O2 Delivery O2 Flow Rate FiO2 03/02/17 12:00 18 03/02/17 08:00 18 03/02/17 08:00 97.9 88 22 94/54 99 Room Air 03/02/17 04:00 97.5 86 20 110/75 98 Room Air 03/02/17 04:00 16 03/02/17 00:00 99.2 98 20 109/75 97 Room Air 03/02/17 00:00 16 03/01/17 20:00 17 03/01/17 20:00 97.5 90 20 111/70 99 Room Air 03/01/17 16:00 19 03/01/17 16:00 97.7 95 20 123/81 97 Room Air 03/01/17 14:22 98.1 03/01/17 13:59 18 03/01/17 13:58 18 Laboratory Tests 03/02/17 05:30: Prothrombin Time 11.8H, Prothromb Time International Ratio 1.1 Height (Feet): 5 Height (Inches): 6.00 Weight (Pounds): 250 General Appearance: no apparent distress EENT: normal ENT inspection Neck: normal alignment Cardiovascular: normal peripheral pulses Respiratory/Chest: chest wall non-tender, lungs clear Abdomen: normal bowel sounds Skin: normal pigmentation, warm/dry Sha Jimenes Mar 02, 2017 13:03
[2017-03-02] MEDS ORDERED: XARELTO15 MG ORAL (13:08)
[2017-03-02] MEDS ORDERED: XARELTO20 MG ORAL (13:08)
[2017-03-02] MEDS: PCA HYDROmorphone 1mg/ml 30 ML IV PRN (14:05)
[2017-03-02 16:00] VITALS: BP 118/82
[2017-03-02] MEDS ORDERED: Warfarin Sodium 7.5mg ORAL ONE (17:00)
[2017-03-02] MEDS: Xarelto 15mg tab ORAL SCH (17:52)
[2017-03-02 20:00] VITALS: BP 102/53
--- NOTE | 2017-03-02 22:14 | Diagnostic Imaging Report ---
APPROVED REPORT CPT Code: 88794 Present Symptoms Comments: Status post-surgery for hidradenitis suppurativa. Technically difficult, limited study due to post-surgical bandages around groin area. LEFT LEG: Venous imaging reveals acute non-occlusive thrombus in the proximal superficial femoral vein just after bifurcation and calf vein (peroneal tibial). Imaging also reveals patency of the popliteal and calf veins (posterior tibial and anterior). The common femoral and greater saphenous veins were not imaged, due to bandages. ALANIS Kirkland was notified of abnormal results at 12:25
[2017-03-03] VITALS (11 sets, daily range): BP systolic 96–130; BP diastolic 61–75
[2017-03-03 06:07] LABS: MEAN CORPUSCULAR HEMOGLOBIN 25.5 PG (27.0-31.0); MEAN CORPUSCULAR HGB CONC 31.3 G/DL (32.0-36.0); MEAN CORPUSCULAR VOLUME 82 FL (80-99); MEAN PLATELET VOLUME 7.6 FL (6.5-10.1); PLATELET COUNT 390 K/UL (150-450); RED BLOOD COUNT 3.01 M/UL (4.70-6.10); RED CELL DISTRIBUTION WIDTH 15.2 % (11.6-14.8); WHITE BLOOD COUNT 6.9 K/UL (4.8-10.8)
[2017-03-03 06:27] LABS: INR 1.3 (0.9-1.1); PROTHROMBIN TIME 13.8 SEC (9.30-11.50)
[2017-03-03] MEDS: PCA shift volume MISC SCH ×2 (07:17→19:00)
[2017-03-03] MEDS ORDERED: PCA HYDROmorphone 1mg/ml 30 ML IV PRN (08:00)
[2017-03-03 08:17] LABS: ANISOCYTOSIS 1+; BAND NEUTROPHILS % (MANUAL) 0 % (0-8); BASOPHILS % (MANUAL) 1 % (0-2); EOSINOPHILS % (MANUAL) 2 % (0-3); LYMPHOCYTES % (MANUAL) 20 % (20-45); NEUTROPHILS % (MANUAL) 67 % (45-75); PLATELET ESTIMATE ADEQUATE; PLATELET MORPHOLOGY NORMAL; TOTAL CELLS COUNTED 100
[2017-03-03 08:18] LABS: HYPOCHROMASIA 1+
[2017-03-03] MEDS ORDERED: Rate Change PCA 1 Each MISC PRN (09:00)
[2017-03-03] MEDS: Xarelto 15mg tab ORAL SCH ×2 (09:41→17:22)
[2017-03-03] MEDS: Miralax 17gm pkt ORAL SCH (09:41)
[2017-03-03] MEDS: Multivitamin w/Minerals tab ORAL SCH (09:41)
[2017-03-03] MEDS: Ascorbic Acid 500mg tab ORAL SCH (09:41)
[2017-03-03] MEDS: Dakin's 0.25% (Half Strength) 16oz TOPIC SCH (09:42)
--- NOTE | 2017-03-03 14:38 | General Progress Note ---
Assessment/Plan Problem List: (1) Acute DVT (deep venous thrombosis) ICD Codes: I82.409 - Acute embolism and thrombosis of unspecified deep veins of unspecified lower extremity SNOMED: 962674027988880 (2) Postoperative fever ICD Codes: R50.82 - Postprocedural fever SNOMED: 062026506 (3) Wound dehiscence ICD Codes: T81.30XA - Disruption of wound, unspecified, initial encounter SNOMED: 190523589 (4) Acute blood loss anemia ICD Codes: D62 - Acute posthemorrhagic anemia SNOMED: 093839363 (5) Sepsis Assessment & Plan: fever + leukocytosis ICD Codes: A41.9 - Sepsis, unspecified organism SNOMED: 96681406 (6) Wound abscess ICD Codes: T81.4XXA - Wound abscess SNOMED: 032824888 (7) Hidradenitis suppurativa ICD Codes: L73.2 - Hidradenitis suppurativa SNOMED: 06762927 (8) HTN (hypertension) ICD Codes: I10 - Essential (primary) hypertension SNOMED: 41574278 (9) h/o DVT (10) Iron deficiency anemia ICD Codes: D50.9 - Iron deficiency anemia, unspecified SNOMED: 61740944 (11) SOB (shortness of breath) ICD Codes: R06.02 - Shortness of breath SNOMED: 166342049 (12) Hypoalbuminemia ICD Codes: E88.09 - Other disorders of plasma-protein metabolism, not elsewhere classified SNOMED: 767452407 (13) Hyponatremia Assessment & Plan: 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 ICD Codes: E87.1 - Hypo-osmolality and hyponatremia SNOMED: 06528002 (14) UTI (urinary tract infection) Assessment & Plan: in setting of horan catheter ICD Codes: N39.0 - Urinary tract infection, site not specified SNOMED: 28392205 (15) Abnormal LFTs Assessment & Plan: Likely 2/2 ancef ICD Codes: R79.89 - Other specified abnormal findings of blood chemistry SNOMED: 938431943 (16) Fatty liver ICD Codes: K76.0 - Fatty (change of) liver, not elsewhere classified SNOMED: 848587970 (17) Thrombocytosis ICD Codes: D47.3 - Essential (hemorrhagic) thrombocythemia SNOMED: 1269977, 007150609 (18) Depressed affect ICD Codes: R45.89 - Other symptoms and signs involving emotional state SNOMED: 702155780 Status: stable Assessment/Plan Plastic surgery consulted s/p debridement of bilateral thigh, groin and left lower abdomen with posterior thigh flap elevation on 01/29/17 s/p flap closure of abdominal and thigh wounds on 01/31/17 s/p bedside debridement of R posterior thigh wound by surgery on 02/07/17 s/p debridement of bilateral groin wounds and partial reclosure of wounds with wound vac placement on 02/19/17 s/p bilateral groin wound vac placement/exchange 02/22/17 s/p bilateral groin wound vac removal and EUA on 02/27/17 s/p lovenox and coumadin Cont xarelto 15mg BID x 3 weeks (03/02-) and then 20mg daily thereafter Hematology consulted F/u hypercoagulable workup Transfuse 2U pRBCs today s/p Ceftriaxone for UTI (02/15-02/28) ctm CBC s/p-IV venofer 02/02 x 5d given iron deficiency anemia F/u blood cultures--ngtd Wound care per surgery Fluid restriction given SIADH Pain control, supportive care, bowel regimen Cont home meds DVT ppx w/ SCDs, HSQ Appreciate psych mgmt Outpt derm f/u PT Python Consultant consulted given low albumin--supplements ordered s/p horan removal 02/28 Home health for wound care ordered DC held given hgb 7.7 Possible d/c tomorrow per surgery FULL CODE D/w pt, RN, surgery regarding mgmt and dispo Subjective Date patient seen: Mar 03, 2017 Time patient seen: 12:00 ROS Limited/Unobtainable: No Constitutional: Reports: no symptoms HEENT: Reports: no symptoms Cardiovascular: Reports: no symptoms Respiratory: Reports: no symptoms Gastrointestinal/Abdominal: Reports: no symptoms Genitourinary: Reports: no symptoms Neurologic/Psychiatric: Reports: no symptoms Endocrine: Reports: no symptoms Allergies: Coded Allergies: Pork (Unverified Allergy, Unknown, 11/18/14) PT DOES NOT EAT ANY PORK, PORK CONTAINING PRODUCTS All Systems: reviewed and negative except above Subjective No acute o/n events Switched to xarelto yesterday s/p bilateral groin wound vac removal and EUA POD#5 D/c held today given hgb drop to 7.7. Getting 2U pRBCs Mood improved Pain controlled. SOB resolved. Denies f/c, n/v, d/c, chest pain, BLE swelling Ambulating w/ FWW Objective Last 24 Hour Vital Signs Date Time Temp Pulse Resp B/P (MAP) Pulse Ox O2 Delivery O2 Flow Rate FiO2 03/03/17 14:21 98.0 03/03/17 12:00 98.0 81 19 114/68 98 Room Air 03/03/17 12:00 18 03/03/17 10:10 97.7 03/03/17 08:00 97.7 80 19 105/61 97 Room Air 03/03/17 08:00 18 03/03/17 04:00 97.9 90 18 130/72 98 Room Air 03/03/17 04:00 18 03/03/17 00:00 98.0 98 18 96/63 98 Room Air 03/03/17 00:00 18 03/02/17 20:00 19 03/02/17 20:00 98.1 94 19 102/53 98 Room Air 03/02/17 16:10 20 03/02/17 16:00 98.3 104 20 118/82 97 Room Air 03/02/17 14:52 97.6 Intake and Output 03/03/17 03/04/17 19:00 07:00 Intake Total 240 ml Balance 240 ml Intake Oral 240 ml Laboratory Tests 03/03/17 04:45: White Blood Count 6.9, Red Blood Count 3.01L, Hemoglobin 7.7L, Hematocrit 24.6L , Mean Corpuscular Volume 82, Mean Corpuscular Hemoglobin 25.5L, Mean Corpuscular Hemoglobin Concent 31.3L, Red Cell Distribution Width 15.2H, Platelet Count 390, Mean Platelet Volume 7.6, Neutrophils (%) (Auto) , Lymphocytes (%) (Auto) , Monocytes (%) (Auto) , Eosinophils (%) (Auto) , Basophils (%) (Auto) , Differential Total Cells Counted 100, Neutrophils % ( Manual) 67, Lymphocytes % (Manual) 20, Monocytes % (Manual) 10, Eosinophils % ( Manual) 2, Basophils % (Manual) 1, Band Neutrophils 0, Platelet Estimate Adequate, Platelet Morphology Normal, Hypochromasia 1+, Anisocytosis 1+, Prothrombin Time 13.8H, Prothromb Time International Ratio 1.3H Height (Feet): 5 Height (Inches): 6.00 Weight (Pounds): 250 Objective General: alert, cooperative, no distress, appears stated age Head: normocephalic, without obvious abnormality, atraumatic Eyes: conjunctivae/corneas clear. PERRL, EOM's intact Throat: lips, mucosa, and tongue normal. MMM Neck: supple, symmetrical, trachea midline, and no JVD Lungs: clear to auscultation bilaterally Heart: regular rate and rhythm, S1, S2 normal, no murmur, click, rub or gallop Abdomen: soft, non-tender, non-distended, bowel sounds normal; no masses or organomegaly Extremities: extremities normal, atraumatic, no cyanosis or edema Dressing c/d/i Pulses: 2+ and symmetric Skin: skin color, texture, turgor normal; no rashes or lesions Neurologic: grossly normal, no focal deficits Yi Desai M.D. Mar 03, 2017 14:38
[2017-03-03 15:09] LABS: PROTEIN C ACTIVITY 141 % (73-180); PROTEIN S ANTIGEN 143 % (60-150); PROTEIN S FREE 89 % (57-157)
[2017-03-03] MEDS ORDERED: Famotidine 20 MG/ 2ML VIAL IVP ONE (18:15)
--- NOTE | 2017-03-03 18:21 | General Progress Note ---
Assessment/Plan Assessment/Plan ASSESSMENT: 1. Deep venous thrombosis history as well as acute on --> currently on lovenox as well as xarelto. DC lovenox when inr reaches 2 2. Anemia secondary to chronic disease. Anemia panel reviewed. No iron deficiency, ferritin is elevated. --> s/p 2 units of prbc 3. Thrombocytosis, likely secondary to reactive process from anemia. 4. Hidradenitis suppurativa. S/p multiple groin wound surgeries. 5. Psychiatric disorder, depression. Has been seen by Dr. Do. Subjective Constitutional: Reports: no symptoms HEENT: Reports: no symptoms Cardiovascular: Reports: no symptoms Respiratory: Reports: no symptoms Gastrointestinal/Abdominal: Reports: no symptoms Genitourinary: Reports: no symptoms Neurologic/Psychiatric: Reports: no symptoms Endocrine: Reports: no symptoms Hematologic/Lymphatic: Reports: anemia Allergies: Coded Allergies: Pork (Unverified Allergy, Unknown, 11/18/14) PT DOES NOT EAT ANY PORK, PORK CONTAINING PRODUCTS Subjective HH fell, to receive blood Objective Last 24 Hour Vital Signs Date Time Temp Pulse Resp B/P (MAP) Pulse Ox O2 Delivery O2 Flow Rate FiO2 03/03/17 16:50 98.7 90 18 104/68 100 Room Air 03/03/17 16:35 97.9 95 18 102/68 100 Room Air 03/03/17 16:02 98.2 90 18 100/66 98 Room Air 03/03/17 16:00 20 03/03/17 16:00 98.3 86 19 121/73 97 Room Air 03/03/17 14:21 98.0 03/03/17 13:30 98.9 98 18 119/68 98 Room Air 03/03/17 13:15 98.3 90 19 115/75 100 Room Air 03/03/17 12:00 98.0 81 19 114/68 98 Room Air 03/03/17 12:00 18 03/03/17 10:10 97.7 03/03/17 08:00 97.7 80 19 105/61 97 Room Air 03/03/17 08:00 18 03/03/17 04:00 97.9 90 18 130/72 98 Room Air 03/03/17 04:00 18 03/03/17 00:00 98.0 98 18 96/63 98 Room Air 03/03/17 00:00 18 03/02/17 20:00 19 03/02/17 20:00 98.1 94 19 102/53 98 Room Air Intake and Output 03/03/17 03/04/17 19:00 07:00 Intake Total 240 ml Output Total 600 ml Balance -360 ml Intake Oral 240 ml Output Urine Total 600 ml # Voids 2 Laboratory Tests 03/03/17 04:45: White Blood Count 6.9, Red Blood Count 3.01L, Hemoglobin 7.7L, Hematocrit 24.6L , Mean Corpuscular Volume 82, Mean Corpuscular Hemoglobin 25.5L, Mean Corpuscular Hemoglobin Concent 31.3L, Red Cell Distribution Width 15.2H, Platelet Count 390, Mean Platelet Volume 7.6, Neutrophils (%) (Auto) , Lymphocytes (%) (Auto) , Monocytes (%) (Auto) , Eosinophils (%) (Auto) , Basophils (%) (Auto) , Differential Total Cells Counted 100, Neutrophils % ( Manual) 67, Lymphocytes % (Manual) 20, Monocytes % (Manual) 10, Eosinophils % ( Manual) 2, Basophils % (Manual) 1, Band Neutrophils 0, Platelet Estimate Adequate, Platelet Morphology Normal, Hypochromasia 1+, Anisocytosis 1+, Prothrombin Time 13.8H, Prothromb Time International Ratio 1.3H Height (Feet): 5 Height (Inches): 6.00 Weight (Pounds): 250 General Appearance: no apparent distress EENT: normal ENT inspection Neck: normal alignment Cardiovascular: normal rate Respiratory/Chest: lungs clear Edema: no edema noted Pedal (L), no edema noted Pedal (R) Neurologic: independent living advisor II-XII grossly normal Skin: warm/dry Sha Jimenes Mar 03, 2017 18:21
--- NOTE | 2017-03-03 20:49 | General Progress Note ---
Assessment/Plan Status: stable, progressing Assessment/Plan mdd remeron ativan Subjective Neurologic/Psychiatric: Reports: anxiety, depressed, emotional problems Allergies: Coded Allergies: Pork (Unverified Allergy, Unknown, 11/18/14) PT DOES NOT EAT ANY PORK, PORK CONTAINING PRODUCTS All Systems: reviewed and negative except above Objective Last 24 Hour Vital Signs Date Time Temp Pulse Resp B/P (MAP) Pulse Ox O2 Delivery O2 Flow Rate FiO2 03/03/17 20:00 18 03/03/17 19:25 99.0 94 18 107/71 100 Room Air 03/03/17 18:46 98.7 03/03/17 16:50 98.7 90 18 104/68 100 Room Air 03/03/17 16:35 97.9 95 18 102/68 100 Room Air 03/03/17 16:02 98.2 90 18 100/66 98 Room Air 03/03/17 16:00 20 03/03/17 16:00 98.3 86 19 121/73 97 Room Air 03/03/17 14:21 98.0 03/03/17 13:30 98.9 98 18 119/68 98 Room Air 03/03/17 13:15 98.3 90 19 115/75 100 Room Air 03/03/17 12:00 98.0 81 19 114/68 98 Room Air 03/03/17 12:00 18 03/03/17 08:00 97.7 80 19 105/61 97 Room Air 03/03/17 08:00 18 03/03/17 04:00 97.9 90 18 130/72 98 Room Air 03/03/17 04:00 18 03/03/17 00:00 98.0 98 18 96/63 98 Room Air 03/03/17 00:00 18 Intake and Output 03/03/17 03/04/17 19:00 07:00 Intake Total 800 ml Output Total 1300 ml Balance -500 ml Intake Oral 800 ml Output Urine Total 1300 ml # Voids 3 Laboratory Tests 03/03/17 04:45: White Blood Count 6.9, Red Blood Count 3.01L, Hemoglobin 7.7L, Hematocrit 24.6L , Mean Corpuscular Volume 82, Mean Corpuscular Hemoglobin 25.5L, Mean Corpuscular Hemoglobin Concent 31.3L, Red Cell Distribution Width 15.2H, Platelet Count 390, Mean Platelet Volume 7.6, Neutrophils (%) (Auto) , Lymphocytes (%) (Auto) , Monocytes (%) (Auto) , Eosinophils (%) (Auto) , Basophils (%) (Auto) , Differential Total Cells Counted 100, Neutrophils % ( Manual) 67, Lymphocytes % (Manual) 20, Monocytes % (Manual) 10, Eosinophils % ( Manual) 2, Basophils % (Manual) 1, Band Neutrophils 0, Platelet Estimate Adequate, Platelet Morphology Normal, Hypochromasia 1+, Anisocytosis 1+, Prothrombin Time 13.8H, Prothromb Time International Ratio 1.3H Height (Feet): 5 Height (Inches): 6.00 Weight (Pounds): 250 General Appearance: no apparent distress, alert Neurologic: alert, oriented x 3, responsive, depressed affect Justice Do M.D. Mar 03, 2017 20:49
--- NOTE | 2017-03-03 20:51 | Psych Consult Progress Note ---
Psych Consult Progress Note Consult 03/02/17 the pt has taken remeron and it has helped him. decrease anxiety. feel better Vital Signs Last 24 Hour Vital Signs Date Time Temp Pulse Resp B/P (MAP) Pulse Ox O2 Delivery O2 Flow Rate FiO2 03/03/17 20:00 18 03/03/17 19:25 99.0 94 18 107/71 100 Room Air 03/03/17 18:46 98.7 03/03/17 16:50 98.7 90 18 104/68 100 Room Air 03/03/17 16:35 97.9 95 18 102/68 100 Room Air 03/03/17 16:02 98.2 90 18 100/66 98 Room Air 03/03/17 16:00 20 03/03/17 16:00 98.3 86 19 121/73 97 Room Air 03/03/17 14:21 98.0 03/03/17 13:30 98.9 98 18 119/68 98 Room Air 03/03/17 13:15 98.3 90 19 115/75 100 Room Air 03/03/17 12:00 98.0 81 19 114/68 98 Room Air 03/03/17 12:00 18 03/03/17 08:00 97.7 80 19 105/61 97 Room Air 03/03/17 08:00 18 03/03/17 04:00 97.9 90 18 130/72 98 Room Air 03/03/17 04:00 18 03/03/17 00:00 98.0 98 18 96/63 98 Room Air 03/03/17 00:00 18 Labs Laboratory Tests Test 03/03/17 04:45 White Blood Count 6.9 K/UL (4.8-10.8) Red Blood Count 3.01 M/UL (4.70-6.10) L Hemoglobin 7.7 G/DL (14.2-18.0) L Hematocrit 24.6 % (42.0-52.0) L Mean Corpuscular Volume 82 FL (80-99) Mean Corpuscular Hemoglobin 25.5 PG (27.0-31.0) L Mean Corpuscular Hemoglobin Concent 31.3 G/DL (32.0-36.0) L Red Cell Distribution Width 15.2 % (11.6-14.8) H Platelet Count 390 K/UL (150-450) Mean Platelet Volume 7.6 FL (6.5-10.1) Neutrophils (%) (Auto) % (45.0-75.0) Lymphocytes (%) (Auto) % (20.0-45.0) Monocytes (%) (Auto) % (1.0-10.0) Eosinophils (%) (Auto) % (0.0-3.0) Basophils (%) (Auto) % (0.0-2.0) Differential Total Cells Counted 100 Neutrophils % (Manual) 67 % (45-75) Lymphocytes % (Manual) 20 % (20-45) Monocytes % (Manual) 10 % (1-10) Eosinophils % (Manual) 2 % (0-3) Basophils % (Manual) 1 % (0-2) Band Neutrophils 0 % (0-8) Platelet Estimate Adequate Platelet Morphology Normal Hypochromasia 1+ Anisocytosis 1+ Prothrombin Time 13.8 SEC (9.30-11.50) H Prothromb Time International Ratio 1.3 (0.9-1.1) H Medications Current Medications Medications (Trade) Dose Ordered Sig/Yeny Route PRN Reason Start Time Stop Time Status Last Admin Dose Admin Acetaminophen (Tylenol) 650 mg Q4H PRN ORAL FEVER 02/22/17 10:45 03/24/17 10:44 Ascorbic Acid (Vitamin C) 500 mg DAILY ORAL 02/18/17 09:00 03/20/17 08:59 03/03/17 09:41 Doxycycline Monohydrate (Vibramycin) 100 mg Q12H ORAL 03/02/17 19:00 03/09/17 18:59 03/03/17 19:00 Hydromorphone HCl 30 ml @ 0 mls/hr Q24H PRN IV For Pain 03/03/17 08:00 03/05/17 07:59 03/03/17 13:51 Hydromorphone HCl (Dilaudid) 2 mg Q3H PRN SUBQ Severe Pain (Pain Scale 7-10) 03/03/17 08:00 03/05/17 07:59 Hydromorphone HCl (Dilaudid) 2 mg Q4H PRN IVP Moderate Pain (Pain Scale 4-6) 03/03/17 08:00 03/05/17 07:59 03/03/17 18:16 Lorazepam (Ativan) 2 mg BIDPRN PRN ORAL For Anxiety 02/26/17 11:15 03/05/17 11:14 02/28/17 01:06 Magnesium Hydroxide (Mom) 30 ml HSPRN PRN ORAL Constipation 02/04/17 14:30 03/06/17 23:59 02/05/17 16:42 Metoclopramide HCl (Reglan) 10 mg Q6H PRN IVP Nausea & Vomiting 02/22/17 10:45 03/24/17 10:44 03/02/17 15:48 Mirtazapine (Remeron) 7.5 mg HSPRN PRN ORAL For Anxiety at Bedtime 02/26/17 12:15 03/28/17 12:14 Miscellaneous Medication (MONORAIL CAR OPERATOR Rate Change) 1 ea DAILY PRN MISC rate change 03/03/17 09:00 03/05/17 08:59 Miscellaneous Medication (MONORAIL CAR OPERATOR shift volume) 1 ea Q12HR@0700,1900 MISC 03/01/17 19:00 03/05/17 07:59 03/03/17 19:00 Multivitamins Therapeutic (Therapeutic Multivitamin) 1 ea DAILY ORAL 02/18/17 09:00 03/20/17 08:59 03/03/17 09:41 Naloxone HCl (Narcan) 0.1 mg PRN IV STAT if RR<10min OR SBP<90 mmH 02/27/17 11:00 03/05/17 07:59 Ondansetron HCl (Zofran) 4 mg Q6H PRN IVP Nausea & Vomiting 02/27/17 11:00 03/29/17 10:59 03/03/17 18:16 Polyethylene Glycol (Miralax) 17 gm DAILY ORAL 02/09/17 09:00 03/11/17 08:59 03/03/17 09:41 Rivaroxaban (Xarelto) 15 mg BID ORAL 03/02/17 18:00 03/23/17 17:59 03/03/17 17:22 Sennosides (Senokot) 17.2 mg DAILY ORAL 02/08/17 21:00 03/10/17 20:59 03/03/17 09:41 Sodium Hypochlorite (Dakin's Half Strength) 1 applic DAILY TOPIC 02/28/17 10:00 03/30/17 09:59 03/03/17 09:42 Sodium Phosphate (Fleet's Sodium Phosl Enema) 133 ml DAILYPRN PRN RECTAL constipation 02/21/17 16:00 03/23/17 15:59 02/28/17 20:28 Zolpidem Tartrate (Ambien) 5 mg HSPRN PRN ORAL Insomnia 02/27/17 21:00 03/06/17 20:59 Problems: (1) h/o DVT (2) HTN (hypertension) (3) Leukocytosis (4) Sepsis (5) Acute blood loss anemia (6) Iron deficiency anemia (7) SOB (shortness of breath) (8) Hidradenitis suppurativa Status: Acute (9) Wound dehiscence (10) Hypoalbuminemia (11) Hyponatremia (12) Postoperative fever (13) UTI (urinary tract infection) (14) Fatty liver (15) Abnormal LFTs (16) Acute DVT (deep venous thrombosis) (17) Depressed (18) Thrombocytosis (19) Depressed affect (20) Wound abscess Onset Date: 11/18/2014 Status: Acute (21) Cellulitis Status: Acute (22) Hyponatremia Status: Acute (23) Anemia due to acute blood loss Status: Acute Justice Do M.D. Mar 03, 2017 20:51
--- NOTE | 2017-03-03 20:52 | General Progress Note ---
Assessment/Plan Problem List: (1) h/o DVT (2) HTN (hypertension) ICD Codes: I10 - Essential (primary) hypertension SNOMED: 62016863 (3) Leukocytosis ICD Codes: D72.829 - Elevated white blood cell count, unspecified SNOMED: 815031772, 777133139 (4) Sepsis ICD Codes: A41.9 - Sepsis, unspecified organism SNOMED: 64479182 (5) Acute blood loss anemia ICD Codes: D62 - Acute posthemorrhagic anemia SNOMED: 279054708 (6) Iron deficiency anemia ICD Codes: D50.9 - Iron deficiency anemia, unspecified SNOMED: 83019096 (7) SOB (shortness of breath) ICD Codes: R06.02 - Shortness of breath SNOMED: 969235731 (8) Hidradenitis suppurativa ICD Codes: L73.2 - Hidradenitis suppurativa SNOMED: 68169479 (9) Wound dehiscence ICD Codes: T81.30XA - Disruption of wound, unspecified, initial encounter SNOMED: 758432685 (10) Hypoalbuminemia ICD Codes: E88.09 - Other disorders of plasma-protein metabolism, not elsewhere classified SNOMED: 703277475 (11) Hyponatremia ICD Codes: E87.1 - Hypo-osmolality and hyponatremia SNOMED: 07352673 (12) Postoperative fever ICD Codes: R50.82 - Postprocedural fever SNOMED: 598636198 (13) UTI (urinary tract infection) ICD Codes: N39.0 - Urinary tract infection, site not specified SNOMED: 89804603 (14) Fatty liver ICD Codes: K76.0 - Fatty (change of) liver, not elsewhere classified SNOMED: 422446982 (15) Abnormal LFTs ICD Codes: R79.89 - Other specified abnormal findings of blood chemistry SNOMED: 911515259 (16) Acute DVT (deep venous thrombosis) ICD Codes: I82.409 - Acute embolism and thrombosis of unspecified deep veins of unspecified lower extremity SNOMED: 964679881537160 (17) Depressed ICD Codes: F32.9 - Major depressive disorder, single episode, unspecified SNOMED: 05984440 (18) Thrombocytosis ICD Codes: D47.3 - Essential (hemorrhagic) thrombocythemia SNOMED: 7051648, 319283037 (19) Depressed affect ICD Codes: R45.89 - Other symptoms and signs involving emotional state SNOMED: 892546376 (20) Wound abscess ICD Codes: T81.4XXA - Wound abscess SNOMED: 884551886 (21) Cellulitis ICD Codes: L03.90 - Cellulitis SNOMED: 562530207 (22) Hyponatremia ICD Codes: E87.1 - Hyponatremia SNOMED: 39984346 (23) Anemia due to acute blood loss ICD Codes: D62 - Anemia due to acute blood loss SNOMED: 880009753 Assessment/Plan mdd klaudia ativan Subjective Date patient seen: Mar 01, 2017 Constitutional: Reports: malaise, weakness Neurologic/Psychiatric: Reports: anxiety, depressed, emotional problems Allergies: Coded Allergies: Pork (Unverified Allergy, Unknown, 11/18/14) PT DOES NOT EAT ANY PORK, PORK CONTAINING PRODUCTS All Systems: reviewed and negative except above Objective Last 24 Hour Vital Signs Date Time Temp Pulse Resp B/P (MAP) Pulse Ox O2 Delivery O2 Flow Rate FiO2 03/03/17 20:00 18 03/03/17 19:25 99.0 94 18 107/71 100 Room Air 03/03/17 18:46 98.7 03/03/17 16:50 98.7 90 18 104/68 100 Room Air 03/03/17 16:35 97.9 95 18 102/68 100 Room Air 03/03/17 16:02 98.2 90 18 100/66 98 Room Air 03/03/17 16:00 20 03/03/17 16:00 98.3 86 19 121/73 97 Room Air 03/03/17 14:21 98.0 03/03/17 13:30 98.9 98 18 119/68 98 Room Air 03/03/17 13:15 98.3 90 19 115/75 100 Room Air 03/03/17 12:00 98.0 81 19 114/68 98 Room Air 03/03/17 12:00 18 03/03/17 08:00 97.7 80 19 105/61 97 Room Air 03/03/17 08:00 18 03/03/17 04:00 97.9 90 18 130/72 98 Room Air 03/03/17 04:00 18 03/03/17 00:00 98.0 98 18 96/63 98 Room Air 03/03/17 00:00 18 Intake and Output 03/03/17 03/04/17 19:00 07:00 Intake Total 800 ml Output Total 1300 ml Balance -500 ml Intake Oral 800 ml Output Urine Total 1300 ml # Voids 3 Laboratory Tests 03/03/17 04:45: White Blood Count 6.9, Red Blood Count 3.01L, Hemoglobin 7.7L, Hematocrit 24.6L , Mean Corpuscular Volume 82, Mean Corpuscular Hemoglobin 25.5L, Mean Corpuscular Hemoglobin Concent 31.3L, Red Cell Distribution Width 15.2H, Platelet Count 390, Mean Platelet Volume 7.6, Neutrophils (%) (Auto) , Lymphocytes (%) (Auto) , Monocytes (%) (Auto) , Eosinophils (%) (Auto) , Basophils (%) (Auto) , Differential Total Cells Counted 100, Neutrophils % ( Manual) 67, Lymphocytes % (Manual) 20, Monocytes % (Manual) 10, Eosinophils % ( Manual) 2, Basophils % (Manual) 1, Band Neutrophils 0, Platelet Estimate Adequate, Platelet Morphology Normal, Hypochromasia 1+, Anisocytosis 1+, Prothrombin Time 13.8H, Prothromb Time International Ratio 1.3H Height (Feet): 5 Height (Inches): 6.00 Weight (Pounds): 250 General Appearance: no apparent distress, alert, thin Neurologic: alert, oriented x 3, responsive, depressed affect Justice Do M.D. Mar 03, 2017 20:52
[2017-03-03] MEDS ORDERED: D5NS 1,000 ML IV ONE (21:00)
[2017-03-04] VITALS: BP 112/74
[2017-03-04 04:00] VITALS: BP 116/70
[2017-03-04] MEDS: PCA shift volume MISC SCH (07:28)
[2017-03-04 07:29] LABS: BASOPHILS % (AUTO) 0.8 % (0.0-2.0); EOSINOPHILS % (AUTO) 2.6 % (0.0-3.0); MEAN CORPUSCULAR HEMOGLOBIN 26.7 PG (27.0-31.0); MEAN CORPUSCULAR VOLUME 83 FL (80-99); MEAN PLATELET VOLUME 7.5 FL (6.5-10.1); MONOCYTES % (AUTO) 10.7 % (1.0-10.0); NEUTROPHILS % (AUTO) 62.9 % (45.0-75.0); PLATELET COUNT 394 K/UL (150-450); RED BLOOD COUNT 3.82 M/UL (4.70-6.10); RED CELL DISTRIBUTION WIDTH 15.2 % (11.6-14.8); WHITE BLOOD COUNT 7.7 K/UL (4.8-10.8)
[2017-03-04 08:00] VITALS: BP 109/69
[2017-03-04] MEDS: Multivitamin w/Minerals tab ORAL SCH (10:21)
[2017-03-04] MEDS: Ascorbic Acid 500mg tab ORAL SCH (10:21)
[2017-03-04] MEDS: Xarelto 15mg tab ORAL SCH ×2 (10:21→17:34)
[2017-03-04] MEDS: Dakin's 0.25% (Half Strength) 16oz TOPIC SCH (10:22)
[2017-03-04] MEDS: Miralax 17gm pkt ORAL SCH (10:22)
[2017-03-04 12:00] VITALS: BP 108/72
--- NOTE | 2017-03-04 12:48 | General Progress Note ---
Assessment/Plan Problem List: (1) h/o DVT (2) HTN (hypertension) ICD Codes: I10 - Essential (primary) hypertension SNOMED: 65221958 (3) Leukocytosis ICD Codes: D72.829 - Elevated white blood cell count, unspecified SNOMED: 758683976, 441942243 (4) Sepsis ICD Codes: A41.9 - Sepsis, unspecified organism SNOMED: 59957976 (5) Acute blood loss anemia ICD Codes: D62 - Acute posthemorrhagic anemia SNOMED: 015744599 (6) Iron deficiency anemia ICD Codes: D50.9 - Iron deficiency anemia, unspecified SNOMED: 89815895 (7) SOB (shortness of breath) ICD Codes: R06.02 - Shortness of breath SNOMED: 322424788 (8) Hidradenitis suppurativa ICD Codes: L73.2 - Hidradenitis suppurativa SNOMED: 62528445 (9) Wound dehiscence ICD Codes: T81.30XA - Disruption of wound, unspecified, initial encounter SNOMED: 379750263 (10) Hypoalbuminemia ICD Codes: E88.09 - Other disorders of plasma-protein metabolism, not elsewhere classified SNOMED: 088043168 (11) Hyponatremia ICD Codes: E87.1 - Hypo-osmolality and hyponatremia SNOMED: 08427695 (12) Postoperative fever ICD Codes: R50.82 - Postprocedural fever SNOMED: 668710389 (13) UTI (urinary tract infection) ICD Codes: N39.0 - Urinary tract infection, site not specified SNOMED: 60767821 (14) Fatty liver ICD Codes: K76.0 - Fatty (change of) liver, not elsewhere classified SNOMED: 777296788 (15) Abnormal LFTs ICD Codes: R79.89 - Other specified abnormal findings of blood chemistry SNOMED: 574204433 (16) Acute DVT (deep venous thrombosis) ICD Codes: I82.409 - Acute embolism and thrombosis of unspecified deep veins of unspecified lower extremity SNOMED: 296831541597562 (17) Depressed ICD Codes: F32.9 - Major depressive disorder, single episode, unspecified SNOMED: 29024298 (18) Thrombocytosis ICD Codes: D47.3 - Essential (hemorrhagic) thrombocythemia SNOMED: 2036721, 190927122 (19) Depressed affect ICD Codes: R45.89 - Other symptoms and signs involving emotional state SNOMED: 421853867 (20) Wound abscess ICD Codes: T81.4XXA - Wound abscess SNOMED: 004395448 (21) Cellulitis ICD Codes: L03.90 - Cellulitis SNOMED: 493834072 (22) Hyponatremia ICD Codes: E87.1 - Hyponatremia SNOMED: 13493536 (23) Anemia due to acute blood loss ICD Codes: D62 - Anemia due to acute blood loss SNOMED: 175041514 Status: doing well, stable Assessment/Plan mdd remeron ativan Subjective Constitutional: Reports: weakness Neurologic/Psychiatric: Reports: anxiety, depressed, emotional problems Allergies: Coded Allergies: Pork (Unverified Allergy, Unknown, 11/18/14) PT DOES NOT EAT ANY PORK, PORK CONTAINING PRODUCTS Subjective the pt is doing well/ sleep is better on Remeron. Objective Last 24 Hour Vital Signs Date Time Temp Pulse Resp B/P (MAP) Pulse Ox O2 Delivery O2 Flow Rate FiO2 03/04/17 12:00 18 03/04/17 12:00 98.4 99 20 108/72 99 Room Air 03/04/17 08:00 98.3 81 18 109/69 98 Room Air 03/04/17 08:00 18 03/04/17 04:00 18 03/04/17 04:00 97.7 82 18 116/70 100 Room Air 03/04/17 00:00 98.2 85 18 112/74 99 Room Air 03/04/17 00:00 20 03/03/17 20:00 18 03/03/17 19:25 99.0 94 18 107/71 100 Room Air 03/03/17 18:46 98.7 03/03/17 16:50 98.7 90 18 104/68 100 Room Air 03/03/17 16:35 97.9 95 18 102/68 100 Room Air 03/03/17 16:02 98.2 90 18 100/66 98 Room Air 03/03/17 16:00 20 03/03/17 16:00 98.3 86 19 121/73 97 Room Air 03/03/17 14:21 98.0 03/03/17 13:30 98.9 98 18 119/68 98 Room Air 03/03/17 13:15 98.3 90 19 115/75 100 Room Air Intake and Output 03/04/17 03/05/17 19:00 07:00 Intake Total 240 ml Output Total 650 ml Balance -410 ml Intake Oral 240 ml Output Urine Total 650 ml Laboratory Tests 03/04/17 06:34: White Blood Count 7.7, Red Blood Count 3.82L, Hemoglobin 10.2#L, Hematocrit 31.9L, Mean Corpuscular Volume 83, Mean Corpuscular Hemoglobin 26.7L, Mean Corpuscular Hemoglobin Concent 32.0, Red Cell Distribution Width 15.2H, Platelet Count 394, Mean Platelet Volume 7.5, Neutrophils (%) (Auto) 62.9, Lymphocytes (%) (Auto) 23.0, Monocytes (%) (Auto) 10.7H, Eosinophils (%) (Auto) 2.6, Basophils (%) (Auto) 0.8 Height (Feet): 5 Height (Inches): 6.00 Weight (Pounds): 250 General Appearance: no apparent distress, alert, thin Neurologic: alert, oriented x 3, responsive, depressed affect Justice Do M.D. Mar 04, 2017 12:48
--- NOTE | 2017-03-04 16:44 | General Progress Note ---
Assessment/Plan Assessment/Plan ASSESSMENT: 1. Deep venous thrombosis history as well as acute on --> currently on lovenox as well as xarelto. DC lovenox when inr reaches 2 2. Anemia secondary to chronic disease. Anemia panel reviewed. No iron deficiency, ferritin is elevated. --> s/p 2 units of prbc 3. Thrombocytosis, likely secondary to reactive process from anemia --> resolved. 4. Hidradenitis suppurativa. S/p multiple groin wound surgeries. 5. Psychiatric disorder, depression. Has been seen by Dr. Do. Subjective Constitutional: Reports: no symptoms HEENT: Reports: no symptoms Cardiovascular: Reports: no symptoms Respiratory: Reports: no symptoms Gastrointestinal/Abdominal: Reports: no symptoms Genitourinary: Reports: no symptoms Neurologic/Psychiatric: Reports: no symptoms Endocrine: Reports: no symptoms Hematologic/Lymphatic: Reports: no symptoms Allergies: Coded Allergies: Pork (Unverified Allergy, Unknown, 11/18/14) PT DOES NOT EAT ANY PORK, PORK CONTAINING PRODUCTS Subjective feeling better, HH improved Objective Last 24 Hour Vital Signs Date Time Temp Pulse Resp B/P (MAP) Pulse Ox O2 Delivery O2 Flow Rate FiO2 03/04/17 16:00 20 03/04/17 12:00 18 03/04/17 12:00 98.4 99 20 108/72 99 Room Air 03/04/17 08:00 98.3 81 18 109/69 98 Room Air 03/04/17 08:00 18 03/04/17 04:00 18 03/04/17 04:00 97.7 82 18 116/70 100 Room Air 03/04/17 00:00 98.2 85 18 112/74 99 Room Air 03/04/17 00:00 20 03/03/17 20:00 18 03/03/17 19:25 99.0 94 18 107/71 100 Room Air 03/03/17 18:46 98.7 03/03/17 16:50 98.7 90 18 104/68 100 Room Air Intake and Output 03/04/17 03/05/17 19:00 07:00 Intake Total 240 ml Output Total 650 ml Balance -410 ml Intake Oral 240 ml Output Urine Total 650 ml Laboratory Tests 03/04/17 06:34: White Blood Count 7.7, Red Blood Count 3.82L, Hemoglobin 10.2#L, Hematocrit 31.9L, Mean Corpuscular Volume 83, Mean Corpuscular Hemoglobin 26.7L, Mean Corpuscular Hemoglobin Concent 32.0, Red Cell Distribution Width 15.2H, Platelet Count 394, Mean Platelet Volume 7.5, Neutrophils (%) (Auto) 62.9, Lymphocytes (%) (Auto) 23.0, Monocytes (%) (Auto) 10.7H, Eosinophils (%) (Auto) 2.6, Basophils (%) (Auto) 0.8 Height (Feet): 5 Height (Inches): 6.00 Weight (Pounds): 250 General Appearance: no apparent distress EENT: normal ENT inspection Neck: normal alignment Cardiovascular: normal rate, regular rhythm Respiratory/Chest: no accessory muscle use Extremities: normal range of motion Sha Jimenes Mar 04, 2017 16:44
[2017-03-04] MEDS ORDERED: NS 275ml ONE (18:14)
[2017-03-04] MEDS ORDERED: D5NS 1000ml IV ONE (18:14)
--- NOTE | 2017-03-05 22:41 | General Progress Note ---
Assessment/Plan Problem List: (1) h/o DVT (2) HTN (hypertension) ICD Codes: I10 - Essential (primary) hypertension SNOMED: 07916003 (3) Leukocytosis ICD Codes: D72.829 - Elevated white blood cell count, unspecified SNOMED: 419583443, 501590962 (4) Sepsis ICD Codes: A41.9 - Sepsis, unspecified organism SNOMED: 60310080 (5) Acute blood loss anemia ICD Codes: D62 - Acute posthemorrhagic anemia SNOMED: 407454194 (6) Iron deficiency anemia ICD Codes: D50.9 - Iron deficiency anemia, unspecified SNOMED: 94481261 (7) SOB (shortness of breath) ICD Codes: R06.02 - Shortness of breath SNOMED: 543940591 (8) Hidradenitis suppurativa ICD Codes: L73.2 - Hidradenitis suppurativa SNOMED: 03639565 (9) Wound dehiscence ICD Codes: T81.30XA - Disruption of wound, unspecified, initial encounter SNOMED: 514946727 (10) Hypoalbuminemia ICD Codes: E88.09 - Other disorders of plasma-protein metabolism, not elsewhere classified SNOMED: 646513465 (11) Hyponatremia ICD Codes: E87.1 - Hypo-osmolality and hyponatremia SNOMED: 46093296 (12) Postoperative fever ICD Codes: R50.82 - Postprocedural fever SNOMED: 231637419 (13) UTI (urinary tract infection) ICD Codes: N39.0 - Urinary tract infection, site not specified SNOMED: 73151298 (14) Fatty liver ICD Codes: K76.0 - Fatty (change of) liver, not elsewhere classified SNOMED: 960805103 (15) Abnormal LFTs ICD Codes: R79.89 - Other specified abnormal findings of blood chemistry SNOMED: 167051325 (16) Acute DVT (deep venous thrombosis) ICD Codes: I82.409 - Acute embolism and thrombosis of unspecified deep veins of unspecified lower extremity SNOMED: 589573240965300 (17) Depressed ICD Codes: F32.9 - Major depressive disorder, single episode, unspecified SNOMED: 51849711 (18) Thrombocytosis ICD Codes: D47.3 - Essential (hemorrhagic) thrombocythemia SNOMED: 8965319, 002205408 (19) Depressed affect ICD Codes: R45.89 - Other symptoms and signs involving emotional state SNOMED: 532492040 (20) Wound abscess ICD Codes: T81.4XXA - Wound abscess SNOMED: 275492068 (21) Cellulitis ICD Codes: L03.90 - Cellulitis SNOMED: 150108899 (22) Hyponatremia ICD Codes: E87.1 - Hyponatremia SNOMED: 98902203 (23) Anemia due to acute blood loss ICD Codes: D62 - Anemia due to acute blood loss SNOMED: 002197262 Assessment/Plan mdd klaudia ativan Subjective Date patient seen: Feb 26, 2017 Allergies: Coded Allergies: Pork (Unverified Allergy, Unknown, 11/18/14) PT DOES NOT EAT ANY PORK, PORK CONTAINING PRODUCTS Subjective the pt is anxious reluctant to take meds Objective Height (Feet): 5 Height (Inches): 6.00 Weight (Pounds): 250 Justice Do M.D. Mar 05, 2017 22:41
== END 2017-03-04 18:15 | disposition home health service (06) | DRG 576 ==
LOC: EMR 11:40 → 3E 12:44 → EDBEDREQ 12:47
PROC: 0JBM0ZZ Excision of Left Upper Leg Subcutaneous Tissue and Fascia, Open Approach (ICD-10-PCS; principal; 2017-01-29 14:00)
PROC: 0JB80ZZ Excision of Abdomen Subcutaneous Tissue and Fascia, Open Approach (ICD-10-PCS; principal; 2017-01-29 14:00)
PROC: 0H8JXZZ Division of Left Upper Leg Skin, External Approach (ICD-10-PCS; principal; 2017-01-29 14:00)
PROC: 0JBL0ZZ Excision of Right Upper Leg Subcutaneous Tissue and Fascia, Open Approach (ICD-10-PCS; principal; 2017-01-29 14:00)
PROC: 0H8HXZZ Division of Right Upper Leg Skin, External Approach (ICD-10-PCS; principal; 2017-01-29 14:00)
PROC: 0JXL0ZC Transfer Right Upper Leg Subcutaneous Tissue and Fascia with Skin, Subcutaneous Tissue and Fascia, Open Approach (ICD-10-PCS; 2017-01-31)
PROC: 0JX80ZC Transfer Abdomen Subcutaneous Tissue and Fascia with Skin, Subcutaneous Tissue and Fascia, Open Approach (ICD-10-PCS; 2017-01-31)
PROC: 0JXM0ZC Transfer Left Upper Leg Subcutaneous Tissue and Fascia with Skin, Subcutaneous Tissue and Fascia, Open Approach (ICD-10-PCS; 2017-01-31)
PROC: 0JDM0ZZ Extraction of Left Upper Leg Subcutaneous Tissue and Fascia, Open Approach (ICD-10-PCS; 2017-01-31)
PROC: 0HR7X74 Replacement of Abdomen Skin with Autologous Tissue Substitute, Partial Thickness, External Approach (ICD-10-PCS; 2017-01-31)
PROC: 0JDL0ZZ Extraction of Right Upper Leg Subcutaneous Tissue and Fascia, Open Approach (ICD-10-PCS; 2017-01-31)
PROC: 0JXM0ZC Transfer Left Upper Leg Subcutaneous Tissue and Fascia with Skin, Subcutaneous Tissue and Fascia, Open Approach (ICD-10-PCS; 2017-02-10)
PROC: 0JDC0ZZ Extraction of Pelvic Region Subcutaneous Tissue and Fascia, Open Approach (ICD-10-PCS; 2017-02-10)
PROC: 0JDM0ZZ Extraction of Left Upper Leg Subcutaneous Tissue and Fascia, Open Approach (ICD-10-PCS; 2017-02-10)
PROC: 0JXL0ZC Transfer Right Upper Leg Subcutaneous Tissue and Fascia with Skin, Subcutaneous Tissue and Fascia, Open Approach (ICD-10-PCS; 2017-02-10)
PROC: 0JDL0ZZ Extraction of Right Upper Leg Subcutaneous Tissue and Fascia, Open Approach (ICD-10-PCS; 2017-02-10)
PROC: 2W17X6Z Compression of Left Inguinal Region using Pressure Dressing (ICD-10-PCS; 2017-02-19)
PROC: 0JDC0ZZ Extraction of Pelvic Region Subcutaneous Tissue and Fascia, Open Approach (ICD-10-PCS; 2017-02-19)
PROC: 2W16X6Z Compression of Right Inguinal Region using Pressure Dressing (ICD-10-PCS; 2017-02-19)
PROC: 0JXM0ZC Transfer Left Upper Leg Subcutaneous Tissue and Fascia with Skin, Subcutaneous Tissue and Fascia, Open Approach (ICD-10-PCS; 2017-02-19)
PROC: 2W0NX6Z Change Pressure Dressing on Right Upper Leg (ICD-10-PCS; 2017-02-22)
PROC: 2W0PX6Z Change Pressure Dressing on Left Upper Leg (ICD-10-PCS; 2017-02-22)
PROC: 2W06X6Z Change Pressure Dressing on Right Inguinal Region (ICD-10-PCS; 2017-02-22)
PROC: 2W07X6Z Change Pressure Dressing on Left Inguinal Region (ICD-10-PCS; 2017-02-22)
PROC: 2W5 Placement, Anatomical Regions, Removal (ICD-10-PCS; 2017-02-27)
PROC: 2W5 Placement, Anatomical Regions, Removal (ICD-10-PCS; 2017-02-27)
PROC: 2W5 Placement, Anatomical Regions, Removal (ICD-10-PCS; 2017-02-27)
PROC: 2W5PX6Z Removal of Pressure Dressing on Left Upper Leg (ICD-10-PCS; 2017-02-27)
DX: L73.2 Hidradenitis suppurativa (principal); A41.9 Sepsis, unspecified organism; D68.59 Other primary thrombophilia; I82.412 Acute embolism and thrombosis of left femoral vein; D62 Acute posthemorrhagic anemia; E87.1 Hypo-osmolality and hyponatremia; E88.09 Other disorders of plasma-protein metabolism, not elsewhere classified; K76.0 Fatty (change of) liver, not elsewhere classified; T81.31XA Disruption of external operation (surgical) wound, not elsewhere classified, initial encounter; N39.0 Urinary tract infection, site not specified; Z86.718 Personal history of other venous thrombosis and embolism; D50.9 Iron deficiency anemia, unspecified; L02.214 Cutaneous abscess of groin; L02.412 Cutaneous abscess of left axilla; L02.411 Cutaneous abscess of right axilla; F32.9 Major depressive disorder, single episode, unspecified; I10 Essential (primary) hypertension
CPT/HCPCS: 36415; 71010; 71020; 76700; 80048; 80053; 80076; 81001; 81003; 81241; 81270; 82040; 82140; 82728; 83036; 83090; 83540; 83550; 83605; 83735; 83880; 83930; 83935; 84134; 84300; 84443; 84484; 84550; 85007; 85025; 85303; 85305; 85610; 85613; 85730; 86147; 86850; 86900; 86901; 86920; 87040; 87086; 87181; 93005; 93970; 93971; 94003; 94150; 94760; J2180; J2250; J2405; J2710; J2765